=== PATIENT | male | born 1975 | race Caucasian/White ===

== ENCOUNTER 2018-03-05 10:46 | Emergency (ER) | payer MEDICARE, MEDICAID, SELFPAY | END 2018-03-05 17:59 | disposition home or self-care (01) | PROVIDERS: Emergency Provider Internal Medicine; Visit Provider Internal Medicine | DX: J18.9 Pneumonia, unspecified organism (principal); I50.9 Heart failure, unspecified | CPT/HCPCS: 36415; 71020; 71046; 71260; 71275; 81003; 83605; 83735; 83880; 84484; 85025; 85610; 93005; 93010; 94640; 96361; 96374; 96376; 99058; 99285; J1940; J7613 ==

== ENCOUNTER 2018-04-09 14:07 | Emergency (ER) | payer MEDICARE, MEDICAID, SELFPAY ==
[2018-04-09 14:11] VITALS: BP 127/83; PULSE 87; RESP 20; TEMP 36.1; O2SAT 97; BMI 48.8
--- NOTE | 2018-04-09 14:20 | ED.ABDPAIN ---
HPI - Abdominal Pain General Chief Complaint: Abdominal Pain Stated Complaint: CHRONS FLAIR UP,DEHYDRATION Time Seen by Provider: 04/09/18 14:20 History of Present Illness HPI narrative: 42M extensive pmhx. IBD Crohn's; NSTEMI x2, CHF, hypertrophic cardiomyopathy; here for evaluation of possible IBD flare because for last five days patient has been unable to tolerate PO intake. Was placed on liquid only diet by Dr. Camargo. Patient admits to having tried to eat a burrito and some eggs today, and now has significant abdominal pain and vomiting. Also reports 2 episodes of diarrheal incontinence. No fever, chills, SOB, or chest pain. No dysuria. Takes 40mg prednisone and usually takes sulfasalazine, but stopped 3 days prior, citing that he is under the impression that his GI doctor was going to change his medication at the appointment 3 days ago he missed. 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 Also history of appendectomy. PCP Dr. Wiggins in [place] [facility]: GI Dr. Camargo Related Data Home Medications Medication Instructions Recorded Confirmed aripiprazole [Abilify] 10 mg PO QDAY #0 03/05/18 04/09/18 promethazine 25 mg PO Q6HP PRN #0 03/05/18 04/09/18 alprazolam 1 mg PO BID 03/23/18 04/09/18 alprazolam 2 tab PO QHS 03/23/18 04/09/18 budesonide-formoterol [Symbicort] 2 puff INHALATION BID 03/23/18 04/09/18 divalproex 500 mg PO BID 03/23/18 04/09/18 duloxetine 60 mg PO BID 03/23/18 04/09/18 ferrous gluconate 1 tab PO QDAY 03/23/18 04/09/18 fluticasone 1 spray INTRANASAL QDAY 03/23/18 04/09/18 krill oil 1 cap PO QDAY 03/23/18 04/09/18 metoprolol succinate [Toprol XL] 100 mg PO BID 03/23/18 04/09/18 milnacipran [Savella] 50 mg PO QDAY 03/23/18 04/09/18 milnacipran [Savella] 100 mg PO QPM 03/23/18 04/09/18 omeprazole 40 mg PO BID 03/23/18 04/09/18 oxycodone-acetaminophen 1 tab PO PRN PRN 03/23/18 04/09/18 prazosin 2 mg PO QDAY 03/23/18 04/09/18 prazosin 4 mg PO QHS 03/23/18 04/09/18 pregabalin [Lyrica] 300 mg PO BID 03/23/18 04/09/18 ranitidine HCl 150 mg PO BID 03/23/18 04/09/18 sulfasalazine 1,000 mg PO TID 03/23/18 04/09/18 tizanidine 8 mg PO TID PRN 03/23/18 04/09/18 vit C-vit [id number]-3 1 tab PO QDAY 03/23/18 04/09/18 [Ocuvite] zolpidem 5 mg PO QHS 03/23/18 04/09/18 doxepin 25 mg PO QHS 04/09/18 04/09/18 verapamil 60 mg PO DAILY 04/09/18 04/09/18 Previous Rx's Medication Instructions Recorded dicyclomine 20 mg PO Q6H #20 tab 04/09/18 Allergies Allergy/AdvReac Type Severity Reaction Status Date / Time codeine [CODEINE] Allergy Severe ANAPHYLAXIS Verified 03/23/18 11:11 trazodone Allergy Mild DISURIA Verified 04/09/18 14:15 amitriptyline [AMITRIPTYLINE] Allergy Unknown DIZZINESS Verified 03/23/18 11:11 AND UNSTEADYINESS tramadol [From ULTRAM] Allergy Unknown Verified 03/23/18 11:11 bee venom protein (honey bee) Allergy Verified 04/09/18 14:16 squash Allergy Verified 04/09/18 14:16 lisinopril [LISINOPRIL] AdvReac Unknown Verified 03/23/18 11:11 NSAIDS (Non-Steroidal AdvReac Unknown Verified 03/23/18 11:11 Anti-Inflamma [NSAIDS (NON-STEROIDAL ANTI-INFLAMMA] telmisartan [From MICARDIS] AdvReac Unknown Verified 03/23/18 11:11 Review of Systems Constitutional Denies chills, Denies fever(s), Denies lethargy and Denies weakness ENT Ears, Nose, Mouth, and Throat: Denies change in voice, Denies neck pain and Denies sore throat Cardiovascular Denies dyspnea and Denies dyspnea on exertion Respiratory Denies cough, Denies dyspnea, Denies dyspnea on exertion and Denies wheezing Gastrointestinal Gastrointestinal: Reports abdominal pain, Reports diarrhea, Reports nausea and Reports vomiting Genitourinary Denies hematuria, Denies dysuria and Denies flank pain Musculoskeletal Denies neck pain Neurologic Denies weakness Hematologic/Lymphatic Denies easy bruising Allergic/Immunologic Denies wheezing PFSH Medical History Acute Crohn's disease (Acute) Bulging disc (Acute) HTN (hypertension) (Acute) Non-STEMI (non-ST elevated myocardial infarction) (Acute) Osteoarthritis (Acute) Social History Smoking Status: Current every day smoker Exam Initial Vital Signs Initial Vital Signs: Vital Signs Temperature 97 F L 04/09/18 14:11 Pulse Rate 87 04/09/18 14:11 Respiratory Rate 20 04/09/18 14:11 Blood Pressure 127/83 H 04/09/18 14:11 Pulse Oximetry 97 04/09/18 14:11 Const General: cooperative and well developed Nutritional Appearance: well nourished Orientation: alert, awake, oriented x3 and not confused HENHI Head: normocephalic and atraumatic Ears: external ears normal and TM's normal bilaterally Nose: external nose normal and No nasal discharge Face and sinus: sinuses nontender, face symmetric, no sinus tenderness and No dry mucous membranes Mouth: oral mucosae normal and moist mucous membranes Teeth and gingiva: dentition normal Throat: tonsils normal and uvula midline Chest Chest: normal inspection of the chest Cardio Rate: regular rate Rhythm: regular rhythm Heart Sounds: no click, no gallops, no murmurs and no rubs Pulses: normal peripheral pulses GI Inspection: distended, large pannus and obesity (Morbid) Palpation: soft, No guarding, No pulsatile mass and tender (Generalized) Back/Spine/Pelvis Back: normal to inspection and No CVA tenderness Skin General: no rashes or lesions noted, No jaundice and No petechiae Course Orders Ordered: ED Orders 04/09/18 14:07 Comprehensive Metabolic Panel Stat 04/09/18 14:42 CT abdomen pelvis w con Stat 04/09/18 14:55 C-Reactive Protein Quant Stat Complete Blood Count AUTO DIFF Stat Erythrocyte Sedimentation Rate Stat Lactate (Lactic Acid) Stat Lipase Stat Magnesium Stat Troponin with CK Cardiac Panel Stat Discontinued Medications Hyoscyamine (Levbid) 0.375 mg PO BID ONE Stop: 04/09/18 14:38 Last Admin: 04/09/18 15:25 Dose: 0.375 mg Sodium Chloride (Normal Saline 0.9%) 1,000 mls @ 1,000 mls/hr IV BOLUS ONE Stop: 04/09/18 15:34 Last Infusion: 04/09/18 16:30 Dose: 0 mls/hr Admin: 04/09/18 15:25 Dose: 1,000 mls/hr Sodium Chloride (Normal Saline 0.9%) 1,000 mls @ 1,000 mls/hr IV BOLUS ONE Stop: 04/09/18 16:59 Last Admin: 04/09/18 16:30 Dose: 1,000 mls/hr Methylprednisolone (Solu-Medrol 125 Mg Vial) 125 mg IV NOW ONE Stop: 04/09/18 14:43 Last Admin: 04/09/18 15:25 Dose: 125 mg Morphine Sulfate (Morphine) 10 mg IV NOW ONE Stop: 04/09/18 14:36 Last Admin: 04/09/18 15:33 Dose: Morphine Sulfate (Morphine Sulfate) 10 mg IV NOW ONE Stop: 04/09/18 15:31 Last Admin: 04/09/18 15:33 Dose: 10 mg Morphine Sulfate (Morphine) 8 mg IV NOW ONE Stop: 04/09/18 16:41 Last Admin: 04/09/18 16:46 Dose: Not Given Morphine Sulfate (Morphine) 8 mg IV NOW ONE Stop: 04/09/18 16:46 Last Admin: 04/09/18 16:51 Dose: 8 mg Ondansetron HCl (Zofran) 4 mg IV NOW ONE Stop: 04/09/18 14:36 Last Admin: 04/09/18 15:25 Dose: 4 mg Vital Signs - 8 hr 04/09/18 14:11 Temperature 97 F L Pulse Rate 87 Respiratory Rate 20 Blood Pressure 127/83 H Pulse Oximetry 97 MDM - Abdominal Pain Differential Diagnosis Differential diagnosis: Likely abdominal pain (Crohn's flare; colitis), gastroenteritis and small bowel obstruction Lab Data Result diagrams: 04/09/18 14:55 04/09/18 14:07 Lab Results 04/09/18 04/09/18 04/09/18 Range/Units 14:07 14:55 14:55 WBC 5.4 (4.5-11.0) X10^3/uL RBC 4.36 L (4.5-5.9) X10^6/uL Hgb 13.6 (13.5-17.5) g/dL Hct 40.3 L (41-53) % MCV 92.4 (80-100) fL MCH 31.1 (26-34) PG MCHC 33.7 (30-36) % RDW 15.8 H (11.6-14.8) % Plt Count 213 (150-400) X10^3/uL Neut % (Auto) 65.6 (50-75) % Lymph % (Auto) 26.3 (25-40) % [place] % (Auto) 7.1 (3-14) % Eos % (Auto) 0.3 L (2-4) % Baso % (Auto) 0.7 (0-2) % Neut # (Auto) 3600 (7185-0744) /uL ESR 6 (0-15) MM/HR Sodium 146 H (137-145) mmol/L Potassium 3.5 (3.4-5.1) mmol/L Chloride 106.0 (98-107) mmol/L Carbon Dioxide 26.0 (22-32) mmol/L BUN 12.0 (9-20) mg/dL Creatinine 0.80 (0.66-1.25) mg/dL Estimated GFR > 60.0 (>60) mL/min BUN/Creatinine Ratio 15.0 (6-22) Glucose 117 H (70-100) mg/dL Lactate (0.7-2.1) mmol/L Calcium 9.1 (8.4-10.2) mg/dL Magnesium 2.0 (1.6-2.3) mg/dL Total Bilirubin 0.5 (0.2-1.3) mg/dL AST 17 (17-59) IU/L ALT 31 (21-72) IU/L Alkaline Phosphatase 44 (38-126) U/L Total Creatine Kinase 43 L (55-170) U/L Troponin I < 0.012 (0.01-0.034) ng/mL C-Reactive Protein 0.7 (<1.0) mg/dL Total Protein 6.6 (6.3-8.2) g/dL Albumin 4.0 (3.5-5.0) g/dL Globulin 2.6 (1.7-4.1) g/dL Albumin/Globulin Ratio 1.5 (1.0-2.8) Lipase 63 (23-300) U/L Urine Color Urine Appearance Urine pH (4.5-8.0) Ur Specific [place] (1.000-1.035) Urine Protein (Negative) Urine Glucose (UA) (Negative) g/dL Urine Ketones (NEGATIVE) Urine Occult Blood (Negative) Urine Nitrate (Negative) Urine Bilirubin (NEGATIVE) Urine Urobilinogen (0.2) E.U./dL Ur Leukocyte Esterase (NEGATIVE) Urine RBC (0-5/HPF) Urine WBC (0-5/HPF) Urine Bacteria (None) Ur Culture Indicated? Micro UA Comment 04/09/18 04/09/18 Range/Units 14:55 Unknown WBC (4.5-11.0) X10^3/uL RBC (4.5-5.9) X10^6/uL Hgb (13.5-17.5) g/dL Hct (41-53) % MCV (80-100) fL MCH (26-34) PG MCHC (30-36) % RDW (11.6-14.8) % Plt Count (150-400) X10^3/uL Neut % (Auto) (50-75) % Lymph % (Auto) (25-40) % [place] % (Auto) (3-14) % Eos % (Auto) (2-4) % Baso % (Auto) (0-2) % Neut # (Auto) (1121-3246) /uL ESR (0-15) MM/HR Sodium (137-145) mmol/L Potassium (3.4-5.1) mmol/L Chloride (98-107) mmol/L Carbon Dioxide (22-32) mmol/L BUN (9-20) mg/dL Creatinine (0.66-1.25) mg/dL Estimated GFR (>60) mL/min BUN/Creatinine Ratio (6-22) Glucose (70-100) mg/dL Lactate 1.5 (0.7-2.1) mmol/L Calcium (8.4-10.2) mg/dL Magnesium (1.6-2.3) mg/dL Total Bilirubin (0.2-1.3) mg/dL AST (17-59) IU/L ALT (21-72) IU/L Alkaline Phosphatase (38-126) U/L Total Creatine Kinase (55-170) U/L Troponin I (0.01-0.034) ng/mL C-Reactive Protein (<1.0) mg/dL Total Protein (6.3-8.2) g/dL Albumin (3.5-5.0) g/dL Globulin (1.7-4.1) g/dL Albumin/Globulin Ratio (1.0-2.8) Lipase (23-300) U/L Urine Color Yellow Urine Appearance Clear Urine pH 6.5 (4.5-8.0) Ur Specific [place] 1.010 (1.000-1.035) Urine Protein Negative (Negative) Urine Glucose (UA) Negative (Negative) g/dL Urine Ketones Trace H (NEGATIVE) Urine Occult Blood Negative (Negative) Urine Nitrate Negative (Negative) Urine Bilirubin Negative (NEGATIVE) Urine Urobilinogen 0.2 (0.2) E.U./dL Ur Leukocyte Esterase Negative (NEGATIVE) Urine RBC None seen (0-5/HPF) Urine WBC None seen (0-5/HPF) Urine Bacteria None seen (None) Ur Culture Indicated? Cult not indicated Micro UA Comment Microscopic normal Imaging Data CT scan - abdomen: Radiologist's impression: Patient: Edgar Leon [facility]#: [id number] : 1975Acct:[id number] Age/Sex: 42 / MDate of Service: 04/09/18 Loc: ED Accession Number: [id number] Procedure: CT abdomen pelvis w con Ordering Provider: Juanita Pendleton M.D. PROCEDURE: CT ABDOMEN PELVIS W CON INDICATIONS: Generalized abd pain, hx Crohn's TECHNIQUE: After the administration of intravenous contrast, 5 mm thick sections acquired from the diaphragm to the symphysis. 5 mm coronal and sagittal reformats were acquired. For radiation dose reduction, the following was used: automated exposure control, adjustment of mA and/or kV according to patient size. COMPARISON: None. FINDINGS: Image quality: Excellent. ABDOMEN: Lung bases: Lung bases are clear. Heart size is normal. Solid organs: Liver is normal in size and enhancement. Gallbladder demonstrates layering increased density most consistent with gallbladder sludge or tiny cholelithiasis. No CT evidence of acute cholecystitis. Biliary system is non dilated. Pancreas enhances normally. Spleen is normal in size and enhancement. No adrenal nodules. Kidneys demonstrate normal size and enhancement, without hydronephrosis. There is 16mm intermediate density mid right renal nodule (se 2 im 49). Peritoneum and bowel: Mild wall thickening the terminal ileum area no bowel obstruction or perforation. Remaining small bowel is normal. Appendectomy.: And stomach are radiographically normal. Nodes and vessels: No retroperitoneal or mesenteric adenopathy by size criteria. Aorta and inferior vena cava are normal in size. Miscellaneous: No ventral hernias. PELVIS: Genitourinary: Bladder wall thickness is normal. Miscellaneous: No inguinal hernias or adenopathy. Bones: No suspicious bony lesions. No vertebral body compression fractures. IMPRESSION: 1. Mild wall thickening in the terminal ileum. No obstruction or perforation. 2. Gallbladder sludge or cholelithiasis. No CT evidence of acute cholecystitis. 3. Indeterminate right renal nodule. Recommend ultrasound to exclude a solid mass. Dictated by: Gianluca Garrett M.D. on 04/09/2018 at 15:16 Approved by: Gianluca Garrett M.D. on 04/09/2018 at 15:27 MDM Narrative Medical decision making narrative: Patient with possible Crohn's concerned for flare with abdominal pain and diarrhea. Has normal lactate, no acute electrolyte abnormalities, WBC 5.4. Patient condition can still be managed as outpatient with liquid diet. CT abd pelvis negative for acute pathology requiring admission or urgent intervention. Case discussed with Dr. Moreno, regional director of finance for GI Dr. Camargo. States patient does not have definitive diagnosis of Crohn's yet. Has appointment April 19 for follow up. Agrees with plan for discharge with liquid/bland diet. Patient to follow up with GI specialist and PCP Discharge Plan Departure Patient Disposition: Home, Self-Care Clinical Impression: Abdominal pain Instructions: DI for Abdominal Pain-Adult Activity Restrictions/Additional Instructions: Liquid and soft diet until cleared by GI. Follow up on the 19 of April as appointed. Maintain adequate hydration. Prescriptions: New dicyclomine 20 mg tablet 20 mg PO Q6H Qty: 20 RF: 0 No Action promethazine 25 MG tablet 25 mg PO Q6HP PRN (Reason: Nausea) Qty: 0 RF: 0 aripiprazole [Abilify] 10 MG tablet 10 mg PO QDAY Qty: 0 RF: 0 verapamil 120 mg tablet extended release 60 mg PO DAILY RF: 0 doxepin 25 mg capsule 25 mg PO QHS RF: 0 alprazolam 1 mg tablet 1 mg PO BID RF: 0 alprazolam 1 mg Tablet 2 tab PO QHS RF: 0 metoprolol succinate [Toprol XL] 100 mg tablet extended release 24 hr 100 mg PO BID RF: 0 oxycodone-acetaminophen 10-325 mg tablet 1 tab PO PRN PRN (Reason: Pain, Severe) RF: 0 tizanidine 4 mg tablet 8 mg PO TID PRN (Reason: Muscle Spasm) RF: 0 omeprazole 40 mg capsule,delayed release(DR/EC) 40 mg PO BID RF: 0 zolpidem 5 mg tablet 5 mg PO QHS RF: 0 prazosin 2 mg capsule 2 mg PO QDAY RF: 0 prazosin 2 mg Capsule 4 mg PO QHS RF: 0 milnacipran [Savella] 50 mg Tablet 100 mg PO QPM RF: 0 milnacipran [Savella] 50 mg tablet 50 mg PO QDAY RF: 0 sulfasalazine 500 mg tablet 1,000 mg PO TID RF: 0 divalproex 500 mg tablet,delayed release (DR/EC) 500 mg PO BID RF: 0 ranitidine HCl 150 mg tablet 150 mg PO BID RF: 0 fluticasone 50 mcg/actuation spray,suspension 1 spray Intranasal QDAY RF: 0 duloxetine 60 mg capsule,delayed release(DR/EC) 60 mg PO BID RF: 0 pregabalin [Lyrica] 300 mg capsule 300 mg PO BID RF: 0 ferrous gluconate 324 mg (38 mg iron) tablet 1 tab PO QDAY RF: 0 budesonide-formoterol [Symbicort] 160-4.5 mcg/actuation HFA aerosol inhaler 2 puff Inhalation BID RF: 0 vit C-vit [id number]-3 [Ocuvite] 149-70-8-150 bb-[id number]-[id number]-mg Capsule 1 tab PO QDAY RF: 0 krill oil capsule 1 cap PO QDAY RF: 0 Referrals: Kieran Gordillo MD [Non-Staff] -
--- NOTE | 2018-04-09 14:42 | DI.CT.S_ITS ---
PROCEDURE: CT ABDOMEN PELVIS W CON INDICATIONS: Generalized abd pain, hx Crohn's TECHNIQUE: After the administration of intravenous contrast, 5 mm thick sections acquired from the diaphragm to the symphysis. 5 mm coronal and sagittal reformats were acquired. For radiation dose reduction, the following was used: automated exposure control, adjustment of mA and/or kV according to patient size. COMPARISON: None. FINDINGS: Image quality: Excellent. ABDOMEN: Lung bases: Lung bases are clear. Heart size is normal. Solid organs: Liver is normal in size and enhancement. Gallbladder demonstrates layering increased density most consistent with gallbladder sludge or tiny cholelithiasis. No CT evidence of acute cholecystitis. Biliary system is non dilated. Pancreas enhances normally. Spleen is normal in size and enhancement. No adrenal nodules. Kidneys demonstrate normal size and enhancement, without hydronephrosis. There is 16mm intermediate density mid right renal nodule (se 2 im 49). Peritoneum and bowel: Mild wall thickening the terminal ileum area no bowel obstruction or perforation. Remaining small bowel is normal. Appendectomy.: And stomach are radiographically normal. Nodes and vessels: No retroperitoneal or mesenteric adenopathy by size criteria. Aorta and inferior vena cava are normal in size. Miscellaneous: No ventral hernias. PELVIS: Genitourinary: Bladder wall thickness is normal. Miscellaneous: No inguinal hernias or adenopathy. Bones: No suspicious bony lesions. No vertebral body compression fractures. IMPRESSION: 1. Mild wall thickening in the terminal ileum. No obstruction or perforation. 2. Gallbladder sludge or cholelithiasis. No CT evidence of acute cholecystitis. 3. Indeterminate right renal nodule. Recommend ultrasound to exclude a solid mass. Dictated by: Gianluca Garrett M.D. on 04/09/2018 at 15:16 Approved by: Gianluca Garrett M.D. on 04/09/2018 at 15:27
[2018-04-09 15:20] LABS: Add Manual Diff / Slide Review NO; Basophils Percent Auto 0.7 % (0-2); Eosinophils Percent Auto 0.3 % (2-4); Hematocrit 40.3 % (41-53); Hemoglobin 13.6 g/dL (13.5-17.5); Lymphocytes Percent Auto 26.3 % (25-40); Mean Corpuscular HGB Conc 33.7 % (30-36); Mean Corpuscular Hemoglobin 31.1 PG (26-34); Mean Corpuscular Volume 92.4 fL (80-100); Monocytes Percent Auto 7.1 % (3-14); Neutrophils Absolute Auto 3600 /uL (3000-5900); Neutrophils Percent Auto 65.6 % (50-75); Platelet Count 213 X10^3/uL (150-400); Red Blood Cell Count 4.36 X10^6/uL (4.5-5.9); Red Cell Distribution Width 15.8 % (11.6-14.8); White Blood Cell Count 5.4 X10^3/uL (4.5-11.0)
[2018-04-09] MEDS: ONDANSETRON 4 MG/2 ML INJ IV (15:25)
[2018-04-09] MEDS: methylPREDNISolone 125 MG/2 ML VIAL IV (15:25)
[2018-04-09] MEDS: HYOSCYAMINE 0.375 MG PO (15:25)
[2018-04-09] MEDS: SODIUM CHLORIDE 0.9% 1,000 ML 1000 ML IV ×2 (15:25→16:30)
[2018-04-09 15:27] LABS: Lactate (Lactic Acid) 1.5 mmol/L (0.7-2.1)
[2018-04-09 15:30] LABS: C-Reactive Protein Quant 0.7 mg/dL (<1.0); Creatine Kinase 43 U/L (55-170); Lipase 63 U/L (23-300)
[2018-04-09] MEDS: MORPHINE 5 MG/ML INJ 10 MG IV (15:33)
[2018-04-09 15:40] LABS: Troponin I < 0.012 ng/mL (0.01-0.034)
[2018-04-09 15:48] LABS: Alanine Aminotransferase 31 IU/L (21-72); Albumin Globulin Ratio 1.5 (1.0-2.8); Alkaline Phosphatase 44 U/L (38-126); Aspartate Aminotransferase 17 IU/L (17-59); Bilirubin Total 0.5 mg/dL (0.2-1.3); Calcium 9.1 mg/dL (8.4-10.2); Estimated Glomerular Filt Rate > 60.0 mL/min (>60); Globulin 2.6 g/dL (1.7-4.1); Glucose 117 mg/dL (70-100); HEMOLYSIS 22 (0-50); Potassium 3.5 mmol/L (3.4-5.1); Sodium 146 mmol/L (137-145); Total Protein 6.6 g/dL (6.3-8.2)
[2018-04-09 16:42] LABS: Bacteria Urine None Seen; RBC Urine None Seen (0-5/HPF); WBC Urine None Seen (0-5/HPF)
[2018-04-09 16:44] LABS: Appearance Urine UA CLEAR; Bilirubin Urine UA NEGATIVE (NEGATIVE); Color Urine UA YELLOW; Glucose Urine UA NEGATIVE (Negative); Ketones Urine UA TRACE (NEGATIVE); Leukocyte Esterase Urine UA NEGATIVE (NEGATIVE); Nitrite Urine UA Negative (Negative); Occult Blood Urine UA NEGATIVE (Negative); Protein Urine UA NEGATIVE (Negative); Urobilinogen Urine UA 0.2 E.U./dL (0.2); pH Urine UA 6.5 (4.5-8.0)
[2018-04-09] MEDS: MORPHINE 4 MG/ML INJ 8 MG IV (16:51)
[2018-04-09 16:54] LABS: Culture Indicated Urine Cult Not Indicated; Urine Comments Microscopic Normal
[2018-04-09 16:59] LABS: Erythrocyte Sedimentation Rate 6 MM/HR (0-15)
[2018-04-09 18:04] VITALS: BP 141/85; PULSE 67; RESP 15; O2SAT 93
== END 2018-04-09 18:06 | disposition home or self-care (01) ==
PROVIDERS: Emergency Provider Student in an Organized Health Care Education/Training Program
DX: R10.9 Unspecified abdominal pain (principal)
CPT/HCPCS: 36591; 74177; 80053; 81001; 82550; 82553; 83605; 83690; 83735; 84484; 85025; 85651; 86140; 96361; 96374; 96375; 96376; 99283; 99284; J2270; J2405; J2930; Q9967

== ENCOUNTER 2018-04-29 06:46 | Emergency (ER) | payer MEDICARE, MEDICAID, SELFPAY ==
[2018-04-29] VITALS (8 sets, daily range): BP systolic 121–166; BP diastolic 63–98; PULSE 71–96; RESP 10–20; O2SAT 85–100; BMI 48.3
[2018-04-29] MEDS: NITROGLYCERIN 0.4 MG SL TAB SL ×3 (07:00→07:09)
--- NOTE | 2018-04-29 07:02 | DI.RAD.S_ITS ---
PROCEDURE: XR CHEST 1V INDICATIONS: chest pain TECHNIQUE: One view of the chest was acquired. COMPARISON: None. FINDINGS: Surgical changes and devices: Wireless pacer. Lungs and pleura: No pleural effusions or pneumothorax. Lungs are clear. Mediastinum: Mediastinal contours appear normal. Heart size is normal. Bones and chest wall: No suspicious bony lesions. Overlying soft tissues appear unremarkable. IMPRESSION: No radiographic evidence of acute cardiopulmonary pathology. Dictated by: Gianluca Garrett M.D. on 04/29/2018 at 8:16 Approved by: Gianluca Garrett M.D. on 04/29/2018 at 8:16
[2018-04-29] MEDS: ASPIRIN 81 MG TAB 324 MG PO (07:05)
[2018-04-29] MEDS: SODIUM CHLORIDE 0.9% 1,000 ML 150 ML IV (07:11)
[2018-04-29] MEDS: MORPHINE 5 MG/ML INJ 4 MG IV (07:11)
[2018-04-29 07:13] LABS: Add Manual Diff / Slide Review NO; Basophils Percent Auto 1.3 % (0-2); Eosinophils Percent Auto 0.1 % (2-4); Hematocrit 42.9 % (41-53); Hemoglobin 14.4 g/dL (13.5-17.5); Lymphocytes Percent Auto 25.1 % (25-40); Mean Corpuscular HGB Conc 33.5 % (30-36); Mean Corpuscular Hemoglobin 31.1 PG (26-34); Monocytes Percent Auto 6.2 % (3-14); Neutrophils Absolute Auto 6200 /uL (3000-5900); Neutrophils Percent Auto 67.3 % (50-75); Platelet Count 220 X10^3/uL (150-400); Red Blood Cell Count 4.61 X10^6/uL (4.5-5.9); Red Cell Distribution Width 14.9 % (11.6-14.8); White Blood Cell Count 9.2 X10^3/uL (4.5-11.0)
--- NOTE | 2018-04-29 07:19 | DI.RAD.S_ITS ---
PROCEDURE: XR HAND RT MIN 3V INDICATIONS: thumb pain after fall TECHNIQUE: 3 views of the hand(s) acquired. COMPARISON: None. FINDINGS: Bones: No fractures or dislocations. Carpal bones are normally aligned. No suspicious bony lesions. Soft tissues: No suspicious soft tissue calcifications. IMPRESSION: No acute fractures or dislocations. If symptoms persist consider followup radiograph series in 7-10 days. Dictated by: Gianluca Garrett M.D. on 04/29/2018 at 8:18 Approved by: Gianluca Garrett M.D. on 04/29/2018 at 8:19
--- NOTE | 2018-04-29 07:19 | DI.RAD.S_ITS ---
PROCEDURE: XR KNEE RT 3V INDICATIONS: fall down stairs TECHNIQUE: 3 views of the knee were acquired. COMPARISON: [facility], , KNEE 3V RIGHT, 08/29/2017, 22:48. FINDINGS: Bones: No fractures or dislocations. Irregularity and heterotopic bone formation at the medial right femoral condyle. Tricompartmental degenerative change greatest in the lateral and patellofemoral joints. Soft tissues: No joint effusion. No suspicious soft tissue calcifications. IMPRESSION: No acute fractures or dislocations. Degenerative change greatest in the lateral and patellofemoral joints stable since the previous study. Heterotopic ossification arising from the medial epicondyle may be related to previous trauma. An osteochondroma is unlikely. Dictated by: Gianluca Garrett M.D. on 04/29/2018 at 8:16 Approved by: Gianluca Garrett M.D. on 04/29/2018 at 8:18
[2018-04-29] MEDS: PANTOPRAZOLE 40 MG VIAL IV (07:22)
[2018-04-29 07:23] LABS: Alanine Aminotransferase 34 IU/L (21-72); Albumin 4.1 g/dL (3.5-5.0); Albumin Globulin Ratio 1.5 (1.0-2.8); Alkaline Phosphatase 56 U/L (38-126); Aspartate Aminotransferase 17 IU/L (17-59); BUN Creatinine Ratio 25.7 (6-22); Bilirubin Total 0.3 mg/dL (0.2-1.3); Blood Urea Nitrogen 18 mg/dL (9-20); Calcium 9.2 mg/dL (8.4-10.2); Carbon Dioxide 28 mmol/L (22-32); Chloride 104 mmol/L (98-107); Creatine Kinase 58 U/L (55-170); Estimated Glomerular Filt Rate > 60.0 mL/min (>60); Globulin 2.8 g/dL (1.7-4.1); Glucose 87 mg/dL (70-100); HEMOLYSIS 23 (0-50); Lipase 155 U/L (23-300); Sodium 143 mmol/L (137-145); Total Protein 6.9 g/dL (6.3-8.2)
[2018-04-29 07:34] LABS: Troponin I 0.023 ng/mL (0.01-0.034)
--- NOTE | 2018-04-29 07:46 | ED_ITS ---
HPI - Chest Pain General Chief Complaint: Chest Pain Stated Complaint: FELL DOWN STAIRS Time Seen by Provider: 04/29/18 07:11 Source: patient Mode of arrival: ambulatory Limitations: no limitations History of Present Illness HPI narrative: Patient is a 42-year-old male with known coronary artery disease and hypertrophic cardiomyopathy. He initially fell down about 5 or 6 stairs. He landed on his left knee but he says his right knee is hurting the most. He also injured his right thumb. He was driving himself here to the emergency department for evaluation when he has had sudden of epigastric pain which felt similar to his previous heart attacks. He was slightly short of breath but not diaphoretic. He has now had nitroglycerin and is feeling better. He was able to ambulate to the car. MD complaint: chest pain Related Data Home Medications Medication Instructions Recorded Confirmed aripiprazole [Abilify] 10 mg PO QDAY #0 03/05/18 04/29/18 promethazine 25 mg PO Q6HP PRN #0 03/05/18 04/29/18 alprazolam 1 mg PO BID 03/23/18 04/29/18 alprazolam 2 tab PO QHS 03/23/18 04/29/18 budesonide-formoterol [Symbicort] 2 puff INHALATION BID 03/23/18 04/29/18 divalproex 500 mg PO BID 03/23/18 04/29/18 duloxetine 60 mg PO BID 03/23/18 04/29/18 ferrous gluconate 1 tab PO QDAY 03/23/18 04/29/18 fluticasone 1 spray INTRANASAL QDAY 03/23/18 04/29/18 krill oil 1 cap PO QDAY 03/23/18 04/29/18 metoprolol succinate [Toprol XL] 100 mg PO BID 03/23/18 04/29/18 milnacipran [Savella] 50 mg PO QDAY 03/23/18 04/29/18 milnacipran [Savella] 100 mg PO QPM 03/23/18 04/29/18 omeprazole 40 mg PO BID 03/23/18 04/29/18 oxycodone-acetaminophen 1 tab PO PRN PRN 03/23/18 04/29/18 prazosin 2 mg PO QDAY 03/23/18 04/29/18 prazosin 4 mg PO QHS 03/23/18 04/29/18 pregabalin [Lyrica] 300 mg PO BID 03/23/18 04/29/18 ranitidine HCl 150 mg PO BID 03/23/18 04/29/18 sulfasalazine 1,000 mg PO TID 03/23/18 04/29/18 tizanidine 8 mg PO TID PRN 03/23/18 04/29/18 vit C-vit [id number] 1 tab PO QDAY 03/23/18 04/29/18 [Ocuvite] zolpidem 5 mg PO QHS 03/23/18 04/29/18 doxepin 25 mg PO QHS 04/09/18 04/29/18 verapamil 60 mg PO DAILY 04/09/18 04/29/18 dicyclomine 20 mg PO BID 04/29/18 04/29/18 Allergies Allergy/AdvReac Type Severity Reaction Status Date / Time codeine [CODEINE] Allergy Severe ANAPHYLAXIS Verified 03/23/18 11:11 trazodone Allergy Mild DISURIA Verified 04/09/18 14:15 amitriptyline [AMITRIPTYLINE] Allergy Unknown DIZZINESS Verified 03/23/18 11:11 AND UNSTEADYINESS tramadol [From ULTRAM] Allergy Unknown Verified 03/23/18 11:11 bee venom protein (honey bee) Allergy Verified 04/09/18 14:16 squash Allergy Verified 04/09/18 14:16 lisinopril [LISINOPRIL] AdvReac Unknown Verified 03/23/18 11:11 NSAIDS (Non-Steroidal AdvReac Unknown Verified 03/23/18 11:11 Anti-Inflamma [NSAIDS (NON-STEROIDAL ANTI-INFLAMMA] telmisartan [From MICARDIS] AdvReac Unknown Verified 03/23/18 11:11 Review of Systems Review of Systems All systems reviewed & are unremarkable except as noted in HPI and below Constitutional Denies chills, Denies fever(s), Denies lethargy and Denies weakness Cardiovascular Reports as per HPI, Reports system reviewed and no additional complaints, except as docu, Reports chest pain, Denies dyspnea and Denies dyspnea on exertion Respiratory Denies cough, Denies dyspnea, Denies dyspnea on exertion and Denies wheezing Gastrointestinal Gastrointestinal: Denies diarrhea and Denies nausea Comments: Epigastric pain Musculoskeletal Reports system reviewed and no additional complaints, except as docu, Reports as per HPI, Denies abnormal gait, Denies back pain, Denies muscle weakness, Denies numbness and Denies tingling Comments: Right knee pain, right thumb pain Integumentary/Breasts Denies pruritus, Denies erythema, Denies rash and Denies wounds Neurologic Denies abnormal gait, Denies numbness, Denies tingling and Denies weakness Allergic/Immunologic Denies wheezing [facility] Medical History Acute Crohn's disease (Acute) Bulging disc (Acute) HTN (hypertension) (Acute) Non-STEMI (non-ST elevated myocardial infarction) (Acute) Osteoarthritis (Acute) Social History Smoking Status: Current every day smoker Exam Initial Vital Signs Initial Vital Signs: Vital Signs Pulse Rate 85 04/29/18 06:54 Respiratory Rate 20 04/29/18 06:54 Blood Pressure 149/89 H 04/29/18 06:54 Pulse Oximetry 93 04/29/18 06:54 Const General: cooperative and well developed Nutritional Appearance: obese Orientation: alert, awake, oriented x3 and not confused Chest Chest: normal inspection of the chest Resp Effort & Inspection: normal respiratory effort, able to speak in complete sentences, no respiratory distress and no use of accessory muscles Auscultation: clear to auscultation bilaterally, no rales, no rhonchi and no wheezes Cardio Rate: regular rate Rhythm: regular rhythm Heart Sounds: no click, no gallops, no murmurs and no rubs Pulses: normal peripheral pulses GI Palpation: soft, No guarding and tender Skin General: no rashes or lesions noted, No jaundice and No petechiae Neuro General: alert, oriented x3, gait normal and no focal motor deficits Speech: speech normal Extrem Right lower extremity: hip/thigh (Nontender full range of motion) and knee ( Knee is stable negative anterior and negative posterior drawer) Left lower extremity: hip/thigh (Nontender full range of motion) and knee ( Minor abrasion full range of motion stable) Course Orders Ordered: ED Orders 04/29/18 10:05 Troponin I Stat 04/29/18 10:43 EKG-12 Lead Stat Discontinued Medications Aspirin (Aspirin Chew) 324 mg PO NOW ONE Stop: 04/29/18 07:03 Last Admin: 04/29/18 07:05 Dose: 324 mg Sodium Chloride (Normal Saline 0.9%) 1,000 mls @ 150 mls/hr IV CONT ALEX Last Infusion: 04/29/18 11:28 Dose: 150 mls/hr Admin: 04/29/18 07:11 Dose: 150 mls/hr Morphine Sulfate (Morphine Sulfate) 4 mg IV NOW ONE Stop: 04/29/18 07:11 Last Admin: 04/29/18 07:11 Dose: 4 mg Nitroglycerin (Nitrostat) 0.4 mg SL [id number] PRN PRN Reason: Chest Pain Last Admin: 04/29/18 07:09 Dose: 0.4 mg Admin: 04/29/18 07:05 Dose: 0.4 mg Admin: 04/29/18 07:00 Dose: 0.4 mg Pantoprazole Sodium (Protonix) 40 mg IV NOW ONE Stop: 04/29/18 07:21 Last Admin: 04/29/18 07:22 Dose: 40 mg Reevaluation(s) Reevaluation #1: Sleeping, resting comfortably, chest pain-free Time: 08:52 Vital Signs - 8 hr 04/29/18 10:36 04/29/18 11:00 Pulse Rate 82 85 Respiratory Rate 15 15 Blood Pressure [Right Arm] 154/93 H 166/87 H Pulse Oximetry 100 99 MDM - Chest Pain Lab Data Attestation: I reviewed the patient's lab results. Result diagrams: 04/29/18 06:57 04/29/18 06:57 Lab Results 04/29/18 04/29/18 04/29/18 Range/Units 06:57 06:57 06:57 WBC 9.2 (4.5-11.0) X10^3/uL RBC 4.61 (4.5-5.9) X10^6/uL Hgb 14.4 (13.5-17.5) g/dL Hct 42.9 (41-53) % MCV 93.0 (80-100) fL MCH 31.1 (26-34) PG MCHC 33.5 (30-36) % RDW 14.9 H (11.6-14.8) % Plt Count 220 (150-400) X10^3/uL Neut % (Auto) 67.3 (50-75) % Lymph % (Auto) 25.1 (25-40) % Pleasants % (Auto) 6.2 (3-14) % Eos % (Auto) 0.1 L (2-4) % Baso % (Auto) 1.3 (0-2) % Neut # (Auto) 6200 H (3417-1006) /uL D-Dimer 224 (<230) ng/mL Sodium 143 (137-145) mmol/L Potassium 4.0 (3.4-5.1) mmol/L Chloride 104 (98-107) mmol/L Carbon Dioxide 28 (22-32) mmol/L BUN 18 (9-20) mg/dL Creatinine 0.70 (0.66-1.25) mg/dL Estimated GFR > 60.0 (>60) mL/min BUN/Creatinine Ratio 25.7 H (6-22) Glucose 87 (70-100) mg/dL Calcium 9.2 (8.4-10.2) mg/dL Total Bilirubin 0.3 (0.2-1.3) mg/dL AST 17 (17-59) IU/L ALT 34 (21-72) IU/L Alkaline Phosphatase 56 (38-126) U/L Total Creatine Kinase 58 (55-170) U/L Troponin I 0.023 (0.01-0.034) ng/mL Total Protein 6.9 (6.3-8.2) g/dL Albumin 4.1 (3.5-5.0) g/dL Globulin 2.8 (1.7-4.1) g/dL Albumin/Globulin Ratio 1.5 (1.0-2.8) Lipase 155 (23-300) U/L 04/29/18 04/29/18 Range/Units 06:57 10:05 WBC (4.5-11.0) X10^3/uL RBC (4.5-5.9) X10^6/uL Hgb (13.5-17.5) g/dL Hct (41-53) % MCV (80-100) fL MCH (26-34) PG MCHC (30-36) % RDW (11.6-14.8) % Plt Count (150-400) X10^3/uL Neut % (Auto) (50-75) % Lymph % (Auto) (25-40) % Pleas[place] % (Auto) (3-14) % Eos % (Auto) (2-4) % Baso % (Auto) (0-2) % Neut # (Auto) (6383-0707) /uL D-Dimer (<230) ng/mL Sodium (137-145) mmol/L Potassium (3.4-5.1) mmol/L Chloride (98-107) mmol/L Carbon Dioxide (22-32) mmol/L BUN (9-20) mg/dL Creatinine (0.66-1.25) mg/dL Estimated GFR (>60) mL/min BUN/Creatinine Ratio (6-22) Glucose (70-100) mg/dL Calcium (8.4-10.2) mg/dL Total Bilirubin (0.2-1.3) mg/dL AST (17-59) IU/L ALT (21-72) IU/L Alkaline Phosphatase (38-126) U/L Total Creatine Kinase (55-170) U/L Troponin I Cancelled 0.023 (0.01-0.034) ng/mL Total Protein (6.3-8.2) g/dL Albumin (3.5-5.0) g/dL Globulin (1.7-4.1) g/dL Albumin/Globulin Ratio (1.0-2.8) Lipase (23-300) U/L Imaging Data Chest x-ray: Radiologist's impression: PROCEDURE: XR CHEST 1V INDICATIONS: chest pain TECHNIQUE: One view of the chest was acquired. COMPARISON: None. FINDINGS: Surgical changes and devices: Wireless pacer. Lungs and pleura: No pleural effusions or pneumothorax. Lungs are clear. Mediastinum: Mediastinal contours appear normal. Heart size is normal. Bones and chest wall: No suspicious bony lesions. Overlying soft tissues appear unremarkable. IMPRESSION: No radiographic evidence of acute cardiopulmonary pathology. Right knee x-ray: Radiologist's impression: PROCEDURE: XR KNEE RT 3V INDICATIONS: fall down stairs TECHNIQUE: 3 views of the knee were acquired. COMPARISON: [facility], , KNEE 3V RIGHT, 08/29/2017, 22:48. FINDINGS: Bones: No fractures or dislocations. Irregularity and heterotopic bone formation at the medial right femoral condyle. Tricompartmental degenerative change greatest in the lateral and patellofemoral joints. Soft tissues: No joint effusion. No suspicious soft tissue calcifications. IMPRESSION: No acute fractures or dislocations. Degenerative change greatest in the lateral and patellofemoral joints stable since the previous study. Heterotopic ossification arising from the medial epicondyle may be related to previous trauma. An osteochondroma is unlikely. Dictated by: Gianluca Garrett M.D. on 04/29/2018 at 8:16 Right hand x-ray: Radiologist's impression: PROCEDURE: XR HAND RT MIN 3V INDICATIONS: thumb pain after fall TECHNIQUE: 3 views of the hand(s) acquired. COMPARISON: None. FINDINGS: Bones: No fractures or dislocations. Carpal bones are normally aligned. No suspicious bony lesions. Soft tissues: No suspicious soft tissue calcifications. IMPRESSION: No acute fractures or dislocations. If symptoms persist consider followup radiograph series in 7-10 days. Dictated by: Gianluca Garrett M.D. on 04/29/2018 at 8:18 ECG Data Attestation: I personally reviewed and interpreted this ECG as follows: Prior ECG tracings: available for review Interpretation: Normal sinus rhythm rate 82 with deep T-wave inversions similar to previous no acute ST changes. EKG 2. Remains unchanged, sinus rhythm rate [address] segments or T- wave inversions MDM Narrative Medical decision making narrative: Patient has been sleeping off and has not had any recurrence of chest pain since he got morphine. He says the morphine took away pain completely. But initially came in with knee pain and wrist pain after a fall. He is now more interested in getting to [place] tomorrow for his chronic pain appointment. He has 2 sets of troponins which are negative and no EKG changes. Discharge Plan Departure Patient Disposition: Home, Self-Care Clinical Impression: Atypical chest pain, Knee sprain, Sprain of wrist Discharge Date/Time: 04/29/18 11:39 Interventions: ED Discharge Assessment Last Done: 04/29/18 11:29 Instructions: DI for Knee Sprain, DI for Atypical Chest Pain Activity Restrictions/Additional Instructions: *You have been diagnosed with atypical chest pain number right knee sprain and right wrist sprain *What to do: Wear immobilizer is as needed increase activity as tolerated, may still require further cardiac evaluation. 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, call today to schedule point *Return to ER if you should have increasing chest pain, numbness or tingling or any new, worsening or concerning symptoms Prescriptions: No Action promethazine 25 MG tablet 25 mg PO Q6HP PRN (Reason: Nausea) Qty: 0 RF: 0 aripiprazole [Abilify] 10 MG tablet 10 mg PO QDAY Qty: 0 RF: 0 verapamil 120 mg tablet extended release 60 mg PO DAILY RF: 0 doxepin 25 mg capsule 25 mg PO QHS RF: 0 alprazolam 1 mg tablet 1 mg PO BID RF: 0 alprazolam 1 mg Tablet 2 tab PO QHS RF: 0 metoprolol succinate [Toprol XL] 100 mg tablet extended release 24 hr 100 mg PO BID RF: 0 oxycodone-acetaminophen 10-325 mg tablet 1 tab PO PRN PRN (Reason: Pain, Severe) RF: 0 tizanidine 4 mg tablet 8 mg PO TID PRN (Reason: Muscle Spasm) RF: 0 omeprazole 40 mg capsule,delayed release(DR/EC) 40 mg PO BID RF: 0 zolpidem 5 mg tablet 5 mg PO QHS RF: 0 prazosin 2 mg capsule 2 mg PO QDAY RF: 0 prazosin 2 mg Capsule 4 mg PO QHS RF: 0 milnacipran [Savella] 50 mg Tablet 100 mg PO QPM RF: 0 milnacipran [Savella] 50 mg tablet 50 mg PO QDAY RF: 0 sulfasalazine 500 mg tablet 1,000 mg PO TID RF: 0 divalproex 500 mg tablet,delayed release (DR/EC) 500 mg PO BID RF: 0 ranitidine HCl 150 mg tablet 150 mg PO BID RF: 0 fluticasone 50 mcg/actuation spray,suspension 1 spray Intranasal QDAY RF: 0 duloxetine 60 mg capsule,delayed release(DR/EC) 60 mg PO BID RF: 0 pregabalin [Lyrica] 300 mg capsule 300 mg PO BID RF: 0 ferrous gluconate 324 mg (38 mg iron) tablet 1 tab PO QDAY RF: 0 budesonide-formoterol [Symbicort] 160-4.5 mcg/actuation HFA aerosol inhaler 2 puff Inhalation BID RF: 0 vit C-vit [id number] [Ocuvite] [id number] we-maoa-as-mg Capsule 1 tab PO QDAY RF: 0 krill oil capsule 1 cap PO QDAY RF: 0 dicyclomine 20 mg tablet 20 mg PO BID RF: 0
[2018-04-29 07:55] LABS: D Dimer 224 ng/mL (<230)
--- NOTE | 2018-04-29 08:13 | PC.NURSE ---
Nurse & Doctor said to put patient on nasal cannula @2L
[2018-04-29 10:39] LABS: Troponin I 0.023 ng/mL (0.01-0.034)
== END 2018-04-29 11:39 | disposition home or self-care (01) ==
PROVIDERS: Emergency Provider Emergency Medicine
DX: R07.89 Other chest pain (principal); S83.91XA Sprain of unspecified site of right knee, initial encounter; S63.501A Unspecified sprain of right wrist, initial encounter; W10.8XXA Fall (on) (from) other stairs and steps, initial encounter
CPT/HCPCS: 36415; 36591; 71045; 73130; 73562; 80053; 82550; 82553; 83690; 84484; 85025; 85379; 93005; 93041; 96361; 96374; 96375; 99285; C9113; J2270

== ENCOUNTER 2018-04-30 16:48 | Emergency (ER) | payer MEDICARE, MEDICAID, SELFPAY ==
--- NOTE | 2018-04-30 17:04 | ED.ABDPAIN ---
HPI - Abdominal Pain <Marie Amaral PA-C - Last Filed: 04/30/18 20:25> General Chief Complaint: GI Bleed Stated Complaint: BLOOD IN STOOL AND PRESSURE Time Seen by Provider: 04/30/18 16:59 Source: patient Mode of arrival: ambulatory Limitations: no limitations History of Present Illness HPI narrative: This 42-year-old male returns to the ED today due to rectal bleeding about 90 min prior to arriving. He states that he has a history of Crohn's disease and has had ongoing abdominal cramping and distention for several months. He was actually supposed to start Lialda a few days ago but did not start this yet. He has a colonoscopy scheduled next month. He states that he has been also having intermittent diarrhea, but for the last couple of days has been constipated. He had a bowel movement and noticed blood in the toilet and on the toilet paper. He states this was quite a bit of blood, not sure what color. He did not see this mixed in with the stool. He states he has a sensation of rectal pressure. He has been going about his usual activities today including driving to [place] to see his chronic pain specialist. He has been sitting all day. He states there is no change in his chronic abdominal pain at all. He denies any nausea or vomiting. He has not had any new fever. He denies new chest pain or dyspnea today and has been eating and drinking as he usually does. Related Data Home Medications Medication Instructions Recorded Confirmed aripiprazole [Abilify] 10 mg PO QDAY #0 03/05/18 04/30/18 promethazine 25 mg PO Q6HP PRN #0 03/05/18 04/30/18 alprazolam 1 mg PO BID 03/23/18 04/30/18 alprazolam 2 tab PO QHS 03/23/18 04/30/18 budesonide-formoterol [Symbicort] 2 puff INHALATION BID 03/23/18 04/30/18 divalproex 500 mg PO BID 03/23/18 04/30/18 duloxetine 60 mg PO BID 03/23/18 04/30/18 ferrous gluconate 1 tab PO QDAY 03/23/18 04/30/18 fluticasone 1 spray INTRANASAL QDAY 03/23/18 04/30/18 krill oil 1 cap PO QDAY 03/23/18 04/30/18 metoprolol succinate [Toprol XL] 100 mg PO BID 03/23/18 04/30/18 milnacipran [Savella] 50 mg PO QDAY 03/23/18 04/30/18 milnacipran [Savella] 100 mg PO QPM 03/23/18 04/30/18 omeprazole 40 mg PO BID 03/23/18 04/30/18 oxycodone-acetaminophen 1 tab PO PRN PRN 03/23/18 04/30/18 prazosin 2 mg PO QDAY 03/23/18 04/30/18 prazosin 4 mg PO QHS 03/23/18 04/30/18 pregabalin [Lyrica] 300 mg PO BID 03/23/18 04/30/18 ranitidine HCl 150 mg PO BID 03/23/18 04/30/18 sulfasalazine 1,000 mg PO TID 03/23/18 04/30/18 tizanidine 8 mg PO TID PRN 03/23/18 04/30/18 vit C-vit O-xipxok-zdd-om-3 1 tab PO QDAY 03/23/18 04/30/18 [Ocuvite] zolpidem 5 mg PO QHS 03/23/18 04/30/18 doxepin 25 mg PO QHS 04/09/18 04/30/18 verapamil 60 mg PO DAILY 04/09/18 04/30/18 dicyclomine 20 mg PO BID PRN 04/29/18 04/30/18 eszopiclone 3 mg PO BEDTIME PRN 04/30/18 04/30/18 mesalamine 4 tab PO QAM 04/30/18 04/30/18 prednisone 1 dose PO TAPER 04/30/18 04/30/18 Previous Rx's Medication Instructions Recorded prednisone 40 mg PO DAILY #14 tab 04/30/18 Allergies Allergy/AdvReac Type Severity Reaction Status Date / Time codeine [CODEINE] Allergy Severe ANAPHYLAXIS Verified 04/30/18 17:18 trazodone Allergy Mild DISURIA Verified 04/30/18 17:18 amitriptyline [AMITRIPTYLINE] Allergy Unknown DIZZINESS Verified 04/30/18 17:18 AND UNSTEADYINESS tramadol [From ULTRAM] Allergy Unknown Verified 04/30/18 17:18 bee venom protein (honey bee) Allergy Verified 04/30/18 17:18 squash Allergy Verified 04/30/18 17:18 lisinopril [LISINOPRIL] AdvReac Unknown Verified 04/30/18 17:18 NSAIDS (Non-Steroidal AdvReac Unknown Verified 04/30/18 17:18 Anti-Inflamma [NSAIDS (NON-STEROIDAL ANTI-INFLAMMA] telmisartan [From MICARDIS] AdvReac Unknown Verified 04/30/18 17:18 Review of Systems <Marie Amaral PA-C - Last Filed: 04/30/18 20:25> Review of Systems All systems reviewed & are unremarkable except as noted in HPI and below Exam <Marie Amaral PA-C - Last Filed: 04/30/18 20:25> Narrative Exam Narrative: GENERAL APPEARANCE: Patient sitting comfortably, in no distress. HEENT: PERRL, EOMI, no scleral icterus NECK: Supple LUNGS: Clear to auscultation bilaterally. HEART: Rate and rhythm regular, normal S1 and S2, no S3 or S4. ABDOMEN: Soft, obese, nondistended, bowel sounds present x 4 quadrants, no masses palpable, no hepatosplenomegaly. Mild generalized tenderness to palpation without guarding or rebound EXTREMITIES: No edema, no cyanosis DERMATOLOGIC: No jaundice or exanthem NEUROLOGIC: Alert and oriented with normal speech and coordination RECTAL: There is a small tag at 12 o'clock, no other external lesions or hemorrhoids. No palpable internal lesions. Normal sphincter tone. Brown stool in vault guaiac-positive Initial Vital Signs Initial Vital Signs: Vital Signs Temperature 98.3 F 04/30/18 17:05 Pulse Rate 98 H 04/30/18 17:05 Respiratory Rate 16 04/30/18 17:05 Blood Pressure 161/91 H 04/30/18 17:05 Pulse Oximetry 98 04/30/18 17:05 <Gini Gaines DO - Last Filed: 05/01/18 08:54> Initial Vital Signs Initial Vital Signs: Vital Signs Temperature 98.3 F 04/30/18 17:05 Pulse Rate 98 H 04/30/18 17:05 Respiratory Rate 16 04/30/18 17:05 Blood Pressure 161/91 H 04/30/18 17:05 Pulse Oximetry 98 04/30/18 17:05 Course <Marie Amaral PA-C - Last Filed: 04/30/18 20:25> Hospital Course: I reviewed patient's findings with Dr. Gaines. Patient was supposed to start Lialda and stop Sulfasalazine a few days ago, but he has not started the Lialda yet. He has also been tapering prednisone, decreased to 20 mg 2 days ago. This correlates time kruse with his symptoms. She agrees reasonable to treat for Crohn's exacerbation. Advised to restart 40 mg of prednisone over the weekend and contact his GI tomorrow if open or otherwise on Thursday for further instructions, also start the Lialda as directed. He was agreeable and also with plan to return if acutely worse in the interim. Orders Ordered: Discontinued Medications Oxycodone/Acetaminophen (Percocet 5/325) 1 tab PO NOW ONE Stop: 04/30/18 17:23 Last Admin: 04/30/18 17:47 Dose: 1 tab Pantoprazole Sodium (Protonix) 40 mg IV NOW ONE Stop: 04/30/18 17:22 Last Admin: 04/30/18 17:47 Dose: 40 mg Vital Signs - 8 hr 04/30/18 17:05 Temperature 98.3 F Pulse Rate 98 H Respiratory Rate 16 Blood Pressure 161/91 H Pulse Oximetry 98 <Gini Gaines DO - Last Filed: 05/01/18 08:54> Orders Ordered: Discontinued Medications Oxycodone/Acetaminophen (Percocet 5/325) 1 tab PO NOW ONE Stop: 04/30/18 17:23 Last Admin: 04/30/18 17:47 Dose: 1 tab Pantoprazole Sodium (Protonix) 40 mg IV NOW ONE Stop: 04/30/18 17:22 Last Admin: 04/30/18 17:47 Dose: 40 mg Vital Signs - 8 hr 04/30/18 17:05 Temperature 98.3 F Pulse Rate 98 H Respiratory Rate 16 Blood Pressure 161/91 H Pulse Oximetry 98 MDM - Abdominal Pain <Marie Amaral PA-C - Last Filed: 04/30/18 20:25> Lab Data Attestation: I reviewed the patient's lab results. Result diagrams: 04/30/18 17:30 04/30/18 17:30 Lab Results 04/30/18 04/30/18 04/30/18 Range/Units 17:30 17:30 17:30 WBC 8.0 (4.5-11.0) X10^3/uL RBC 4.69 (4.5-5.9) X10^6/uL Hgb 14.7 (13.5-17.5) g/dL Hct 43.7 (41-53) % MCV 93.0 (80-100) fL MCH 31.3 (26-34) PG MCHC 33.7 (30-36) % RDW 14.7 (11.6-14.8) % Plt Count 221 (150-400) X10^3/uL Neut % (Auto) 68.3 (50-75) % Lymph % (Auto) 22.6 L (25-40) % [place] % (Auto) 7.8 (3-14) % Eos % (Auto) 0.3 L (2-4) % Baso % (Auto) 1.0 (0-2) % Neut # (Auto) 5400 (4467-1615) /uL Sodium 143 (137-145) mmol/L Potassium 4.0 (3.4-5.1) mmol/L Chloride 103 (98-107) mmol/L Carbon Dioxide 27 (22-32) mmol/L BUN 15 (9-20) mg/dL Creatinine 0.70 (0.66-1.25) mg/dL Estimated GFR > 60.0 (>60) mL/min BUN/Creatinine Ratio 21.4 (6-22) Glucose 124 H (70-100) mg/dL Calcium 9.3 (8.4-10.2) mg/dL Total Bilirubin 0.4 (0.2-1.3) mg/dL AST 19 (17-59) IU/L ALT 36 (21-72) IU/L Alkaline Phosphatase 60 (38-126) U/L Total Protein 7.1 (6.3-8.2) g/dL Albumin 4.2 (3.5-5.0) g/dL Globulin 2.9 (1.7-4.1) g/dL Albumin/Globulin Ratio 1.4 (1.0-2.8) Lipase 128 (23-300) U/L Blood Type O Positive Antibody Screen Negative <Gini Botnick, DO - Last Filed: 05/01/18 08:54> Lab Data Lab Results 04/30/18 04/30/18 04/30/18 Range/Units 17:30 17:30 17:30 WBC 8.0 (4.5-11.0) X10^3/uL RBC 4.69 (4.5-5.9) X10^6/uL Hgb 14.7 (13.5-17.5) g/dL Hct 43.7 (41-53) % MCV 93.0 (80-100) fL MCH 31.3 (26-34) PG MCHC 33.7 (30-36) % RDW 14.7 (11.6-14.8) % Plt Count 221 (150-400) X10^3/uL Neut % (Auto) 68.3 (50-75) % Lymph % (Auto) 22.6 L (25-40) % Stark % (Auto) 7.8 (3-14) % Eos % (Auto) 0.3 L (2-4) % Baso % (Auto) 1.0 (0-2) % Neut # (Auto) 5400 (0821-6349) /uL Sodium 143 (137-145) mmol/L Potassium 4.0 (3.4-5.1) mmol/L Chloride 103 (98-107) mmol/L Carbon Dioxide 27 (22-32) mmol/L BUN 15 (9-20) mg/dL Creatinine 0.70 (0.66-1.25) mg/dL Estimated GFR > 60.0 (>60) mL/min BUN/Creatinine Ratio 21.4 (6-22) Glucose 124 H (70-100) mg/dL Calcium 9.3 (8.4-10.2) mg/dL Total Bilirubin 0.4 (0.2-1.3) mg/dL AST 19 (17-59) IU/L ALT 36 (21-72) IU/L Alkaline Phosphatase 60 (38-126) U/L Total Protein 7.1 (6.3-8.2) g/dL Albumin 4.2 (3.5-5.0) g/dL Globulin 2.9 (1.7-4.1) g/dL Albumin/Globulin Ratio 1.4 (1.0-2.8) Lipase 128 (23-300) U/L Blood Type O Positive Antibody Screen Negative Discharge Plan Departure Patient Disposition: Home, Self-Care Clinical Impression: Exacerbation of Crohn's disease Discharge Date/Time: 04/30/18 19:35 Interventions: ED Discharge Assessment Last Done: 04/30/18 19:34 Instructions: DI for Crohn's Disease Flare Activity Restrictions/Additional Instructions: Please start your Lialda as you were advised by your dipping machine operator. It is more likely to give you a remission from Crohn's disease than your previous medication. For this weekend, increase your prednisone back to 40 mg daily, and contact your dipping machine operator tomorrow if open, otherwise Thursday for follow-up and further instructions. Return as we talked about if any acutely worsening symptoms Prescriptions: New prednisone 20 mg tablet 40 mg PO DAILY Qty: 14 RF: 0 No Action promethazine 25 MG tablet 25 mg PO Q6HP PRN (Reason: Nausea) Qty: 0 RF: 0 aripiprazole [Abilify] 10 MG tablet 10 mg PO QDAY Qty: 0 RF: 0 verapamil 120 mg tablet extended release 60 mg PO DAILY RF: 0 doxepin 25 mg capsule 25 mg PO QHS RF: 0 eszopiclone 3 mg tablet 3 mg PO BEDTIME PRN (Reason: Insomnia) RF: 0 mesalamine 1.2 gram tablet,delayed release (DR/EC) 4 tab PO QAM RF: 0 prednisone 10 mg tablet 1 dose PO TAPER RF: 0 alprazolam 1 mg tablet 1 mg PO BID RF: 0 alprazolam 1 mg Tablet 2 tab PO QHS RF: 0 metoprolol succinate [Toprol XL] 100 mg tablet extended release 24 hr 100 mg PO BID RF: 0 oxycodone-acetaminophen 10-325 mg tablet 1 tab PO PRN PRN (Reason: Pain, Severe) RF: 0 tizanidine 4 mg tablet 8 mg PO TID PRN (Reason: Muscle Spasm) RF: 0 omeprazole 40 mg capsule,delayed release(DR/EC) 40 mg PO BID RF: 0 zolpidem 5 mg tablet 5 mg PO QHS RF: 0 prazosin 2 mg capsule 2 mg PO QDAY RF: 0 prazosin 2 mg Capsule 4 mg PO QHS RF: 0 milnacipran [Savella] 50 mg Tablet 100 mg PO QPM RF: 0 milnacipran [Savella] 50 mg tablet 50 mg PO QDAY RF: 0 sulfasalazine 500 mg tablet 1,000 mg PO TID RF: 0 divalproex 500 mg tablet,delayed release (DR/EC) 500 mg PO BID RF: 0 ranitidine HCl 150 mg tablet 150 mg PO BID RF: 0 fluticasone 50 mcg/actuation spray,suspension 1 spray Intranasal QDAY RF: 0 duloxetine 60 mg capsule,delayed release(DR/EC) 60 mg PO BID RF: 0 pregabalin [Lyrica] 300 mg capsule 300 mg PO BID RF: 0 ferrous gluconate 324 mg (38 mg iron) tablet 1 tab PO QDAY RF: 0 budesonide-formoterol [Symbicort] 160-4.5 mcg/actuation HFA aerosol inhaler 2 puff Inhalation BID RF: 0 vit C-vit O-ugymhb-ytl-om-3 [Ocuvite] 755-16-4-150 zx-zspw-ua-mg Capsule 1 tab PO QDAY RF: 0 krill oil capsule 1 cap PO QDAY RF: 0 dicyclomine 20 mg tablet 20 mg PO BID PRN (Reason: Abdominal Pain) RF: 0 Referrals: Stacy Collier MD [Non-Staff] - Kieran Gordillo MD [Non-Staff] - <Gini Gaines DO - Last Filed: 05/01/18 08:54> Cosign ED Attending Coslexieature Attestation: I was immediately available in the department for consultation. Documentation has been reviewed. I agree with assessment and plan.
[2018-04-30 17:05] VITALS: BP 161/91; PULSE 98; RESP 16; TEMP 36.8; O2SAT 98
[2018-04-30 17:44] LABS: Add Manual Diff / Slide Review NO; Eosinophils Percent Auto 0.3 % (2-4); Hematocrit 43.7 % (41-53); Hemoglobin 14.7 g/dL (13.5-17.5); Lymphocytes Percent Auto 22.6 % (25-40); Mean Corpuscular HGB Conc 33.7 % (30-36); Mean Corpuscular Hemoglobin 31.3 PG (26-34); Monocytes Percent Auto 7.8 % (3-14); Neutrophils Absolute Auto 5400 /uL (3000-5900); Neutrophils Percent Auto 68.3 % (50-75); Platelet Count 221 X10^3/uL (150-400); Red Blood Cell Count 4.69 X10^6/uL (4.5-5.9); Red Cell Distribution Width 14.7 % (11.6-14.8)
[2018-04-30] MEDS: PANTOPRAZOLE 40 MG VIAL IV (17:47)
[2018-04-30] MEDS: OXYCODONE/ACETAMINOPHEN 5/325 TABLET 1 TAB PO (17:47)
[2018-04-30 18:00] LABS: Alanine Aminotransferase 36 IU/L (21-72); Albumin 4.2 g/dL (3.5-5.0); Albumin Globulin Ratio 1.4 (1.0-2.8); Alkaline Phosphatase 60 U/L (38-126); Aspartate Aminotransferase 19 IU/L (17-59); BUN Creatinine Ratio 21.4 (6-22); Bilirubin Total 0.4 mg/dL (0.2-1.3); Blood Urea Nitrogen 15 mg/dL (9-20); Calcium 9.3 mg/dL (8.4-10.2); Carbon Dioxide 27 mmol/L (22-32); Chloride 103 mmol/L (98-107); Estimated Glomerular Filt Rate > 60.0 mL/min (>60); Globulin 2.9 g/dL (1.7-4.1); Glucose 124 mg/dL (70-100); HEMOLYSIS 19 (0-50); Lipase 128 U/L (23-300); Sodium 143 mmol/L (137-145); Total Protein 7.1 g/dL (6.3-8.2)
== END 2018-04-30 19:35 | disposition home or self-care (01) ==
PROVIDERS: Emergency Provider Internal Medicine
DX: K50.90 Crohn's disease, unspecified, without complications (principal)
CPT/HCPCS: 36591; 80053; 83690; 85025; 86850; 86900; 86901; 96374; 99282; 99284; C9113

== ENCOUNTER 2018-05-04 07:50 | Emergency (ER) | payer MEDICARE, MEDICAID, SELFPAY ==
[2018-05-04 08:06] VITALS: BP 168/101; PULSE 88; RESP 16; TEMP 35.9; O2SAT 98; BMI 48.3
[2018-05-04] MEDS: PANTOPRAZOLE 40 MG VIAL IV (09:03)
[2018-05-04] MEDS: KETAMINE 500 MG/10 ML INJ 14.4242 MG IV (09:04)
[2018-05-04 09:13] LABS: Add Manual Diff / Slide Review NO; Basophils Percent Auto 0.8 % (0-2); Eosinophils Percent Auto 0.3 % (2-4); Hematocrit 42.5 % (41-53); Lymphocytes Percent Auto 10.1 % (25-40); Mean Corpuscular Hemoglobin 30.9 PG (26-34); Mean Corpuscular Volume 93.6 fL (80-100); Monocytes Percent Auto 6.7 % (3-14); Neutrophils Absolute Auto 10700 /uL (3000-5900); Neutrophils Percent Auto 82.1 % (50-75); Platelet Count 207 X10^3/uL (150-400); Red Blood Cell Count 4.54 X10^6/uL (4.5-5.9)
--- NOTE | 2018-05-04 09:16 | ED_ITS ---
HPI - GI Bleed General Chief complaint: GI Bleed Stated complaint: BLOOD IN MY STOOL Time Seen by Provider: 05/04/18 07:54 Source: patient Mode of arrival: ambulatory Limitations: no limitations History of Present Illness HPI Narrative: 42-year-old male returns to the emergency department for re- evaluation of blood in his stool. He denies any dizziness, weakness or lightheadedness. He denies pain. He was seen 2 days ago and had evaluation with normal labs. He contacted his family services specialist and has a colonoscopy scheduled for the end of May. He presents today because the color is slightly different. He states it is not bright red nor is it dark and tarry complaint: blood streaked stool Onset (ago): day(s) Context: history of GI bleed and other (Crohn's) Associated symptoms: denies other symptoms Treatments Prior to Arrival: none Related Data Home Medications Medication Instructions Recorded Confirmed aripiprazole [Abilify] 10 mg PO QDAY #0 03/05/18 05/04/18 promethazine 25 mg PO Q6HP PRN #0 03/05/18 05/04/18 alprazolam 1 mg PO BID 03/23/18 05/04/18 alprazolam 2 tab PO QHS 03/23/18 05/04/18 budesonide-formoterol [Symbicort] 2 puff INHALATION BID 03/23/18 05/04/18 divalproex 500 mg PO BID 03/23/18 05/04/18 duloxetine 60 mg PO BID 03/23/18 05/04/18 ferrous gluconate 1 tab PO QDAY 03/23/18 05/04/18 fluticasone 1 spray INTRANASAL QDAY 03/23/18 05/04/18 krill oil 1 cap PO QDAY 03/23/18 05/04/18 metoprolol succinate [Toprol XL] 100 mg PO BID 03/23/18 05/04/18 milnacipran [Savella] 50 mg PO QDAY 03/23/18 05/04/18 milnacipran [Savella] 100 mg PO QPM 03/23/18 05/04/18 omeprazole 40 mg PO BID 03/23/18 05/04/18 oxycodone-acetaminophen 1 tab PO PRN PRN 03/23/18 05/04/18 prazosin 2 mg PO QDAY 03/23/18 05/04/18 prazosin 4 mg PO QHS 03/23/18 05/04/18 pregabalin [Lyrica] 300 mg PO BID 03/23/18 05/04/18 sulfasalazine 1,000 mg PO TID 03/23/18 05/04/18 tizanidine 8 mg PO TID PRN 03/23/18 05/04/18 vit C-vit R-dzsebo-yxd-om-3 1 tab PO QDAY 03/23/18 05/04/18 [Ocuvite] zolpidem 5 mg PO QHS 03/23/18 05/04/18 doxepin 25 mg PO QHS 04/09/18 05/04/18 verapamil 60 mg PO DAILY 04/09/18 05/04/18 dicyclomine 20 mg PO BID PRN 04/29/18 05/04/18 eszopiclone 3 mg PO BEDTIME PRN 04/30/18 05/04/18 mesalamine 4 tab PO QAM 04/30/18 05/04/18 prednisone 1 dose PO TAPER 04/30/18 05/04/18 cetirizine 10 mg PO DAILY 05/04/18 05/04/18 Allergies Allergy/AdvReac Type Severity Reaction Status Date / Time codeine [CODEINE] Allergy Severe ANAPHYLAXIS Verified 04/30/18 17:18 trazodone Allergy Mild DISURIA Verified 04/30/18 17:18 amitriptyline [AMITRIPTYLINE] Allergy Unknown DIZZINESS Verified 04/30/18 17:18 AND UNSTEADYINESS tramadol [From ULTRAM] Allergy Unknown Verified 04/30/18 17:18 bee venom protein (honey bee) Allergy Verified 04/30/18 17:18 squash Allergy Verified 04/30/18 17:18 lisinopril [LISINOPRIL] AdvReac Unknown Verified 04/30/18 17:18 NSAIDS (Non-Steroidal AdvReac Unknown Verified 04/30/18 17:18 Anti-Inflamma [NSAIDS (NON-STEROIDAL ANTI-INFLAMMA] telmisartan [From MICARDIS] AdvReac Unknown Verified 04/30/18 17:18 Review of Systems Review of Systems All systems reviewed & are unremarkable except as noted in HPI and below Constitutional Denies chills, Denies fever(s), Denies lethargy and Denies weakness Eyes Denies change in vision, Denies eye discharge, Denies irritation and Denies loss of vision ENT Ears, Nose, Mouth, and Throat: Denies change in voice, Denies neck pain and Denies sore throat Cardiovascular Denies chest pain, Denies irregular heart rhythm, Denies lightheadedness, Denies palpitations, Denies dyspnea, Denies dyspnea on exertion and Denies orthopnea Respiratory Denies cough, Denies dyspnea, Denies dyspnea on exertion and Denies wheezing Gastrointestinal Gastrointestinal: Denies abdominal pain, Denies change in bowel habits, Denies diarrhea, Denies nausea and Denies vomiting Comments: Blood in stool Genitourinary Denies hematuria, Denies flank pain, Denies urinary incontinence and Denies urinary urgency Musculoskeletal Denies neck pain Integumentary/Breasts Denies pruritus, Denies erythema, Denies rash and Denies wounds Neurologic Denies confusion, Denies loss of vision and Denies weakness Psychiatric Denies anxiety, Denies confusion, Denies depression, Denies homicidal ideation and Denies suicidal ideation Endocrine Denies palpitations Hematologic/Lymphatic Denies easy bruising Allergic/Immunologic Denies wheezing PFSH Medical History Acute Crohn's disease (Chronic) Asthma (Chronic) Bulging disc (Chronic) CHF (congestive heart failure) (Chronic) Cataplexy (Chronic) Depression (Chronic) Diabetes (Chronic) Fibromyalgia (Chronic) GERD (gastroesophageal reflux disease) (Chronic) HTN (hypertension) (Chronic) Migraines (Chronic) Non-STEMI (non-ST elevated myocardial infarction) (Chronic) ROSLYN (obstructive sleep apnea) (Chronic) Osteoarthritis (Chronic) Social History Smoking Status: Current every day smoker Exam Narrative Exam Narrative: Pleasant 42-year-old male in no obvious distress Initial Vital Signs Initial Vital Signs: Vital Signs Temperature 96.7 F L 05/04/18 08:06 Pulse Rate 88 05/04/18 08:06 Respiratory Rate 16 05/04/18 08:06 Blood Pressure 168/101 H 05/04/18 08:06 Pulse Oximetry 98 05/04/18 08:06 Const General: cooperative and well developed Nutritional Appearance: well nourished Orientation: alert, awake, oriented x3 and not confused HENMT Head: normocephalic and atraumatic Ears: external ears normal and TM's normal bilaterally Nose: external nose normal and No nasal discharge Face and sinus: sinuses nontender, face symmetric, no sinus tenderness and No dry mucous membranes Mouth: oral mucosae normal and moist mucous membranes Teeth and gingiva: dentition normal Throat: tonsils normal and uvula midline Neck Neck: normal visual inspection, trachea midline, No lymphadenopathy, No midline deformity and No JVD Lymphatic: No lymphedema Resp Effort & Inspection: normal respiratory effort, able to speak in complete sentences, no respiratory distress and no use of accessory muscles Auscultation: clear to auscultation bilaterally, no rales, no rhonchi and no wheezes GI Inspection: non-distended Palpation: soft, no hepatosplenomegaly, No guarding, No pulsatile mass and No tender Auscultation: normal bowel sounds Other: Rectal deferred given recent exam Skin General: no rashes or lesions noted, No jaundice and No petechiae Psych Appearance: well kempt Mental Status: mental status grossly normal Attitude: cooperative Thought Content: normal and suicidality Judgment: judgment good Course Orders Ordered: Discontinued Medications Ketamine HCl (Ketalar) 14.4242 mg 0.1 mg/kg (14.4242 mg) IV NOW ONE Stop: 05/04/18 08:47 Last Admin: 05/04/18 09:04 Dose: 14.4242 mg Pantoprazole Sodium (Protonix) 40 mg IV NOW ONE Stop: 05/04/18 08:20 Last Admin: 05/04/18 09:03 Dose: 40 mg Vital Signs - 8 hr 05/04/18 08:06 Temperature 96.7 F L Pulse Rate 88 Respiratory Rate 16 Blood Pressure 168/101 H Pulse Oximetry 98 MDM - GI Bleed Lab Data Result diagrams: 05/04/18 09:00 05/04/18 09:00 Lab Results 05/04/18 05/04/18 05/04/18 Range/Units 09:00 09:00 09:00 WBC 13.0 H (4.5-11.0) X10^3/uL RBC 4.54 (4.5-5.9) X10^6/uL Hgb 14.0 (13.5-17.5) g/dL Hct 42.5 (41-53) % MCV 93.6 (80-100) fL MCH 30.9 (26-34) PG MCHC 33.0 (30-36) % RDW 15.0 H (11.6-14.8) % Plt Count 207 (150-400) X10^3/uL Neut % (Auto) 82.1 H (50-75) % Lymph % (Auto) 10.1 L (25-40) % [place] % (Auto) 6.7 (3-14) % Eos % (Auto) 0.3 L (2-4) % Baso % (Auto) 0.8 (0-2) % Neut # (Auto) 13151 H (4122-4591) /uL Sodium 146 H (137-145) mmol/L Potassium 4.0 (3.4-5.1) mmol/L Chloride 104 (98-107) mmol/L Carbon Dioxide 30 (22-32) mmol/L BUN 18 (9-20) mg/dL Creatinine 0.70 (0.66-1.25) mg/dL Estimated GFR > 60.0 (>60) mL/min BUN/Creatinine Ratio 25.7 H (6-22) Glucose 120 H (70-100) mg/dL Calcium 9.6 (8.4-10.2) mg/dL Total Bilirubin 0.3 (0.2-1.3) mg/dL AST 14 L (17-59) IU/L ALT 32 (21-72) IU/L Alkaline Phosphatase 58 (38-126) U/L Total Protein 7.0 (6.3-8.2) g/dL Albumin 4.1 (3.5-5.0) g/dL Globulin 2.9 (1.7-4.1) g/dL Albumin/Globulin Ratio 1.4 (1.0-2.8) Blood Type O Positive Antibody Screen Negative Discharge Plan Departure Patient Disposition: Home, Self-Care Clinical Impression: Acute lower gastrointestinal bleeding Discharge Date/Time: 05/04/18 10:38 Interventions: ED Discharge Assessment Last Done: 05/04/18 10:37 Instructions: Gastrointestinal Bleeding Activity Restrictions/Additional Instructions: *You have been diagnosed with [ lower gastrointestinal bleed ] *What to do: * continue to take medications as directed *Follow up with your primary care provider in 2-3 days and call your family services specialist to see if they wish to bump up your colonoscopy *Return to ER if you should haveany new, worsening or concerning symptoms Prescriptions: No Action promethazine 25 MG tablet 25 mg PO Q6HP PRN (Reason: Nausea) Qty: 0 RF: 0 aripiprazole [Abilify] 10 MG tablet 10 mg PO QDAY Qty: 0 RF: 0 verapamil 120 mg tablet extended release 60 mg PO DAILY RF: 0 doxepin 25 mg capsule 25 mg PO QHS RF: 0 eszopiclone 3 mg tablet 3 mg PO BEDTIME PRN (Reason: Insomnia) RF: 0 mesalamine 1.2 gram tablet,delayed release (DR/EC) 4 tab PO QAM RF: 0 prednisone 10 mg tablet 1 dose PO TAPER RF: 0 cetirizine 10 mg tablet 10 mg PO DAILY RF: 0 alprazolam 1 mg tablet 1 mg PO BID RF: 0 alprazolam 1 mg Tablet 2 tab PO QHS RF: 0 metoprolol succinate [Toprol XL] 100 mg tablet extended release 24 hr 100 mg PO BID RF: 0 oxycodone-acetaminophen 10-325 mg tablet 1 tab PO PRN PRN (Reason: Pain, Severe) RF: 0 tizanidine 4 mg tablet 8 mg PO TID PRN (Reason: Muscle Spasm) RF: 0 omeprazole 40 mg capsule,delayed release(DR/EC) 40 mg PO BID RF: 0 zolpidem 5 mg tablet 5 mg PO QHS RF: 0 prazosin 2 mg capsule 2 mg PO QDAY RF: 0 prazosin 2 mg Capsule 4 mg PO QHS RF: 0 milnacipran [Savella] 50 mg Tablet 100 mg PO QPM RF: 0 milnacipran [Savella] 50 mg tablet 50 mg PO QDAY RF: 0 sulfasalazine 500 mg tablet 1,000 mg PO TID RF: 0 divalproex 500 mg tablet,delayed release (DR/EC) 500 mg PO BID RF: 0 fluticasone 50 mcg/actuation spray,suspension 1 spray Intranasal QDAY RF: 0 duloxetine 60 mg capsule,delayed release(DR/EC) 60 mg PO BID RF: 0 pregabalin [Lyrica] 300 mg capsule 300 mg PO BID RF: 0 ferrous gluconate 324 mg (38 mg iron) tablet 1 tab PO QDAY RF: 0 budesonide-formoterol [Symbicort] 160-4.5 mcg/actuation HFA aerosol inhaler 2 puff Inhalation BID RF: 0 vit C-vit E-rqzyuf-eae-om-3 [Ocuvite] 105-48-8-150 bw-wgut-sw-mg Capsule 1 tab PO QDAY RF: 0 krill oil capsule 1 cap PO QDAY RF: 0 dicyclomine 20 mg tablet 20 mg PO BID PRN (Reason: Abdominal Pain) RF: 0
[2018-05-04 09:26] LABS: Alanine Aminotransferase 32 IU/L (21-72); Albumin 4.1 g/dL (3.5-5.0); Albumin Globulin Ratio 1.4 (1.0-2.8); Alkaline Phosphatase 58 U/L (38-126); Aspartate Aminotransferase 14 IU/L (17-59); BUN Creatinine Ratio 25.7 (6-22); Bilirubin Total 0.3 mg/dL (0.2-1.3); Blood Urea Nitrogen 18 mg/dL (9-20); Calcium 9.6 mg/dL (8.4-10.2); Carbon Dioxide 30 mmol/L (22-32); Chloride 104 mmol/L (98-107); Estimated Glomerular Filt Rate > 60.0 mL/min (>60); Globulin 2.9 g/dL (1.7-4.1); Glucose 120 mg/dL (70-100); HEMOLYSIS 16 (0-50); Sodium 146 mmol/L (137-145)
[2018-05-04 09:37] VITALS: BP 169/87; PULSE 76; RESP 18; O2SAT 95
== END 2018-05-04 10:38 | disposition home or self-care (01) ==
PROVIDERS: Emergency Provider Emergency Medicine
DX: K92.2 Gastrointestinal hemorrhage, unspecified (principal)
CPT/HCPCS: 36591; 80053; 85025; 86850; 86900; 86901; 96374; 96375; 99282; 99284; C9113

== ENCOUNTER 2018-05-07 16:35 | Emergency (ER) | payer MEDICARE, MEDICAID, SELFPAY ==
--- NOTE | 2018-05-07 16:36 | ED_ITS ---
HPI - Extremity Injury (Lower) <MALA Salinas - Last Filed: 05/07/18 22:14> General Chief Complaint: Extremity Injury, Lower Stated Complaint: FELL LEFT KNEE PAIN Time Seen by Provider: 05/07/18 16:36 History of Present Illness HPI Narrative: 42-year-old male here for complaint of pain to his left knee. He states that he stumbled over a bottle causing him to fall forward impacting his anterior left knee. Incident happened a couple hours prior to arrival. He denies any other injuries. He does report increased pain with ambulation. Patient was able to ambulate into the emergency room. Decreased pain with non movement of the left knee. No other injuries or concerns at this time. MD complaint: knee injury Onset (ago): hour(s) Related Data Home Medications Medication Instructions Recorded Confirmed aripiprazole [Abilify] 10 mg PO QDAY #0 03/05/18 05/07/18 promethazine 25 mg PO Q6HP PRN #0 03/05/18 05/07/18 alprazolam 1 mg PO BID 03/23/18 05/07/18 alprazolam 2 tab PO QHS 03/23/18 05/07/18 budesonide-formoterol [Symbicort] 2 puff INHALATION BID 03/23/18 05/07/18 divalproex 500 mg PO BID 03/23/18 05/07/18 duloxetine 60 mg PO BID 03/23/18 05/07/18 ferrous gluconate 1 tab PO QDAY 03/23/18 05/07/18 fluticasone 1 spray INTRANASAL QDAY 03/23/18 05/07/18 krill oil 1 cap PO QDAY 03/23/18 05/07/18 metoprolol succinate [Toprol XL] 100 mg PO BID 03/23/18 05/07/18 milnacipran [Savella] 50 mg PO QDAY 03/23/18 05/07/18 milnacipran [Savella] 100 mg PO QPM 03/23/18 05/07/18 omeprazole 40 mg PO BID 03/23/18 05/07/18 oxycodone-acetaminophen 1 tab PO PRN PRN 03/23/18 05/07/18 prazosin 2 mg PO QDAY 03/23/18 05/07/18 prazosin 4 mg PO QHS 03/23/18 05/07/18 pregabalin [Lyrica] 300 mg PO BID 03/23/18 05/07/18 sulfasalazine 1,000 mg PO TID 03/23/18 05/07/18 tizanidine 8 mg PO TID PRN 03/23/18 05/07/18 vit C-vit H-kcfydi-tcl-om-3 1 tab PO QDAY 03/23/18 05/07/18 [Ocuvite] zolpidem 5 mg PO QHS 03/23/18 05/07/18 doxepin 25 mg PO QHS 04/09/18 05/07/18 verapamil 60 mg PO DAILY 04/09/18 05/07/18 dicyclomine 20 mg PO BID PRN 04/29/18 05/07/18 eszopiclone 3 mg PO BEDTIME PRN 04/30/18 05/07/18 mesalamine 4 tab PO QAM 04/30/18 05/07/18 prednisone 1 dose PO TAPER 04/30/18 05/07/18 cetirizine 10 mg PO DAILY 05/04/18 05/07/18 Allergies Allergy/AdvReac Type Severity Reaction Status Date / Time codeine [CODEINE] Allergy Severe ANAPHYLAXIS Verified 05/07/18 16:44 trazodone Allergy Mild DISURIA Verified 05/07/18 16:44 amitriptyline [AMITRIPTYLINE] Allergy Unknown DIZZINESS Verified 05/07/18 16:44 AND UNSTEADYINESS tramadol [From ULTRAM] Allergy Unknown Verified 05/07/18 16:44 bee venom protein (honey bee) Allergy Verified 05/07/18 16:44 squash Allergy Verified 05/07/18 16:44 lisinopril [LISINOPRIL] AdvReac Unknown Verified 05/07/18 16:44 NSAIDS (Non-Steroidal AdvReac Unknown Verified 05/07/18 16:44 Anti-Inflamma [NSAIDS (NON-STEROIDAL ANTI-INFLAMMA] telmisartan [From MICARDIS] AdvReac Unknown Verified 05/07/18 16:44 Review of Systems <MALA Salinas - Last Filed: 05/07/18 22:14> Constitutional Denies chills, Denies fever(s), Denies lethargy and Denies weakness Eyes Denies change in vision, Denies eye discharge, Denies irritation and Denies loss of vision ENT Ears, Nose, Mouth, and Throat: Denies change in voice, Denies neck pain and Denies sore throat Cardiovascular Denies chest pain, Denies irregular heart rhythm, Denies lightheadedness, Denies palpitations, Denies dyspnea, Denies dyspnea on exertion and Denies orthopnea Respiratory Denies cough, Denies dyspnea, Denies dyspnea on exertion and Denies wheezing Gastrointestinal Gastrointestinal: Denies abdominal pain, Denies change in bowel habits, Denies diarrhea, Denies nausea and Denies vomiting Genitourinary Denies hematuria, Denies flank pain, Denies urinary incontinence and Denies urinary urgency Musculoskeletal Denies neck pain Comments: Left knee pain Integumentary/Breasts Denies pruritus, Denies erythema, Denies rash and Denies wounds Neurologic Denies confusion, Denies loss of vision and Denies weakness Psychiatric Denies anxiety, Denies confusion, Denies depression, Denies homicidal ideation and Denies suicidal ideation Endocrine Denies palpitations Hematologic/Lymphatic Denies easy bruising Allergic/Immunologic Denies wheezing Exam <MALA Salinas - Last Filed: 05/07/18 22:14> Initial Vital Signs Initial Vital Signs: Vital Signs Temperature 97.9 F 05/07/18 16:41 Pulse Rate 85 05/07/18 16:41 Respiratory Rate 16 05/07/18 16:41 Blood Pressure 175/112 H 05/07/18 16:41 Pulse Oximetry 97 05/07/18 16:41 Const General: cooperative and well developed Nutritional Appearance: well nourished Orientation: alert, awake, oriented x3 and not confused [facility] Mouth: oral mucosae normal and oropharynx normal Eyes Conjunctivae: conjunctivae normal Sclera: sclerae normal Pupils: PERRL EOM: EOM intact bilaterally Resp Effort & Inspection: normal respiratory effort, able to speak in complete sentences, no respiratory distress and no use of accessory muscles Auscultation: clear to auscultation bilaterally, no rales, no rhonchi and no wheezes Cardio Rate: regular rate Rhythm: regular rhythm Heart Sounds: no click, no gallops, no murmurs and no rubs Skin General: no rashes or lesions noted, No jaundice and No petechiae Extrem Other: Left knee with small abrasion to anterior portion of. No other signs of trauma. No ecchymosis no swelling. No deformities. Distal sensation is intact. Distal pulses intact. Distal range of motion is intact. <Dominick Navarrete DO - Last Filed: 05/08/18 08:07> Initial Vital Signs Initial Vital Signs: Vital Signs Temperature 97.9 F 05/07/18 16:41 Pulse Rate 85 05/07/18 16:41 Respiratory Rate 16 05/07/18 16:41 Blood Pressure 175/112 H 05/07/18 16:41 Pulse Oximetry 97 05/07/18 16:41 Course <MALA Salinas - Last Filed: 05/07/18 22:14> Orders Ordered: ED Orders 05/07/18 16:47 XR knee LT 3V Stat Vital Signs - 8 hr 05/07/18 16:41 05/07/18 18:00 Temperature 97.9 F Pulse Rate 85 74 Respiratory Rate 16 16 Blood Pressure 175/112 H 172/102 H Pulse Oximetry 97 98 <Dominick Navarrete DO - Last Filed: 05/08/18 08:07> Orders Ordered: ED Orders 05/07/18 16:47 XR knee LT 3V Stat Vital Signs - 8 hr 05/07/18 16:41 05/07/18 18:00 Temperature 97.9 F Pulse Rate 85 74 Respiratory Rate 16 16 Blood Pressure 175/112 H 172/102 H Pulse Oximetry 97 98 MDM - Extremity Injury (Lower) <MALA Salinas - Last Filed: 05/07/18 22:14> Imaging Data knee: Radiologist's impression: PROCEDURE: XR KNEE LT 3V INDICATIONS: fall TECHNIQUE: 3 views of the knee were acquired. COMPARISON: [facility], Left knee X-ray 3 views, . FINDINGS: Bones: No fractures or dislocations. There is a sclerotic intramedullary lesion in the distal femoral shaft with serpiginous calcification. This was vaguely visible on 07/11/2010 but more conspicuous on the current examination. Mild degenerative joint disease with joint space narrowing and osteophyte formation. Soft tissues: No joint effusion. No suspicious soft tissue calcifications. IMPRESSION: 1. No fractures or dislocation. 2. Mild degenerative joint disease. 3. Sclerotic lesion with serpiginous calcification within the intramedullary space of distal femur, which was present on 07/11/2010 and is more conspicuous on the current exam. 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 If there is personal history of cancer or clinical suspicion for metastatic disease, a whole-body bone scan is suggested for followup. Dictated by: Judi Segundo M.D. on 05/07/2018 at 17:05 Approved by: Judi Segundo M.D. on 05/07/2018 at 17:08 [facility] Narrative Medical decision making narrative: X-ray the left knee was obtained was negative for any acute fractures. X-ray does show some a x-ray calcifications to the distal femur area. Comparison x-ray to 2010 and shows that this area has grown in size. Radiologist recommends follow-up with complete bone scan. He is referred to Orthopedics next week for re-evaluation and discussion of ordering of the bone scan and re-evaluation of the knee. He is placed in a knee immobilizer for comfort and support. Obwj-nal-[id number] Tylenol or Motrin as needed for any discomfort. Follow up with primary care provider next week return emergency room for any worsening symptoms. Discharge Plan Departure Patient Disposition: Home, Self-Care Clinical Impression: Knee pain, left Discharge Date/Time: 05/07/18 18:00 Interventions: ED Discharge Assessment Last Done: 05/07/18 18:00 Instructions: DI for Knee Pain Activity Restrictions/Additional Instructions: X-ray of the left knee was negative for any acute fractures or findings. Signs and symptoms presents as a sprain/contusion to the left knee. You have been placed in a knee immobilizer for comfort and support. Use as directed. If continued symptoms follow up with primary care provider for further evaluation and possible MRI. X-ray the left knee does show some extra calcification to the distal femur. This was seen in an x-ray in 2009 however it looks like it has enlarged since then. It is recommended that you get a full body bone scan for further evaluation and treatment. Follow up with her primary care provider next week. Use [id number] Tylenol as needed for any discomfort. For any worsening symptoms return to the emergency room. Ice and elevation of the left knee to help with swelling. Prescriptions: No Action promethazine 25 MG tablet 25 mg PO Q6HP PRN (Reason: Nausea) Qty: 0 RF: 0 aripiprazole [Abilify] 10 MG tablet 10 mg PO QDAY Qty: 0 RF: 0 verapamil 120 mg tablet extended release 60 mg PO DAILY RF: 0 doxepin 25 mg capsule 25 mg PO QHS RF: 0 eszopiclone 3 mg tablet 3 mg PO BEDTIME PRN (Reason: Insomnia) RF: 0 mesalamine 1.2 gram tablet,delayed release (DR/EC) 4 tab PO QAM RF: 0 prednisone 10 mg tablet 1 dose PO TAPER RF: 0 cetirizine 10 mg tablet 10 mg PO DAILY RF: 0 alprazolam 1 mg tablet 1 mg PO BID RF: 0 alprazolam 1 mg Tablet 2 tab PO QHS RF: 0 metoprolol succinate [Toprol XL] 100 mg tablet extended release 24 hr 100 mg PO BID RF: 0 oxycodone-acetaminophen 10-325 mg tablet 1 tab PO PRN PRN (Reason: Pain, Severe) RF: 0 tizanidine 4 mg tablet 8 mg PO TID PRN (Reason: Muscle Spasm) RF: 0 omeprazole 40 mg capsule,delayed release(DR/EC) 40 mg PO BID RF: 0 zolpidem 5 mg tablet 5 mg PO QHS RF: 0 prazosin 2 mg capsule 2 mg PO QDAY RF: 0 prazosin 2 mg Capsule 4 mg PO QHS RF: 0 milnacipran [Savella] 50 mg Tablet 100 mg PO QPM RF: 0 milnacipran [Savella] 50 mg tablet 50 mg PO QDAY RF: 0 sulfasalazine 500 mg tablet 1,000 mg PO TID RF: 0 divalproex 500 mg tablet,delayed release (DR/EC) 500 mg PO BID RF: 0 fluticasone 50 mcg/actuation spray,suspension 1 spray Intranasal QDAY RF: 0 duloxetine 60 mg capsule,delayed release(DR/EC) 60 mg PO BID RF: 0 pregabalin [Lyrica] 300 mg capsule 300 mg PO BID RF: 0 ferrous gluconate 324 mg (38 mg iron) tablet 1 tab PO QDAY RF: 0 budesonide-formoterol [Symbicort] 160-4.5 mcg/actuation HFA aerosol inhaler 2 puff Inhalation BID RF: 0 vit C-vit L-tamobp-uki-om-3 [Ocuvite] 050-66-2-150 vt-ywzf-hj-mg Capsule 1 tab PO QDAY RF: 0 krill oil capsule 1 cap PO QDAY RF: 0 dicyclomine 20 mg tablet 20 mg PO BID PRN (Reason: Abdominal Pain) RF: 0 Referrals: [facility] [Provider Group] <Dominick Navarrete DO - Last Filed: 05/08/18 08:07> Coslexie ED Attending Julee Attestation: I was available for consultation during this patient's emergency department encounter
[2018-05-07 16:41] VITALS: BP 175/112; PULSE 85; RESP 16; TEMP 36.6; O2SAT 97
--- NOTE | 2018-05-07 16:47 | DI.RAD.S_ITS ---
PROCEDURE: XR KNEE LT 3V INDICATIONS: fall TECHNIQUE: 3 views of the knee were acquired. COMPARISON: [facility], Left knee X-ray 3 views, . FINDINGS: Bones: No fractures or dislocations. There is a sclerotic intramedullary lesion in the distal femoral shaft with serpiginous calcification. This was vaguely visible on 07/11/2010 but more conspicuous on the current examination. Mild degenerative joint disease with joint space narrowing and osteophyte formation. Soft tissues: No joint effusion. No suspicious soft tissue calcifications. IMPRESSION: 1. No fractures or dislocation. 2. Mild degenerative joint disease. 3. Sclerotic lesion with serpiginous calcification within the intramedullary space of distal femur, which was present on 07/11/2010 and is more conspicuous on the current exam. 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 If there is personal history of cancer or clinical suspicion for metastatic disease, a whole-body bone scan is suggested for followup. Dictated by: Judi Segundo M.D. on 05/07/2018 at 17:05 Approved by: Judi Segundo M.D. on 05/07/2018 at 17:08
[2018-05-07 18:00] VITALS: BP 172/102; PULSE 74; RESP 16; O2SAT 98
== END 2018-05-07 18:00 | disposition home or self-care (01) ==
PROVIDERS: Emergency Provider Nurse Practitioner Family
DX: M25.562 Pain in left knee (principal); W01.0XXA Fall on same level from slipping, tripping and stumbling without subsequent striking against object, initial encounter
CPT/HCPCS: 73562; 99283

== ENCOUNTER 2018-05-08 14:43 | Emergency (ER) | payer MEDICARE, MEDICAID, SELFPAY ==
[2018-05-08 15:06] VITALS: BP 157/77; PULSE 74; RESP 16; TEMP 36.6; O2SAT 97; BMI 56.3
--- NOTE | 2018-05-08 15:50 | ED.LOWEXIN ---
HPI - Extremity Injury (Lower) <Marie Amaral PA-C - Last Filed: 05/08/18 20:36> General Chief Complaint: Extremity Injury, Lower Stated Complaint: FALL, LEFT KNEE PAIN Time Seen by Provider: 05/08/18 15:22 Source: patient Mode of arrival: ambulatory Limitations: no limitations History of Present Illness HPI Narrative: This 42-year-old male returns to the ED today after he tripped over a bottle and landed on his left knee on a fire prove safe yesterday. He denies any other trauma. He states that he has significant pain, not acutely worse and is able to walk with the knee immobilizer, but feels like it is quite uncomfortable. He states that he called his pain specialist and PCP and neither would provide pain medication for him. He is taking his usual medications. He is hoping that we can provide an injection or some other mechanism to help with his pain. He denies any other concerns. He states he had a recent tetanus vaccine here Related Data Home Medications Medication Instructions Recorded Confirmed aripiprazole [Abilify] 10 mg PO QDAY #0 03/05/18 05/07/18 promethazine 25 mg PO Q6HP PRN #0 03/05/18 05/07/18 alprazolam 1 mg PO BID 03/23/18 05/07/18 alprazolam 2 tab PO QHS 03/23/18 05/07/18 budesonide-formoterol [Symbicort] 2 puff INHALATION BID 03/23/18 05/07/18 divalproex 500 mg PO BID 03/23/18 05/07/18 duloxetine 60 mg PO BID 03/23/18 05/07/18 ferrous gluconate 1 tab PO QDAY 03/23/18 05/07/18 fluticasone 1 spray INTRANASAL QDAY 03/23/18 05/07/18 krill oil 1 cap PO QDAY 03/23/18 05/07/18 metoprolol succinate [Toprol XL] 100 mg PO BID 03/23/18 05/07/18 milnacipran [Savella] 50 mg PO QDAY 03/23/18 05/07/18 milnacipran [Savella] 100 mg PO QPM 03/23/18 05/07/18 omeprazole 40 mg PO BID 03/23/18 05/07/18 oxycodone-acetaminophen 1 tab PO PRN PRN 03/23/18 05/07/18 prazosin 2 mg PO QDAY 03/23/18 05/07/18 prazosin 4 mg PO QHS 03/23/18 05/07/18 pregabalin [Lyrica] 300 mg PO BID 03/23/18 05/07/18 sulfasalazine 1,000 mg PO TID 03/23/18 05/07/18 tizanidine 8 mg PO TID PRN 03/23/18 05/07/18 vit C-vit Z-okyimx-fnm-om-3 1 tab PO QDAY 03/23/18 05/07/18 [Ocuvite] zolpidem 5 mg PO QHS 03/23/18 05/07/18 doxepin 25 mg PO QHS 04/09/18 05/07/18 verapamil 60 mg PO DAILY 04/09/18 05/07/18 dicyclomine 20 mg PO BID PRN 04/29/18 05/07/18 eszopiclone 3 mg PO BEDTIME PRN 04/30/18 05/07/18 mesalamine 4 tab PO QAM 04/30/18 05/07/18 prednisone 1 dose PO TAPER 04/30/18 05/07/18 cetirizine 10 mg PO DAILY 05/04/18 05/07/18 Allergies Allergy/AdvReac Type Severity Reaction Status Date / Time codeine [CODEINE] Allergy Severe ANAPHYLAXIS Verified 05/07/18 16:44 trazodone Allergy Mild DISURIA Verified 05/07/18 16:44 amitriptyline [AMITRIPTYLINE] Allergy Unknown DIZZINESS Verified 05/07/18 16:44 AND UNSTEADYINESS tramadol [From ULTRAM] Allergy Unknown Verified 05/07/18 16:44 bee venom protein (honey bee) Allergy Verified 05/07/18 16:44 squash Allergy Verified 05/07/18 16:44 lisinopril [LISINOPRIL] AdvReac Unknown Verified 05/07/18 16:44 NSAIDS (Non-Steroidal AdvReac Unknown Verified 05/07/18 16:44 Anti-Inflamma [NSAIDS (NON-STEROIDAL ANTI-INFLAMMA] telmisartan [From MICARDIS] AdvReac Unknown Verified 05/07/18 16:44 Review of Systems <Marie Amaral PA-C - Last Filed: 05/08/18 20:36> Review of Systems All systems reviewed & are unremarkable except as noted in HPI and below Exam <Marie Amaral PA-C - Last Filed: 05/08/18 20:36> Initial Vital Signs Initial Vital Signs: Vital Signs Temperature 97.9 F 05/08/18 15:06 Pulse Rate 74 05/08/18 15:06 Respiratory Rate 16 05/08/18 15:06 Blood Pressure 157/77 H 05/08/18 15:06 Pulse Oximetry 97 05/08/18 15:06 GENERAL APPEARANCE: Patient sitting comfortably, in no distress. LUNGS: Clear to auscultation bilaterally. HEART: Rate and rhythm regular without murmur, normal S1 and S2, no S3 or S4. MS: Left knee no effusion. Tender over the joint line and throughout the patella. Limited flexion to about 45? secondary to tenderness. He is able to fully extend. No tenderness over the foot, ankle, or left lower leg. DERM: There are small abrasions on both anterior lower extremities, no open wounds or drainage <Dominick Navarrete DO - Last Filed: 05/09/18 07:26> Initial Vital Signs Initial Vital Signs: Vital Signs Temperature 97.9 F 05/08/18 15:06 Pulse Rate 74 05/08/18 15:06 Respiratory Rate 16 05/08/18 15:06 Blood Pressure 157/77 H 05/08/18 15:06 Pulse Oximetry 97 05/08/18 15:06 Course <Marie Amaral PA-C - Last Filed: 05/08/18 20:36> Hospital Course: Patient reported improvement in his pain with Toradol and Lidoderm patches. He was able to ambulate independently to the restroom. Orders Ordered: Discontinued Medications Ketorolac Tromethamine (Toradol) 60 mg IM NOW ONE Stop: 05/08/18 16:04 Last Admin: 05/08/18 16:38 Dose: 60 mg Lidocaine (Lidoderm) 2 each TOP NOW ONE Stop: 05/08/18 16:04 Last Admin: 05/08/18 16:38 Dose: 2 each Vital Signs - 8 hr 05/08/18 15:06 05/08/18 16:22 05/08/18 17:14 Temperature 97.9 F Pulse Rate 74 72 74 Respiratory Rate 16 22 18 Blood Pressure 157/77 H Blood Pressure [Left Arm] 140/64 H 158/92 H Pulse Oximetry 97 95 99 <Dominick Navarrete, - Last Filed: 05/09/18 07:26> Orders Ordered: Discontinued Medications Ketorolac Tromethamine (Toradol) 60 mg IM NOW ONE Stop: 05/08/18 16:04 Last Admin: 05/08/18 16:38 Dose: 60 mg Lidocaine (Lidoderm) 2 each TOP NOW ONE Stop: 05/08/18 16:04 Last Admin: 05/08/18 16:38 Dose: 2 each Vital Signs - 8 hr 05/08/18 15:06 05/08/18 16:22 05/08/18 17:14 Temperature 97.9 F Pulse Rate 74 72 74 Respiratory Rate 16 22 18 Blood Pressure 157/77 H Blood Pressure [Left Arm] 140/64 H 158/92 H Pulse Oximetry 97 95 99 Discharge Plan Departure Patient Disposition: Home, Self-Care Clinical Impression: Acute pain of left knee Discharge Date/Time: 05/08/18 17:24 Interventions: ED Discharge Assessment Last Done: 05/08/18 17:23 Instructions: DI for Knee Pain Activity Restrictions/Additional Instructions: Elevate your knee and rest it. Wear the brace as needed for walking. Continue your usual medicines for pain, but add 4% lidocaine patches (up to 3 at a time) on the knee to help with the pain. Follow up with your PCP on the chronic xray abnormalities that were discussed with you yesterday Prescriptions: No Action promethazine 25 MG tablet 25 mg PO Q6HP PRN (Reason: Nausea) Qty: 0 RF: 0 aripiprazole [Abilify] 10 MG tablet 10 mg PO QDAY Qty: 0 RF: 0 verapamil 120 mg tablet extended release 60 mg PO DAILY RF: 0 doxepin 25 mg capsule 25 mg PO QHS RF: 0 eszopiclone 3 mg tablet 3 mg PO BEDTIME PRN (Reason: Insomnia) RF: 0 mesalamine 1.2 gram tablet,delayed release (DR/EC) 4 tab PO QAM RF: 0 prednisone 10 mg tablet 1 dose PO TAPER RF: 0 cetirizine 10 mg tablet 10 mg PO DAILY RF: 0 alprazolam 1 mg tablet 1 mg PO BID RF: 0 alprazolam 1 mg Tablet 2 tab PO QHS RF: 0 metoprolol succinate [Toprol XL] 100 mg tablet extended release 24 hr 100 mg PO BID RF: 0 oxycodone-acetaminophen 10-325 mg tablet 1 tab PO PRN PRN (Reason: Pain, Severe) RF: 0 tizanidine 4 mg tablet 8 mg PO TID PRN (Reason: Muscle Spasm) RF: 0 omeprazole 40 mg capsule,delayed release(DR/EC) 40 mg PO BID RF: 0 zolpidem 5 mg tablet 5 mg PO QHS RF: 0 prazosin 2 mg capsule 2 mg PO QDAY RF: 0 prazosin 2 mg Capsule 4 mg PO QHS RF: 0 milnacipran [Savella] 50 mg Tablet 100 mg PO QPM RF: 0 milnacipran [Savella] 50 mg tablet 50 mg PO QDAY RF: 0 sulfasalazine 500 mg tablet 1,000 mg PO TID RF: 0 divalproex 500 mg tablet,delayed release (DR/EC) 500 mg PO BID RF: 0 fluticasone 50 mcg/actuation spray,suspension 1 spray Intranasal QDAY RF: 0 duloxetine 60 mg capsule,delayed release(DR/EC) 60 mg PO BID RF: 0 pregabalin [Lyrica] 300 mg capsule 300 mg PO BID RF: 0 ferrous gluconate 324 mg (38 mg iron) tablet 1 tab PO QDAY RF: 0 budesonide-formoterol [Symbicort] 160-4.5 mcg/actuation HFA aerosol inhaler 2 puff Inhalation BID RF: 0 vit C-vit D-wbuvui-rnz-om-3 [Ocuvite] 472-54-2-150 uu-lees-uy-mg Capsule 1 tab PO QDAY RF: 0 krill oil capsule 1 cap PO QDAY RF: 0 dicyclomine 20 mg tablet 20 mg PO BID PRN (Reason: Abdominal Pain) RF: 0 <Dominick Navarrete DO - Last Filed: 05/09/18 07:26> Cosign ED Attending Angusature Attestation: I was available for consultation during this patient's emergency department encounter
[2018-05-08 16:22] VITALS: BP 140/64; PULSE 72; RESP 22; O2SAT 95
[2018-05-08] MEDS: LIDOCAINE PATCH 1 EACH ADH..PATCH 2 EACH TOP (16:38)
[2018-05-08] MEDS: KETOROLAC 60 MG/2 ML VIAL IM (16:38)
[2018-05-08 17:14] VITALS: BP 158/92; PULSE 74; RESP 18; O2SAT 99
== END 2018-05-08 17:24 | disposition home or self-care (01) ==
PROVIDERS: Emergency Provider Internal Medicine
DX: M25.562 Pain in left knee (principal)
CPT/HCPCS: 96372; 99282; 99283; J1885

== ENCOUNTER 2018-05-19 12:52 | Emergency (ER) | payer OTHER, MEDICAID, SELFPAY ==
[2018-05-19] VITALS (14 sets, daily range): BP systolic 146–191; BP diastolic 84–122; PULSE 65–90; RESP 15–97; TEMP 37.1; O2SAT 94–97; BMI 48.6
--- NOTE | 2018-05-19 14:02 | ED_ITS ---
HPI - Headache General Chief Complaint: Headache Stated Complaint: MIGRAINE Time Seen by Provider: 05/19/18 14:01 Source: patient Mode of arrival: ambulatory Limitations: no limitations History of Present Illness HPI Narrative: The patient developed a global headache with photophobia and nausea starting about 11:00 a.m. He has not vomited. He has no visual field deficits. He has no peripheral weakness or numbness. He has a history of migraines. His blood pressure is quite elevated. He has no chest pain or dyspnea. He reports been compliant with medications. He has not been ill recently. He has no fever, chills, URI symptoms, sore throat or cough. Related Data Home Medications Medication Instructions Recorded Confirmed aripiprazole [Abilify] 10 mg PO QDAY #0 03/05/18 05/07/18 promethazine 25 mg PO Q6HP PRN #0 03/05/18 05/07/18 alprazolam 1 mg PO BID 03/23/18 05/07/18 alprazolam 2 tab PO QHS 03/23/18 05/07/18 budesonide-formoterol [Symbicort] 2 puff INHALATION BID 03/23/18 05/07/18 divalproex 500 mg PO BID 03/23/18 05/07/18 duloxetine 60 mg PO BID 03/23/18 05/07/18 ferrous gluconate 1 tab PO QDAY 03/23/18 05/07/18 fluticasone 1 spray INTRANASAL QDAY 03/23/18 05/07/18 krill oil 1 cap PO QDAY 03/23/18 05/07/18 metoprolol succinate [Toprol XL] 100 mg PO BID 03/23/18 05/07/18 milnacipran [Savella] 50 mg PO QDAY 03/23/18 05/07/18 milnacipran [Savella] 100 mg PO QPM 03/23/18 05/07/18 omeprazole 40 mg PO BID 03/23/18 05/07/18 oxycodone-acetaminophen 1 tab PO PRN PRN 03/23/18 05/07/18 prazosin 2 mg PO QDAY 03/23/18 05/07/18 prazosin 4 mg PO QHS 03/23/18 05/07/18 pregabalin [Lyrica] 300 mg PO BID 03/23/18 05/07/18 sulfasalazine 1,000 mg PO TID 03/23/18 05/07/18 tizanidine 8 mg PO TID PRN 03/23/18 05/07/18 vit C-vit I-gkostx-pep-om-3 1 tab PO QDAY 03/23/18 05/07/18 [Ocuvite] zolpidem 5 mg PO QHS 03/23/18 05/07/18 doxepin 25 mg PO QHS 04/09/18 05/07/18 verapamil 60 mg PO DAILY 04/09/18 05/07/18 dicyclomine 20 mg PO BID PRN 04/29/18 05/07/18 eszopiclone 3 mg PO BEDTIME PRN 04/30/18 05/07/18 mesalamine 4 tab PO QAM 04/30/18 05/07/18 prednisone 1 dose PO TAPER 04/30/18 05/07/18 cetirizine 10 mg PO DAILY 05/04/18 05/07/18 Allergies Allergy/AdvReac Type Severity Reaction Status Date / Time codeine [CODEINE] Allergy Severe ANAPHYLAXIS Verified 05/19/18 13:10 trazodone Allergy Mild DISURIA Verified 05/19/18 13:10 amitriptyline [AMITRIPTYLINE] Allergy Unknown DIZZINESS Verified 05/19/18 13:10 AND UNSTEADYINESS tramadol [From ULTRAM] Allergy Unknown Verified 05/19/18 13:10 bee venom protein (honey bee) Allergy Verified 05/19/18 13:10 squash Allergy Verified 05/19/18 13:10 lisinopril [LISINOPRIL] AdvReac Unknown Verified 05/19/18 13:10 NSAIDS (Non-Steroidal AdvReac Unknown Verified 05/19/18 13:10 Anti-Inflamma [NSAIDS (NON-STEROIDAL ANTI-INFLAMMA] telmisartan [From MICARDIS] AdvReac Unknown Verified 05/19/18 13:10 Review of Systems Review of Systems All systems reviewed & are unremarkable except as noted in HPI and below Constitutional Reports as per HPI, Denies chills, Denies fever(s), Denies lethargy and Denies weakness Eyes Denies change in vision, Denies eye discharge, Denies irritation, Denies loss of vision and Reports photophobia ENT Ears, Nose, Mouth, and Throat: Denies change in voice, Denies neck pain and Denies sore throat Cardiovascular Denies chest pain, Denies irregular heart rhythm, Denies lightheadedness, Denies palpitations, Denies dyspnea, Denies dyspnea on exertion and Denies orthopnea Respiratory Denies cough, Denies dyspnea, Denies dyspnea on exertion and Denies wheezing Gastrointestinal Gastrointestinal: Denies abdominal pain, Denies change in bowel habits, Denies diarrhea, Denies nausea and Denies vomiting Musculoskeletal Denies myalgias, Denies atrophy and Denies neck pain Integumentary/Breasts Denies rash and Denies wounds Neurologic Reports as per HPI, Denies loss of vision and Denies weakness Endocrine Denies palpitations Allergic/Immunologic Denies wheezing [facility] Medical History Acute Crohn's disease (Chronic) Asthma (Chronic) Bulging disc (Chronic) CHF (congestive heart failure) (Chronic) Cataplexy (Chronic) Depression (Chronic) Diabetes (Chronic) Fibromyalgia (Chronic) GERD (gastroesophageal reflux disease) (Chronic) HTN (hypertension) (Chronic) Migraines (Chronic) Non-STEMI (non-ST elevated myocardial infarction) (Chronic) ROSLYN (obstructive sleep apnea) (Chronic) Osteoarthritis (Chronic) Social History Smoking Status: Current every day smoker Exam Initial Vital Signs Initial Vital Signs: Vital Signs Temperature 98.7 F 05/19/18 13:07 Pulse Rate 85 05/19/18 13:07 Respiratory Rate 18 05/19/18 13:07 Blood Pressure 158/111 H 05/19/18 13:07 Pulse Oximetry 96 05/19/18 13:07 Const General: cooperative, well developed and in distress Nutritional Appearance: well nourished Orientation: alert, awake, oriented x3 and not confused [facility] Head: normocephalic and atraumatic Ears: external ears normal and TM's normal bilaterally Nose: external nose normal and No nasal discharge Face and sinus: sinuses nontender, face symmetric, no sinus tenderness and No dry mucous membranes Mouth: oral mucosae normal and moist mucous membranes Teeth and gingiva: dentition normal Throat: tonsils normal and uvula midline Eyes General: appearance normal, both eyes and all related structures Conjunctivae: conjunctivae normal Sclera: sclerae normal Pupils: PERRL EOM: EOM intact bilaterally Neck Neck: full ROM and no meningeal signs Resp Effort & Inspection: normal respiratory effort, able to speak in complete sentences, no respiratory distress and no use of accessory muscles Auscultation: clear to auscultation bilaterally, no rales, no rhonchi and no wheezes Cardio Rate: regular rate Rhythm: regular rhythm Heart Sounds: no click, no gallops, no murmurs and no rubs Pulses: normal peripheral pulses GI Inspection: non-distended Palpation: soft, no hepatosplenomegaly, No guarding, No pulsatile mass and No tender Auscultation: normal bowel sounds Back/Spine/Pelvis Back: No CVA tenderness Cervical Spine: cervical ROM normal and No pain with cervical ROM Thoracic/Lumbar Spine: thoracic and lumbar spine normal to inspection Skin General: no rashes or lesions noted, No jaundice and No petechiae Neuro General: alert, oriented x3, gait normal and no focal motor deficits Speech: speech normal Extrem General: full ROM, no clubbing, cyanosis or edema, no pedal edema and no calf tenderness Course Hospital Course: the patient arrived with a severe migraine headache, as well as elevated blood pressure. I aggressively manage his hypertension in conjunction with headache management. His initial blood pressure was greater than 180, his blood pressure was 155 systolic at the time of discharge. His headache has resolved. He has no chest pain or dyspnea. Orders Ordered: ED Orders 05/19/18 14:16 CT head/brain wo con Stat Discontinued Medications Clonidine HCl (Catapres) 0.2 mg PO NOW ONE Stop: 05/19/18 15:34 Last Admin: 05/19/18 15:52 Dose: 0.2 mg Diphenhydramine HCl (Benadryl) 50 mg IV NOW ONE Stop: 05/19/18 14:25 Last Admin: 05/19/18 15:00 Dose: 50 mg Hydromorphone HCl (Dilaudid) 1 mg IV NOW ONE Stop: 05/19/18 14:17 Last Admin: 05/19/18 15:03 Dose: 1 mg Sodium Chloride (Normal Saline 0.9%) 1,000 mls @ 1,000 mls/hr IV BOLUS ONE Stop: 05/19/18 15:23 Last Infusion: 05/19/18 16:32 Dose: 0 mls/hr Admin: 05/19/18 15:00 Dose: 1,000 mls/hr Ketorolac Tromethamine (Toradol) 30 mg IV NOW ONE Stop: 05/19/18 14:25 Last Admin: 05/19/18 15:01 Dose: 30 mg Labetalol HCl (Trandate) 20 mg IV NOW ONE Stop: 05/19/18 14:25 Last Admin: 05/19/18 15:04 Dose: 20 mg Metoclopramide HCl (Reglan) 10 mg IV NOW ONE Stop: 05/19/18 14:25 Last Admin: 05/19/18 15:05 Dose: 10 mg Ondansetron HCl (Zofran) 4 mg IV NOW ONE Stop: 05/19/18 14:17 Last Admin: 05/19/18 15:00 Dose: 4 mg Vital Signs - 8 hr 05/19/18 13:07 05/19/18 14:07 05/19/18 15:02 Temperature 98.7 F Pulse Rate 85 72 75 Respiratory Rate 18 15 18 Blood Pressure 158/111 H Blood Pressure [Left Arm] 191/107 H 191/107 H Pulse Oximetry 96 94 96 05/19/18 15:04 05/19/18 15:45 05/19/18 15:46 Temperature Pulse Rate 90 65 65 Respiratory Rate 16 Blood Pressure 191/107 H 169/112 H Blood Pressure [Left Arm] 169/112 H Pulse Oximetry 95 05/19/18 15:52 05/19/18 16:05 05/19/18 16:31 Temperature Pulse Rate 69 66 Respiratory Rate 97 H Blood Pressure 175/108 H Blood Pressure [Left Arm] 170/104 H 150/105 H Pulse Oximetry 05/19/18 16:35 05/19/18 17:00 05/19/18 17:37 Temperature Pulse Rate 66 71 77 Respiratory Rate 16 18 15 Blood Pressure Blood Pressure [Left Arm] 176/111 H 162/115 H 182/122 H Pulse Oximetry 95 96 97 Discharge Plan Departure Patient Disposition: Home, Self-Care Clinical Impression: Headache, migraine, Hypertension Instructions: High Blood Pressure, DI for Migraine Activity Restrictions/Additional Instructions: Continue with her current medications. Your blood pressure was significantly elevated and required multiple treatments. Follow up with her doctor for further evaluation. Return here as needed. Prescriptions: No Action promethazine 25 MG tablet 25 mg PO Q6HP PRN (Reason: Nausea) Qty: 0 RF: 0 aripiprazole [Abilify] 10 MG tablet 10 mg PO QDAY Qty: 0 RF: 0 verapamil 120 mg tablet extended release 60 mg PO DAILY RF: 0 doxepin 25 mg capsule 25 mg PO QHS RF: 0 eszopiclone 3 mg tablet 3 mg PO BEDTIME PRN (Reason: Insomnia) RF: 0 mesalamine 1.2 gram tablet,delayed release (DR/EC) 4 tab PO QAM RF: 0 prednisone 10 mg tablet 1 dose PO TAPER RF: 0 cetirizine 10 mg tablet 10 mg PO DAILY RF: 0 alprazolam 1 mg tablet 1 mg PO BID RF: 0 alprazolam 1 mg Tablet 2 tab PO QHS RF: 0 metoprolol succinate [Toprol XL] 100 mg tablet extended release 24 hr 100 mg PO BID RF: 0 oxycodone-acetaminophen 10-325 mg tablet 1 tab PO PRN PRN (Reason: Pain, Severe) RF: 0 tizanidine 4 mg tablet 8 mg PO TID PRN (Reason: Muscle Spasm) RF: 0 omeprazole 40 mg capsule,delayed release(DR/EC) 40 mg PO BID RF: 0 zolpidem 5 mg tablet 5 mg PO QHS RF: 0 prazosin 2 mg capsule 2 mg PO QDAY RF: 0 prazosin 2 mg Capsule 4 mg PO QHS RF: 0 milnacipran [Savella] 50 mg Tablet 100 mg PO QPM RF: 0 milnacipran [Savella] 50 mg tablet 50 mg PO QDAY RF: 0 sulfasalazine 500 mg tablet 1,000 mg PO TID RF: 0 divalproex 500 mg tablet,delayed release (DR/EC) 500 mg PO BID RF: 0 fluticasone 50 mcg/actuation spray,suspension 1 spray Intranasal QDAY RF: 0 duloxetine 60 mg capsule,delayed release(DR/EC) 60 mg PO BID RF: 0 pregabalin [Lyrica] 300 mg capsule 300 mg PO BID RF: 0 ferrous gluconate 324 mg (38 mg iron) tablet 1 tab PO QDAY RF: 0 budesonide-formoterol [Symbicort] 160-4.5 mcg/actuation HFA aerosol inhaler 2 puff Inhalation BID RF: 0 vit C-vit W-eboaqy-etx-om-3 [Ocuvite] 697-75-3-150 sp-eznh-xh-mg Capsule 1 tab PO QDAY RF: 0 krill oil capsule 1 cap PO QDAY RF: 0 dicyclomine 20 mg tablet 20 mg PO BID PRN (Reason: Abdominal Pain) RF: 0
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
[2018-05-19] MEDS: diphenhydrAMINE 50 MG/ML VIAL IV (15:00)
[2018-05-19] MEDS: SODIUM CHLORIDE 0.9% 1,000 ML 1000 ML IV (15:00)
[2018-05-19] MEDS: ONDANSETRON 4 MG/2 ML INJ IV (15:00)
[2018-05-19] MEDS: KETOROLAC 60 MG/2 ML VIAL 30 MG IV (15:01)
[2018-05-19] MEDS: HYDROMORPHONE 0.5 MG INJ 1 MG IV (15:03)
[2018-05-19] MEDS: LABETALOL 20 MG/4 ML SYRINGE IV (15:04)
[2018-05-19] MEDS: METOCLOPRAMIDE 10 MG/2 ML INJ IV (15:05)
[2018-05-19] MEDS: cloNIDine 0.1 MG TABLET 0.2 MG PO (15:52)
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
--- NOTE | 2018-05-19 19:28 | PC.NURSE ---
sherry arnold placed iv.
== END 2018-05-19 19:26 | disposition home or self-care (01) ==
PROVIDERS: Emergency Provider Emergency Medicine; PCP Family Medicine
DX: G43.909 Migraine, unspecified, not intractable, without status migrainosus (principal); I10 Essential (primary) hypertension
CPT/HCPCS: 36591; 70450; 96361; 96374; 96375; 99284; J1170; J1200; J1885; J2405; J2765

== ENCOUNTER 2018-05-21 07:11 | Emergency (ER) | payer OTHER, MEDICAID, SELFPAY ==
[2018-05-21 07:19] VITALS: BP 165/103; PULSE 84; RESP 16; TEMP 37.2; O2SAT 97; BMI 48.0
--- NOTE | 2018-05-21 08:18 | ED_ITS ---
HPI - Eye Problem General Chief complaint: Eye Problems Stated complaint: SCRATCHED EYE Time Seen by Provider: 05/21/18 08:02 Source: patient Mode of arrival: ambulatory Limitations: no limitations History of Present Illness HPI Narrative: Patient is a 42-year-old male who presents with left eye pain. He is says he woke up this morning and feels like something is in it that he scratched his eye. No discharge from a he is slightly sensitive to light. It is just irritating no blurry vision or double vision. Right eye looks erythematous as well but he says that when his nonpainful and he does not notice it. chief complaint: eye pain and eye redness Eye Symptoms: redness, pain and foreign body sensation Place: home Related Data Home Medications Medication Instructions Recorded Confirmed aripiprazole [Abilify] 10 mg PO QDAY #0 03/05/18 05/07/18 promethazine 25 mg PO Q6HP PRN #0 03/05/18 05/07/18 alprazolam 1 mg PO BID 03/23/18 05/07/18 alprazolam 2 tab PO QHS 03/23/18 05/07/18 budesonide-formoterol [Symbicort] 2 puff INHALATION BID 03/23/18 05/07/18 divalproex 500 mg PO BID 03/23/18 05/07/18 duloxetine 60 mg PO BID 03/23/18 05/07/18 ferrous gluconate 1 tab PO QDAY 03/23/18 05/07/18 fluticasone 1 spray INTRANASAL QDAY 03/23/18 05/07/18 krill oil 1 cap PO QDAY 03/23/18 05/07/18 metoprolol succinate [Toprol XL] 100 mg PO BID 03/23/18 05/07/18 milnacipran [Savella] 50 mg PO QDAY 03/23/18 05/07/18 milnacipran [Savella] 100 mg PO QPM 03/23/18 05/07/18 omeprazole 40 mg PO BID 03/23/18 05/07/18 oxycodone-acetaminophen 1 tab PO PRN PRN 03/23/18 05/07/18 prazosin 2 mg PO QDAY 03/23/18 05/07/18 prazosin 4 mg PO QHS 03/23/18 05/07/18 pregabalin [Lyrica] 300 mg PO BID 03/23/18 05/07/18 sulfasalazine 1,000 mg PO TID 03/23/18 05/07/18 tizanidine 8 mg PO TID PRN 03/23/18 05/07/18 vit C-vit B-pobwae-fql-om-3 1 tab PO QDAY 03/23/18 05/07/18 [Ocuvite] zolpidem 5 mg PO QHS 03/23/18 05/07/18 doxepin 25 mg PO QHS 04/09/18 05/07/18 verapamil 60 mg PO DAILY 04/09/18 05/07/18 dicyclomine 20 mg PO BID PRN 04/29/18 05/07/18 eszopiclone 3 mg PO BEDTIME PRN 04/30/18 05/07/18 mesalamine 4 tab PO QAM 04/30/18 05/07/18 prednisone 1 dose PO TAPER 04/30/18 05/07/18 cetirizine 10 mg PO DAILY 05/04/18 05/07/18 Previous Rx's Medication Instructions Recorded gentamicin 2 drop EYE-LEFT Q4HRWA #5 ml 05/21/18 Allergies Allergy/AdvReac Type Severity Reaction Status Date / Time codeine [CODEINE] Allergy Severe ANAPHYLAXIS Verified 05/21/18 07:19 trazodone Allergy Mild DISURIA Verified 05/21/18 07:19 amitriptyline [AMITRIPTYLINE] Allergy Unknown DIZZINESS Verified 05/21/18 07:19 AND UNSTEADYINESS tramadol [From ULTRAM] Allergy Unknown Verified 05/21/18 07:19 bee venom protein (honey bee) Allergy Verified 05/21/18 07:19 squash Allergy Verified 05/21/18 07:19 lisinopril [LISINOPRIL] AdvReac Unknown Verified 05/21/18 07:19 NSAIDS (Non-Steroidal AdvReac Unknown Verified 05/21/18 07:19 Anti-Inflamma [NSAIDS (NON-STEROIDAL ANTI-INFLAMMA] telmisartan [From MICARDIS] AdvReac Unknown Verified 05/21/18 07:19 Review of Systems Review of Systems GENERAL: Denies chills,fever HEENT: See HPI RESPIRATORY: Denies dyspnea, cough, wheezing CARDIOVASCULAR: Denies chest pain, palpitations GASTROINTESTINAL: Denies nausea, vomiting MUSCULOSKELETAL: Denies extremity pain, injury SKIN: No rash, no laceration, no pruritus NEUROLOGIC: Denies weakness, dizziness, headache, numbness 8 point review of systems is negative except for those stated above and HPI [facility] Social History Smoking Status: Current every day smoker Exam Initial Vital Signs Initial Vital Signs: Vital Signs Temperature 99.0 F 05/21/18 07:19 Pulse Rate 84 05/21/18 07:19 Respiratory Rate 16 05/21/18 07:19 Blood Pressure 165/103 H 05/21/18 07:19 Pulse Oximetry 97 05/21/18 07:19 GENERAL: Well-appearing, well-nourished and in no acute distress. CARDIOVASCULAR: peripheral pulses in tact, cap refill <2 sec RESPIRATORY: No respiratory distress, speaks in full sentences without difficulty EXTREMITIES: Normal range of motion, no clubbing or edema. Neurovascularly intact NEUROLOGICAL: Cranial nerves II through XII grossly intact. Normal gait and speech. SKIN: Warm, dry, no petechiae, no rashes or lesions. Eyes Periorbital: periorbital findings normal Eyelids: eyelids normal Conjunctivae: conjunctival abnormality bilaterally conjunctival injection diffuse; without discharge and without subconjunctival hemorrhages Pupils: PERRL EOM: EOM intact bilaterally Other: Left eye was treated with proparacaine, stained with fluorescein. A small amount of dye uptake over the cornea no laceration no foreign body Right eye was treated with proparacaine, stained with fluorescein. No dye uptake. No foreign body. Course Vital Signs - 8 hr 05/21/18 07:19 Temperature 99.0 F Pulse Rate 84 Respiratory Rate 16 Blood Pressure 165/103 H Pulse Oximetry 97 Discharge Plan Departure Patient Disposition: Home, Self-Care Clinical Impression: Abrasion of cornea, left Discharge Date/Time: 05/21/18 08:43 Interventions: ED Discharge Assessment Last Done: 05/21/18 08:42 Instructions: Corneal Abrasion Activity Restrictions/Additional Instructions: *You have been diagnosed with left corneal abrasion *What to do: Will be sensitive to light, were sunglasses as needed, this should start to feel better in the next 1-2 days *Continue to take medications as directed -Gentamicin 2 drops every 4 hours while awake--faxed to [facility] in [place] *Follow up with your primary care provider in 2-3 days *Return to ER if you should have any new, worsening or concerning symptoms Prescriptions: New gentamicin 0.3 % drops 2 drop EYE-LEFT Q4HRWA Qty: 5 RF: 0 No Action promethazine 25 MG tablet 25 mg PO Q6HP PRN (Reason: Nausea) Qty: 0 RF: 0 aripiprazole [Abilify] 10 MG tablet 10 mg PO QDAY Qty: 0 RF: 0 verapamil 120 mg tablet extended release 60 mg PO DAILY RF: 0 doxepin 25 mg capsule 25 mg PO QHS RF: 0 eszopiclone 3 mg tablet 3 mg PO BEDTIME PRN (Reason: Insomnia) RF: 0 mesalamine 1.2 gram tablet,delayed release (DR/EC) 4 tab PO QAM RF: 0 prednisone 10 mg tablet 1 dose PO TAPER RF: 0 cetirizine 10 mg tablet 10 mg PO DAILY RF: 0 alprazolam 1 mg tablet 1 mg PO BID RF: 0 alprazolam 1 mg Tablet 2 tab PO QHS RF: 0 metoprolol succinate [Toprol XL] 100 mg tablet extended release 24 hr 100 mg PO BID RF: 0 oxycodone-acetaminophen 10-325 mg tablet 1 tab PO PRN PRN (Reason: Pain, Severe) RF: 0 tizanidine 4 mg tablet 8 mg PO TID PRN (Reason: Muscle Spasm) RF: 0 omeprazole 40 mg capsule,delayed release(DR/EC) 40 mg PO BID RF: 0 zolpidem 5 mg tablet 5 mg PO QHS RF: 0 prazosin 2 mg capsule 2 mg PO QDAY RF: 0 prazosin 2 mg Capsule 4 mg PO QHS RF: 0 milnacipran [Savella] 50 mg Tablet 100 mg PO QPM RF: 0 milnacipran [Savella] 50 mg tablet 50 mg PO QDAY RF: 0 sulfasalazine 500 mg tablet 1,000 mg PO TID RF: 0 divalproex 500 mg tablet,delayed release (DR/EC) 500 mg PO BID RF: 0 fluticasone 50 mcg/actuation spray,suspension 1 spray Intranasal QDAY RF: 0 duloxetine 60 mg capsule,delayed release(DR/EC) 60 mg PO BID RF: 0 pregabalin [Lyrica] 300 mg capsule 300 mg PO BID RF: 0 ferrous gluconate 324 mg (38 mg iron) tablet 1 tab PO QDAY RF: 0 budesonide-formoterol [Symbicort] 160-4.5 mcg/actuation HFA aerosol inhaler 2 puff Inhalation BID RF: 0 vit C-vit C-lotjfk-qya-om-3 [Ocuvite] 646-14-0-150 qm-fzir-qr-mg Capsule 1 tab PO QDAY RF: 0 krill oil capsule 1 cap PO QDAY RF: 0 dicyclomine 20 mg tablet 20 mg PO BID PRN (Reason: Abdominal Pain) RF: 0
== END 2018-05-21 08:43 | disposition home or self-care (01) ==
PROVIDERS: Emergency Provider Emergency Medicine; PCP Family Medicine
DX: S05.02XA Injury of conjunctiva and corneal abrasion without foreign body, left eye, initial encounter (principal)
CPT/HCPCS: 99282

== ENCOUNTER 2018-05-31 13:43 | Emergency (ER) | payer OTHER, MEDICAID, SELFPAY ==
[2018-05-31 13:49] VITALS: BP 137/78; PULSE 74; RESP 22; TEMP 36.1; O2SAT 97; BMI 48.0
--- NOTE | 2018-05-31 13:50 | ED_ITS ---
HPI - Eye Problem General Chief complaint: Eye Problems Stated complaint: scratched cornea, not getting better with meds Time Seen by Provider: 05/31/18 13:50 Source: patient Mode of arrival: ambulatory Limitations: no limitations History of Present Illness HPI Narrative: patient is here for continued irritation of his left eye. Patient states that he was diagnosed with a corneal abrasion it would be General on the 6th of this month. Was placed on gentamicin drops he states that he does not know how he got the corneal abrasion. He does wear glasses but no contacts. He states that since then he has had burning when he places the drops any states that his roommate thought that his left eye was red and swollen. He denies any changes in his vision. No foreign body sensation. No other upper respiratory symptoms. Related Data Home Medications Medication Instructions Recorded Confirmed aripiprazole [Abilify] 10 mg PO QDAY #0 03/05/18 05/07/18 promethazine 25 mg PO Q6HP PRN #0 03/05/18 05/07/18 alprazolam 1 mg PO BID 03/23/18 05/07/18 alprazolam 2 tab PO QHS 03/23/18 05/07/18 budesonide-formoterol [Symbicort] 2 puff INHALATION BID 03/23/18 05/07/18 divalproex 500 mg PO BID 03/23/18 05/07/18 duloxetine 60 mg PO BID 03/23/18 05/07/18 ferrous gluconate 1 tab PO QDAY 03/23/18 05/07/18 fluticasone 1 spray INTRANASAL QDAY 03/23/18 05/07/18 krill oil 1 cap PO QDAY 03/23/18 05/07/18 metoprolol succinate [Toprol XL] 100 mg PO BID 03/23/18 05/07/18 milnacipran [Savella] 50 mg PO QDAY 03/23/18 05/07/18 milnacipran [Savella] 100 mg PO QPM 03/23/18 05/07/18 omeprazole 40 mg PO BID 03/23/18 05/07/18 oxycodone-acetaminophen 1 tab PO PRN PRN 03/23/18 05/07/18 prazosin 2 mg PO QDAY 03/23/18 05/07/18 prazosin 4 mg PO QHS 03/23/18 05/07/18 pregabalin [Lyrica] 300 mg PO BID 03/23/18 05/07/18 sulfasalazine 1,000 mg PO TID 03/23/18 05/07/18 tizanidine 8 mg PO TID PRN 03/23/18 05/07/18 vit C-vit K-[id number]-[id number]-om-3 1 tab PO QDAY 03/23/18 05/07/18 [Ocuvite] zolpidem 5 mg PO QHS 03/23/18 05/07/18 doxepin 25 mg PO QHS 04/09/18 05/07/18 verapamil 60 mg PO DAILY 04/09/18 05/07/18 dicyclomine 20 mg PO BID PRN 04/29/18 05/07/18 eszopiclone 3 mg PO BEDTIME PRN 04/30/18 05/07/18 mesalamine 4 tab PO QAM 04/30/18 05/07/18 prednisone 1 dose PO TAPER 04/30/18 05/07/18 cetirizine 10 mg PO DAILY 05/04/18 05/07/18 Previous Rx's Medication Instructions Recorded gentamicin 2 drop EYE-LEFT Q4HRWA #5 ml 05/21/18 Allergies Allergy/AdvReac Type Severity Reaction Status Date / Time codeine [CODEINE] Allergy Severe ANAPHYLAXIS Verified 05/31/18 14:06 trazodone Allergy Mild DISURIA Verified 05/31/18 14:06 amitriptyline [AMITRIPTYLINE] Allergy Unknown DIZZINESS Verified 05/31/18 14:06 AND UNSTEADYINESS tramadol [From ULTRAM] Allergy Unknown Verified 05/31/18 14:06 bee venom protein (honey bee) Allergy Verified 05/31/18 14:06 squash Allergy Verified 05/31/18 14:06 lisinopril [LISINOPRIL] AdvReac Unknown Verified 05/31/18 14:06 NSAIDS (Non-Steroidal AdvReac Unknown Verified 05/31/18 14:06 Anti-Inflamma [NSAIDS (NON-STEROIDAL ANTI-INFLAMMA] telmisartan [From MICARDIS] AdvReac Unknown Verified 05/31/18 14:06 Review of Systems Constitutional Denies fever(s) Eyes Comments: Redness, swelling left eye, burning sensation when he put eyedrops in his left eye, no changes in vision ENT Ears, Nose, Mouth, and Throat: Denies vertigo, Denies dizziness, Denies neck pain, Denies sinus pressure and Denies sore throat Cardiovascular Denies dyspnea Respiratory Denies dyspnea Musculoskeletal Denies neck pain Integumentary/Breasts Comments: redness around his left eye Neurologic Denies vertigo and Denies dizziness Hematologic/Lymphatic Denies easy bleeding and Denies easy bruising [facility] Medical History Acute Crohn's disease (Chronic) Asthma (Chronic) Bulging disc (Chronic) CHF (congestive heart failure) (Chronic) Cataplexy (Chronic) Depression (Chronic) Diabetes (Chronic) Fibromyalgia (Chronic) GERD (gastroesophageal reflux disease) (Chronic) HTN (hypertension) (Chronic) Migraines (Chronic) Non-STEMI (non-ST elevated myocardial infarction) (Chronic) ROSLYN (obstructive sleep apnea) (Chronic) Osteoarthritis (Chronic) Social History Smoking Status: Current every day smoker Exam Initial Vital Signs Initial Vital Signs: Vital Signs Temperature 97.0 F L 05/31/18 13:49 Pulse Rate 74 05/31/18 13:49 Respiratory Rate 22 05/31/18 13:49 Blood Pressure 137/78 H 05/31/18 13:49 Pulse Oximetry 97 05/31/18 13:49 Const General: cooperative, healthy appearing, comfortable, well developed and No acute distress Orientation: alert, awake and oriented x3 [facility] Head: normal to inspection, normocephalic and atraumatic Nose: external nose normal Face and sinus: normal facial exam Mouth: oral mucosae normal Eyes Pupils: PERRL EOM: EOM intact bilaterally Direct ophthalmoscopy: normal light reflex Other: patient with very minor redness of the left upper eyelid and very minor swelling to the left upper eyelid no uptake of the left eye with floor seen staining no foreign body seen a with eversion of the upper lid Skin Lesions: no lesions Neuro General: alert, awake and oriented x3 Extrem General: normal to inspection Course Orders Ordered: Discontinued Medications Ketorolac Tromethamine (Toradol) 60 mg IM NOW ONE Stop: 05/31/18 14:20 Last Admin: 05/31/18 14:26 Dose: 60 mg Proparacaine HCl (Parcaine 0.5% Ophth Pauline) 1 drops EYE-LEFT NOW ONE Stop: 05/31/18 14:30 Last Admin: 05/31/18 14:35 Dose: 1 drop Tetracaine HCl (Pontocaine 0.5% Ophth) 1 drops EYE-LEFT Q5MIN PRN PRN Reason: Pain, Mild (1-3) Vital Signs - 8 hr 05/31/18 13:49 05/31/18 14:51 Temperature 97.0 F L Pulse Rate 74 83 Respiratory Rate 22 18 Blood Pressure 137/78 H 156/102 H Pulse Oximetry 97 96 MDM - Eye Problem MDM Narrative Medical decision making narrative: Patient without signs of foreign body or corneal abrasion with examination today. His physical exam is not consistent with septal cellulitis or preseptal cellulitis. I suspect that his symptoms are the result of his continued use of the antibiotic drops. Will have him stop the antibiotic drops to see if this does not improve his symptoms. He was given Toradol here in the emergency department for his chronic low back pain. Patient was given return precautions. He expressed understanding and agreement with plan Discharge Plan Departure Patient Disposition: Home, Self-Care Clinical Impression: Irritation of left eye, Chronic lower back pain Discharge Date/Time: 05/31/18 14:52 Interventions: ED Discharge Assessment Last Done: 05/31/18 14:51 Instructions: Activity May Be Better then Rest for Low Back Pain Recovery Activity Restrictions/Additional Instructions: recommend that you stop the antibiotics that you are using in Your left eye. Keep your follow-up appointment that you have scheduled with your primary care doctor. take all of her other medications as directed. Return to the emergency department for any new or worsening symptoms Prescriptions: No Action promethazine 25 MG tablet 25 mg PO Q6HP PRN (Reason: Nausea) Qty: 0 RF: 0 aripiprazole [Abilify] 10 MG tablet 10 mg PO QDAY Qty: 0 RF: 0 verapamil 120 mg tablet extended release 60 mg PO DAILY RF: 0 doxepin 25 mg capsule 25 mg PO QHS RF: 0 eszopiclone 3 mg tablet 3 mg PO BEDTIME PRN (Reason: Insomnia) RF: 0 mesalamine 1.2 gram tablet,delayed release (DR/EC) 4 tab PO QAM RF: 0 prednisone 10 mg tablet 1 dose PO TAPER RF: 0 cetirizine 10 mg tablet 10 mg PO DAILY RF: 0 alprazolam 1 mg tablet 1 mg PO BID RF: 0 alprazolam 1 mg Tablet 2 tab PO QHS RF: 0 metoprolol succinate [Toprol XL] 100 mg tablet extended release 24 hr 100 mg PO BID RF: 0 oxycodone-acetaminophen 10-325 mg tablet 1 tab PO PRN PRN (Reason: Pain, Severe) RF: 0 tizanidine 4 mg tablet 8 mg PO TID PRN (Reason: Muscle Spasm) RF: 0 omeprazole 40 mg capsule,delayed release(DR/EC) 40 mg PO BID RF: 0 zolpidem 5 mg tablet 5 mg PO QHS RF: 0 prazosin 2 mg capsule 2 mg PO QDAY RF: 0 prazosin 2 mg Capsule 4 mg PO QHS RF: 0 milnacipran [Savella] 50 mg Tablet 100 mg PO QPM RF: 0 milnacipran [Savella] 50 mg tablet 50 mg PO QDAY RF: 0 sulfasalazine 500 mg tablet 1,000 mg PO TID RF: 0 divalproex 500 mg tablet,delayed release (DR/EC) 500 mg PO BID RF: 0 fluticasone 50 mcg/actuation spray,suspension 1 spray Intranasal QDAY RF: 0 duloxetine 60 mg capsule,delayed release(DR/EC) 60 mg PO BID RF: 0 pregabalin [Lyrica] 300 mg capsule 300 mg PO BID RF: 0 ferrous gluconate 324 mg (38 mg iron) tablet 1 tab PO QDAY RF: 0 budesonide-formoterol [Symbicort] 160-4.5 mcg/actuation HFA aerosol inhaler 2 puff Inhalation BID RF: 0 vit C-vit Z-cynpaw-vvy-om-3 [Ocuvite] [id number] cl-adpz-te-mg Capsule 1 tab PO QDAY RF: 0 krill oil capsule 1 cap PO QDAY RF: 0 dicyclomine 20 mg tablet 20 mg PO BID PRN (Reason: Abdominal Pain) RF: 0 gentamicin 0.3 % drops 2 drop EYE-LEFT Q4HRWA Qty: 5 RF: 0
[2018-05-31] MEDS: KETOROLAC 60 MG/2 ML VIAL IM (14:26)
[2018-05-31] MEDS: PROPARACAINE 0.5% OPHTH SOL 1 DROPS EYE-LEFT (14:35)
[2018-05-31 14:51] VITALS: BP 156/102; PULSE 83; RESP 18; O2SAT 96
== END 2018-05-31 14:52 | disposition home or self-care (01) ==
PROVIDERS: Emergency Provider Emergency Medicine; Family Provider Family Medicine; PCP Family Medicine
DX: H57.8 Other specified disorders of eye and adnexa (principal)
CPT/HCPCS: 99282; 99283; J1885

== ENCOUNTER 2018-06-04 16:06 | Emergency (ER) | payer OTHER, MEDICAID, SELFPAY ==
[2018-06-04 16:27] VITALS: BP 174/100; PULSE 102; RESP 18; TEMP 37.1; O2SAT 98; BMI 50.4
--- NOTE | 2018-06-04 19:36 | PC.NURSE ---
PT reports Migraine onset 06/01/18 pain 05/25 with nausea & photophobia. Takes Depakote BID and a percocet today with no relief. See neurologist in [place].
--- NOTE | 2018-06-04 19:50 | ED.HA ---
HPI - Headache General Chief Complaint: Headache Stated Complaint: migraine for 3 days Time Seen by Provider: 06/04/18 19:40 Source: patient and family Mode of arrival: ambulatory Limitations: no limitations History of Present Illness HPI Narrative: 42-year-old male with history of migraines presents to the emergency department after his Depakote did not help. He states for the past 3 days he has had a gradually worsening frontal headache that is worse with bright lights and loud noise. He has had nausea but no vomiting. He states this is the a rather typical presentation of his migraines. He denies fever, chills or any new neck pain (he has chronic neck pain) at the Related Data Home Medications Medication Instructions Recorded Confirmed aripiprazole [Abilify] 10 mg PO QDAY #0 03/05/18 05/07/18 promethazine 25 mg PO Q6HP PRN #0 03/05/18 05/07/18 alprazolam 1 mg PO BID 03/23/18 05/07/18 alprazolam 2 tab PO QHS 03/23/18 05/07/18 budesonide-formoterol [Symbicort] 2 puff INHALATION BID 03/23/18 05/07/18 divalproex 500 mg PO BID 03/23/18 05/07/18 duloxetine 60 mg PO BID 03/23/18 05/07/18 ferrous gluconate 1 tab PO QDAY 03/23/18 05/07/18 fluticasone 1 spray INTRANASAL QDAY 03/23/18 05/07/18 krill oil 1 cap PO QDAY 03/23/18 05/07/18 metoprolol succinate [Toprol XL] 100 mg PO BID 03/23/18 05/07/18 milnacipran [Savella] 50 mg PO QDAY 03/23/18 05/07/18 milnacipran [Savella] 100 mg PO QPM 03/23/18 05/07/18 omeprazole 40 mg PO BID 03/23/18 05/07/18 oxycodone-acetaminophen 1 tab PO PRN PRN 03/23/18 05/07/18 prazosin 2 mg PO QDAY 03/23/18 05/07/18 prazosin 4 mg PO QHS 03/23/18 05/07/18 pregabalin [Lyrica] 300 mg PO BID 03/23/18 05/07/18 sulfasalazine 1,000 mg PO TID 03/23/18 05/07/18 tizanidine 8 mg PO TID PRN 03/23/18 05/07/18 vit C-vit Y-mukjtq-fol-om-3 1 tab PO QDAY 03/23/18 05/07/18 [Ocuvite] zolpidem 5 mg PO QHS 03/23/18 05/07/18 doxepin 25 mg PO QHS 04/09/18 05/07/18 verapamil 60 mg PO DAILY 04/09/18 05/07/18 dicyclomine 20 mg PO BID PRN 04/29/18 05/07/18 eszopiclone 3 mg PO BEDTIME PRN 04/30/18 05/07/18 mesalamine 4 tab PO QAM 04/30/18 05/07/18 prednisone 1 dose PO TAPER 04/30/18 05/07/18 cetirizine 10 mg PO DAILY 05/04/18 05/07/18 Previous Rx's Medication Instructions Recorded gentamicin 2 drop EYE-LEFT Q4HRWA #5 ml 05/21/18 metoprolol succinate 100 mg PO BID 14 Days #28 tab 06/04/18 Allergies Allergy/AdvReac Type Severity Reaction Status Date / Time codeine [CODEINE] Allergy Severe ANAPHYLAXIS Verified 06/04/18 16:17 trazodone Allergy Mild DISURIA Verified 06/04/18 16:17 amitriptyline [AMITRIPTYLINE] Allergy Unknown DIZZINESS Verified 06/04/18 16:17 AND UNSTEADYINESS tramadol [From ULTRAM] Allergy Unknown Verified 06/04/18 16:17 bee venom protein (honey bee) Allergy Verified 06/04/18 16:17 squash Allergy Verified 06/04/18 16:17 lisinopril [LISINOPRIL] AdvReac Unknown Verified 06/04/18 16:17 NSAIDS (Non-Steroidal AdvReac Unknown Verified 06/04/18 16:17 Anti-Inflamma [NSAIDS (NON-STEROIDAL ANTI-INFLAMMA] telmisartan [From MICARDIS] AdvReac Unknown Verified 06/04/18 16:17 Review of Systems Review of Systems All systems reviewed & are unremarkable except as noted in HPI and below Constitutional Denies chills, Denies fever(s), Reports headache(s), Denies lethargy and Denies weakness Eyes Denies change in vision, Denies eye discharge, Denies irritation and Denies loss of vision ENT Ears, Nose, Mouth, and Throat: Denies change in voice, Reports headache(s), Denies neck pain and Denies sore throat Cardiovascular Denies chest pain, Denies irregular heart rhythm, Denies lightheadedness, Denies palpitations, Denies dyspnea, Denies dyspnea on exertion and Denies orthopnea Respiratory Denies cough, Denies dyspnea, Denies dyspnea on exertion and Denies wheezing Gastrointestinal Gastrointestinal: Denies abdominal pain, Denies change in bowel habits, Denies diarrhea, Denies nausea and Denies vomiting Genitourinary Denies hematuria, Denies flank pain, Denies urinary incontinence and Denies urinary urgency Musculoskeletal Denies neck pain Integumentary/Breasts Denies pruritus, Denies erythema, Denies rash and Denies wounds Neurologic Denies confusion, Reports headache(s), Denies loss of vision and Denies weakness Psychiatric Denies anxiety, Denies confusion, Denies depression, Denies homicidal ideation and Denies suicidal ideation Endocrine Denies palpitations Hematologic/Lymphatic Denies easy bruising Allergic/Immunologic Denies wheezing [facility] Medical History Acute Crohn's disease (Chronic) Asthma (Chronic) Bulging disc (Chronic) CHF (congestive heart failure) (Chronic) Cataplexy (Chronic) Depression (Chronic) Diabetes (Chronic) Fibromyalgia (Chronic) GERD (gastroesophageal reflux disease) (Chronic) HTN (hypertension) (Chronic) Migraines (Chronic) Non-STEMI (non-ST elevated myocardial infarction) (Chronic) ROSLYN (obstructive sleep apnea) (Chronic) Osteoarthritis (Chronic) Social History Smoking Status: Current every day smoker Exam Narrative Exam Narrative: 42-year-old male obviously uncomfortable, sitting in a dark room with sunglasses on Initial Vital Signs Initial Vital Signs: Vital Signs Temperature 98.8 F 06/04/18 16:27 Pulse Rate 102 H 06/04/18 16:27 Respiratory Rate 18 06/04/18 16:27 Blood Pressure 174/100 H 06/04/18 16:27 Pulse Oximetry 98 06/04/18 16:27 Const General: cooperative and well developed Nutritional Appearance: well nourished Orientation: alert, awake, oriented x3 and not confused [facility] Head: normocephalic and atraumatic Ears: external ears normal and TM's normal bilaterally Nose: external nose normal and No nasal discharge Face and sinus: sinuses nontender, face symmetric, no sinus tenderness and No dry mucous membranes Mouth: oral mucosae normal and moist mucous membranes Teeth and gingiva: dentition normal Throat: tonsils normal and uvula midline Eyes General: appearance normal, both eyes and all related structures Eyelids: eyelids normal Conjunctivae: conjunctivae normal Sclera: sclerae normal Pupils: PERRL EOM: EOM intact bilaterally Neck Neck: normal visual inspection, trachea midline, No lymphadenopathy, No midline deformity and No JVD Lymphatic: No lymphedema Chest Chest: normal inspection of the chest Resp Effort & Inspection: normal respiratory effort, able to speak in complete sentences, no respiratory distress and no use of accessory muscles Auscultation: clear to auscultation bilaterally, no rales, no rhonchi and no wheezes Cardio Rate: regular rate Rhythm: regular rhythm Heart Sounds: no click, no gallops, no murmurs and no rubs Pulses: normal peripheral pulses GI Inspection: non-distended Palpation: soft, no hepatosplenomegaly, No guarding, No pulsatile mass and No tender Auscultation: normal bowel sounds Back/Spine/Pelvis Back: No CVA tenderness Cervical Spine: cervical ROM normal and No pain with cervical ROM Thoracic/Lumbar Spine: thoracic and lumbar spine normal to inspection Skin General: no rashes or lesions noted, No jaundice and No petechiae Neuro General: alert, oriented x3, gait normal and no focal motor deficits Speech: speech normal Extrem General: full ROM, no clubbing, cyanosis or edema, no pedal edema and no calf tenderness Psych Appearance: well kempt Mental Status: mental status grossly normal Attitude: cooperative Thought Content: normal and suicidality Judgment: judgment good Course Orders Ordered: Discontinued Medications Dexamethasone (Decadron) 10 mg IV NOW ONE Stop: 06/04/18 20:07 Last Admin: 06/04/18 20:23 Dose: 10 mg Sodium Chloride (Normal Saline 0.9%) 1,000 mls @ 1,000 mls/hr IV BOLUS ONE Stop: 06/04/18 21:05 Last Infusion: 06/04/18 22:45 Dose: 1,000 mls/hr Admin: 06/04/18 20:22 Dose: 1,000 mls/hr Ketorolac Tromethamine (Toradol) 15 mg IV NOW ONE Stop: 06/04/18 20:08 Last Admin: 06/04/18 20:23 Dose: 15 mg Metoprolol Succinate (Toprol Xl) 100 mg PO NOW ONE Stop: 06/04/18 21:35 Last Admin: 06/04/18 21:55 Dose: 100 mg Prochlorperazine (Compazine) 10 mg IV NOW ONE Stop: 06/04/18 20:08 Last Admin: 06/04/18 20:23 Dose: 10 mg Vital Signs - 8 hr 06/04/18 21:28 06/04/18 21:55 06/04/18 23:00 Pulse Rate 94 H 94 H 90 Respiratory Rate 20 Blood Pressure 180/99 H 180/90 H Blood Pressure [Left Arm] 180/99 H Pulse Oximetry 96 Discharge Plan Departure Patient Disposition: Home, Self-Care Clinical Impression: Migraine, Hypertension Discharge Date/Time: 06/04/18 22:01 Interventions: ED Discharge Assessment Last Done: 06/04/18 22:01 Instructions: DI for Migraine Activity Restrictions/Additional Instructions: *You have been diagnosed with [ acute migraine headache ] *What to do: *Take medications as directed by your primary care providers and neurologist *Follow up with your primary care provider in 2-3 days, call for an appointment. Let them know you were seen in the Emergency Department and that we ask that you be seen in follow up *Return to ER if you should have any new, worsening or concerning symptoms, such as [increase in headache, confusion, blurred vision, other neurologic symptoms ] Prescriptions: New metoprolol succinate 100 mg tablet extended release 24 hr 100 mg PO BID 14 Days Qty: 28 RF: 0 No Action promethazine 25 MG tablet 25 mg PO Q6HP PRN (Reason: Nausea) Qty: 0 RF: 0 aripiprazole [Abilify] 10 MG tablet 10 mg PO QDAY Qty: 0 RF: 0 verapamil 120 mg tablet extended release 60 mg PO DAILY RF: 0 doxepin 25 mg capsule 25 mg PO QHS RF: 0 eszopiclone 3 mg tablet 3 mg PO BEDTIME PRN (Reason: Insomnia) RF: 0 mesalamine 1.2 gram tablet,delayed release (DR/EC) 4 tab PO QAM RF: 0 prednisone 10 mg tablet 1 dose PO TAPER RF: 0 cetirizine 10 mg tablet 10 mg PO DAILY RF: 0 alprazolam 1 mg tablet 1 mg PO BID RF: 0 alprazolam 1 mg Tablet 2 tab PO QHS RF: 0 metoprolol succinate [Toprol XL] 100 mg tablet extended release 24 hr 100 mg PO BID RF: 0 oxycodone-acetaminophen 10-325 mg tablet 1 tab PO PRN PRN (Reason: Pain, Severe) RF: 0 tizanidine 4 mg tablet 8 mg PO TID PRN (Reason: Muscle Spasm) RF: 0 omeprazole 40 mg capsule,delayed release(DR/EC) 40 mg PO BID RF: 0 zolpidem 5 mg tablet 5 mg PO QHS RF: 0 prazosin 2 mg capsule 2 mg PO QDAY RF: 0 prazosin 2 mg Capsule 4 mg PO QHS RF: 0 milnacipran [Savella] 50 mg Tablet 100 mg PO QPM RF: 0 milnacipran [Savella] 50 mg tablet 50 mg PO QDAY RF: 0 sulfasalazine 500 mg tablet 1,000 mg PO TID RF: 0 divalproex 500 mg tablet,delayed release (DR/EC) 500 mg PO BID RF: 0 fluticasone 50 mcg/actuation spray,suspension 1 spray Intranasal QDAY RF: 0 duloxetine 60 mg capsule,delayed release(DR/EC) 60 mg PO BID RF: 0 pregabalin [Lyrica] 300 mg capsule 300 mg PO BID RF: 0 ferrous gluconate 324 mg (38 mg iron) tablet 1 tab PO QDAY RF: 0 budesonide-formoterol [Symbicort] 160-4.5 mcg/actuation HFA aerosol inhaler 2 puff Inhalation BID RF: 0 vit C-vit A-ivpxgj-uff-om-3 [Ocuvite] [id number] vm-rfvy-zz-mg Capsule 1 tab PO QDAY RF: 0 krill oil capsule 1 cap PO QDAY RF: 0 dicyclomine 20 mg tablet 20 mg PO BID PRN (Reason: Abdominal Pain) RF: 0 gentamicin 0.3 % drops 2 drop EYE-LEFT Q4HRWA Qty: 5 RF: 0
[2018-06-04] MEDS: SODIUM CHLORIDE 0.9% 1,000 ML 1000 ML IV (20:22)
[2018-06-04] MEDS: KETOROLAC 60 MG/2 ML VIAL 15 MG IV (20:23)
[2018-06-04] MEDS: DEXAMETHASONE 10 MG/ML VIAL IV (20:23)
[2018-06-04] MEDS: PROCHLORPERAZINE 10 MG/2 ML VIAL IV (20:23)
[2018-06-04 21:28] VITALS: BP 180/99; PULSE 94; RESP 20; O2SAT 96
[2018-06-04 21:55] VITALS: BP 180/99; PULSE 94
[2018-06-04] MEDS: METOPROLOL ER 50 MG TABLET 100 MG PO (21:55)
[2018-06-04 23:00] VITALS: BP 180/90; PULSE 90
== END 2018-06-04 22:01 | disposition home or self-care (01) ==
PROVIDERS: Emergency Provider Emergency Medicine; Family Provider Family Medicine; PCP Family Medicine
DX: G43.909 Migraine, unspecified, not intractable, without status migrainosus (principal); I10 Essential (primary) hypertension
CPT/HCPCS: 82962; 96361; 96374; 96375; 99283; 99284; J0780; J1100; J1885

== ENCOUNTER 2018-07-01 09:42 | Emergency (ER) | payer OTHER, MEDICAID, SELFPAY ==
[2018-07-01 09:55] VITALS: BP 145/110; PULSE 76; RESP 16; TEMP 36.6; O2SAT 97; BMI 48.9
--- NOTE | 2018-07-01 11:03 | ED.HA ---
HPI - Headache General Chief Complaint: Headache Stated Complaint: SINUS/HEADACHES FOR 1 DAY Time Seen by Provider: 07/01/18 09:45 Source: patient and family Mode of arrival: ambulatory Limitations: no limitations History of Present Illness HPI Narrative: Patient presents to the emergency department today with a chief complaint of frontal headache which is different than his typical migraines. He states his sinuses feel full he had some drainage that is not off colored any denies any fever. He wonders if he is being affected by all of the poor air quality currently MD Complaint: headache Onset (ago): hour(s) Onset description: gradual Location: frontal Severity: mild Quality: aching and throbbing Relieving factors: nothing Exacerbating factors: none Context: occurred at rest Associated symptoms: none Related Data Home Medications Medication Instructions Recorded Confirmed promethazine 25 mg PO Q6HP PRN #0 03/05/18 05/07/18 alprazolam 1 mg PO BID 03/23/18 07/01/18 alprazolam 2 tab PO QHS 03/23/18 07/01/18 budesonide-formoterol [Symbicort] 2 puff INHALATION BID 03/23/18 05/07/18 divalproex 500 mg PO BID 03/23/18 05/07/18 duloxetine 60 mg PO BID 03/23/18 05/07/18 ferrous gluconate 1 tab PO QDAY 03/23/18 05/07/18 fluticasone 1 spray INTRANASAL QDAY 03/23/18 05/07/18 krill oil 1 cap PO QDAY 03/23/18 05/07/18 metoprolol succinate [Toprol XL] 100 mg PO BID 03/23/18 05/07/18 milnacipran [Savella] 50 mg PO QDAY 03/23/18 05/07/18 milnacipran [Savella] 100 mg PO QPM 03/23/18 05/07/18 omeprazole 40 mg PO BID 03/23/18 05/07/18 oxycodone-acetaminophen 1 tab PO PRN PRN 03/23/18 05/07/18 prazosin 2 mg PO QDAY 03/23/18 07/01/18 prazosin 4 mg PO QHS 03/23/18 07/01/18 pregabalin [Lyrica] 300 mg PO BID 03/23/18 05/07/18 sulfasalazine 1,000 mg PO TID 03/23/18 05/07/18 tizanidine 8 mg PO TID PRN 03/23/18 05/07/18 vit C-vit H-dokkwe-yqz-om-3 1 tab PO QDAY 03/23/18 05/07/18 [Ocuvite] zolpidem 5 mg PO QHS 03/23/18 05/07/18 doxepin 25 mg PO QHS 04/09/18 05/07/18 verapamil 60 mg PO DAILY 04/09/18 05/07/18 dicyclomine 20 mg PO BID PRN 04/29/18 07/01/18 eszopiclone 3 mg PO BEDTIME PRN 04/30/18 05/07/18 mesalamine 4 tab PO QAM 04/30/18 07/01/18 prednisone 1 dose PO TAPER 04/30/18 05/07/18 cetirizine 10 mg PO DAILY 05/04/18 05/07/18 aripiprazole 1 tab PO DAILY 07/01/18 07/01/18 cephalexin 1 cap PO BIDX7 07/01/18 07/01/18 duloxetine 30 mg PO TID 07/01/18 07/01/18 Previous Rx's Medication Instructions Recorded gentamicin 2 drop EYE-LEFT Q4HRWA #5 ml 05/21/18 Allergies Allergy/AdvReac Type Severity Reaction Status Date / Time codeine [CODEINE] Allergy Severe ANAPHYLAXIS Verified 07/01/18 10:00 trazodone Allergy Mild DISURIA Verified 07/01/18 10:00 amitriptyline [AMITRIPTYLINE] Allergy Unknown DIZZINESS Verified 07/01/18 10:00 AND UNSTEADYINESS tramadol [From ULTRAM] Allergy Unknown Verified 07/01/18 10:00 bee venom protein (honey bee) Allergy Verified 07/01/18 10:00 squash Allergy Verified 07/01/18 10:00 lisinopril [LISINOPRIL] AdvReac Unknown Verified 07/01/18 10:00 NSAIDS (Non-Steroidal AdvReac Unknown Verified 07/01/18 10:00 Anti-Inflamma [NSAIDS (NON-STEROIDAL ANTI-INFLAMMA] telmisartan [From MICARDIS] AdvReac Unknown Verified 07/01/18 10:00 Review of Systems Review of Systems All systems reviewed & are unremarkable except as noted in HPI and below Constitutional Denies chills, Denies fever(s), Denies lethargy and Denies weakness Eyes Denies change in vision, Denies eye discharge, Denies irritation and Denies loss of vision ENT Ears, Nose, Mouth, and Throat: Denies change in voice, Denies neck pain and Denies sore throat Cardiovascular Denies chest pain, Denies irregular heart rhythm, Denies lightheadedness, Denies palpitations, Denies dyspnea, Denies dyspnea on exertion and Denies orthopnea Respiratory Denies cough, Denies dyspnea, Denies dyspnea on exertion and Denies wheezing Gastrointestinal Gastrointestinal: Denies abdominal pain, Denies change in bowel habits, Denies diarrhea, Denies nausea and Denies vomiting Genitourinary Denies hematuria, Denies flank pain, Denies urinary incontinence and Denies urinary urgency Musculoskeletal Denies neck pain Integumentary/Breasts Denies pruritus, Denies erythema, Denies rash and Denies wounds Neurologic Denies confusion, Denies loss of vision and Denies weakness Psychiatric Denies anxiety, Denies confusion, Denies depression, Denies homicidal ideation and Denies suicidal ideation Endocrine Denies palpitations Hematologic/Lymphatic Denies easy bruising Allergic/Immunologic Denies wheezing [facility] Social History Smoking Status: Current every day smoker Exam Initial Vital Signs Initial Vital Signs: Vital Signs Temperature 97.9 F 07/01/18 09:55 Pulse Rate 76 07/01/18 09:55 Respiratory Rate 16 07/01/18 09:55 Blood Pressure 145/110 H 07/01/18 09:55 Pulse Oximetry 97 07/01/18 09:55 Const General: cooperative and well developed Nutritional Appearance: well nourished Orientation: alert, awake, oriented x3 and not confused HENOR Head: normocephalic and atraumatic Ears: external ears normal and TM's normal bilaterally Nose: external nose normal and No nasal discharge Face and sinus: sinuses nontender, face symmetric, no sinus tenderness and No dry mucous membranes Mouth: oral mucosae normal and moist mucous membranes Teeth and gingiva: dentition normal Throat: tonsils normal and uvula midline Eyes General: appearance normal, both eyes and all related structures Eyelids: eyelids normal Conjunctivae: conjunctivae normal Sclera: sclerae normal Pupils: PERRL EOM: EOM intact bilaterally Neck Neck: normal visual inspection, trachea midline, No lymphadenopathy, No midline deformity and No JVD Lymphatic: No lymphedema Chest Chest: normal inspection of the chest Resp Effort & Inspection: normal respiratory effort, able to speak in complete sentences, no respiratory distress and no use of accessory muscles Auscultation: clear to auscultation bilaterally, no rales, no rhonchi and no wheezes Cardio Rate: regular rate Rhythm: regular rhythm Heart Sounds: no click, no gallops, no murmurs and no rubs Pulses: normal peripheral pulses GI Inspection: non-distended Palpation: soft, no hepatosplenomegaly, No guarding, No pulsatile mass and No tender Auscultation: normal bowel sounds Back/Spine/Pelvis Back: No CVA tenderness Cervical Spine: cervical ROM normal and No pain with cervical ROM Thoracic/Lumbar Spine: thoracic and lumbar spine normal to inspection Skin General: no rashes or lesions noted, No jaundice and No petechiae Neuro General: alert, oriented x3, gait normal and no focal motor deficits Speech: speech normal Extrem General: full ROM, no clubbing, cyanosis or edema, no pedal edema and no calf tenderness Psych Appearance: well kempt Mental Status: mental status grossly normal Attitude: cooperative Thought Content: normal and suicidality Judgment: judgment good Course Orders Ordered: Discontinued Medications Ketorolac Tromethamine (Toradol) 60 mg IM NOW ONE Stop: 07/01/18 11:56 Last Admin: 07/01/18 12:12 Dose: 60 mg Reevaluation(s) Reevaluation #1: Marked improvement after the above therapies Vital Signs - 8 hr 07/01/18 11:48 07/01/18 12:50 07/01/18 12:55 Pulse Rate 71 71 68 Respiratory Rate 18 17 16 Blood Pressure 124/66 H Blood Pressure [Right Arm] 104/61 124/66 H Pulse Oximetry 98 100 100 07/01/18 13:09 Pulse Rate Respiratory Rate Blood Pressure 124/64 H Blood Pressure [Right Arm] Pulse Oximetry MDM - Headache Differential Diagnosis Differential diagnosis: Likely migraine, tension headache, subarachnoid hemorrhage, headache and meningitis Medical Records Attestation: I reviewed the patient's medical records. Lab Data Attestation: I reviewed the patient's lab results. Discharge Plan Departure Patient Disposition: Home Clinical Impression: Headache Discharge Date/Time: 07/01/18 12:55 Interventions: ED Discharge Assessment Last Done: 07/01/18 13:09 Instructions: DI for Headache Activity Restrictions/Additional Instructions: *You have been diagnosed with [ acute sinus headache ] *What to do: *Take medications as directed: Bnum-elh-knuxsyp antihistamine and Sudafed *Follow up with your primary care provider in 2-3 days, call for an appointment. Let them know you were seen in the Emergency Department and that we ask that you be seen in follow up *Return to ER if you should have any new, worsening or concerning symptoms Prescriptions: No Action promethazine 25 MG tablet 25 mg PO Q6HP PRN (Reason: Nausea) Qty: 0 RF: 0 verapamil 120 mg tablet extended release 60 mg PO DAILY RF: 0 doxepin 25 mg capsule 25 mg PO QHS RF: 0 eszopiclone 3 mg tablet 3 mg PO BEDTIME PRN (Reason: Insomnia) RF: 0 mesalamine 1.2 gram tablet,delayed release (DR/EC) 4 tab PO QAM RF: 0 prednisone 10 mg tablet 1 dose PO TAPER RF: 0 cetirizine 10 mg tablet 10 mg PO DAILY RF: 0 cephalexin 500 mg capsule 1 cap PO BIDX7 RF: 0 aripiprazole 15 mg tablet 1 tab PO DAILY RF: 0 duloxetine 30 mg capsule,delayed release(DR/EC) 30 mg PO TID RF: 0 alprazolam 1 mg tablet 1 mg PO BID RF: 0 alprazolam 1 mg Tablet 2 tab PO QHS RF: 0 metoprolol succinate [Toprol XL] 100 mg tablet extended release 24 hr 100 mg PO BID RF: 0 oxycodone-acetaminophen 10-325 mg tablet 1 tab PO PRN PRN (Reason: Pain, Severe) RF: 0 tizanidine 4 mg tablet 8 mg PO TID PRN (Reason: Muscle Spasm) RF: 0 omeprazole 40 mg capsule,delayed release(DR/EC) 40 mg PO BID RF: 0 zolpidem 5 mg tablet 5 mg PO QHS RF: 0 prazosin 2 mg capsule 2 mg PO QDAY RF: 0 prazosin 2 mg Capsule 4 mg PO QHS RF: 0 milnacipran [Savella] 50 mg Tablet 100 mg PO QPM RF: 0 milnacipran [Savella] 50 mg tablet 50 mg PO QDAY RF: 0 sulfasalazine 500 mg tablet 1,000 mg PO TID RF: 0 divalproex 500 mg tablet,delayed release (DR/EC) 500 mg PO BID RF: 0 fluticasone 50 mcg/actuation spray,suspension 1 spray Intranasal QDAY RF: 0 duloxetine 60 mg capsule,delayed release(DR/EC) 60 mg PO BID RF: 0 pregabalin [Lyrica] 300 mg capsule 300 mg PO BID RF: 0 ferrous gluconate 324 mg (38 mg iron) tablet 1 tab PO QDAY RF: 0 budesonide-formoterol [Symbicort] 160-4.5 mcg/actuation HFA aerosol inhaler 2 puff Inhalation BID RF: 0 vit C-vit F-gqxojx-hav-om-3 [Ocuvite] 407-32-0-150 nq-bzlf-xk-mg Capsule 1 tab PO QDAY RF: 0 krill oil capsule 1 cap PO QDAY RF: 0 dicyclomine 20 mg tablet 20 mg PO BID PRN (Reason: Abdominal Pain) RF: 0 gentamicin 0.3 % drops 2 drop EYE-LEFT Q4HRWA Qty: 5 RF: 0
[2018-07-01 11:48] VITALS: BP 104/61; PULSE 71; RESP 18; O2SAT 98
[2018-07-01] MEDS: KETOROLAC 60 MG/2 ML VIAL IM (12:12)
[2018-07-01 12:50] VITALS: BP 124/66; PULSE 71; RESP 17; O2SAT 100
[2018-07-01 12:55] VITALS: BP 124/66; PULSE 68; RESP 16; O2SAT 100
[2018-07-01 13:09] VITALS: BP 124/64
== END 2018-07-01 12:55 | disposition home or self-care (01) ==
PROVIDERS: Emergency Provider Emergency Medicine; Family Provider Family Medicine; PCP Family Medicine
DX: R51 Headache (principal)
CPT/HCPCS: 96372; 99283; J1885

== ENCOUNTER 2018-07-14 19:14 | Emergency (ER) | payer OTHER, MEDICAID, SELFPAY ==
[2018-07-14 19:25] VITALS: BP 111/76; PULSE 84; RESP 20; TEMP 36.2; O2SAT 98; BMI 51.7
--- NOTE | 2018-07-14 20:51 | ED.EAR ---
HPI - Ear Problem <Marie Amaral PA-C - Last Filed: 07/14/18 22:21> General Chief complaint: Ear Stated complaint: PAIN RIGHT EAR, AN RING FINGER L HAND INFECTED Time Seen by Provider: 07/14/18 19:38 Source: patient Mode of arrival: ambulatory Limitations: no limitations History of Present Illness HPI Narrative: This 42-year-old male comes in due to concern for ruptured ear drum. He states he blew his nose hard couple of hours ago and felt intense pain running from his right ear into the maxillary area. He states that it is so painful now unless he swallows hard. He states that his hearing is okay. He has not been sick with any fever, cough, or upper respiratory symptoms. Denies chest pain or dyspnea. He states that his throat is a little scratchy but he thinks this is an ongoing issue due to his teeth. He also notes that he has had problems with an ongoing infection in his left ring finger for which he took Keflex previously. Wonders if it is getting worse again. It is tender and somewhat red. States that he tends to bump it on his steering wheel Related Data Home Medications Medication Instructions Recorded Confirmed promethazine 25 mg PO Q6HP PRN #0 03/05/18 05/07/18 alprazolam 1 mg PO BID 03/23/18 07/01/18 alprazolam 2 tab PO QHS 03/23/18 07/01/18 budesonide-formoterol [Symbicort] 2 puff INHALATION BID 03/23/18 05/07/18 divalproex 500 mg PO BID 03/23/18 05/07/18 duloxetine 60 mg PO BID 03/23/18 05/07/18 ferrous gluconate 1 tab PO QDAY 03/23/18 05/07/18 fluticasone 1 spray INTRANASAL QDAY 03/23/18 05/07/18 krill oil 1 cap PO QDAY 03/23/18 05/07/18 metoprolol succinate [Toprol XL] 100 mg PO BID 03/23/18 05/07/18 milnacipran [Savella] 50 mg PO QDAY 03/23/18 05/07/18 milnacipran [Savella] 100 mg PO QPM 03/23/18 05/07/18 omeprazole 40 mg PO BID 03/23/18 05/07/18 oxycodone-acetaminophen 1 tab PO PRN PRN 03/23/18 05/07/18 prazosin 2 mg PO QDAY 03/23/18 07/01/18 prazosin 4 mg PO QHS 03/23/18 07/01/18 pregabalin [Lyrica] 300 mg PO BID 03/23/18 05/07/18 sulfasalazine 1,000 mg PO TID 03/23/18 05/07/18 tizanidine 8 mg PO TID PRN 03/23/18 05/07/18 vit C-vit I-lpvsel-xjx-om-3 1 tab PO QDAY 03/23/18 05/07/18 [Ocuvite] zolpidem 5 mg PO QHS 03/23/18 05/07/18 doxepin 25 mg PO QHS 04/09/18 05/07/18 verapamil 60 mg PO DAILY 04/09/18 05/07/18 dicyclomine 20 mg PO BID PRN 04/29/18 07/01/18 eszopiclone 3 mg PO BEDTIME PRN 04/30/18 05/07/18 mesalamine 4 tab PO QAM 04/30/18 07/01/18 prednisone 1 dose PO TAPER 04/30/18 05/07/18 cetirizine 10 mg PO DAILY 05/04/18 05/07/18 aripiprazole 1 tab PO DAILY 07/01/18 07/01/18 cephalexin 1 cap PO BIDX7 07/01/18 07/01/18 duloxetine 30 mg PO TID 07/01/18 07/01/18 Previous Rx's Medication Instructions Recorded gentamicin 2 drop EYE-LEFT Q4HRWA #5 ml 05/21/18 Allergies Allergy/AdvReac Type Severity Reaction Status Date / Time codeine [CODEINE] Allergy Severe ANAPHYLAXIS Verified 07/01/18 10:00 amitriptyline [AMITRIPTYLINE] Allergy Unknown DIZZINESS Verified 07/01/18 10:00 AND UNSTEADYINESS tramadol [From ULTRAM] Allergy Unknown Verified 07/01/18 10:00 bee venom protein (honey bee) Allergy Verified 07/01/18 10:00 squash Allergy Verified 07/01/18 10:00 lisinopril [LISINOPRIL] AdvReac Unknown Verified 07/01/18 10:00 NSAIDS (Non-Steroidal AdvReac Unknown Verified 07/01/18 10:00 Anti-Inflamma [NSAIDS (NON-STEROIDAL ANTI-INFLAMMA] telmisartan [From MICARDIS] AdvReac Unknown Verified 07/01/18 10:00 Review of Systems <KIERAN Eckert Last Filed: 07/14/18 22:21> Review of Systems All systems reviewed & are unremarkable except as noted in HPI and below Exam <Marie Amaral PA-C - Last Filed: 07/14/18 22:21> Narrative Exam Narrative: GENERAL APPEARANCE: Patient sitting comfortably, in no distress. EYES: PERRL, EOMI. EARS: Normal auditory canals, TMs are intact, left with normal light reflex, right is slightly retracted and there is some flaky wax inferiorly, hearing is grossly intact ORAL CAVITY: Normal oropharynx. THROAT: Clear. NECK/THYROID: Neck supple, full range of motion, no cervical lymphadenopathy. LUNGS: Clear to auscultation bilaterally, clear to percussion, no cough on exam. HEART: RRR without murmur, nl S1, S2, no S3 or S4. DERMATOLOGIC: Left pointer finger there is mild erythema at the medial border of the nail tip where there is a tiny break. No erythema or drainage. Mildly tender to touch Initial Vital Signs Initial Vital Signs: Vital Signs Temperature 97.1 F L 07/14/18 19:25 Pulse Rate 84 07/14/18 19:25 Respiratory Rate 20 07/14/18 19:25 Blood Pressure 111/76 07/14/18 19:25 Pulse Oximetry 98 07/14/18 19:25 <Aguilar Muñoz DO - Last Filed: 07/15/18 03:29> Initial Vital Signs Initial Vital Signs: Vital Signs Temperature 97.1 F L 07/14/18 19:25 Pulse Rate 84 07/14/18 19:25 Respiratory Rate 20 07/14/18 19:25 Blood Pressure 111/76 07/14/18 19:25 Pulse Oximetry 98 07/14/18 19:25 Course <KIERAN Eckert Last Filed: 07/14/18 22:21> Vital Signs - 8 hr 07/14/18 21:28 Pulse Rate 84 Respiratory Rate 14 Blood Pressure 125/81 H Pulse Oximetry 97 <Aguilar Muñoz - Last Filed: 07/15/18 03:29> Vital Signs - 8 hr 07/14/18 21:28 Pulse Rate 84 Respiratory Rate 14 Blood Pressure 125/81 H Pulse Oximetry 97 Discharge Plan Departure Patient Disposition: Home Clinical Impression: Eustachian tube dysfunction, Chronic paronychia of finger Discharge Date/Time: 07/14/18 21:29 Interventions: ED Discharge Assessment Last Done: 07/14/18 21:28 Instructions: DI for Eustachian Tube Dysfunction-Adult Activity Restrictions/Additional Instructions: Please be gentle about blowing your nose or popping your ears until your pain is better. Start using your Flonase again this evening and use regularly. I think your ear pain is due to congestion in the tube between your nose and ear. For your nail/finger inflammation, please start hot soaks as many times daily as you can for 5-10 minutes, then apply a little antibiotic ointment. Cover the nail will you are driving or when it may be irritated. You can start your Keflex again if it starts to worsen. You should follow up with your PCP if your ear is not feeling better over the next few days as you may need a referral to ENT Prescriptions: No Action promethazine 25 MG tablet 25 mg PO Q6HP PRN (Reason: Nausea) Qty: 0 RF: 0 verapamil 120 mg tablet extended release 60 mg PO DAILY RF: 0 doxepin 25 mg capsule 25 mg PO QHS RF: 0 eszopiclone 3 mg tablet 3 mg PO BEDTIME PRN (Reason: Insomnia) RF: 0 mesalamine 1.2 gram tablet,delayed release (DR/EC) 4 tab PO QAM RF: 0 prednisone 10 mg tablet 1 dose PO TAPER RF: 0 cetirizine 10 mg tablet 10 mg PO DAILY RF: 0 cephalexin 500 mg capsule 1 cap PO BIDX7 RF: 0 aripiprazole 15 mg tablet 1 tab PO DAILY RF: 0 duloxetine 30 mg capsule,delayed release(DR/EC) 30 mg PO TID RF: 0 alprazolam 1 mg tablet 1 mg PO BID RF: 0 alprazolam 1 mg Tablet 2 tab PO QHS RF: 0 metoprolol succinate [Toprol XL] 100 mg tablet extended release 24 hr 100 mg PO BID RF: 0 oxycodone-acetaminophen 10-325 mg tablet 1 tab PO PRN PRN (Reason: Pain, Severe) RF: 0 tizanidine 4 mg tablet 8 mg PO TID PRN (Reason: Muscle Spasm) RF: 0 omeprazole 40 mg capsule,delayed release(DR/EC) 40 mg PO BID RF: 0 zolpidem 5 mg tablet 5 mg PO QHS RF: 0 prazosin 2 mg capsule 2 mg PO QDAY RF: 0 prazosin 2 mg Capsule 4 mg PO QHS RF: 0 milnacipran [Savella] 50 mg Tablet 100 mg PO QPM RF: 0 milnacipran [Savella] 50 mg tablet 50 mg PO QDAY RF: 0 sulfasalazine 500 mg tablet 1,000 mg PO TID RF: 0 divalproex 500 mg tablet,delayed release (DR/EC) 500 mg PO BID RF: 0 fluticasone 50 mcg/actuation spray,suspension 1 spray Intranasal QDAY RF: 0 duloxetine 60 mg capsule,delayed release(DR/EC) 60 mg PO BID RF: 0 pregabalin [Lyrica] 300 mg capsule 300 mg PO BID RF: 0 ferrous gluconate 324 mg (38 mg iron) tablet 1 tab PO QDAY RF: 0 budesonide-formoterol [Symbicort] 160-4.5 mcg/actuation HFA aerosol inhaler 2 puff Inhalation BID RF: 0 vit C-vit Y-hvnodh-ozr-om-3 [Ocuvite] 670-80-9-150 uq-qhlu-eb-mg Capsule 1 tab PO QDAY RF: 0 krill oil capsule 1 cap PO QDAY RF: 0 dicyclomine 20 mg tablet 20 mg PO BID PRN (Reason: Abdominal Pain) RF: 0 gentamicin 0.3 % drops 2 drop EYE-LEFT Q4HRWA Qty: 5 RF: 0 Referrals: Stacy Collier MD [Primary Care Provider] - <Aguilar Muñoz DO - Last Filed: 07/15/18 03:29> Cosign ED Attending Julee Attestation: I was immediately available in the department for consultation. Documentation has been reviewed. I agree with assessment and plan.
[2018-07-14 21:28] VITALS: BP 125/81; PULSE 84; RESP 14; O2SAT 97
== END 2018-07-14 21:29 | disposition home or self-care (01) ==
PROVIDERS: Emergency Provider Internal Medicine; Family Provider Family Medicine; PCP Family Medicine
DX: H69.80 Other specified disorders of Eustachian tube, unspecified ear (principal); L03.019 Cellulitis of unspecified finger
CPT/HCPCS: 99282

== ENCOUNTER 2018-07-15 10:59 | Emergency (ER) | payer OTHER, MEDICAID, SELFPAY ==
[2018-07-15 11:15] VITALS: BP 120/99; PULSE 83; RESP 18; TEMP 37.1; O2SAT 99; BMI 51.7
--- NOTE | 2018-07-15 11:47 | DI.RAD.S_ITS ---
PROCEDURE: XR SHOULDER RT MIN 2V INDICATIONS: right shoulder pain , no injury TECHNIQUE: 3 views of the shoulder were acquired. COMPARISON: None. FINDINGS: Bones: No fractures or dislocations. No suspicious bony lesions. Visualized ribs appear intact. Soft tissues: No suspicious soft tissue calcifications. IMPRESSION: No acute fractures or dislocations. Dictated by: Gianluca Garrett M.D. on 07/15/2018 at 12:10 Approved by: Gianluca Garrett M.D. on 07/15/2018 at 12:11
--- NOTE | 2018-07-15 12:27 | ED.EXTPRO ---
HPI - Extremity Problem <Emmanuelle Perkins, IT DESKTOP SUPPORT TECHNICIAN-BC - Last Filed: 07/15/18 16:11> General Chief complaint: Extremity Problem,Nontraumatic Stated complaint: right shoulder pain Time Seen by Provider: 07/15/18 12:05 Source: patient Mode of arrival: ambulatory Limitations: no limitations History of Present Illness HPI Narrative: Patient presents with chief complaint of right shoulder pain for 3 weeks. He states there is no noted injury, no known fall. He denies any weakness, decreased range of motion. He has not taken anything for pain. He has not rested his arm and he has not applied ice. He states he does not have any ice at home. He denies any numbness or tingling. He denies any rashes bruising or signs of trauma. He was here yesterday for another complaint, but states he did not bring it up yesterday as he ?did not want to have too many complaints at once. He states that the pain is back and scapula on the side of his arm. He denies radiation and states it stays in his right shoulder. He states that he wanted to follow up with his primary care provider, but the wait was too long and he did not want to have to wait for ?Medicare to approve the x-ray? and then ?go get the x-ray and he ?might as well just go to the ER. He denies any fever, nausea, vomiting, diarrhea, shortness of breath, cough, congestion, chest pain or any other problems at this point time. Related Data Home Medications Medication Instructions Recorded Confirmed promethazine 25 mg PO Q6HP PRN #0 03/05/18 05/07/18 alprazolam 1 mg PO BID 03/23/18 07/01/18 alprazolam 2 tab PO QHS 03/23/18 07/01/18 budesonide-formoterol [Symbicort] 2 puff INHALATION BID 03/23/18 05/07/18 divalproex 500 mg PO BID 03/23/18 05/07/18 duloxetine 60 mg PO BID 03/23/18 05/07/18 ferrous gluconate 1 tab PO QDAY 03/23/18 05/07/18 fluticasone 1 spray INTRANASAL QDAY 03/23/18 05/07/18 krill oil 1 cap PO QDAY 03/23/18 05/07/18 metoprolol succinate [Toprol XL] 100 mg PO BID 03/23/18 05/07/18 milnacipran [Savella] 50 mg PO QDAY 03/23/18 05/07/18 milnacipran [Savella] 100 mg PO QPM 03/23/18 05/07/18 omeprazole 40 mg PO BID 03/23/18 05/07/18 oxycodone-acetaminophen 1 tab PO PRN PRN 03/23/18 05/07/18 prazosin 2 mg PO QDAY 03/23/18 07/01/18 prazosin 4 mg PO QHS 03/23/18 07/01/18 pregabalin [Lyrica] 300 mg PO BID 03/23/18 05/07/18 sulfasalazine 1,000 mg PO TID 03/23/18 05/07/18 tizanidine 8 mg PO TID PRN 03/23/18 05/07/18 vit C-vit F-swsdtz-vva-om-3 1 tab PO QDAY 03/23/18 05/07/18 [Ocuvite] zolpidem 5 mg PO QHS 03/23/18 05/07/18 doxepin 25 mg PO QHS 04/09/18 05/07/18 verapamil 60 mg PO DAILY 04/09/18 05/07/18 dicyclomine 20 mg PO BID PRN 04/29/18 07/01/18 eszopiclone 3 mg PO BEDTIME PRN 04/30/18 05/07/18 mesalamine 4 tab PO QAM 04/30/18 07/01/18 prednisone 1 dose PO TAPER 04/30/18 05/07/18 cetirizine 10 mg PO DAILY 05/04/18 05/07/18 aripiprazole 1 tab PO DAILY 07/01/18 07/01/18 cephalexin 1 cap PO BIDX7 07/01/18 07/01/18 duloxetine 30 mg PO TID 07/01/18 07/01/18 Previous Rx's Medication Instructions Recorded gentamicin 2 drop EYE-LEFT Q4HRWA #5 ml 05/21/18 Allergies Allergy/AdvReac Type Severity Reaction Status Date / Time codeine [CODEINE] Allergy Severe ANAPHYLAXIS Verified 08/30/18 11:19 amitriptyline [AMITRIPTYLINE] Allergy Unknown DIZZINESS Verified 07/15/18 11:19 AND UNSTEADYINESS tramadol [From ULTRAM] Allergy Unknown Verified 07/15/18 11:19 bee venom protein (honey bee) Allergy Verified 07/15/18 11:19 squash Allergy Verified 07/15/18 11:19 lisinopril [LISINOPRIL] AdvReac Unknown Verified 07/15/18 11:19 NSAIDS (Non-Steroidal AdvReac Unknown Verified 07/15/18 11:19 Anti-Inflamma [NSAIDS (NON-STEROIDAL ANTI-INFLAMMA] telmisartan [From MICARDIS] AdvReac Unknown Verified 07/15/18 11:19 Review of Systems <LINDSAY Sargent - Last Filed: 07/15/18 16:11> Review of Systems GENERAL: Denies chills, fatigue, malaise, fever, sweats. HEENT: Denies sinus pain, ear pain, sore throat, difficulty swallowing, dizziness. RESPIRATORY: Denies dyspnea, cough, wheezing, hemoptysis, sputum. CARDIOVASCULAR: Denies chest pain, palpitations, orthopnea, edema, GASTROINTESTINAL: Denies nausea, vomiting, abdominal pain, diarrhea, constipation, melena. : Denies dysuria, frequency, incontinence, hematuria, urinary retention. MUSCULOSKELETAL: See HPI SKIN: Denies rash, skin lesions, or other NEUROLOGIC: Denies weakness, headache, numbness, change in speech, confusion, seizures, incoordination. PSYCHIATRIC: No concerning psychosocial issues. 12 point review of systems is negative except for those stated above Exam <LATA Sargent- - Last Filed: 07/15/18 16:11> Narrative Exam Narrative: GENERAL: Morbidly obese patient sitting on his bed playing on a cell phone. HEAD: Atraumatic. Normocephalic. No temporal or scalp tenderness. ENT: Nose without bleeding, purulent drainage or septal hematoma. Throat without erythema, tonsillar hypertrophy or exudate. Uvula midline. Airway patent. NECK: Trachea midline. No JVD or lymphadenopathy. Supple, nontender, no meningeal signs. CARDIOVASCULAR: Regular rate and rhythm without murmurs, gallops, or rubs. RESPIRATORY: Clear to auscultation. Breath sounds equal bilaterally. No wheezes, rales, or rhonchi. GASTROINTESTINAL: Abdomen soft, non-tender, nondistended. No hepato-splenomegaly, or palpable masses. No guarding. EXTREMITIES: Generalized pain to palpation of right shoulder. Patient has full range of motion of the right shoulder including abduction adduction and is able to pronate and supinate. Negative empty can test. Good strength bilateral lead upper extremities. Positive 2 pulses right hand. Capillary refill less than 2 sec right hand. Pain to palpation of right scapula and upper humerus. BACK: Nontender without deformity or crepitance. No flank tenderness. NEURO: AOx3. SKIN: No rash wound ecchymosis or erythema right shoulder. Initial Vital Signs Initial Vital Signs: Vital Signs Temperature 98.8 F 07/15/18 11:15 Pulse Rate 83 07/15/18 11:15 Respiratory Rate 18 07/15/18 11:15 Blood Pressure 120/99 H 07/15/18 11:15 Pulse Oximetry 99 07/15/18 11:15 <Gini Gaines DO - Last Filed: 07/16/18 10:35> Initial Vital Signs Initial Vital Signs: Vital Signs Temperature 98.8 F 07/15/18 11:15 Pulse Rate 83 07/15/18 11:15 Respiratory Rate 18 07/15/18 11:15 Blood Pressure 120/99 H 07/15/18 11:15 Pulse Oximetry 99 07/15/18 11:15 Course <VINOD Sargent - Last Filed: 07/15/18 16:11> Orders Ordered: Discontinued Medications Ketorolac Tromethamine (Toradol) 60 mg IM NOW ONE Stop: 07/15/18 12:40 Last Admin: 07/15/18 13:02 Dose: 60 mg Vital Signs - 8 hr 07/15/18 11:15 07/15/18 13:24 Temperature 98.8 F Pulse Rate 83 85 Respiratory Rate 18 20 Blood Pressure 120/99 H 134/69 Pulse Oximetry 99 98 <DO Zoë Retana Last Filed: 07/16/18 10:35> Orders Ordered: Discontinued Medications Ketorolac Tromethamine (Toradol) 60 mg IM NOW ONE Stop: 07/15/18 12:40 Last Admin: 07/15/18 13:02 Dose: 60 mg Vital Signs - 8 hr 07/15/18 11:15 07/15/18 13:24 Temperature 98.8 F Pulse Rate 83 85 Respiratory Rate 18 20 Blood Pressure 120/99 H 134/69 Pulse Oximetry 99 98 MDM - Extremity (Nontraumatic) <VINOD Sargent - Last Filed: 07/15/18 16:11> Imaging Data right shoulder xray: Radiologist's impression: View Report History [address] [address] XRay Report Signed Patient: Edgar Leon MR#: [id number] : 1975 Acct:[id number] Age/Sex: 42 / M Date of Service: 07/15/18 Loc: ED Accession Number: [id number] Procedure: XR shoulder RT min 2V Ordering Provider: Emmanuelle Perkins PROCEDURE: XR SHOULDER RT MIN 2V INDICATIONS: right shoulder pain , no injury TECHNIQUE: 3 views of the shoulder were acquired. COMPARISON: None. FINDINGS: Bones: No fractures or dislocations. No suspicious bony lesions. Visualized ribs appear intact. Soft tissues: No suspicious soft tissue calcifications. IMPRESSION: No acute fractures or dislocations. Dictated by: Gianluca Garrett M.D. on 07/15/2018 at 12:10 Approved by: Gianluca Garrett M.D. on 07/15/2018 at 12:11 [facility] Narrative Medical decision making narrative: Patient presented with chief complaint of right shoulder pain. X-rays were taken to evaluate for fracture, he was medicated with Toradol as he states he is able to take that well and has not taken anything for pain yet. He was given an ice pack for comfort and a sling for rest. I discussed follow-up with his primary care provider for new or worsening symptoms. I encouraged him to go to physical therapy as scheduled tomorrow as he is being evaluated for ?deconditioning. He had no questions or concerns upon discharge. Discharge Plan Departure Patient Disposition: Home Clinical Impression: Acute pain of right shoulder Discharge Date/Time: 07/15/18 13:24 Interventions: ED Discharge Assessment Last Done: 07/15/18 13:24 Instructions: How to Use a Sling, How To Perform RICE (Rest, Ice, Compress, Elevate), DI for Shoulder Pain Activity Restrictions/Additional Instructions: Your x-ray report today showed no fracture in your shoulder. You have good range of motion and good strength. I would like you to rest your shoulder and arm, use ice and take [id number] pain medication as needed and able. Please follow-up with your primary care provider for worsening or no improvement. I have given you a copy of your x-ray report. Come back to the emergency department for any acute emergencies including heart attack, passing out or stroke symptoms. Please continue to go to physical therapy as we discussed. Prescriptions: No Action promethazine 25 MG tablet 25 mg PO Q6HP PRN (Reason: Nausea) Qty: 0 RF: 0 verapamil 120 mg tablet extended release 60 mg PO DAILY RF: 0 doxepin 25 mg capsule 25 mg PO QHS RF: 0 eszopiclone 3 mg tablet 3 mg PO BEDTIME PRN (Reason: Insomnia) RF: 0 mesalamine 1.2 gram tablet,delayed release (DR/EC) 4 tab PO QAM RF: 0 prednisone 10 mg tablet 1 dose PO TAPER RF: 0 cetirizine 10 mg tablet 10 mg PO DAILY RF: 0 cephalexin 500 mg capsule 1 cap PO BIDX7 RF: 0 aripiprazole 15 mg tablet 1 tab PO DAILY RF: 0 duloxetine 30 mg capsule,delayed release(DR/EC) 30 mg PO TID RF: 0 alprazolam 1 mg tablet 1 mg PO BID RF: 0 alprazolam 1 mg Tablet 2 tab PO QHS RF: 0 metoprolol succinate [Toprol XL] 100 mg tablet extended release 24 hr 100 mg PO BID RF: 0 oxycodone-acetaminophen 10-325 mg tablet 1 tab PO PRN PRN (Reason: Pain, Severe) RF: 0 tizanidine 4 mg tablet 8 mg PO TID PRN (Reason: Muscle Spasm) RF: 0 omeprazole 40 mg capsule,delayed release(DR/EC) 40 mg PO BID RF: 0 zolpidem 5 mg tablet 5 mg PO QHS RF: 0 prazosin 2 mg capsule 2 mg PO QDAY RF: 0 prazosin 2 mg Capsule 4 mg PO QHS RF: 0 milnacipran [Savella] 50 mg Tablet 100 mg PO QPM RF: 0 milnacipran [Savella] 50 mg tablet 50 mg PO QDAY RF: 0 sulfasalazine 500 mg tablet 1,000 mg PO TID RF: 0 divalproex 500 mg tablet,delayed release (DR/EC) 500 mg PO BID RF: 0 fluticasone 50 mcg/actuation spray,suspension 1 spray Intranasal QDAY RF: 0 duloxetine 60 mg capsule,delayed release(DR/EC) 60 mg PO BID RF: 0 pregabalin [Lyrica] 300 mg capsule 300 mg PO BID RF: 0 ferrous gluconate 324 mg (38 mg iron) tablet 1 tab PO QDAY RF: 0 budesonide-formoterol [Symbicort] 160-4.5 mcg/actuation HFA aerosol inhaler 2 puff Inhalation BID RF: 0 vit C-vit I-jiqerz-pcl-om-3 [Ocuvite] [id number] ay-zmoh-sh-mg Capsule 1 tab PO QDAY RF: 0 krill oil capsule 1 cap PO QDAY RF: 0 dicyclomine 20 mg tablet 20 mg PO BID PRN (Reason: Abdominal Pain) RF: 0 gentamicin 0.3 % drops 2 drop EYE-LEFT Q4HRWA Qty: 5 RF: 0 Referrals: Stacy Collier MD [Primary Care Provider] - <Gini Gaines DO - Last Filed: 07/16/18 10:35> Cosign ED Attending Cosignature Attestation: I was immediately available in the department for consultation. Documentation has been reviewed. I agree with assessment and plan.
[2018-07-15] MEDS: KETOROLAC 60 MG/2 ML VIAL IM (13:02)
[2018-07-15 13:24] VITALS: BP 134/69; PULSE 85; RESP 20; O2SAT 98
== END 2018-07-15 13:24 | disposition home or self-care (01) ==
PROVIDERS: Emergency Provider Nurse Practitioner Family; Family Provider Family Medicine; PCP Family Medicine
DX: M25.511 Pain in right shoulder (principal)
CPT/HCPCS: 73030; 96372; 99282; 99283; J1885

== ENCOUNTER 2018-07-19 09:51 | Emergency (ER) | payer MEDICARE, MEDICAID, SELFPAY ==
[2018-07-19] VITALS (8 sets, daily range): BP systolic 62–130; BP diastolic 28–108; PULSE 71–77; RESP 16–22; TEMP 36.6; O2SAT 97–100; BMI 51.7
--- NOTE | 2018-07-19 10:10 | DI.RAD.S_ITS ---
PROCEDURE: XR CHEST 1V INDICATIONS: chest pain TECHNIQUE: One view of the chest was acquired. COMPARISON: [facility], CR, XR CHEST 1V, 04/29/2018, 7:08. FINDINGS: Surgical changes and devices: Wireless pacer is again seen and unchanged. Lungs and pleura: No pleural effusions or pneumothorax. Lungs are clear. Mediastinum: Mediastinal contours appear normal. Heart size is enlarged. Bones and chest wall: No suspicious bony lesions. Overlying soft tissues appear unremarkable. IMPRESSION: No acute cardiopulmonary pathology. Dictated by: Reece Luis M.D. on 07/19/2018 at 10:30 Approved by: Reece Luis M.D. on 07/19/2018 at 10:31
[2018-07-19 10:22] LABS: Add Manual Diff / Slide Review NO; Basophils Percent Auto 0.9 % (0-2); Eosinophils Percent Auto 0.2 % (2-4); Hemoglobin 13.9 g/dL (13.5-17.5); Lymphocytes Percent Auto 26.8 % (25-40); Mean Corpuscular HGB Conc 33.2 % (30-36); Mean Corpuscular Hemoglobin 30.1 PG (26-34); Mean Corpuscular Volume 90.6 fL (80-100); Monocytes Percent Auto 4.6 % (3-14); Neutrophils Absolute Auto 4700 /uL (3000-5900); Neutrophils Percent Auto 67.5 % (50-75); Platelet Count 186 X10^3/uL (150-400); Prothrombin Time 10.5 SECONDS (10.1-12.7); Red Blood Cell Count 4.63 X10^6/uL (4.5-5.9); Red Cell Distribution Width 14.3 % (11.6-14.8)
[2018-07-19 10:24] LABS: PTT Partial Thromboplastin Tim 33 SECONDS (26.4-36.2)
[2018-07-19 10:26] LABS: Alanine Aminotransferase 29 IU/L (21-72); Albumin 3.8 g/dL (3.5-5.0); Albumin Globulin Ratio 1.5 (1.0-2.8); Alkaline Phosphatase 55 U/L (38-126); Aspartate Aminotransferase 20 IU/L (17-59); Bilirubin Total 0.4 mg/dL (0.2-1.3); Blood Urea Nitrogen 12 mg/dL (9-20); Calcium 8.8 mg/dL (8.4-10.2); Carbon Dioxide 28 mmol/L (22-32); Chloride 108 mmol/L (98-107); Creatine Kinase 57 U/L (55-170); Estimated Glomerular Filt Rate > 60.0 mL/min (>60); Globulin 2.5 g/dL (1.7-4.1); Glucose 155 mg/dL (70-100); HEMOLYSIS 18 (0-50); Lipase 274 U/L (23-300); Potassium 4.4 mmol/L (3.4-5.1); Sodium 146 mmol/L (137-145); Total Protein 6.3 g/dL (6.3-8.2)
[2018-07-19] MEDS: KETOROLAC 60 MG/2 ML VIAL 30 MG IV (10:47)
[2018-07-19] MEDS: SODIUM CHLORIDE 0.9% 1,000 ML 500 ML IV (10:47)
[2018-07-19] MEDS: ASPIRIN 81 MG TAB 243 MG PO (10:48)
--- NOTE | 2018-07-19 10:49 | ED_ITS ---
HPI - Chest Pain General Chief Complaint: Chest Pain Stated Complaint: migraine,left side chest pain Time Seen by Provider: 07/19/18 10:05 Source: patient and old records reviewed Mode of arrival: ambulatory Limitations: no limitations History of Present Illness HPI narrative: This is a 42-year-old gentleman who comes to the emergency department with complaint of migraine that started about 5 hr prior to arrival as well as some chest pain that is about 5 min prior to arrival. Patient states he did have a little bit discomfort in his chest as well some shortness of breath. He has been having some nausea that started with his migraine. He felt a little bit dizzy with the chest pain. No vomiting, no issues with bowel movements. No swelling in his lower extremities. No fevers recently. He does have chest pain intermittently and has a history of hypertrophic cardiomyopathy. He has had 2 angiograms but no stents placed. Um he is on several medications for his heart and was recently started on Lasix 40 mg and potassium in the last week he took 1 of his baby aspirin prior to arrival. His migraine is similar to his typical symptoms. He was told he can no longer take it time a urinary medication at home as this could interact with his cardiac issues. He typically receives all her meds regular and/or Compazine and sometimes Dilaudid along with fluids for his migraines. MD complaint: chest pain and other ( Migraine) Onset (ago): hour(s) Duration: constant Related Data Home Medications Medication Instructions Recorded Confirmed promethazine 25 mg PO Q6HP PRN #0 03/05/18 07/19/18 budesonide-formoterol [Symbicort] 2 puff INHALATION BID 03/23/18 07/19/18 divalproex 500 mg PO BID 03/23/18 07/19/18 duloxetine 60 mg PO DAILY 03/23/18 07/19/18 fluticasone 1 spray INTRANASAL QDAY 03/23/18 07/19/18 metoprolol succinate [Toprol XL] 100 mg PO BID 03/23/18 07/19/18 milnacipran [Savella] 50 mg PO QDAY 03/23/18 07/19/18 milnacipran [Savella] 100 mg PO QPM 03/23/18 07/19/18 omeprazole 40 mg PO BID 03/23/18 07/19/18 oxycodone-acetaminophen 1 tab PO PRN PRN 03/23/18 07/19/18 prazosin 2 mg PO QDAY 03/23/18 07/19/18 prazosin 4 mg PO QHS 03/23/18 07/19/18 pregabalin [Lyrica] 300 mg PO BID 03/23/18 07/19/18 tizanidine 8 mg PO TID PRN 03/23/18 07/19/18 vit C-vit [id number]-[id number]-om-3 1 tab PO QDAY 03/23/18 07/19/18 [Ocuvite] verapamil 60 mg PO DAILY 04/09/18 07/19/18 dicyclomine 20 mg PO BID PRN 04/29/18 07/19/18 mesalamine 4 tab PO QAM 04/30/18 07/19/18 aripiprazole 1 tab PO DAILY 07/01/18 07/19/18 furosemide 40 mg PO DAILY 07/19/18 07/19/18 [id number]-[id number]-[id number]-[id number] 1 cap PO DAILY 07/19/18 07/19/18 [Krill Oil ([place] 3 and 6)] potassium chloride 20 meq PO DAILY 07/19/18 07/19/18 Allergies Allergy/AdvReac Type Severity Reaction Status Date / Time codeine [CODEINE] Allergy Severe ANAPHYLAXIS Verified 07/19/18 09:56 amitriptyline [AMITRIPTYLINE] Allergy Unknown DIZZINESS Verified 07/19/18 09:56 AND UNSTEADYINESS tramadol [From ULTRAM] Allergy Unknown Verified 07/19/18 09:56 bee venom protein (honey bee) Allergy Verified 07/19/18 09:56 squash Allergy Verified 07/19/18 09:56 lisinopril [LISINOPRIL] AdvReac Unknown Verified 07/19/18 09:56 NSAIDS (Non-Steroidal AdvReac Unknown Verified 07/19/18 09:56 Anti-Inflamma [NSAIDS (NON-STEROIDAL ANTI-INFLAMMA] telmisartan [From MICARDIS] AdvReac Unknown Verified 07/19/18 09:56 Review of Systems Review of Systems All systems reviewed & are unremarkable except as noted in HPI and below Constitutional Denies chills, Denies fever(s), Reports headache(s) (Migraine), Denies lethargy and Denies weakness ENT Ears, Nose, Mouth, and Throat: Reports dizziness and Reports headache(s) ( Migraine) Cardiovascular Denies diaphoresis, Denies syncope, Denies rapid heart rate, Denies pedal edema , Denies irregular heart rhythm, Denies lightheadedness, Denies palpitations, Reports dyspnea and Denies orthopnea Respiratory Denies chest congestion, Denies cough and Reports dyspnea Gastrointestinal Gastrointestinal: Denies abdominal pain, Denies constipation, Denies diarrhea, Reports nausea and Denies vomiting Genitourinary Reports system reviewed and no additional complaints, except as docu Musculoskeletal Denies numbness Neurologic Denies abnormal speech, Reports dizziness, Denies syncope, Reports headache(s) ( Migraine), Denies focal weakness, Denies numbness and Denies weakness Endocrine Denies palpitations [facility] Medical History Acute Crohn's disease (Chronic) Asthma (Chronic) Bulging disc (Chronic) CHF (congestive heart failure) (Chronic) Cataplexy (Chronic) Depression (Chronic) Diabetes (Chronic) Fibromyalgia (Chronic) GERD (gastroesophageal reflux disease) (Chronic) HTN (hypertension) (Chronic) Migraines (Chronic) Non-STEMI (non-ST elevated myocardial infarction) (Chronic) ROSLYN (obstructive sleep apnea) (Chronic) Osteoarthritis (Chronic) Surgical History Status post cardiac catheterization (Acute) Social History Smoking Status: Current every day smoker Exam Initial Vital Signs Initial Vital Signs: Vital Signs Temperature 97.8 F 07/19/18 09:53 Pulse Rate 77 07/19/18 09:53 Respiratory Rate 18 07/19/18 09:53 Blood Pressure 92/62 07/19/18 09:53 Pulse Oximetry 100 07/19/18 09:53 Const General: cooperative, comfortable, well developed, No diaphoretic and No ill appearing Nutritional Appearance: obese Orientation: alert, awake, oriented x3 and not confused [place] Head: normal to inspection, normocephalic and atraumatic Ears: hearing grossly normal bilaterally Nose: external nose normal Mouth: moist mucous membranes Eyes General: appearance normal, both eyes and all related structures Neck Neck: normal visual inspection, trachea midline, No lymphadenopathy, No midline deformity and No JVD Lymphatic: No lymphedema Chest Chest: normal inspection of the chest Resp Effort & Inspection: normal respiratory effort, able to speak in complete sentences, no respiratory distress and no use of accessory muscles Auscultation: clear to auscultation bilaterally, no rales, no rhonchi and no wheezes Cardio Rate: regular rate Rhythm: regular rhythm Heart Sounds: no click, no gallops, no murmurs and no rubs Bruits: no abdominal aortic bruits Pulses: normal peripheral pulses GI Inspection: non-distended and obesity Palpation: soft, no hepatosplenomegaly, No guarding, No pulsatile mass and No tender Auscultation: normal bowel sounds Neuro General: alert, awake, oriented x3, no focal motor deficits and CN's II-XI intact bilaterally Cranial Nerves: CN's II-XI intact bilaterally and EOM intact bilaterally Cognition: normal cognition Speech: speech normal Motor: muscle tone normal throughout Course Orders Ordered: ED Orders 07/19/18 10:00 Complete Blood Count AUTO DIFF Stat Comprehensive Metabolic Panel Stat Lipase Stat Partial Thromboplastin Time Stat Prothrombin Time INR Stat Troponin & CK Cardiac Panel Stat 07/19/18 10:10 XR chest 1V Stat EKG-12 Lead Stat 07/19/18 12:36 Troponin I Stat Discontinued Medications Aspirin (Aspirin Chew) 243 mg PO NOW ONE Stop: 07/19/18 10:43 Last Admin: 07/19/18 10:48 Dose: 243 mg Sodium Chloride (Normal Saline 0.9%) 1,000 mls @ 250 mls/hr IV CONT ALEX Last Infusion: 07/19/18 13:34 Dose: 0 mls/hr Infusion: 07/19/18 11:25 Dose: 250 mls/hr Admin: 07/19/18 10:47 Dose: 500 mls/hr Ketorolac Tromethamine (Toradol) 30 mg IV NOW ONE Stop: 07/19/18 10:43 Last Admin: 07/19/18 10:47 Dose: 30 mg Promethazine HCl (Phenergan) 25 mg PO NOW ONE Stop: 07/19/18 10:43 Last Admin: 07/19/18 11:19 Dose: 25 mg Reevaluation(s) Reevaluation #1: Recheck, patient headache is improving. He feels comfortable returning home. Time: 13:42 Vital Signs - 8 hr 07/19/18 11:03 07/19/18 13:03 07/19/18 13:30 Pulse Rate 72 71 71 Respiratory Rate 22 16 19 Blood Pressure [Left Arm] 100/66 114/67 114/67 Pulse Oximetry 100 97 98 MDM - Chest Pain Lab Data Attestation: I reviewed the patient's lab results. Result diagrams: 07/19/18 10:00 07/19/18 10:00 Lab Results 07/19/18 07/19/18 07/19/18 Range/Units 10:00 10:00 10:00 WBC 7.0 (4.5-11.0) X10^3/uL RBC 4.63 (4.5-5.9) X10^6/uL Hgb 13.9 (13.5-17.5) g/dL Hct 42.0 (41-53) % MCV 90.6 (80-100) fL MCH 30.1 (26-34) PG MCHC 33.2 (30-36) % RDW 14.3 (11.6-14.8) % Plt Count 186 (150-400) X10^3/uL Neut % (Auto) 67.5 (50-75) % Lymph % (Auto) 26.8 (25-40) % [place] % (Auto) 4.6 (3-14) % Eos % (Auto) 0.2 L (2-4) % Baso % (Auto) 0.9 (0-2) % Neut # (Auto) 4700 (1782-1773) /uL PT 10.5 (10.1-12.7) SECONDS INR 1.0 (0.9-1.3) APTT 33 (26.4-36.2) SECONDS Sodium 146 H (137-145) mmol/L Potassium 4.4 (3.4-5.1) mmol/L Chloride 108 H (98-107) mmol/L Carbon Dioxide 28 (22-32) mmol/L BUN 12 (9-20) mg/dL Creatinine 0.80 (0.66-1.25) mg/dL Estimated GFR > 60.0 (>60) mL/min BUN/Creatinine Ratio 15.0 (6-22) Glucose 155 H (70-100) mg/dL Calcium 8.8 (8.4-10.2) mg/dL Total Bilirubin 0.4 (0.2-1.3) mg/dL AST 20 (17-59) IU/L ALT 29 (21-72) IU/L Alkaline Phosphatase 55 (38-126) U/L Total Creatine Kinase 57 (55-170) U/L Troponin I < 0.012 (0.01-0.034) ng/mL Total Protein 6.3 (6.3-8.2) g/dL Albumin 3.8 (3.5-5.0) g/dL Globulin 2.5 (1.7-4.1) g/dL Albumin/Globulin Ratio 1.5 (1.0-2.8) Lipase 274 (23-300) U/L 07/19/18 Range/Units 12:36 WBC (4.5-11.0) X10^3/uL RBC (4.5-5.9) X10^6/uL Hgb (13.5-17.5) g/dL Hct (41-53) % MCV (80-100) fL MCH (26-34) PG MCHC (30-36) % RDW (11.6-14.8) % Plt Count (150-400) X10^3/uL Neut % (Auto) (50-75) % Lymph % (Auto) (25-40) % [place] % (Auto) (3-14) % Eos % (Auto) (2-4) % Baso % (Auto) (0-2) % Neut # (Auto) (1167-4721) /uL PT (10.1-12.7) SECONDS INR (0.9-1.3) APTT (26.4-36.2) SECONDS Sodium (137-145) mmol/L Potassium (3.4-5.1) mmol/L Chloride (98-107) mmol/L Carbon Dioxide (22-32) mmol/L BUN (9-20) mg/dL Creatinine (0.66-1.25) mg/dL Estimated GFR (>60) mL/min BUN/Creatinine Ratio (6-22) Glucose (70-100) mg/dL Calcium (8.4-10.2) mg/dL Total Bilirubin (0.2-1.3) mg/dL AST (17-59) IU/L ALT (21-72) IU/L Alkaline Phosphatase (38-126) U/L Total Creatine Kinase (55-170) U/L Troponin I < 0.012 (0.01-0.034) ng/mL Total Protein (6.3-8.2) g/dL Albumin (3.5-5.0) g/dL Globulin (1.7-4.1) g/dL Albumin/Globulin Ratio (1.0-2.8) Lipase (23-300) U/L Imaging Data Chest x-ray: Attestation: I personally reviewed and interpreted this imaging study as follows: Radiologist's impression: Patient: Edgar Leon [facility]#: [id number] : 1975Acct:[id number] Age/Sex: 42 / MDate of Service: 07/19/18 Loc: ED Accession Number: [id number] Procedure: XR chest 1V Ordering Provider: Emmanuelle Mcmanus D.O. PROCEDURE: XR CHEST 1V INDICATIONS: chest pain TECHNIQUE: One view of the chest was acquired. COMPARISON: [facility], , XR CHEST 1V, 04/29/2018, 7:08. FINDINGS: Surgical changes and devices: Wireless pacer is again seen and unchanged. Lungs and pleura: No pleural effusions or pneumothorax. Lungs are clear. Mediastinum: Mediastinal contours appear normal. Heart size is enlarged. Bones and chest wall: No suspicious bony lesions. Overlying soft tissues appear unremarkable. IMPRESSION: No acute cardiopulmonary pathology. Dictated by: Reece Luis M.D. on 07/19/2018 at 10:30 Approved by: Reece Luis M.D. on 07/19/2018 at 10:31 ECG Data Attestation: I personally reviewed and interpreted this ECG as follows: Prior ECG tracings: available for review Interpretation: Sinus rhythm with ST elevation in 3 and AVF Um and depression in 1 aVL and the 3 through V6. Rate is 72, appears 135, QRS is 74 QTC is 441. Patient's EKG appears similar in ST segments from April of 2018. there do not appear to be any new EKG changes. MDM Narrative Medical decision making narrative: Patient comes in complaining initially of migraine which has improved somewhat but is still present. He deferred any Tylenol. He did drive himself and was unable to find a ride so he not receive any narcotic pain medication for his migraine. Um patient also was complaining of some chest pain which he states he gets occasionally, he has had cardiac catheterizations without any stents but does have a history of hypertrophic cardiomyopathy. Patient's EKG does not show any new changes. Troponin x2 is negative over 6 hr plus. Patient's chest x-ray does not show any acute changes or signs of fluid overload. Patient clinically does not appear to be in any distress and suspicion for acute TX is low patient is also of regular pain medications but has had taking his other medications regularly. He did have Lasix that was started fairly recently and has been taking this which may have contributed to somewhat low blood pressure here earlier today. He received fluids has improvement. Discharge Plan Departure Clinical Impression: Migraine, Chest pain Discharge Date/Time: 07/19/18 14:00 Interventions: ED Discharge Assessment Last Done: 07/19/18 14:00 Instructions: DI for Chest Pain Activity Restrictions/Additional Instructions: Follow up with your primary care physician in the next week for a follow up. Continue your home medications as prescribed. Prescriptions: No Action promethazine 25 MG tablet 25 mg PO Q6HP PRN (Reason: Nausea) Qty: 0 RF: 0 verapamil 120 mg tablet extended release 60 mg PO DAILY RF: 0 mesalamine 1.2 gram tablet,delayed release (DR/EC) 4 tab PO QAM RF: 0 aripiprazole 15 mg tablet 1 tab PO DAILY RF: 0 metoprolol succinate [Toprol XL] 100 mg tablet extended release 24 hr 100 mg PO BID RF: 0 oxycodone-acetaminophen 10-325 mg tablet 1 tab PO PRN PRN (Reason: Pain, Severe) RF: 0 tizanidine 4 mg tablet 8 mg PO TID PRN (Reason: Muscle Spasm) RF: 0 omeprazole 40 mg capsule,delayed release(DR/EC) 40 mg PO BID RF: 0 prazosin 2 mg capsule 2 mg PO QDAY RF: 0 prazosin 2 mg Capsule 4 mg PO QHS RF: 0 milnacipran [Savella] 50 mg Tablet 100 mg PO QPM RF: 0 milnacipran [Savella] 50 mg tablet 50 mg PO QDAY RF: 0 divalproex 500 mg tablet,delayed release (DR/EC) 500 mg PO BID RF: 0 fluticasone 50 mcg/actuation spray,suspension 1 spray Intranasal QDAY RF: 0 duloxetine 60 mg capsule,delayed release(DR/EC) 60 mg PO DAILY RF: 0 pregabalin [Lyrica] 300 mg capsule 300 mg PO BID RF: 0 budesonide-formoterol [Symbicort] 160-4.5 mcg/actuation HFA aerosol inhaler 2 puff Inhalation BID RF: 0 vit C-vit T-oxmfso-ldo-om-3 [Ocuvite] [id number] lw-phfg-[id number]-mg Capsule 1 tab PO QDAY RF: 0 dicyclomine 20 mg tablet 20 mg PO BID PRN (Reason: Abdominal Pain) RF: 0 iqziw-[id number]-ycp-juv-iv9-yrs-astx [Krill Oil ([place] 3 and 6)] 1,500-165-67.5 mg Capsule 1 cap PO DAILY RF: 0 potassium chloride 20 mEq tablet,ER particles/crystals 20 meq PO DAILY RF: 0 furosemide 20 mg tablet 40 mg PO DAILY RF: 0
[2018-07-19 10:50] LABS: Troponin I < 0.012 ng/mL (0.01-0.034)
--- NOTE | 2018-07-19 11:04 | PC.NURSE ---
of note: Lasix / Potassium is new medication to pt, < 1 week.
[2018-07-19] MEDS: PROMETHAZINE 25 MG TABLET PO (11:19)
[2018-07-19 13:13] LABS: Troponin I < 0.012 ng/mL (0.01-0.034)
== END 2018-07-19 14:00 ==
PROVIDERS: Emergency Provider Emergency Medicine; Family Provider Family Medicine; PCP Family Medicine
DX: G43.909 Migraine, unspecified, not intractable, without status migrainosus (principal); R07.89 Other chest pain
CPT/HCPCS: 36415; 36591; 71045; 80053; 82550; 82553; 83690; 84484; 85025; 85610; 85730; 93005; 93010; 96361; 96374; 99284; 99285; J1885

== ENCOUNTER 2018-07-22 11:58 | Emergency (ER) | payer MEDICARE, MEDICAID, SELFPAY ==
[2018-07-22 12:04] VITALS: BP 117/79; PULSE 72; RESP 16; TEMP 36.7; O2SAT 96; BMI 51.3
--- NOTE | 2018-07-22 12:16 | ED.HA ---
HPI - Headache <MALA Salinas - Last Filed: 07/22/18 20:45> General Chief Complaint: Headache Stated Complaint: MIGRAINE ABOVE LEFT EYE Time Seen by Provider: 07/22/18 12:15 Source: patient Mode of arrival: ambulatory Limitations: no limitations History of Present Illness HPI Narrative: 42-year-old male with history of migraines and everyday smoker here for complaint of having a migraine headache that started earlier today. He states that the headache is to the left frontal area and is typical for him. He also states he has photophobia and nausea. He denies any neurological deficits. He is ambulatory into the emergency room. No trauma. No fevers no chills. He reports that normally he takes Maxalt over states that he cannot take Maxalt any more due to having CHF. He is currently awaiting to see his neurologist for discussion of a new migraine medication regimen. No other concerns or complaints. Related Data Home Medications Medication Instructions Recorded Confirmed promethazine 25 mg PO Q6HP PRN #0 03/05/18 07/19/18 budesonide-formoterol [Symbicort] 2 puff INHALATION BID 03/23/18 07/19/18 divalproex 500 mg PO BID 03/23/18 07/19/18 duloxetine 60 mg PO DAILY 03/23/18 07/19/18 fluticasone 1 spray INTRANASAL QDAY 03/23/18 07/19/18 metoprolol succinate [Toprol XL] 100 mg PO BID 03/23/18 07/19/18 milnacipran [Savella] 50 mg PO QDAY 03/23/18 07/19/18 milnacipran [Savella] 100 mg PO QPM 03/23/18 07/19/18 omeprazole 40 mg PO BID 03/23/18 07/19/18 oxycodone-acetaminophen 1 tab PO PRN PRN 03/23/18 07/19/18 prazosin 2 mg PO QDAY 03/23/18 07/19/18 prazosin 4 mg PO QHS 03/23/18 07/19/18 pregabalin [Lyrica] 300 mg PO BID 03/23/18 07/19/18 tizanidine 8 mg PO TID PRN 03/23/18 07/19/18 vit C-vit [id number] 1 tab PO QDAY 03/23/18 07/19/18 [Ocuvite] verapamil 60 mg PO DAILY 04/09/18 07/19/18 dicyclomine 20 mg PO BID PRN 04/29/18 07/19/18 mesalamine 4 tab PO QAM 04/30/18 07/19/18 aripiprazole 1 tab PO DAILY 07/01/18 07/19/18 furosemide 40 mg PO DAILY 07/19/18 07/19/18 [id number]-[id number] 1 cap PO DAILY 07/19/18 07/19/18 [Krill Oil ([place] 3 and 6)] potassium chloride 20 meq PO DAILY 07/19/18 07/19/18 Allergies Allergy/AdvReac Type Severity Reaction Status Date / Time codeine [CODEINE] Allergy Severe ANAPHYLAXIS Verified 07/22/18 12:04 amitriptyline [AMITRIPTYLINE] Allergy Unknown DIZZINESS Verified 07/22/18 12:04 AND UNSTEADYINESS tramadol [From ULTRAM] Allergy Unknown Verified 07/22/18 12:04 bee venom protein (honey bee) Allergy Verified 07/22/18 12:04 squash Allergy Verified 07/22/18 12:04 lisinopril [LISINOPRIL] AdvReac Unknown Verified 07/22/18 12:04 NSAIDS (Non-Steroidal AdvReac Unknown Verified 07/22/18 12:04 Anti-Inflamma [NSAIDS (NON-STEROIDAL ANTI-INFLAMMA] telmisartan [From MICARDIS] AdvReac Unknown Verified 07/22/18 12:04 Review of Systems <MALA Salinas - Last Filed: 07/22/18 20:45> Constitutional Denies chills, Denies fever(s), Reports headache(s), Denies lethargy and Denies weakness Eyes Denies change in vision, Denies eye discharge, Denies irritation and Denies loss of vision ENT Ears, Nose, Mouth, and Throat: Denies change in voice, Reports headache(s), Denies neck pain and Denies sore throat Cardiovascular Denies chest pain, Denies irregular heart rhythm, Denies lightheadedness, Denies palpitations, Denies dyspnea, Denies dyspnea on exertion and Denies orthopnea Respiratory Denies cough, Denies dyspnea, Denies dyspnea on exertion and Denies wheezing Gastrointestinal Gastrointestinal: Reports nausea Genitourinary Denies hematuria, Denies flank pain, Denies urinary incontinence and Denies urinary urgency Musculoskeletal Denies neck pain Integumentary/Breasts Denies pruritus, Denies erythema, Denies rash and Denies wounds Neurologic Denies confusion, Reports headache(s), Denies loss of vision and Denies weakness Psychiatric Denies anxiety, Denies confusion, Denies depression, Denies homicidal ideation and Denies suicidal ideation Endocrine Denies palpitations Allergic/Immunologic Denies wheezing Exam <MALA Salinas - Last Filed: 07/22/18 20:45> Initial Vital Signs Initial Vital Signs: Vital Signs Temperature 98.1 F 07/22/18 12:04 Pulse Rate 72 07/22/18 12:04 Respiratory Rate 16 07/22/18 12:04 Blood Pressure 117/79 07/22/18 12:04 Pulse Oximetry 96 07/22/18 12:04 Const General: cooperative and well developed Nutritional Appearance: well nourished Orientation: alert, awake, oriented x3 and not confused [facility] Mouth: oral mucosae normal and moist mucous membranes Eyes Conjunctivae: conjunctivae normal Sclera: sclerae normal Pupils: PERRL EOM: EOM intact bilaterally Resp Effort & Inspection: normal respiratory effort, able to speak in complete sentences, no respiratory distress and no use of accessory muscles Auscultation: clear to auscultation bilaterally, no rales, no rhonchi and no wheezes Cardio Rate: regular rate Rhythm: regular rhythm Heart Sounds: no click, no gallops, no murmurs and no rubs Pulses: normal peripheral pulses Skin General: no rashes or lesions noted, No jaundice and No petechiae Neuro General: alert, oriented x3, gait normal and no focal motor deficits Speech: speech normal <Gini Gaines DO - Last Filed: 07/27/18 07:27> Initial Vital Signs Initial Vital Signs: Vital Signs Temperature 98.1 F 07/22/18 12:04 Pulse Rate 72 07/22/18 12:04 Respiratory Rate 16 07/22/18 12:04 Blood Pressure 117/79 07/22/18 12:04 Pulse Oximetry 96 07/22/18 12:04 Course <MALA Salians - Last Filed: 07/22/18 20:45> Orders Ordered: Discontinued Medications Diphenhydramine HCl (Benadryl) 25 mg IV NOW ONE Stop: 07/22/18 12:25 Last Admin: 07/22/18 14:02 Dose: 25 mg Hydromorphone HCl (Dilaudid) 1 mg IV NOW ONE Stop: 07/22/18 14:47 Last Admin: 07/22/18 15:12 Dose: 1 mg Sodium Chloride (Normal Saline 0.9%) 1,000 mls @ 500 mls/hr IV BOLUS ONE Stop: 07/22/18 14:23 Last Infusion: 07/22/18 15:47 Dose: 0 mls/hr Admin: 07/22/18 14:02 Dose: 500 mls/hr Ketorolac Tromethamine (Toradol) 30 mg IV NOW ONE Stop: 07/22/18 12:28 Last Admin: 07/22/18 14:04 Dose: 30 mg Prochlorperazine (Compazine) 10 mg IV NOW ONE Stop: 07/22/18 12:25 Last Admin: 07/22/18 14:09 Dose: 10 mg Vital Signs - 8 hr 07/22/18 14:09 07/22/18 15:32 Pulse Rate 69 71 Blood Pressure 144/83 H Blood Pressure [Right Arm] 155/91 H Pulse Oximetry 98 <Gini Gaines DO - Last Filed: 07/27/18 07:27> Orders Ordered: Discontinued Medications Diphenhydramine HCl (Benadryl) 25 mg IV NOW ONE Stop: 07/22/18 12:25 Last Admin: 07/22/18 14:02 Dose: 25 mg Hydromorphone HCl (Dilaudid) 1 mg IV NOW ONE Stop: 07/22/18 14:47 Last Admin: 07/22/18 15:12 Dose: 1 mg Sodium Chloride (Normal Saline 0.9%) 1,000 mls @ 500 mls/hr IV BOLUS ONE Stop: 07/22/18 14:23 Last Infusion: 07/22/18 15:47 Dose: 0 mls/hr Admin: 07/22/18 14:02 Dose: 500 mls/hr Ketorolac Tromethamine (Toradol) 30 mg IV NOW ONE Stop: 07/22/18 12:28 Last Admin: 07/22/18 14:04 Dose: 30 mg Prochlorperazine (Compazine) 10 mg IV NOW ONE Stop: 07/22/18 12:25 Last Admin: 07/22/18 14:09 Dose: 10 mg Vital Signs - 8 hr 07/22/18 14:09 07/22/18 15:32 Pulse Rate 69 71 Blood Pressure 144/83 H Blood Pressure [Right Arm] 155/91 H Pulse Oximetry 98 MDM - Headache <MALA Salinas - Last Filed: 07/22/18 20:45> Differential Diagnosis Differential diagnosis: Likely tension headache MDM Narrative Medical decision making narrative: Patient was given some fluids, Compazine Benadryl and Toradol which did not seem to help his headache much. Patient states that Dilaudid normally helps his headache. Do not normally like to give Dilaudid for migraine headaches due to rebound headache however patient states that he tolerates it well and does not get rebound headaches. He was given 1 mg of Dilaudid which seemed to help his headache. He is encouraged to follow up with Neurology for further evaluation and treatment of his chronic migraines. Follow up with primary care provider. Return emergency room for any worsening symptoms. Discharge Plan Departure Patient Disposition: Home Clinical Impression: Migraine Discharge Date/Time: 07/22/18 15:34 Interventions: ED Discharge Assessment Last Done: 07/22/18 15:47 Instructions: Migraine -- Adult Activity Restrictions/Additional Instructions: Signs and symptoms presents as a migraine headache. Follow up with Neurology for further care and discussion for migraine headache medication regimen. Follow up with her primary care provider. Return emergency room for any worsening symptoms. Prescriptions: No Action promethazine 25 MG tablet 25 mg PO Q6HP PRN (Reason: Nausea) Qty: 0 RF: 0 verapamil 120 mg tablet extended release 60 mg PO DAILY RF: 0 mesalamine 1.2 gram tablet,delayed release (DR/EC) 4 tab PO QAM RF: 0 aripiprazole 15 mg tablet 1 tab PO DAILY RF: 0 metoprolol succinate [Toprol XL] 100 mg tablet extended release 24 hr 100 mg PO BID RF: 0 oxycodone-acetaminophen 10-325 mg tablet 1 tab PO PRN PRN (Reason: Pain, Severe) RF: 0 tizanidine 4 mg tablet 8 mg PO TID PRN (Reason: Muscle Spasm) RF: 0 omeprazole 40 mg capsule,delayed release(DR/EC) 40 mg PO BID RF: 0 prazosin 2 mg capsule 2 mg PO QDAY RF: 0 prazosin 2 mg Capsule 4 mg PO QHS RF: 0 milnacipran [Savella] 50 mg Tablet 100 mg PO QPM RF: 0 milnacipran [Savella] 50 mg tablet 50 mg PO QDAY RF: 0 divalproex 500 mg tablet,delayed release (DR/EC) 500 mg PO BID RF: 0 fluticasone 50 mcg/actuation spray,suspension 1 spray Intranasal QDAY RF: 0 duloxetine 60 mg capsule,delayed release(DR/EC) 60 mg PO DAILY RF: 0 pregabalin [Lyrica] 300 mg capsule 300 mg PO BID RF: 0 budesonide-formoterol [Symbicort] 160-4.5 mcg/actuation HFA aerosol inhaler 2 puff Inhalation BID RF: 0 vit C-vit P-tpbhoi-lpe-om-3 [Ocuvite] 665-20-9-150 zm-hgaf-kg-mg Capsule 1 tab PO QDAY RF: 0 dicyclomine 20 mg tablet 20 mg PO BID PRN (Reason: Abdominal Pain) RF: 0 [id number]-hfv-astx [Krill Oil ([place] 3 and 6)] 1,500-165-67.5 mg Capsule 1 cap PO DAILY RF: 0 potassium chloride 20 mEq tablet,ER particles/crystals 20 meq PO DAILY RF: 0 furosemide 20 mg tablet 40 mg PO DAILY RF: 0 Referrals: Stacy Collier MD [Primary Care Provider] - <Gini Gaines DO - Last Filed: 07/27/18 07:27> Cosign ED Attending Coslexieature Attestation: I was immediately available in the department for consultation. Documentation has been reviewed. I agree with assessment and plan.
[2018-07-22] MEDS: SODIUM CHLORIDE 0.9% 1,000 ML 500 ML IV (14:02)
[2018-07-22] MEDS: diphenhydrAMINE 50 MG/ML VIAL 25 MG IV (14:02)
[2018-07-22] MEDS: KETOROLAC 60 MG/2 ML VIAL 30 MG IV (14:04)
[2018-07-22 14:09] VITALS: BP 144/83; PULSE 69
[2018-07-22] MEDS: PROCHLORPERAZINE 10 MG/2 ML VIAL IV (14:09)
[2018-07-22] MEDS: HYDROMORPHONE 1 MG INJ IV (15:12)
[2018-07-22 15:32] VITALS: BP 155/91; PULSE 71; O2SAT 98
== END 2018-07-22 15:34 | disposition home or self-care (01) ==
PROVIDERS: Emergency Provider Nurse Practitioner Family; Family Provider Family Medicine; PCP Family Medicine
DX: G43.909 Migraine, unspecified, not intractable, without status migrainosus (principal)
CPT/HCPCS: 36591; 96361; 96374; 96375; 99283; 99284; J0780; J1170; J1200; J1885

== ENCOUNTER 2018-07-24 17:17 | Emergency (ER) | payer MEDICARE, MEDICAID, SELFPAY ==
[2018-07-24] VITALS (7 sets, daily range): BP systolic 124–162; BP diastolic 76–92; PULSE 67–79; RESP 16–18; TEMP 36.6; O2SAT 96–98; BMI 50.9
--- NOTE | 2018-07-24 17:30 | DI.RAD.S_ITS ---
PROCEDURE: XR CHEST 1V INDICATIONS: Chest pain. TECHNIQUE: One view of the chest was acquired. COMPARISON: None. FINDINGS: Surgical changes and devices: Cardiac device is again seen and unchanged. Lungs and pleura: No pleural effusions or pneumothorax. Lungs are clear. Mediastinum: Mediastinal contours appear normal. Heart size is normal. Bones and chest wall: No suspicious bony lesions. Overlying soft tissues appear unremarkable. IMPRESSION: No acute cardiopulmonary pathology. Dictated by: Reece Luis M.D. on 07/24/2018 at 18:28 Approved by: Reece Luis M.D. on 07/24/2018 at 18:29
[2018-07-24 17:44] LABS: Add Manual Diff / Slide Review NO; Basophils Percent Auto 1.5 % (0-2); Eosinophils Percent Auto 0.3 % (2-4); Hematocrit 42.3 % (41-53); Hemoglobin 14.4 g/dL (13.5-17.5); Lymphocytes Percent Auto 29.6 % (25-40); Mean Corpuscular Hemoglobin 30.6 PG (26-34); Monocytes Percent Auto 7.4 % (3-14); Neutrophils Absolute Auto 3800 /uL (3000-5900); Neutrophils Percent Auto 61.2 % (50-75); Platelet Count 207 X10^3/uL (150-400); Red Cell Distribution Width 14.4 % (11.6-14.8); White Blood Cell Count 6.2 X10^3/uL (4.5-11.0)
[2018-07-24 17:56] LABS: Alanine Aminotransferase 33 IU/L (21-72); Albumin 4.3 g/dL (3.5-5.0); Albumin Globulin Ratio 1.8 (1.0-2.8); Alkaline Phosphatase 54 U/L (38-126); Aspartate Aminotransferase 18 IU/L (17-59); Bilirubin Total 0.4 mg/dL (0.2-1.3); Blood Urea Nitrogen 16 mg/dL (9-20); Calcium 9.4 mg/dL (8.4-10.2); Carbon Dioxide 30 mmol/L (22-32); Chloride 108 mmol/L (98-107); Creatine Kinase 71 U/L (55-170); Estimated Glomerular Filt Rate > 60.0 mL/min (>60); Globulin 2.4 g/dL (1.7-4.1); Glucose 96 mg/dL (70-100); HEMOLYSIS < 15 (0-50); Lipase 200 U/L (23-300); Potassium 4.3 mmol/L (3.4-5.1); Sodium 147 mmol/L (137-145); Total Protein 6.7 g/dL (6.3-8.2)
[2018-07-24 18:08] LABS: Troponin I < 0.012 ng/mL (0.01-0.034)
--- NOTE | 2018-07-24 18:12 | ED.CHESTPAIN ---
HPI - Chest Pain General Chief Complaint: Chest Pain Stated Complaint: CHEST PAIN/HEADACHE Time Seen by Provider: 07/24/18 18:12 Source: patient Mode of arrival: ambulatory Limitations: no limitations History of Present Illness HPI narrative: The patient developed central sternal chest pain while sitting at home prior to arrival. He describes 7/10 substernal chest discomfort radiating to the left scapular area, not the left arm. There is no associated dyspnea weakness. He has a combination of cardiomyopathy, valvular heart disease, CHF, and 2 MIs in the past. He is here now with a headache. He took a sublingual nitroglycerin which reduce the chest pain to 3/10. He has no dyspnea. Although he still has some discomfort he remarks he feels much better. He is under the care of cardiology, Dr. Harper. He denies recent illness. He denies fever, chills, cough or congestion. He is not currently experiencing orthopnea or peripheral edema. He is not experiencing palpitations. Related Data Home Medications Medication Instructions Recorded Confirmed promethazine 25 mg PO Q6HP PRN #0 03/05/18 07/19/18 budesonide-formoterol [Symbicort] 2 puff INHALATION BID 03/23/18 07/19/18 divalproex 500 mg PO BID 03/23/18 07/19/18 duloxetine 60 mg PO DAILY 03/23/18 07/19/18 fluticasone 1 spray INTRANASAL QDAY 03/23/18 07/19/18 metoprolol succinate [Toprol XL] 100 mg PO BID 03/23/18 07/19/18 milnacipran [Savella] 50 mg PO QDAY 03/23/18 07/19/18 milnacipran [Savella] 100 mg PO QPM 03/23/18 07/19/18 omeprazole 40 mg PO BID 03/23/18 07/19/18 oxycodone-acetaminophen 1 tab PO PRN PRN 03/23/18 07/19/18 prazosin 2 mg PO QDAY 03/23/18 07/19/18 prazosin 4 mg PO QHS 03/23/18 07/19/18 pregabalin [Lyrica] 300 mg PO BID 03/23/18 07/19/18 tizanidine 8 mg PO TID PRN 03/23/18 07/19/18 vit C-vit Z-dvsnni-bix-om-3 1 tab PO QDAY 03/23/18 07/19/18 [Ocuvite] verapamil 60 mg PO DAILY 04/09/18 07/19/18 dicyclomine 20 mg PO BID PRN 04/29/18 07/19/18 mesalamine 4 tab PO QAM 04/30/18 07/19/18 aripiprazole 1 tab PO DAILY 07/01/18 07/19/18 furosemide 40 mg PO DAILY 07/19/18 07/19/18 umpno-hu1-mpd-pep-wk0-ctm-astx 1 cap PO DAILY 07/19/18 07/19/18 [Krill Oil ([place] 3 and 6)] potassium chloride 20 meq PO DAILY 07/19/18 07/19/18 Allergies Allergy/AdvReac Type Severity Reaction Status Date / Time codeine [CODEINE] Allergy Severe ANAPHYLAXIS Verified 07/22/18 12:04 amitriptyline [AMITRIPTYLINE] Allergy Unknown DIZZINESS Verified 07/22/18 12:04 AND UNSTEADYINESS tramadol [From ULTRAM] Allergy Unknown Verified 07/22/18 12:04 bee venom protein (honey bee) Allergy Verified 07/22/18 12:04 squash Allergy Verified 07/22/18 12:04 lisinopril [LISINOPRIL] AdvReac Unknown Verified 07/22/18 12:04 NSAIDS (Non-Steroidal AdvReac Unknown Verified 07/22/18 12:04 Anti-Inflamma [NSAIDS (NON-STEROIDAL ANTI-INFLAMMA] telmisartan [From MICARDIS] AdvReac Unknown Verified 07/22/18 12:04 Review of Systems Review of Systems All systems reviewed & are unremarkable except as noted in HPI and below Constitutional Denies chills, Denies fever(s), Reports headache(s), Denies lethargy and Denies weakness Eyes Denies change in vision, Denies eye discharge, Denies irritation and Denies loss of vision ENT Ears, Nose, Mouth, and Throat: Denies change in voice, Denies vertigo, Denies dizziness, Reports headache(s), Denies neck pain and Denies sore throat Cardiovascular Reports chest pain, Denies irregular heart rhythm, Denies lightheadedness, Denies palpitations, Denies dyspnea, Denies dyspnea on exertion and Denies orthopnea Respiratory Denies cough, Denies dyspnea, Denies dyspnea on exertion, Denies wheezing and Reports other (No orthopnea) Gastrointestinal Gastrointestinal: Denies abdominal pain, Denies change in bowel habits, Denies diarrhea, Denies nausea and Denies vomiting Musculoskeletal Denies back pain, Denies neck pain and Reports other (No lower extremity edema.) Integumentary/Breasts Denies erythema, Denies rash and Denies wounds Neurologic Denies vertigo, Denies dizziness, Reports headache(s), Denies loss of vision and Denies weakness Psychiatric Reports system reviewed and no additional complaints, except as docu Endocrine Denies palpitations Allergic/Immunologic Denies wheezing [facility] Medical History Acute Crohn's disease (Chronic) Asthma (Chronic) Bulging disc (Chronic) CHF (congestive heart failure) (Chronic) Cataplexy (Chronic) Depression (Chronic) Diabetes (Chronic) Fibromyalgia (Chronic) GERD (gastroesophageal reflux disease) (Chronic) HTN (hypertension) (Chronic) Migraines (Chronic) Non-STEMI (non-ST elevated myocardial infarction) (Chronic) ROSLYN (obstructive sleep apnea) (Chronic) Osteoarthritis (Chronic) Surgical History Status post cardiac catheterization (Acute) Social History Smoking Status: Current every day smoker Exam Initial Vital Signs Initial Vital Signs: Vital Signs Temperature 97.9 F 07/24/18 17:20 Pulse Rate 72 07/24/18 17:20 Respiratory Rate 16 07/24/18 17:20 Blood Pressure 124/76 07/24/18 17:20 Pulse Oximetry 96 07/24/18 17:20 Const General: cooperative and other (Morbidly obese) Nutritional Appearance: well nourished Orientation: alert, awake, oriented x3 and not confused [facility] Head: normocephalic and atraumatic Throat: posterior oropharynx abnormal Eyes Conjunctivae: conjunctivae normal Sclera: sclerae normal Neck Neck: No JVD Chest Chest: normal inspection of the chest Resp Effort & Inspection: normal respiratory effort, able to speak in complete sentences, no respiratory distress and no use of accessory muscles Auscultation: clear to auscultation bilaterally, no rales, no rhonchi and no wheezes Cardio Rate: regular rate Rhythm: regular rhythm Heart Sounds: S1 normal, S2 normal, no click, no gallops, no murmurs and no rubs Pulses: normal peripheral pulses GI Inspection: distended, large pannus and obesity Palpation: soft, No guarding, No hepatomegaly and No mass Percussion: normal to percussion Auscultation: normal bowel sounds Back/Spine/Pelvis Back: No back tenderness Cervical Spine: cervical ROM normal Thoracic/Lumbar Spine: thoracic and lumbar spine normal to inspection Skin General: no rashes or lesions noted Neuro General: alert, oriented x3, gait normal and no focal motor deficits Speech: speech normal Extrem General: no pedal edema and no calf tenderness Psych Appearance: well kempt Mental Status: mental status grossly normal Attitude: cooperative Thought Content: normal and suicidality Judgment: judgment good Course Orders Ordered: ED Orders 07/24/18 17:30 XR chest 1V Stat EKG-12 Lead Stat 07/24/18 17:40 B Type Natriuretic Peptide Stat Basic Metabolic Panel Stat Complete Blood Count AUTO DIFF Stat Complete Blood Count AUTO DIFF Stat Comprehensive Metabolic Panel Stat Lipase Stat Partial Thromboplastin Time Stat Prothrombin Time INR Stat Troponin & CK Cardiac Panel Stat 07/24/18 19:25 EKG-12 Lead Stat 07/24/18 20:25 Troponin I Stat Discontinued Medications Acetaminophen (Tylenol) 975 mg PO NOW ONE Stop: 07/24/18 20:07 Last Admin: 07/24/18 20:36 Dose: 975 mg Aspirin (Aspirin Chew) 324 mg PO NOW ONE Stop: 07/24/18 17:31 Sodium Chloride (Normal Saline 0.9%) 1,000 mls @ 150 mls/hr IV CONT ALEX Ketorolac Tromethamine (Toradol) 30 mg IV NOW ONE Stop: 07/24/18 18:24 Last Admin: 07/24/18 18:54 Dose: 30 mg Nitroglycerin (Nitro-Bid) 1 inch TOP NOW ONE Stop: 07/24/18 19:26 Last Admin: 07/24/18 19:38 Dose: 1 inch Vital Signs - 8 hr 07/24/18 17:20 07/24/18 18:15 07/24/18 19:25 Temperature 97.9 F Pulse Rate 72 78 67 Respiratory Rate 16 18 18 Blood Pressure 124/76 Blood Pressure [Left Arm] 142/92 H 157/85 H Pulse Oximetry 96 98 98 07/24/18 19:38 07/24/18 20:04 07/24/18 20:30 Temperature Pulse Rate 69 79 68 Respiratory Rate 17 Blood Pressure 162/83 H 151/89 H Blood Pressure [Left Arm] 160/83 H Pulse Oximetry 97 07/24/18 21:20 Temperature Pulse Rate 70 Respiratory Rate 17 Blood Pressure 160/83 H Blood Pressure [Left Arm] Pulse Oximetry 97 MDM - Chest Pain Lab Data Result diagrams: 07/24/18 17:40 07/24/18 17:40 Lab Results 07/24/18 07/24/18 07/24/18 Range/Units 17:40 17:40 17:40 WBC 6.2 6.2 (4.5-11.0) X10^3/uL RBC 4.70 4.70 (4.5-5.9) X10^6/uL Hgb 14.4 14.4 (13.5-17.5) g/dL Hct 42.3 42.2 (41-53) % MCV 90.0 89.9 (80-100) fL MCH 30.6 30.7 (26-34) PG MCHC 34.0 34.2 (30-36) % RDW 14.4 14.5 (11.6-14.8) % Plt Count 207 215 (150-400) X10^3/uL Neut % (Auto) 61.2 61.1 (50-75) % Lymph % (Auto) 29.6 30.3 (25-40) % Hill % (Auto) 7.4 7.7 (3-14) % Eos % (Auto) 0.3 L 0.3 L (2-4) % Baso % (Auto) 1.5 0.6 (0-2) % Neut # (Auto) 3800 3800 (4867-5419) /uL PT (10.1-12.7) SECONDS INR (0.9-1.3) APTT (26.4-36.2) SECONDS Sodium 147 H (137-145) mmol/L Potassium 4.3 (3.4-5.1) mmol/L Chloride 108 H (98-107) mmol/L Carbon Dioxide 30 (22-32) mmol/L BUN 16 (9-20) mg/dL Creatinine 1.00 (0.66-1.25) mg/dL Estimated GFR > 60.0 (>60) mL/min BUN/Creatinine Ratio 16.0 (6-22) Glucose 96 (70-100) mg/dL Calcium 9.4 (8.4-10.2) mg/dL Total Bilirubin 0.4 (0.2-1.3) mg/dL AST 18 (17-59) IU/L ALT 33 (21-72) IU/L Alkaline Phosphatase 54 (38-126) U/L Total Creatine Kinase 71 (55-170) U/L Troponin I < 0.012 (0.01-0.034) ng/mL B-Natriuretic Peptide < 100.0 (<100) Total Protein 6.7 (6.3-8.2) g/dL Albumin 4.3 (3.5-5.0) g/dL Globulin 2.4 (1.7-4.1) g/dL Albumin/Globulin Ratio 1.8 (1.0-2.8) Lipase 200 (23-300) U/L 07/24/18 07/24/18 07/24/18 Range/Units 17:40 17:40 20:25 WBC (4.5-11.0) X10^3/uL RBC (4.5-5.9) X10^6/uL Hgb (13.5-17.5) g/dL Hct (41-53) % MCV (80-100) fL MCH (26-34) PG MCHC (30-36) % RDW (11.6-14.8) % Plt Count (150-400) X10^3/uL Neut % (Auto) (50-75) % Lymph % (Auto) (25-40) % Hill % (Auto) (3-14) % Eos % (Auto) (2-4) % Baso % (Auto) (0-2) % Neut # (Auto) (1127-7998) /uL PT 10.8 (10.1-12.7) SECONDS INR 1.0 (0.9-1.3) APTT 34 (26.4-36.2) SECONDS Sodium 146 H (137-145) mmol/L Potassium 4.3 (3.4-5.1) mmol/L Chloride 108 H (98-107) mmol/L Carbon Dioxide 28 (22-32) mmol/L BUN 16 (9-20) mg/dL Creatinine 1.00 (0.66-1.25) mg/dL Estimated GFR > 60.0 (>60) mL/min BUN/Creatinine Ratio 16.0 (6-22) Glucose 97 (70-100) mg/dL Calcium 9.5 (8.4-10.2) mg/dL Total Bilirubin (0.2-1.3) mg/dL AST (17-59) IU/L ALT (21-72) IU/L Alkaline Phosphatase (38-126) U/L Total Creatine Kinase (55-170) U/L Troponin I < 0.012 (0.01-0.034) ng/mL B-Natriuretic Peptide (<100) Total Protein (6.3-8.2) g/dL Albumin (3.5-5.0) g/dL Globulin (1.7-4.1) g/dL Albumin/Globulin Ratio (1.0-2.8) Lipase (23-300) U/L Urine Dip Bedside Urine Glucose Negative Bedside Urine Bilirubin - Negative Bedside Urine Ketone - Negative Urine Specific [place] 1.020 Bedside Urine Occult Blood - Negative Bedside Urine pH 6.0 Bedside Urine Protein - Negative Bedside Urine Urobilinogen - Negative Bedside Urine Nitrite - Negative Bedside Urine Leukocytes - Negative Esterase Imaging Data Chest x-ray: Radiologist's impression: No acute finding ECG Data Attestation: I personally reviewed and interpreted this ECG as follows: Prior ECG tracings: available for review (No change.) [facility] Narrative Medical decision making narrative: The patient complains of a headache likely due to the night wrist. The chest pain was alleviated 1st with the sublingual nitro at home, then with the medications here. EKGs have been unchanged x2. Troponin is negative x2. The patient desired to leave, he was patient enough to wait on the 2nd troponin. Discharge Plan Departure Patient Disposition: Home Clinical Impression: Chest pain Discharge Date/Time: 07/24/18 21:24 Interventions: ED Discharge Assessment Last Done: 07/24/18 21:20 Instructions: DI for Chest Pain Activity Restrictions/Additional Instructions: The etiology of your chest pain is unclear, there is no obvious evidence of a heart attack at this point. I understandard your desire to go home. You should take aspirin daily and continue your current medications. However, if symptoms significantly exacerbate, you should consider returning for additional evaluation and/or admission. Prescriptions: No Action promethazine 25 MG tablet 25 mg PO Q6HP PRN (Reason: Nausea) Qty: 0 RF: 0 verapamil 120 mg tablet extended release 60 mg PO DAILY RF: 0 mesalamine 1.2 gram tablet,delayed release (DR/EC) 4 tab PO QAM RF: 0 aripiprazole 15 mg tablet 1 tab PO DAILY RF: 0 metoprolol succinate [Toprol XL] 100 mg tablet extended release 24 hr 100 mg PO BID RF: 0 oxycodone-acetaminophen 10-325 mg tablet 1 tab PO PRN PRN (Reason: Pain, Severe) RF: 0 tizanidine 4 mg tablet 8 mg PO TID PRN (Reason: Muscle Spasm) RF: 0 omeprazole 40 mg capsule,delayed release(DR/EC) 40 mg PO BID RF: 0 prazosin 2 mg capsule 2 mg PO QDAY RF: 0 prazosin 2 mg Capsule 4 mg PO QHS RF: 0 milnacipran [Savella] 50 mg Tablet 100 mg PO QPM RF: 0 milnacipran [Savella] 50 mg tablet 50 mg PO QDAY RF: 0 divalproex 500 mg tablet,delayed release (DR/EC) 500 mg PO BID RF: 0 fluticasone 50 mcg/actuation spray,suspension 1 spray Intranasal QDAY RF: 0 duloxetine 60 mg capsule,delayed release(DR/EC) 60 mg PO DAILY RF: 0 pregabalin [Lyrica] 300 mg capsule 300 mg PO BID RF: 0 budesonide-formoterol [Symbicort] 160-4.5 mcg/actuation HFA aerosol inhaler 2 puff Inhalation BID RF: 0 vit C-vit R-gnmzak-gvv-om-3 [Ocuvite] 908-14-7-150 vb-sgmb-ul-mg Capsule 1 tab PO QDAY RF: 0 dicyclomine 20 mg tablet 20 mg PO BID PRN (Reason: Abdominal Pain) RF: 0 htdlt-ct8-ggq-ilm-nd9-ibz-astx [Krill Oil ([place]el 3 and 6)] 1,500-165-67.5 mg Capsule 1 cap PO DAILY RF: 0 potassium chloride 20 mEq tablet,ER particles/crystals 20 meq PO DAILY RF: 0 furosemide 20 mg tablet 40 mg PO DAILY RF: 0
[2018-07-24 18:31] LABS: Prothrombin Time 10.8 SECONDS (10.1-12.7)
[2018-07-24 18:34] LABS: PTT Partial Thromboplastin Tim 34 SECONDS (26.4-36.2)
[2018-07-24 18:35] LABS: Blood Urea Nitrogen 16 mg/dL (9-20); Calcium 9.5 mg/dL (8.4-10.2); Carbon Dioxide 28 mmol/L (22-32); Chloride 108 mmol/L (98-107); Estimated Glomerular Filt Rate > 60.0 mL/min (>60); Glucose 97 mg/dL (70-100); HEMOLYSIS < 15 (0-50); Potassium 4.3 mmol/L (3.4-5.1); Sodium 146 mmol/L (137-145)
[2018-07-24 18:50] LABS: B Type Natriuretic Peptide < 100.0 (<100)
[2018-07-24 18:52] LABS: Add Manual Diff / Slide Review NO; Basophils Percent Auto 0.6 % (0-2); Eosinophils Percent Auto 0.3 % (2-4); Hematocrit 42.2 % (41-53); Hemoglobin 14.4 g/dL (13.5-17.5); Lymphocytes Percent Auto 30.3 % (25-40); Mean Corpuscular HGB Conc 34.2 % (30-36); Mean Corpuscular Hemoglobin 30.7 PG (26-34); Mean Corpuscular Volume 89.9 fL (80-100); Monocytes Percent Auto 7.7 % (3-14); Neutrophils Absolute Auto 3800 /uL (3000-5900); Neutrophils Percent Auto 61.1 % (50-75); Platelet Count 215 X10^3/uL (150-400); Red Cell Distribution Width 14.5 % (11.6-14.8); White Blood Cell Count 6.2 X10^3/uL (4.5-11.0)
[2018-07-24] MEDS: KETOROLAC 60 MG/2 ML VIAL 30 MG IV (18:54)
[2018-07-24] MEDS: NITROGLYCERIN OINT 1 INCH/GM OINT...G. TOP (19:38)
[2018-07-24] MEDS: ACETAMINOPHEN 325 MG TABLET 975 MG PO (20:36)
[2018-07-24 20:56] LABS: Troponin I < 0.012 ng/mL (0.01-0.034)
== END 2018-07-24 21:24 | disposition home or self-care (01) ==
PROVIDERS: Emergency Provider Emergency Medicine; Family Provider Family Medicine; PCP Family Medicine
DX: R07.89 Other chest pain (principal)
CPT/HCPCS: 36415; 71045; 80048; 80053; 81003; 82550; 82553; 83690; 83880; 84484; 85025; 85610; 85730; 93005; 93010; 96374; 99283; 99285; J1885

== ENCOUNTER 2018-07-29 14:20 | Emergency (ER) | payer MEDICARE, MEDICAID, SELFPAY ==
[2018-07-29 14:29] VITALS: BP 104/66; PULSE 74; RESP 18; TEMP 36.1; O2SAT 97
--- NOTE | 2018-07-29 17:39 | CM.SWNOTE ---
ED ARTIFICIAL FLOWERS STARCHER NOTE MICHELLE PATIENT Data: PUBLIC ADDRESS ANNOUNCER met with pt as he is an MICHELLE patient and came to the emergency room. Introduced myself and explained that my role was to meet with him and together discuss whether there were ways to reduce the emergency department frequency. He stated that he is having back pain, and a headache and ran out of his Percocet. He reported that his PCP is Dr Stacy Collier and he has a pain contract with his provider. Pt stated that he comes to the ED because he cannot take NSAIDS and comes for a toradol shot. He stated that he often calls his PCP prior to coming to the emergency department, but cannot get an appointment. PUBLIC ADDRESS ANNOUNCER inquired about walk in clinics for urgent care, but pt reported that the one in [place] does not accept his insurance and there are not any in [place]. ASSESSMENT: Pt has several chronic medical concerns and comes to the emergency department for pain relief. Although he stated that he is in pain, there were no obvious behavioral signs noted such as grimacing, frowns, groans, or other identifying characteristics. Pt does have chronic pain, so may be able to manage it without obvious symptoms. When pain is under control, pt stated that he tries to keep busy and goes with his girlfriend to various nature focused events. PLAN: Pt was in agreement with speaking to his PCP about what to do when he runs out of pain medication and also what he can do to manage break through pain. [facility] gave pt information about [facility] is also an urgent care center in [place]. [phone]. Pt agreed to contact them to inquire about whether or not they accept his insurance. No further SW needs identified.
--- NOTE | 2018-07-29 18:15 | ED.HA ---
HPI - Headache <Marie Amaral PA-C - Last Filed: 07/29/18 22:29> General Chief Complaint: Headache Stated Complaint: back and head pain Time Seen by Provider: 07/29/18 18:14 Source: patient Mode of arrival: ambulatory Limitations: no limitations History of Present Illness HPI Narrative: This 42-year-old male who is well known to us returns due to an exacerbation of his low back pain. He has herniated discs at L4 and 5. He states that he is not supposed to be lifting, however yesterday was carrying some heavy items and after that, he developed more pain across his low back. He denies any new weakness or paresthesia and states he is seeing physical therapy for pre-existing pain and weakness. He denies any difficulty with urination or new bowel symptoms. He also states he is having an exacerbation of his Crohn's disease, waiting for colonoscopy in a couple of months due to blood in his stools. He states he would like a bowel anti spasmodic for this and typically takes Bentyl. He denies any new fever, other new injuries or complaints today. He states that he spoke to his PCP but has used all of his Percocet allotment (20) for the month due to more pain than usual. He was hoping to get a Toradol injection which is usually helpful for his back pain. Related Data Home Medications Medication Instructions Recorded Confirmed promethazine 25 mg PO Q6HP PRN #0 03/05/18 07/19/18 budesonide-formoterol [Symbicort] 2 puff INHALATION BID 03/23/18 07/19/18 divalproex 500 mg PO BID 03/23/18 07/19/18 duloxetine 60 mg PO DAILY 03/23/18 07/19/18 fluticasone 1 spray INTRANASAL QDAY 03/23/18 07/19/18 metoprolol succinate [Toprol XL] 100 mg PO BID 03/23/18 07/19/18 milnacipran [Savella] 50 mg PO QDAY 03/23/18 07/19/18 milnacipran [Savella] 100 mg PO QPM 03/23/18 07/19/18 omeprazole 40 mg PO BID 03/23/18 07/19/18 oxycodone-acetaminophen 1 tab PO PRN PRN 03/23/18 07/19/18 prazosin 2 mg PO QDAY 03/23/18 07/19/18 prazosin 4 mg PO QHS 03/23/18 07/19/18 pregabalin [Lyrica] 300 mg PO BID 03/23/18 07/19/18 tizanidine 8 mg PO TID PRN 03/23/18 07/19/18 vit C-vit T-pnlujg-cbe-om-3 1 tab PO QDAY 03/23/18 07/19/18 [Ocuvite] verapamil 60 mg PO DAILY 04/09/18 07/19/18 dicyclomine 20 mg PO BID PRN 04/29/18 07/19/18 mesalamine 4 tab PO QAM 04/30/18 07/19/18 aripiprazole 1 tab PO DAILY 07/01/18 07/19/18 furosemide 40 mg PO DAILY 07/19/18 07/19/18 hlsma-sv4-mqr-xxk-sq3-joi-astx 1 cap PO DAILY 07/19/18 07/19/18 [Krill Oil ([place] 3 and 6)] potassium chloride 20 meq PO DAILY 07/19/18 07/19/18 Allergies Allergy/AdvReac Type Severity Reaction Status Date / Time codeine [CODEINE] Allergy Severe ANAPHYLAXIS Verified 07/29/18 14:27 amitriptyline [AMITRIPTYLINE] Allergy Unknown DIZZINESS Verified 07/29/18 14:27 AND UNSTEADYINESS tramadol [From ULTRAM] Allergy Unknown Verified 07/29/18 14:27 bee venom protein (honey bee) Allergy Verified 07/29/18 14:27 squash Allergy Verified 07/29/18 14:27 lisinopril [LISINOPRIL] AdvReac Unknown Verified 07/29/18 14:27 NSAIDS (Non-Steroidal AdvReac Unknown Verified 07/29/18 14:27 Anti-Inflamma [NSAIDS (NON-STEROIDAL ANTI-INFLAMMA] telmisartan [From MICARDIS] AdvReac Unknown Verified 07/29/18 14:27 Review of Systems <Marie Amaral PA-C - Last Filed: 07/29/18 22:29> Review of Systems All systems reviewed & are unremarkable except as noted in HPI and below Exam <Marie Amaral PA-C - Last Filed: 07/29/18 22:29> Narrative Exam Narrative: GENERAL APPEARANCE: Patient resting comfortably, in no distress. PULMONARY: Lungs clear to auscultation bilaterally CV: Regular rhythm regular without murmur, normal S1 and S2, no S3 or S4 ABDOMEN: Obese, ND, NT, + BS x 4 quadrants MUSCULOSKELETAL: Generalized tenderness across the inferior lumbar spine and lumbar musculature. Reduced trunk range of motion secondary to tenderness. Lower extremity strength 4+/5 bilateral hip flexors, knee extensors, foot plantar flexion. Negative straight leg raise Initial Vital Signs Initial Vital Signs: Vital Signs Temperature 97.0 F L 07/29/18 14:29 Pulse Rate 74 07/29/18 14:29 Respiratory Rate 18 07/29/18 14:29 Blood Pressure 104/66 07/29/18 14:29 Pulse Oximetry 97 07/29/18 14:29 <Aguilar Muñoz DO - Last Filed: 07/30/18 05:43> Initial Vital Signs Initial Vital Signs: Vital Signs Temperature 97.0 F L 07/29/18 14:29 Pulse Rate 74 07/29/18 14:29 Respiratory Rate 18 07/29/18 14:29 Blood Pressure 104/66 07/29/18 14:29 Pulse Oximetry 97 07/29/18 14:29 Course <KIERAN Eckert Last Filed: 07/29/18 22:29> Additional Information: The patient reports feeling significantly improved after medications and would like to be discharged. ED Care Management has spoken with him re: MICHELLE report and ED usage. Advised to f/u with PCP to discuss alternative treatment plans as far as pain management Orders Ordered: Discontinued Medications Dicyclomine HCl (Bentyl) 20 mg PO NOW ONE Stop: 07/29/18 18:49 Last Admin: 07/29/18 19:22 Dose: 20 mg Ketorolac Tromethamine (Toradol) 60 mg IM NOW ONE Stop: 07/29/18 18:49 Last Admin: 07/29/18 19:22 Dose: 60 mg Vital Signs - 8 hr 07/29/18 14:29 Temperature 97.0 F L Pulse Rate 74 Respiratory Rate 18 Blood Pressure 104/66 Pulse Oximetry 97 <DO Zoë Chan Last Filed: 07/30/18 05:43> Orders Ordered: Discontinued Medications Dicyclomine HCl (Bentyl) 20 mg PO NOW ONE Stop: 07/29/18 18:49 Last Admin: 07/29/18 19:22 Dose: 20 mg Ketorolac Tromethamine (Toradol) 60 mg IM NOW ONE Stop: 07/29/18 18:49 Last Admin: 07/29/18 19:22 Dose: 60 mg Vital Signs - 8 hr 07/29/18 14:29 Temperature 97.0 F L Pulse Rate 74 Respiratory Rate 18 Blood Pressure 104/66 Pulse Oximetry 97 Discharge Plan Departure Patient Disposition: Home Clinical Impression: Acute exacerbation of chronic low back pain, Crohn's disease Discharge Date/Time: 07/29/18 19:52 Interventions: ED Discharge Assessment Last Done: 07/29/18 19:51 Instructions: DI for Low Back Pain Activity Restrictions/Additional Instructions: Please return if you have acutely worsening symptoms. Otherwise, continue your usual medications at home and follow up with your primary care provider. Please avoid heavy lifting and rest your low back for a few days. Prescriptions: No Action promethazine 25 MG tablet 25 mg PO Q6HP PRN (Reason: Nausea) Qty: 0 RF: 0 verapamil 120 mg tablet extended release 60 mg PO DAILY RF: 0 mesalamine 1.2 gram tablet,delayed release (DR/EC) 4 tab PO QAM RF: 0 aripiprazole 15 mg tablet 1 tab PO DAILY RF: 0 metoprolol succinate [Toprol XL] 100 mg tablet extended release 24 hr 100 mg PO BID RF: 0 oxycodone-acetaminophen 10-325 mg tablet 1 tab PO PRN PRN (Reason: Pain, Severe) RF: 0 tizanidine 4 mg tablet 8 mg PO TID PRN (Reason: Muscle Spasm) RF: 0 omeprazole 40 mg capsule,delayed release(DR/EC) 40 mg PO BID RF: 0 prazosin 2 mg capsule 2 mg PO QDAY RF: 0 prazosin 2 mg Capsule 4 mg PO QHS RF: 0 milnacipran [Savella] 50 mg Tablet 100 mg PO QPM RF: 0 milnacipran [Savella] 50 mg tablet 50 mg PO QDAY RF: 0 divalproex 500 mg tablet,delayed release (DR/EC) 500 mg PO BID RF: 0 fluticasone 50 mcg/actuation spray,suspension 1 spray Intranasal QDAY RF: 0 duloxetine 60 mg capsule,delayed release(DR/EC) 60 mg PO DAILY RF: 0 pregabalin [Lyrica] 300 mg capsule 300 mg PO BID RF: 0 budesonide-formoterol [Symbicort] 160-4.5 mcg/actuation HFA aerosol inhaler 2 puff Inhalation BID RF: 0 vit C-vit Y-hcqnsi-xna-om-3 [Ocuvite] 682-23-3-150 fw-lurs-eh-mg Capsule 1 tab PO QDAY RF: 0 dicyclomine 20 mg tablet 20 mg PO BID PRN (Reason: Abdominal Pain) RF: 0 vefre-io1-ony-vcu-io2-fiy-astx [Krill Oil ([place] 3 and 6)] 1,500-165-67.5 mg Capsule 1 cap PO DAILY RF: 0 potassium chloride 20 mEq tablet,ER particles/crystals 20 meq PO DAILY RF: 0 furosemide 20 mg tablet 40 mg PO DAILY RF: 0 Referrals: Stacy Collier MD [Primary Care Provider] - <Aguilar Muñoz DO - Last Filed: 07/30/18 05:43> Cosign ED Attending Coslexieature Attestation: I was immediately available in the department for consultation. Documentation has been reviewed. I agree with assessment and plan.
[2018-07-29] MEDS: DICYCLOMINE 10 MG CAPSULE 20 MG PO (19:22)
[2018-07-29] MEDS: KETOROLAC 60 MG/2 ML VIAL IM (19:22)
== END 2018-07-29 19:52 | disposition home or self-care (01) ==
PROVIDERS: Emergency Provider Internal Medicine; Family Provider Family Medicine; PCP Family Medicine
DX: M54.9 Dorsalgia, unspecified (principal); K50.90 Crohn's disease, unspecified, without complications
CPT/HCPCS: 96372; 99282; 99283; J1885

== ENCOUNTER 2018-08-12 05:56 | Emergency (ER) | payer MEDICARE, MEDICAID, SELFPAY ==
--- NOTE | 2018-08-12 06:04 | DI.RAD.S_ITS ---
PROCEDURE: XR CHEST 2V INDICATIONS: Shortness of breath, chest pain TECHNIQUE: 2 views of the chest were acquired. COMPARISON: [facility], CR, XR CHEST 1V, 07/24/2018, 17:55. [facility], CR, XR CHEST 1V, 07/19/2018, 10:13. FINDINGS: Surgical changes and devices: None. Lungs and pleura: No pleural effusions or pneumothorax. Lungs are clear. Mediastinum: Mediastinal contours are normal. Heart size is normal. Bones and chest wall: No suspicious bony abnormalities. Soft tissues appear unremarkable. IMPRESSION: No acute cardiopulmonary disease. Dictated by: Judi Segundo M.D. on 08/12/2018 at 8:36 Approved by: Judi Segundo M.D. on 08/12/2018 at 8:36
[2018-08-12 06:05] VITALS: BP 126/58; PULSE 78; RESP 20; TEMP 36.8; O2SAT 100; BMI 50.8
--- NOTE | 2018-08-12 06:27 | ED.CHESTPAIN ---
HPI - Chest Pain General Chief Complaint: Upper Respiratory Symptoms Stated Complaint: heavy chest/breathing and chest pain Time Seen by Provider: 08/12/18 06:00 Source: patient Mode of arrival: ambulatory Limitations: no limitations History of Present Illness HPI narrative: 42-year-old male, nonsmoker with extensive medical history including hypertrophic obstructive cardiomyopathy and CHF presents with a few days of shortness of breath and pleuritic-type chest pain. He has recently had some runny nose and sneezing as well as a bit of cough but denies any fever or chills. He states that he becomes more short of breath with exertion. He states his chest pain is in his right anterior chest and is sharp and stabbing in nature. His pain is made worse with a deep breath, motion of his right upper arm or with palpation. He is not dizzy nor weak or lightheaded. He denies excessive sweating, nausea or vomiting. He states he has been out of his metoprolol for the past few days MD complaint: chest pain Onset (ago): day(s) Duration: intermittent Onset: during exertion Pain location: right chest Severity: mild Quality: sharp Pain radiation: none Relieving factors: nothing Exacerbating factors: inspiration and movement Context: recent illness Associated symptoms: dyspnea Related Data Home Medications Medication Instructions Recorded Confirmed promethazine 25 mg PO Q6HP PRN #0 03/05/18 07/19/18 budesonide-formoterol [Symbicort] 2 puff INHALATION BID 03/23/18 07/19/18 divalproex 500 mg PO BID 03/23/18 07/19/18 duloxetine 60 mg PO DAILY 03/23/18 07/19/18 fluticasone 1 spray INTRANASAL QDAY 03/23/18 07/19/18 metoprolol succinate [Toprol XL] 100 mg PO BID 03/23/18 07/19/18 milnacipran [Savella] 50 mg PO QDAY 03/23/18 07/19/18 milnacipran [Savella] 100 mg PO QPM 03/23/18 07/19/18 omeprazole 40 mg PO BID 03/23/18 07/19/18 oxycodone-acetaminophen 1 tab PO PRN PRN 03/23/18 07/19/18 prazosin 2 mg PO QDAY 03/23/18 07/19/18 prazosin 4 mg PO QHS 03/23/18 07/19/18 pregabalin [Lyrica] 300 mg PO BID 03/23/18 07/19/18 tizanidine 8 mg PO TID PRN 03/23/18 07/19/18 vit C-vit Z-gatbgs-aey-om-3 1 tab PO QDAY 03/23/18 07/19/18 [Ocuvite] verapamil 60 mg PO DAILY 04/09/18 07/19/18 dicyclomine 20 mg PO BID PRN 04/29/18 07/19/18 mesalamine 4 tab PO QAM 04/30/18 07/19/18 aripiprazole 1 tab PO DAILY 07/01/18 07/19/18 furosemide 40 mg PO DAILY 07/19/18 07/19/18 bqpuj-[id number]-ght-ahf-tx6-bab-astx 1 cap PO DAILY 07/19/18 07/19/18 [Krill Oil ([place] 3 and 6)] potassium chloride 20 meq PO DAILY 07/19/18 07/19/18 Previous Rx's Medication Instructions Recorded amoxicillin-pot clavulanate 1 tab PO BID #20 tab 08/12/18 [Augmentin] Allergies Allergy/AdvReac Type Severity Reaction Status Date / Time codeine [CODEINE] Allergy Severe ANAPHYLAXIS Verified 08/12/18 06:19 amitriptyline [AMITRIPTYLINE] Allergy Unknown DIZZINESS Verified 08/12/18 06:19 AND UNSTEADYINESS tramadol [From ULTRAM] Allergy Unknown Verified 08/12/18 06:19 bee venom protein (honey bee) Allergy Verified 08/12/18 06:19 squash Allergy Verified 08/12/18 06:19 lisinopril [LISINOPRIL] AdvReac Unknown Verified 08/12/18 06:19 NSAIDS (Non-Steroidal AdvReac Unknown Verified 08/12/18 06:19 Anti-Inflamma [NSAIDS (NON-STEROIDAL ANTI-INFLAMMA] telmisartan [From MICARDIS] AdvReac Unknown Verified 08/12/18 06:19 Review of Systems Review of Systems All systems reviewed & are unremarkable except as noted in HPI and below Constitutional Denies chills, Denies fever(s), Denies lethargy and Denies weakness Eyes Denies change in vision, Denies eye discharge, Denies irritation and Denies loss of vision ENT Ears, Nose, Mouth, and Throat: Denies change in voice, Denies neck pain and Denies sore throat Cardiovascular Reports chest pain, Denies irregular heart rhythm, Denies lightheadedness, Denies palpitations, Reports dyspnea, Reports dyspnea on exertion and Denies orthopnea Respiratory Denies cough, Reports dyspnea, Reports dyspnea on exertion and Denies wheezing Gastrointestinal Gastrointestinal: Denies abdominal pain, Denies change in bowel habits, Denies diarrhea, Denies nausea and Denies vomiting Genitourinary Denies hematuria, Denies flank pain, Denies urinary incontinence and Denies urinary urgency Musculoskeletal Denies neck pain Integumentary/Breasts Denies pruritus, Denies erythema, Denies rash and Denies wounds Neurologic Denies confusion, Denies loss of vision and Denies weakness Psychiatric Denies anxiety, Denies confusion, Denies depression, Denies homicidal ideation and Denies suicidal ideation Endocrine Denies palpitations Hematologic/Lymphatic Denies easy bruising Allergic/Immunologic Denies wheezing [facility] Medical History Acute Crohn's disease (Chronic) Asthma (Chronic) Bulging disc (Chronic) CHF (congestive heart failure) (Chronic) Cataplexy (Chronic) Depression (Chronic) Diabetes (Chronic) Fibromyalgia (Chronic) GERD (gastroesophageal reflux disease) (Chronic) HTN (hypertension) (Chronic) Migraines (Chronic) Non-STEMI (non-ST elevated myocardial infarction) (Chronic) ROSLYN (obstructive sleep apnea) (Chronic) Osteoarthritis (Chronic) Surgical History Status post cardiac catheterization (Acute) Social History Smoking Status: Current every day smoker Exam Narrative Exam Narrative: 42-year-old male resting comfortably in no obvious distress Initial Vital Signs Initial Vital Signs: Vital Signs Temperature 98.3 F 08/12/18 06:05 Pulse Rate 78 08/12/18 06:05 Respiratory Rate 20 08/12/18 06:05 Blood Pressure 126/58 L 08/12/18 06:05 Pulse Oximetry 100 08/12/18 06:05 Const General: cooperative and well developed Nutritional Appearance: obese Orientation: alert, awake, oriented x3 and not confused [facility] Head: normocephalic and atraumatic Ears: external ears normal and TM's normal bilaterally Nose: external nose normal and No nasal discharge Face and sinus: sinuses nontender, face symmetric, no sinus tenderness and No dry mucous membranes Mouth: oral mucosae normal and moist mucous membranes Teeth and gingiva: dentition normal Throat: tonsils normal and uvula midline Chest Chest: normal inspection of the chest Other: Sharp stabbing pain with palpation of right anterior chest Resp Effort & Inspection: normal respiratory effort, able to speak in complete sentences, no respiratory distress and no use of accessory muscles Auscultation: clear to auscultation bilaterally, no rales, no rhonchi and no wheezes Cardio Rate: regular rate Rhythm: regular rhythm Heart Sounds: no click, no gallops, no murmurs and no rubs Pulses: normal peripheral pulses GI Inspection: non-distended Palpation: soft, no hepatosplenomegaly, No guarding, No pulsatile mass and No tender Auscultation: normal bowel sounds Back/Spine/Pelvis Back: No CVA tenderness Cervical Spine: cervical ROM normal and No pain with cervical ROM Thoracic/Lumbar Spine: thoracic and lumbar spine normal to inspection Skin General: no rashes or lesions noted, No jaundice and No petechiae Extrem General: full ROM, no clubbing, cyanosis or edema, no pedal edema and no calf tenderness Course Orders Ordered: Discontinued Medications Prochlorperazine (Compazine) 10 mg IV NOW ONE Stop: 08/12/18 06:40 Last Admin: 08/12/18 06:41 Dose: 10 mg Vital Signs - 8 hr 08/12/18 06:05 08/12/18 06:41 Temperature 98.3 F Pulse Rate 78 73 Respiratory Rate 20 Blood Pressure 126/58 L 143/73 H Pulse Oximetry 100 MDM - Chest Pain Differential Diagnosis Likely pneumothorax, stable angina, unstable angina pectoris, atypical chest pain, st elevation myocardial infarction, costochondritis and chest pain Medical Records Data Attestation: I reviewed the patient's medical records. Lab Data Attestation: I reviewed the patient's lab results. Result diagrams: 08/12/18 06:20 08/12/18 06:20 Lab Results 08/12/18 08/12/18 08/12/18 Range/Units 06:20 06:20 06:20 WBC 6.6 (4.5-11.0) X10^3/uL RBC 4.70 (4.5-5.9) X10^6/uL Hgb 14.4 (13.5-17.5) g/dL Hct 42.0 (41-53) % MCV 89.4 (80-100) fL MCH 30.6 (26-34) PG MCHC 34.2 (30-36) % RDW 14.6 (11.6-14.8) % Plt Count 178 (150-400) X10^3/uL Neut % (Auto) 68.4 (50-75) % Lymph % (Auto) 24.1 L (25-40) % [place] % (Auto) 6.1 (3-14) % Eos % (Auto) 0.2 L (2-4) % Baso % (Auto) 1.2 (0-2) % Neut # (Auto) 4500 (5450-5315) /uL Sodium 147 H (137-145) mmol/L Potassium 4.4 (3.4-5.1) mmol/L Chloride 107 (98-107) mmol/L Carbon Dioxide 30 (22-32) mmol/L BUN 11 (9-20) mg/dL Creatinine 0.70 (0.66-1.25) mg/dL Estimated GFR > 60.0 (>60) mL/min BUN/Creatinine Ratio 15.7 (6-22) Glucose 107 H (70-100) mg/dL Calcium 9.1 (8.4-10.2) mg/dL Magnesium 2.4 H (1.6-2.3) mg/dL Total Creatine Kinase 67 (55-170) U/L CK-MB (CK-2) TNP CK-MB (CK-2) Rel Index TNP Troponin I 0.024 (0.01-0.034) ng/mL B-Natriuretic Peptide 52.0 (<100) Procalcitonin < 0.05 (<0.5) ng/mL Imaging Data Chest x-ray: My impression: possible RML pneumonia ECG Data Attestation: I personally reviewed and interpreted this ECG as follows: Prior ECG tracings: available for review Interpretation: Sinus rhythm of 74 with T-wave inversions but no significant ST abnormalities. This EKG is very similar to multiple prior EKGs MDM Narrative Medical decision making narrative: 42M with dyspnea and pleuritic chest pain has subtle infiltrate on CXR, in region of pain. Normal EKG (for him), normal BNP, and troponin. Will treat for outpatient PNA and encourage close follow up. Discharge Plan Departure Patient Disposition: Home Clinical Impression: Chest pain, pleuritic, Pneumonia Discharge Date/Time: 08/12/18 07:44 Interventions: ED Discharge Assessment Last Done: 08/12/18 07:43 Instructions: DI for Pleurisy Activity Restrictions/Additional Instructions: *You have been diagnosed with [ pleuritic-type chest pain with likely early pneumonia ] *What to do: *Take medications as directed: Her prescription has been electronically transmitted to [facility] due to your preference *Follow up with your primary care provider in 2-3 days, call for an appointment. Let them know you were seen in the Emergency Department and that we ask that you be seen in follow up *Return to ER if you should have any new, worsening or concerning symptoms Prescriptions: New amoxicillin-pot clavulanate [Augmentin] 875-125 mg tablet 1 tab PO BID Qty: 20 RF: 0 No Action promethazine 25 MG tablet 25 mg PO Q6HP PRN (Reason: Nausea) Qty: 0 RF: 0 verapamil 120 mg tablet extended release 60 mg PO DAILY RF: 0 mesalamine 1.2 gram tablet,delayed release (DR/EC) 4 tab PO QAM RF: 0 aripiprazole 15 mg tablet 1 tab PO DAILY RF: 0 metoprolol succinate [Toprol XL] 100 mg tablet extended release 24 hr 100 mg PO BID RF: 0 oxycodone-acetaminophen 10-325 mg tablet 1 tab PO PRN PRN (Reason: Pain, Severe) RF: 0 tizanidine 4 mg tablet 8 mg PO TID PRN (Reason: Muscle Spasm) RF: 0 omeprazole 40 mg capsule,delayed release(DR/EC) 40 mg PO BID RF: 0 prazosin 2 mg capsule 2 mg PO QDAY RF: 0 prazosin 2 mg Capsule 4 mg PO QHS RF: 0 milnacipran [Savella] 50 mg Tablet 100 mg PO QPM RF: 0 milnacipran [Savella] 50 mg tablet 50 mg PO QDAY RF: 0 divalproex 500 mg tablet,delayed release (DR/EC) 500 mg PO BID RF: 0 fluticasone 50 mcg/actuation spray,suspension 1 spray Intranasal QDAY RF: 0 duloxetine 60 mg capsule,delayed release(DR/EC) 60 mg PO DAILY RF: 0 pregabalin [Lyrica] 300 mg capsule 300 mg PO BID RF: 0 budesonide-formoterol [Symbicort] 160-4.5 mcg/actuation HFA aerosol inhaler 2 puff Inhalation BID RF: 0 vit C-vit A-mtabtb-bsd-om-3 [Ocuvite] 372-72-6-150 zq-hrhd-nl-mg Capsule 1 tab PO QDAY RF: 0 dicyclomine 20 mg tablet 20 mg PO BID PRN (Reason: Abdominal Pain) RF: 0 mubaz-xu2-yzx-nnx-zi4-daj-astx [Krill Oil ([place] 3 and 6)] 1,500-165-67.5 mg Capsule 1 cap PO DAILY RF: 0 potassium chloride 20 mEq tablet,ER particles/crystals 20 meq PO DAILY RF: 0 furosemide 20 mg tablet 40 mg PO DAILY RF: 0
--- NOTE | 2018-08-12 06:30 | ED_ITS ---
HPI - Chest Pain General Chief Complaint: Upper Respiratory Symptoms Stated Complaint: heavy chest/breathing and chest pain Time Seen by Provider: 08/12/18 06:00 Source: patient Mode of arrival: ambulatory Limitations: no limitations History of Present Illness HPI narrative: 42-year-old male, nonsmoker with extensive medical history including hypertrophic obstructive cardiomyopathy and CHF presents with a few days of shortness of breath and pleuritic-type chest pain. He has recently had some runny nose and sneezing as well as a bit of cough but denies any fever or chills. He states that he becomes more short of breath with exertion. He states his chest pain is in his right anterior chest and is sharp and stabbing in nature. His pain is made worse with a deep breath, motion of his right upper arm or with palpation. He is not dizzy nor weak or lightheaded. He denies excessive sweating, nausea or vomiting. He states he has been out of his metoprolol for the past few days MD complaint: chest pain Onset (ago): day(s) Duration: intermittent Onset: during exertion Pain location: right chest Severity: mild Quality: sharp Pain radiation: none Relieving factors: nothing Exacerbating factors: inspiration and movement Context: recent illness Associated symptoms: dyspnea Related Data Home Medications Medication Instructions Recorded Confirmed promethazine 25 mg PO Q6HP PRN #0 03/05/18 07/19/18 budesonide-formoterol [Symbicort] 2 puff INHALATION BID 03/23/18 07/19/18 divalproex 500 mg PO BID 03/23/18 07/19/18 duloxetine 60 mg PO DAILY 03/23/18 07/19/18 fluticasone 1 spray INTRANASAL QDAY 03/23/18 07/19/18 metoprolol succinate [Toprol XL] 100 mg PO BID 03/23/18 07/19/18 milnacipran [Savella] 50 mg PO QDAY 03/23/18 07/19/18 milnacipran [Savella] 100 mg PO QPM 03/23/18 07/19/18 omeprazole 40 mg PO BID 03/23/18 07/19/18 oxycodone-acetaminophen 1 tab PO PRN PRN 03/23/18 07/19/18 prazosin 2 mg PO QDAY 03/23/18 07/19/18 prazosin 4 mg PO QHS 03/23/18 07/19/18 pregabalin [Lyrica] 300 mg PO BID 03/23/18 07/19/18 tizanidine 8 mg PO TID PRN 03/23/18 07/19/18 vit C-vit L-ajhlnv-vnh-om-3 1 tab PO QDAY 03/23/18 07/19/18 [Ocuvite] verapamil 60 mg PO DAILY 04/09/18 07/19/18 dicyclomine 20 mg PO BID PRN 04/29/18 07/19/18 mesalamine 4 tab PO QAM 04/30/18 07/19/18 aripiprazole 1 tab PO DAILY 07/01/18 07/19/18 furosemide 40 mg PO DAILY 07/19/18 07/19/18 qmczo-fm4-thv-nzn-mc2-ios-astx 1 cap PO DAILY 07/19/18 07/19/18 [Krill Oil ([place] 3 and 6)] potassium chloride 20 meq PO DAILY 07/19/18 07/19/18 Previous Rx's Medication Instructions Recorded amoxicillin-pot clavulanate 1 tab PO BID #20 tab 08/12/18 [Augmentin] Allergies Allergy/AdvReac Type Severity Reaction Status Date / Time codeine [CODEINE] Allergy Severe ANAPHYLAXIS Verified 08/12/18 06:19 amitriptyline [AMITRIPTYLINE] Allergy Unknown DIZZINESS Verified 08/12/18 06:19 AND UNSTEADYINESS tramadol [From ULTRAM] Allergy Unknown Verified 08/12/18 06:19 bee venom protein (honey bee) Allergy Verified 08/12/18 06:19 squash Allergy Verified 08/12/18 06:19 lisinopril [LISINOPRIL] AdvReac Unknown Verified 08/12/18 06:19 NSAIDS (Non-Steroidal AdvReac Unknown Verified 08/12/18 06:19 Anti-Inflamma [NSAIDS (NON-STEROIDAL ANTI-INFLAMMA] telmisartan [From MICARDIS] AdvReac Unknown Verified 08/12/18 06:19 Review of Systems Review of Systems All systems reviewed & are unremarkable except as noted in HPI and below Constitutional Denies chills, Denies fever(s), Denies lethargy and Denies weakness Eyes Denies change in vision, Denies eye discharge, Denies irritation and Denies loss of vision ENT Ears, Nose, Mouth, and Throat: Denies change in voice, Denies neck pain and Denies sore throat Cardiovascular Reports chest pain, Denies irregular heart rhythm, Denies lightheadedness, Denies palpitations, Reports dyspnea, Reports dyspnea on exertion and Denies orthopnea Respiratory Denies cough, Reports dyspnea, Reports dyspnea on exertion and Denies wheezing Gastrointestinal Gastrointestinal: Denies abdominal pain, Denies change in bowel habits, Denies diarrhea, Denies nausea and Denies vomiting Genitourinary Denies hematuria, Denies flank pain, Denies urinary incontinence and Denies urinary urgency Musculoskeletal Denies neck pain Integumentary/Breasts Denies pruritus, Denies erythema, Denies rash and Denies wounds Neurologic Denies confusion, Denies loss of vision and Denies weakness Psychiatric Denies anxiety, Denies confusion, Denies depression, Denies homicidal ideation and Denies suicidal ideation Endocrine Denies palpitations Hematologic/Lymphatic Denies easy bruising Allergic/Immunologic Denies wheezing [facility] Medical History Acute Crohn's disease (Chronic) Asthma (Chronic) Bulging disc (Chronic) CHF (congestive heart failure) (Chronic) Cataplexy (Chronic) Depression (Chronic) Diabetes (Chronic) Fibromyalgia (Chronic) GERD (gastroesophageal reflux disease) (Chronic) HTN (hypertension) (Chronic) Migraines (Chronic) Non-STEMI (non-ST elevated myocardial infarction) (Chronic) ROSLYN (obstructive sleep apnea) (Chronic) Osteoarthritis (Chronic) Surgical History Status post cardiac catheterization (Acute) Social History Smoking Status: Current every day smoker Exam Narrative Exam Narrative: 42-year-old male resting comfortably in no obvious distress Initial Vital Signs Initial Vital Signs: Vital Signs Temperature 98.3 F 08/12/18 06:05 Pulse Rate 78 08/12/18 06:05 Respiratory Rate 20 08/12/18 06:05 Blood Pressure 126/58 L 08/12/18 06:05 Pulse Oximetry 100 08/12/18 06:05 Const General: cooperative and well developed Nutritional Appearance: obese Orientation: alert, awake, oriented x3 and not confused [facility] Head: normocephalic and atraumatic Ears: external ears normal and TM's normal bilaterally Nose: external nose normal and No nasal discharge Face and sinus: sinuses nontender, face symmetric, no sinus tenderness and No dry mucous membranes Mouth: oral mucosae normal and moist mucous membranes Teeth and gingiva: dentition normal Throat: tonsils normal and uvula midline Chest Chest: normal inspection of the chest Other: Sharp stabbing pain with palpation of right anterior chest Resp Effort & Inspection: normal respiratory effort, able to speak in complete sentences, no respiratory distress and no use of accessory muscles Auscultation: clear to auscultation bilaterally, no rales, no rhonchi and no wheezes Cardio Rate: regular rate Rhythm: regular rhythm Heart Sounds: no click, no gallops, no murmurs and no rubs Pulses: normal peripheral pulses GI Inspection: non-distended Palpation: soft, no hepatosplenomegaly, No guarding, No pulsatile mass and No tender Auscultation: normal bowel sounds Back/Spine/Pelvis Back: No CVA tenderness Cervical Spine: cervical ROM normal and No pain with cervical ROM Thoracic/Lumbar Spine: thoracic and lumbar spine normal to inspection Skin General: no rashes or lesions noted, No jaundice and No petechiae Extrem General: full ROM, no clubbing, cyanosis or edema, no pedal edema and no calf tenderness Course Orders Ordered: Discontinued Medications Prochlorperazine (Compazine) 10 mg IV NOW ONE Stop: 08/12/18 06:40 Last Admin: 08/12/18 06:41 Dose: 10 mg Vital Signs - 8 hr 08/12/18 06:05 08/12/18 06:41 Temperature 98.3 F Pulse Rate 78 73 Respiratory Rate 20 Blood Pressure 126/58 L 143/73 H Pulse Oximetry 100 MDM - Chest Pain Differential Diagnosis Likely pneumothorax, stable angina, unstable angina pectoris, atypical chest pain, st elevation myocardial infarction, costochondritis and chest pain Medical Records Data Attestation: I reviewed the patient's medical records. Lab Data Attestation: I reviewed the patient's lab results. Result diagrams: 08/12/18 06:20 08/12/18 06:20 Lab Results 08/12/18 08/12/18 08/12/18 Range/Units 06:20 06:20 06:20 WBC 6.6 (4.5-11.0) X10^3/uL RBC 4.70 (4.5-5.9) X10^6/uL Hgb 14.4 (13.5-17.5) g/dL Hct 42.0 (41-53) % MCV 89.4 (80-100) fL MCH 30.6 (26-34) PG MCHC 34.2 (30-36) % RDW 14.6 (11.6-14.8) % Plt Count 178 (150-400) X10^3/uL Neut % (Auto) 68.4 (50-75) % Lymph % (Auto) 24.1 L (25-40) % [place] % (Auto) 6.1 (3-14) % Eos % (Auto) 0.2 L (2-4) % Baso % (Auto) 1.2 (0-2) % Neut # (Auto) 4500 (8580-2475) /uL Sodium 147 H (137-145) mmol/L Potassium 4.4 (3.4-5.1) mmol/L Chloride 107 (98-107) mmol/L Carbon Dioxide 30 (22-32) mmol/L BUN 11 (9-20) mg/dL Creatinine 0.70 (0.66-1.25) mg/dL Estimated GFR > 60.0 (>60) mL/min BUN/Creatinine Ratio 15.7 (6-22) Glucose 107 H (70-100) mg/dL Calcium 9.1 (8.4-10.2) mg/dL Magnesium 2.4 H (1.6-2.3) mg/dL Total Creatine Kinase 67 (55-170) U/L CK-MB (CK-2) TNP CK-MB (CK-2) Rel Index TNP Troponin I 0.024 (0.01-0.034) ng/mL B-Natriuretic Peptide 52.0 (<100) Procalcitonin < 0.05 (<0.5) ng/mL Imaging Data Chest x-ray: My impression: possible RML pneumonia ECG Data Attestation: I personally reviewed and interpreted this ECG as follows: Prior ECG tracings: available for review Interpretation: Sinus rhythm of 74 with T-wave inversions but no significant ST abnormalities. This EKG is very similar to multiple prior EKGs MDM Narrative Medical decision making narrative: 42M with dyspnea and pleuritic chest pain has subtle infiltrate on CXR, in region of pain. Normal EKG (for him), normal BNP, and troponin. Will treat for outpatient PNA and encourage close follow up. Discharge Plan Departure Patient Disposition: Home Clinical Impression: Chest pain, pleuritic, Pneumonia Discharge Date/Time: 08/12/18 07:44 Interventions: ED Discharge Assessment Last Done: 08/12/18 07:43 Instructions: DI for Pleurisy Activity Restrictions/Additional Instructions: *You have been diagnosed with [ pleuritic-type chest pain with likely early pneumonia ] *What to do: *Take medications as directed: Her prescription has been electronically transmitted to [facility] due to your preference *Follow up with your primary care provider in 2-3 days, call for an appointment. Let them know you were seen in the Emergency Department and that we ask that you be seen in follow up *Return to ER if you should have any new, worsening or concerning symptoms Prescriptions: New amoxicillin-pot clavulanate [Augmentin] 875-125 mg tablet 1 tab PO BID Qty: 20 RF: 0 No Action promethazine 25 MG tablet 25 mg PO Q6HP PRN (Reason: Nausea) Qty: 0 RF: 0 verapamil 120 mg tablet extended release 60 mg PO DAILY RF: 0 mesalamine 1.2 gram tablet,delayed release (DR/EC) 4 tab PO QAM RF: 0 aripiprazole 15 mg tablet 1 tab PO DAILY RF: 0 metoprolol succinate [Toprol XL] 100 mg tablet extended release 24 hr 100 mg PO BID RF: 0 oxycodone-acetaminophen 10-325 mg tablet 1 tab PO PRN PRN (Reason: Pain, Severe) RF: 0 tizanidine 4 mg tablet 8 mg PO TID PRN (Reason: Muscle Spasm) RF: 0 omeprazole 40 mg capsule,delayed release(DR/EC) 40 mg PO BID RF: 0 prazosin 2 mg capsule 2 mg PO QDAY RF: 0 prazosin 2 mg Capsule 4 mg PO QHS RF: 0 milnacipran [Savella] 50 mg Tablet 100 mg PO QPM RF: 0 milnacipran [Savella] 50 mg tablet 50 mg PO QDAY RF: 0 divalproex 500 mg tablet,delayed release (DR/EC) 500 mg PO BID RF: 0 fluticasone 50 mcg/actuation spray,suspension 1 spray Intranasal QDAY RF: 0 duloxetine 60 mg capsule,delayed release(DR/EC) 60 mg PO DAILY RF: 0 pregabalin [Lyrica] 300 mg capsule 300 mg PO BID RF: 0 budesonide-formoterol [Symbicort] 160-4.5 mcg/actuation HFA aerosol inhaler 2 puff Inhalation BID RF: 0 vit C-vit T-fljfss-flc-om-3 [Ocuvite] 825-66-7-150 tv-pdzt-lg-mg Capsule 1 tab PO QDAY RF: 0 dicyclomine 20 mg tablet 20 mg PO BID PRN (Reason: Abdominal Pain) RF: 0 cojjm-eg1-mfm-llf-fp4-vje-astx [Krill Oil ([place] 3 and 6)] 1,500-165-67.5 mg Capsule 1 cap PO DAILY RF: 0 potassium chloride 20 mEq tablet,ER particles/crystals 20 meq PO DAILY RF: 0 furosemide 20 mg tablet 40 mg PO DAILY RF: 0
[2018-08-12 06:33] LABS: Add Manual Diff / Slide Review NO; Basophils Percent Auto 1.2 % (0-2); Eosinophils Percent Auto 0.2 % (2-4); Hemoglobin 14.4 g/dL (13.5-17.5); Lymphocytes Percent Auto 24.1 % (25-40); Mean Corpuscular HGB Conc 34.2 % (30-36); Mean Corpuscular Hemoglobin 30.6 PG (26-34); Mean Corpuscular Volume 89.4 fL (80-100); Monocytes Percent Auto 6.1 % (3-14); Neutrophils Absolute Auto 4500 /uL (3000-5900); Neutrophils Percent Auto 68.4 % (50-75); Platelet Count 178 X10^3/uL (150-400); Red Cell Distribution Width 14.6 % (11.6-14.8); White Blood Cell Count 6.6 X10^3/uL (4.5-11.0)
[2018-08-12 06:41] VITALS: BP 143/73; PULSE 73
[2018-08-12] MEDS: PROCHLORPERAZINE 10 MG/2 ML VIAL IV (06:41)
[2018-08-12 06:46] LABS: BUN Creatinine Ratio 15.7 (6-22); Blood Urea Nitrogen 11 mg/dL (9-20); Calcium 9.1 mg/dL (8.4-10.2); Carbon Dioxide 30 mmol/L (22-32); Chloride 107 mmol/L (98-107); Creatine Kinase 67 U/L (55-170); Estimated Glomerular Filt Rate > 60.0 mL/min (>60); Glucose 107 mg/dL (70-100); HEMOLYSIS < 15 (0-50); Magnesium 2.4 mg/dL (1.6-2.3); Potassium 4.4 mmol/L (3.4-5.1); Sodium 147 mmol/L (137-145)
[2018-08-12 06:58] LABS: Troponin I 0.024 ng/mL (0.01-0.034)
[2018-08-12 07:00] LABS: Procalcitonin < 0.05 ng/mL (<0.5)
[2018-08-12 07:43] VITALS: BP 149/82; PULSE 75; RESP 20; O2SAT 99
== END 2018-08-12 07:44 | disposition home or self-care (01) ==
LOC: ED 07:20
PROVIDERS: Emergency Provider Emergency Medicine; Family Provider Family Medicine; PCP Family Medicine
DX: J18.9 Pneumonia, unspecified organism (principal); R07.81 Pleurodynia
CPT/HCPCS: 36591; 71046; 80048; 82550; 83735; 83880; 84145; 84484; 85025; 93005; 96374; 99282; 99285; J0780

== ENCOUNTER 2018-09-09 03:57 | Emergency (ER) | payer OTHER, SELFPAY ==
[2018-09-09 04:14] VITALS: BP 150/103; PULSE 73; RESP 18; TEMP 36.3; O2SAT 98
--- NOTE | 2018-09-09 04:19 | ED_ITS ---
HPI - Headache General Chief Complaint: Headache Stated Complaint: no sleep x 3 days, headache Time Seen by Provider: 09/09/18 04:07 Source: patient Mode of arrival: ambulatory Limitations: no limitations History of Present Illness HPI Narrative: 43-year-old patient with history of chronic headaches and cardiac disease presents with a chief complaint inability to sleep for the past 3 days despite use of his nightly trazodone. He denies any excessive alcohol, caffeine or nicotine intake. He states this happens on occasion. Over that time frame he has developed a gradually worsening generalized headache in the absence injury, fever or focal neurologic findings such as blurred vision or trouble with speech nor numbness, tingling weakness. Patient states this headache is very typical for him. MD Complaint: headache and migraine Onset (ago): hour(s) Onset description: gradual Location: frontal and occipital Severity: moderate Quality: aching, throbbing and similar to previous headaches Relieving factors: dark room Exacerbating factors: exertion, light and noise Context: occurred at rest Associated symptoms: none, photophobia and sensitivity to sound Treatments prior to arrival: none Related Data Home Medications Medication Instructions Recorded Confirmed promethazine 25 mg PO Q6HP PRN #0 03/05/18 07/19/18 budesonide-formoterol [Symbicort] 2 puff INHALATION BID 03/23/18 07/19/18 divalproex 500 mg PO BID 03/23/18 07/19/18 duloxetine 60 mg PO DAILY 03/23/18 07/19/18 fluticasone 1 spray INTRANASAL QDAY 03/23/18 07/19/18 metoprolol succinate [Toprol XL] 100 mg PO BID 03/23/18 07/19/18 milnacipran [Savella] 50 mg PO QDAY 03/23/18 07/19/18 milnacipran [Savella] 100 mg PO QPM 03/23/18 07/19/18 omeprazole 40 mg PO BID 03/23/18 07/19/18 oxycodone-acetaminophen 1 tab PO PRN PRN 03/23/18 07/19/18 prazosin 2 mg PO QDAY 03/23/18 07/19/18 prazosin 4 mg PO QHS 03/23/18 07/19/18 pregabalin [Lyrica] 300 mg PO BID 03/23/18 07/19/18 tizanidine 8 mg PO TID PRN 03/23/18 07/19/18 vit C-vit S-ogoewn-djm-om-3 1 tab PO QDAY 03/23/18 07/19/18 [Ocuvite] verapamil 60 mg PO DAILY 04/09/18 07/19/18 dicyclomine 20 mg PO BID PRN 04/29/18 07/19/18 mesalamine 4 tab PO QAM 04/30/18 07/19/18 aripiprazole 1 tab PO DAILY 07/01/18 07/19/18 furosemide 40 mg PO DAILY 07/19/18 07/19/18 ozojm-wm4-wwl-amg-ax8-neg-astx 1 cap PO DAILY 07/19/18 07/19/18 [Krill Oil ([place] 3 and 6)] potassium chloride 20 meq PO DAILY 07/19/18 07/19/18 Previous Rx's Medication Instructions Recorded amoxicillin-pot clavulanate 1 tab PO BID #20 tab 08/12/18 [Augmentin] Allergies Allergy/AdvReac Type Severity Reaction Status Date / Time codeine [CODEINE] Allergy Severe ANAPHYLAXIS Verified 08/12/18 06:19 amitriptyline [AMITRIPTYLINE] Allergy Unknown DIZZINESS Verified 08/12/18 06:19 AND UNSTEADYINESS tramadol [From ULTRAM] Allergy Unknown Verified 08/12/18 06:19 bee venom protein (honey bee) Allergy Verified 08/12/18 06:19 squash Allergy Verified 08/12/18 06:19 lisinopril [LISINOPRIL] AdvReac Unknown Verified 08/12/18 06:19 NSAIDS (Non-Steroidal AdvReac Unknown Verified 08/12/18 06:19 Anti-Inflamma [NSAIDS (NON-STEROIDAL ANTI-INFLAMMA] telmisartan [From MICARDIS] AdvReac Unknown Verified 08/12/18 06:19 Review of Systems Review of Systems All systems reviewed & are unremarkable except as noted in HPI and below Constitutional Denies chills, Denies fever(s), Reports headache(s), Denies lethargy and Denies weakness Eyes Denies change in vision, Denies eye discharge, Denies irritation and Denies loss of vision ENT Ears, Nose, Mouth, and Throat: Denies change in voice, Reports headache(s), Denies neck pain and Denies sore throat Cardiovascular Denies chest pain, Denies irregular heart rhythm, Denies lightheadedness, Denies palpitations, Denies dyspnea, Denies dyspnea on exertion and Denies orthopnea Respiratory Denies cough, Denies dyspnea, Denies dyspnea on exertion and Denies wheezing Gastrointestinal Gastrointestinal: Denies abdominal pain, Denies change in bowel habits, Denies diarrhea, Denies nausea and Denies vomiting Genitourinary Denies hematuria, Denies flank pain, Denies urinary incontinence and Denies urinary urgency Musculoskeletal Denies neck pain Integumentary/Breasts Denies pruritus, Denies erythema, Denies rash and Denies wounds Neurologic Denies confusion, Reports headache(s), Denies loss of vision and Denies weakness Psychiatric Denies anxiety, Denies confusion, Denies depression, Denies homicidal ideation and Denies suicidal ideation Endocrine Denies palpitations Hematologic/Lymphatic Denies easy bruising Allergic/Immunologic Denies wheezing [facility] Medical History Acute Crohn's disease (Chronic) Asthma (Chronic) Bulging disc (Chronic) CHF (congestive heart failure) (Chronic) Cataplexy (Chronic) Depression (Chronic) Diabetes (Chronic) Fibromyalgia (Chronic) GERD (gastroesophageal reflux disease) (Chronic) HTN (hypertension) (Chronic) Migraines (Chronic) Non-STEMI (non-ST elevated myocardial infarction) (Chronic) ROSLYN (obstructive sleep apnea) (Chronic) Osteoarthritis (Chronic) Surgical History Status post cardiac catheterization (Acute) Social History Smoking Status: Current every day smoker Exam Narrative Exam Narrative: GENERAL: This is a well-nourished, well-developed patient, in mild distress. HEAD: Atraumatic. Normocephalic. No temporal or scalp tenderness. EYES: Pupils equal round and reactive. Extraocular motions intact. No scleral icterus. No injection or drainage. ENT: Nose without bleeding, purulent drainage or septal hematoma. Throat without erythema, tonsillar hypertrophy or exudate. Uvula midline. Airway patent. NECK: Trachea midline. No JVD or lymphadenopathy. Supple, nontender, no meningeal signs. CARDIOVASCULAR: Regular rate and rhythm without murmurs, gallops, or rubs. RESPIRATORY: Clear to auscultation. Breath sounds equal bilaterally. No wheezes , rales, or rhonchi. GASTROINTESTINAL: Abdomen soft, non-tender, nondistended. No hepato-splenomegaly , or palpable masses. No guarding. EXTREMITIES: No clubbing, cyanosis, or edema. No joint tenderness, effusion, or edema noted. BACK: Nontender without deformity or crepitance. No flank tenderness. NEURO: AOx3. SKIN: No rash or erythema. NIH Stroke Scale 1a. LOC: Patient is alert and keenly responsive (0) 1b. LOC Questions: Patient answers both LOC questions accurately (0) 1c. LOC Commands: Patient performs both tasks correctly (0) 2. Best Gaze: Normal (0) 3. Visual: No visual loss (0) 4. Facial palsy: Normal symmetrical movements (0) 5. Motor arm: No drift (0) 6. Motor leg: No drift (0) 7. Limb ataxia: Absent (0) 8. Sensory: Normal (0) 9. Best language: No aphasia; normal (0) 10. Dysarthria: Normal (0) 11. Extinction and inattention: No abnormality (0) NIHSS: 0 Initial Vital Signs Initial Vital Signs: Vital Signs Temperature 97.3 F L 09/09/18 04:14 Pulse Rate 73 09/09/18 04:14 Respiratory Rate 18 09/09/18 04:14 Blood Pressure 150/103 H 09/09/18 04:14 Pulse Oximetry 98 09/09/18 04:14 Course Orders Ordered: Discontinued Medications Dexamethasone (Decadron) 10 mg IV NOW ONE Stop: 09/09/18 04:16 Last Admin: 09/09/18 04:23 Dose: 10 mg Ketorolac Tromethamine (Toradol) 15 mg IV NOW ONE Stop: 09/09/18 04:16 Last Admin: 09/09/18 04:37 Dose: 15 mg Oxycodone/Acetaminophen (Percocet 5/325) 1 tab PO NOW ONE Stop: 09/09/18 05:03 Last Admin: 09/09/18 05:04 Dose: 1 tab Prochlorperazine (Compazine) 10 mg IV NOW ONE Stop: 09/09/18 04:16 Last Admin: 09/09/18 04:30 Dose: 10 mg Reevaluation(s) Reevaluation #1: patient reports minimal change in headache, does not appear to be in any significant distress. Resting comfortably. He states that he would normally take a percocet but he ran out early because his shoulder has been bothering him. Time: 05:04 Vital Signs - 8 hr 09/09/18 04:14 09/09/18 05:20 Temperature 97.3 F L Pulse Rate 73 68 Respiratory Rate 18 16 Blood Pressure 150/103 H 124/70 Pulse Oximetry 98 99 Discharge Plan Departure Patient Disposition: Home Clinical Impression: Headache, Insomnia Discharge Date/Time: 09/09/18 05:20 Interventions: ED Discharge Assessment Last Done: 09/09/18 05:20 Instructions: DI for Headache Activity Restrictions/Additional Instructions: *You have been diagnosed with [ headache ] *What to do: *Take medications as directed *Follow up with your primary care provider in 2-3 days, call for an appointment. Let them know you were seen in the Emergency Department and that we ask that you be seen in follow up *Return to ER if you should have any new, worsening or concerning symptoms Prescriptions: No Action promethazine 25 MG tablet 25 mg PO Q6HP PRN (Reason: Nausea) Qty: 0 RF: 0 verapamil 120 mg tablet extended release 60 mg PO DAILY RF: 0 mesalamine 1.2 gram tablet,delayed release (DR/EC) 4 tab PO QAM RF: 0 aripiprazole 15 mg tablet 1 tab PO DAILY RF: 0 amoxicillin-pot clavulanate [Augmentin] 875-125 mg tablet 1 tab PO BID Qty: 20 RF: 0 metoprolol succinate [Toprol XL] 100 mg tablet extended release 24 hr 100 mg PO BID RF: 0 oxycodone-acetaminophen 10-325 mg tablet 1 tab PO PRN PRN (Reason: Pain, Severe) RF: 0 tizanidine 4 mg tablet 8 mg PO TID PRN (Reason: Muscle Spasm) RF: 0 omeprazole 40 mg capsule,delayed release(DR/EC) 40 mg PO BID RF: 0 prazosin 2 mg capsule 2 mg PO QDAY RF: 0 prazosin 2 mg Capsule 4 mg PO QHS RF: 0 milnacipran [Savella] 50 mg Tablet 100 mg PO QPM RF: 0 milnacipran [Savella] 50 mg tablet 50 mg PO QDAY RF: 0 divalproex 500 mg tablet,delayed release (DR/EC) 500 mg PO BID RF: 0 fluticasone 50 mcg/actuation spray,suspension 1 spray Intranasal QDAY RF: 0 duloxetine 60 mg capsule,delayed release(DR/EC) 60 mg PO DAILY RF: 0 pregabalin [Lyrica] 300 mg capsule 300 mg PO BID RF: 0 budesonide-formoterol [Symbicort] 160-4.5 mcg/actuation HFA aerosol inhaler 2 puff Inhalation BID RF: 0 vit C-vit D-waiavb-yml-om-3 [Ocuvite] 101-77-7-150 nf-wuwv-tg-mg Capsule 1 tab PO QDAY RF: 0 dicyclomine 20 mg tablet 20 mg PO BID PRN (Reason: Abdominal Pain) RF: 0 bneii-xo1-fhc-gyg-vp7-pze-astx [Krill Oil ([place] 3 and 6)] 1,500-165-67.5 mg Capsule 1 cap PO DAILY RF: 0 potassium chloride 20 mEq tablet,ER particles/crystals 20 meq PO DAILY RF: 0 furosemide 20 mg tablet 40 mg PO DAILY RF: 0 Referrals: Stacy Collier MD [Primary Care Provider] -
[2018-09-09] MEDS: DEXAMETHASONE 10 MG/ML VIAL IV (04:23)
[2018-09-09] MEDS: PROCHLORPERAZINE 10 MG/2 ML VIAL IV (04:30)
[2018-09-09] MEDS: KETOROLAC 60 MG/2 ML VIAL 15 MG IV (04:37)
[2018-09-09] MEDS: OXYCODONE/ACETAMINOPHEN 5/325 TABLET 1 TAB PO (05:04)
[2018-09-09 05:20] VITALS: BP 124/70; PULSE 68; RESP 16; O2SAT 99
== END 2018-09-09 05:20 | disposition home or self-care (01) ==
PROVIDERS: Emergency Provider Emergency Medicine; Family Provider Family Medicine; PCP Family Medicine
DX: G47.00 Insomnia, unspecified (principal); R51 Headache
CPT/HCPCS: 96374; 96375; 99282; 99284; J0780; J1100; J1885

== ENCOUNTER 2018-11-02 17:38 | Emergency (ER) | payer MEDICARE, SELFPAY ==
[2018-11-02 17:50] VITALS: BP 125/105; PULSE 83; RESP 15; TEMP 36.3; O2SAT 98
--- NOTE | 2018-11-02 17:52 | DI.RAD.S_ITS ---
PROCEDURE: XR CHEST 2V INDICATIONS: shortness of breath TECHNIQUE: 2 views of the chest were acquired. COMPARISON: [facility], CR, XR CHEST 2V, 08/12/2018, 5:44. FINDINGS: Surgical changes and devices: None. Lungs and pleura: No pleural effusions or pneumothorax. Lungs are clear. Mediastinum: Mediastinal contours are normal. Heart size is normal. Bones and chest wall: No suspicious bony abnormalities. Soft tissues appear unremarkable. IMPRESSION: No acute cardiopulmonary findings. Dictated by: Barbara Singh M.D. on 11/02/2018 at 18:09 Approved by: Barbara Singh M.D. on 11/02/2018 at 18:09
[2018-11-02 17:53] VITALS: BP 126/73; PULSE 79; RESP 23; O2SAT 98
--- NOTE | 2018-11-02 18:09 | ED_ITS ---
HPI - SOB/Dyspnea General Chief Complaint: Shortness of Breath/Dyspnea Stated Complaint: DIFFICULTY BREATHING Time Seen by Provider: 11/02/18 18:09 Source: patient Mode of arrival: ambulatory Limitations: no limitations History of Present Illness 43-year-old male with history of congestive heart failure. Was just recently admitted the hospital where he had a cardiac workup in a cardiac catheterization. He stated that the horses or mules teamster told him that his vessels did not have any blockages. No stents were placed. He states that he has a history of hypertrophic cardiomyopathy and congestive heart failure. He is on 40 mg of Lasix a day. And is also an indoor. He states that for the past week he has had increasing dyspnea on exertion in feel like that he can't lay flat. He states that when he is just sitting he is not having any chest pain or shortness of breath. He states that he has gained approximately 20 lb in the past month but does not know how much over the past couple days. Related Data Home Medications Medication Instructions Recorded Confirmed promethazine 25 mg PO Q6HP PRN #0 03/05/18 07/19/18 budesonide-formoterol [Symbicort] 2 puff INHALATION BID 03/23/18 07/19/18 divalproex 500 mg PO BID 03/23/18 07/19/18 fluticasone 1 spray INTRANASAL QDAY 03/23/18 07/19/18 metoprolol succinate [Toprol XL] 100 mg PO BID 03/23/18 07/19/18 milnacipran [Savella] 50 mg PO QDAY 03/23/18 07/19/18 milnacipran [Savella] 100 mg PO QPM 03/23/18 07/19/18 omeprazole 40 mg PO BID 03/23/18 07/19/18 oxycodone-acetaminophen 1 tab PO PRN PRN 03/23/18 07/19/18 prazosin 2 mg PO DAILY 03/23/18 11/02/18 prazosin 4 mg PO BEDTIME 03/23/18 11/02/18 pregabalin [Lyrica] 300 mg PO BID 03/23/18 07/19/18 tizanidine 8 mg PO TID PRN 03/23/18 11/02/18 vit C-vit J-jitoyg-akp-om-3 1 tab PO QDAY 03/23/18 07/19/18 [Ocuvite] dicyclomine 20 mg PO BID PRN 04/29/18 07/19/18 mesalamine 4 tab PO QAM 04/30/18 11/02/18 aripiprazole 1 tab PO DAILY 07/01/18 11/02/18 furosemide 40 mg PO DAILY 07/19/18 11/02/18 pgdec-nc9-inz-ywa-xn5-zcg-astx 1 cap PO DAILY 07/19/18 07/19/18 [Krill Oil ([place] 3 and 6)] potassium chloride 20 meq PO DAILY 07/19/18 11/02/18 alprazolam 11/02/18 duloxetine 11/02/18 isosorbide mononitrate 30 mg PO DAILY 11/02/18 11/02/18 trazodone 11/02/18 verapamil 180 mg PO DAILY 11/02/18 11/02/18 Allergies Allergy/AdvReac Type Severity Reaction Status Date / Time codeine [CODEINE] Allergy Severe ANAPHYLAXIS Verified 11/02/18 17:50 amitriptyline [AMITRIPTYLINE] Allergy Unknown DIZZINESS Verified 11/02/18 17:50 AND UNSTEADYINESS tramadol [From ULTRAM] Allergy Unknown Verified 11/02/18 17:50 bee venom protein (honey bee) Allergy Verified 11/02/18 17:50 squash Allergy Verified 11/02/18 17:50 lisinopril [LISINOPRIL] AdvReac Unknown Verified 11/02/18 17:50 NSAIDS (Non-Steroidal AdvReac Unknown Verified 11/02/18 17:50 Anti-Inflamma [NSAIDS (NON-STEROIDAL ANTI-INFLAMMA] telmisartan [From MICARDIS] AdvReac Unknown Verified 11/02/18 17:50 Review of Systems Constitutional Denies fever(s) ENT Ears, Nose, Mouth, and Throat: Denies vertigo and Denies dizziness Cardiovascular Denies chest pain, Denies syncope, Reports pedal edema, Reports edema, Denies palpitations, Reports dyspnea, Reports dyspnea on exertion and Reports orthopnea Respiratory Denies cough, Denies pain on inspiration, Reports dyspnea, Reports dyspnea on exertion and Denies wheezing Gastrointestinal Gastrointestinal: Denies abdominal pain, Denies nausea and Denies vomiting Musculoskeletal Denies myalgias and Denies arthralgias Integumentary/Breasts Denies rash Neurologic Denies vertigo, Denies dizziness and Denies syncope Endocrine Denies palpitations Hematologic/Lymphatic Comments: Not on anticoagulation Allergic/Immunologic Denies wheezing [facility] Social History Smoking Status: Current every day smoker Exam Initial Vital Signs Initial Vital Signs: Vital Signs Temperature 97.4 F L 11/02/18 17:50 Pulse Rate 83 11/02/18 17:50 Respiratory Rate 15 11/02/18 17:50 Blood Pressure 125/105 H 11/02/18 17:50 Pulse Oximetry 98 11/02/18 17:50 Const General: cooperative, healthy appearing, comfortable, well developed, well groomed and No acute distress Orientation: alert, awake and oriented x3 HENMT Head: normal to inspection and normocephalic Chest Chest: normal inspection of the chest Resp Effort & Inspection: normal respiratory effort, not labored and not tachypneic Auscultation: clear to auscultation bilaterally, no rales, no rhonchi and no wheezes Cardio Rate: regular rate Rhythm: regular rhythm Pulses: radial pulses present GI Inspection: non-distended Palpation: soft Skin Lesions: no lesions Rashes: no rashes Neuro General: alert, awake and oriented x3 Extrem General: edema (Bilateral lower extremity 2+ pitting edema to just above the ankles) Psych Appearance: grossly normal and well kempt Course Orders Ordered: ED Orders 11/02/18 17:52 Consult to Respiratory Therapy Evaluate & Treat XR chest 2V Stat EKG-12 Lead Stat 11/02/18 18:00 B Type Natriuretic Peptide Stat Complete Blood Count AUTO DIFF Stat Comprehensive Metabolic Panel Stat 11/02/18 18:10 Lactate (Lactic Acid) Stat Discontinued Medications Furosemide (Lasix) 60 mg IV NOW ONE Stop: 11/02/18 18:36 Last Admin: 11/02/18 18:49 Dose: 60 mg Vital Signs - 8 hr 11/02/18 17:50 11/02/18 17:53 Temperature 97.4 F L Pulse Rate 83 79 Respiratory Rate 15 23 Blood Pressure 125/105 H Blood Pressure [Right Arm] 126/73 Pulse Oximetry 98 98 MDM - SOB/Dyspnea Medical Records Attestation: I reviewed the patient's medical records. Lab Data Attestation: I reviewed the patient's lab results. Result diagrams: 11/02/18 18:00 11/02/18 18:00 Lab Results 11/02/18 11/02/18 11/02/18 Range/Units 18:00 18:00 18:10 WBC 6.0 (4.5-11.0) X10^3/uL RBC 4.45 L (4.5-5.9) X10^6/uL Hgb 13.3 L (13.5-17.5) g/dL Hct 39.6 L (41-53) % MCV 88.9 (80-100) fL MCH 29.9 (26-34) PG MCHC 33.6 (30-36) % RDW 14.8 (11.6-14.8) % Plt Count 194 (150-400) X10^3/uL Neut % (Auto) 57.1 (50-75) % Lymph % (Auto) 32.7 (25-40) % [place] % (Auto) 8.1 (3-14) % Eos % (Auto) 0.8 L (2-4) % Baso % (Auto) 1.3 (0-2) % Neut # (Auto) 3400 (0590-3083) /uL Sodium 141 (137-145) mmol/L Potassium 4.1 (3.4-5.1) mmol/L Chloride 103 (98-107) mmol/L Carbon Dioxide 28 (22-32) mmol/L BUN 6 L (9-20) mg/dL Creatinine 1.00 (0.66-1.25) mg/dL Estimated GFR > 60.0 (>60) mL/min BUN/Creatinine Ratio 6.0 (6-22) Glucose 129 H (70-100) mg/dL Lactate 1.5 (0.7-2.1) mmol/L Calcium 9.3 (8.4-10.2) mg/dL Total Bilirubin 0.2 (0.2-1.3) mg/dL AST 20 (17-59) IU/L ALT 38 (21-72) IU/L Alkaline Phosphatase 58 (38-126) U/L B-Natriuretic Peptide < 100.0 (<100) Total Protein 6.5 (6.3-8.2) g/dL Albumin 4.0 (3.5-5.0) g/dL Globulin 2.5 (1.7-4.1) g/dL Albumin/Globulin Ratio 1.6 (1.0-2.8) Imaging Data Chest x-ray: Radiologist's impression: PROCEDURE: XR CHEST 2V INDICATIONS: shortness of breath TECHNIQUE: 2 views of the chest were acquired. COMPARISON: [facility], CR, XR CHEST 2V, 08/12/2018, 5:44. FINDINGS: Surgical changes and devices: None. Lungs and pleura: No pleural effusions or pneumothorax. Lungs are clear. Mediastinum: Mediastinal contours are normal. Heart size is normal. Bones and chest wall: No suspicious bony abnormalities. Soft tissues appear unremarkable. IMPRESSION: No acute cardiopulmonary findings. Dictated by: Barbara Singh M.D. on 11/02/2018 at 18:09 Approved by: Barbaar Singh M.D. on 11/02/2018 at 18:09 ECG Data Attestation: I personally reviewed and interpreted this ECG as follows: Prior ECG tracings: available for review Interpretation: Sinus rhythm Ventricular rate is 67 Normal QRS Normal QTC ST elevations in lead 3 T-wave inversions in lead 1 2 aVL V2 V3 V4 V5 V6 EKG unchanged from prior EKG in July this year MDM Narrative Medical decision making narrative: Patient not in respiratory distress, not hypotensive, not hypoxic, not tachycardic, EKG is unchanged from prior EKG, chest x-ray shows no signs of fluid overload, physical exam is not consistent with fluid overload Does have lower extremity edema and hand edema. He was given Lasix IV here in the ER. I do not feel that he needs admitted to the hospital. Patient was concerned about being able to sleep this evening. I informed him that he potentially is going to have to sleep sitting up until the Lasix as a chance to kick in. Also told him that he needed to contact his primary doctor tomorrow and also his horses or mules teamster. He was given return precautions. He expressed understanding and agreement with plan. Discharge Plan Departure Patient Disposition: Home Clinical Impression: CHF (congestive heart failure), Edema extremities, Orthopnea Instructions: DI for Peripheral Edema -- Bilateral Activity Restrictions/Additional Instructions: Recommend you contact your primary care doctor and also your horses or mules teamster tomorrow. I also recommend that starting tomorrow you take 40 mg of Lasix 2 times a day. Return to the emergency department for any new or worsening symptoms Prescriptions: No Action promethazine 25 MG tablet 25 mg PO Q6HP PRN (Reason: Nausea) Qty: 0 RF: 0 mesalamine 1.2 gram tablet,delayed release (DR/EC) 4 tab PO QAM RF: 0 aripiprazole 15 mg tablet 1 tab PO DAILY RF: 0 alprazolam 1 mg tablet RF: 0 isosorbide mononitrate 30 mg tablet extended release 24 hr 30 mg PO DAILY RF: 0 duloxetine 30 mg capsule,delayed release(DR/EC) RF: 0 verapamil 180 mg tablet extended release 180 mg PO DAILY RF: 0 trazodone 150 mg tablet RF: 0 metoprolol succinate [Toprol XL] 100 mg tablet extended release 24 hr 100 mg PO BID RF: 0 oxycodone-acetaminophen 10-325 mg tablet 1 tab PO PRN PRN (Reason: Pain, Severe) RF: 0 tizanidine 4 mg tablet 8 mg PO TID PRN (Reason: Muscle Spasm) RF: 0 omeprazole 40 mg capsule,delayed release(DR/EC) 40 mg PO BID RF: 0 prazosin 2 mg capsule 2 mg PO DAILY RF: 0 prazosin 2 mg Capsule 4 mg PO BEDTIME RF: 0 milnacipran [Savella] 50 mg Tablet 100 mg PO QPM RF: 0 milnacipran [Savella] 50 mg tablet 50 mg PO QDAY RF: 0 divalproex 500 mg tablet,delayed release (DR/EC) 500 mg PO BID RF: 0 fluticasone 50 mcg/actuation spray,suspension 1 spray Intranasal QDAY RF: 0 pregabalin [Lyrica] 300 mg capsule 300 mg PO BID RF: 0 budesonide-formoterol [Symbicort] 160-4.5 mcg/actuation HFA aerosol inhaler 2 puff Inhalation BID RF: 0 vit C-vit Q-vmwmte-pmg-om-3 [Ocuvite] 781-59-1-150 hl-rjjj-zo-mg Capsule 1 tab PO QDAY RF: 0 dicyclomine 20 mg tablet 20 mg PO BID PRN (Reason: Abdominal Pain) RF: 0 gcurs-vk8-fmq-esk-hs2-bsi-astx [Krill Oil ([place] 3 and 6)] 1,500-165-67.5 mg Capsule 1 cap PO DAILY RF: 0 potassium chloride 20 mEq tablet,ER particles/crystals 20 meq PO DAILY RF: 0 furosemide 20 mg tablet 40 mg PO DAILY RF: 0
[2018-11-02 18:11] LABS: Add Manual Diff / Slide Review NO; Basophils Percent Auto 1.3 % (0-2); Eosinophils Percent Auto 0.8 % (2-4); Hematocrit 39.6 % (41-53); Hemoglobin 13.3 g/dL (13.5-17.5); Lymphocytes Percent Auto 32.7 % (25-40); Mean Corpuscular HGB Conc 33.6 % (30-36); Mean Corpuscular Hemoglobin 29.9 PG (26-34); Mean Corpuscular Volume 88.9 fL (80-100); Monocytes Percent Auto 8.1 % (3-14); Neutrophils Absolute Auto 3400 /uL (1500-7000); Neutrophils Percent Auto 57.1 % (50-75); Platelet Count 194 X10^3/uL (150-400); Red Blood Cell Count 4.45 X10^6/uL (4.5-5.9); Red Cell Distribution Width 14.8 % (11.6-14.8)
[2018-11-02 18:20] LABS: Alanine Aminotransferase 38 IU/L (21-72); Albumin Globulin Ratio 1.6 (1.0-2.8); Alkaline Phosphatase 58 U/L (38-126); Aspartate Aminotransferase 20 IU/L (17-59); Bilirubin Total 0.2 mg/dL (0.2-1.3); Blood Urea Nitrogen 6 mg/dL (9-20); Calcium 9.3 mg/dL (8.4-10.2); Carbon Dioxide 28 mmol/L (22-32); Chloride 103 mmol/L (98-107); Estimated Glomerular Filt Rate > 60.0 mL/min (>60); Globulin 2.5 g/dL (1.7-4.1); Glucose 129 mg/dL (70-100); HEMOLYSIS < 15 (0-50); Potassium 4.1 mmol/L (3.4-5.1); Sodium 141 mmol/L (137-145); Total Protein 6.5 g/dL (6.3-8.2)
[2018-11-02 18:29] LABS: Lactate (Lactic Acid) 1.5 mmol/L (0.7-2.1)
[2018-11-02 18:36] LABS: B Type Natriuretic Peptide < 100.0 (<100)
[2018-11-02] MEDS: FUROSEMIDE 100 MG/10 ML VIAL 60 MG IV (18:49)
[2018-11-02 19:45] VITALS: PULSE 72; RESP 19; O2SAT 96
[2018-11-02 19:53] VITALS: BP 136/75; PULSE 69; O2SAT 95
== END 2018-11-02 19:54 | disposition home or self-care (01) ==
PROVIDERS: Emergency Provider Emergency Medicine; Family Provider Family Medicine; PCP Family Medicine
DX: I50.9 Heart failure, unspecified (principal); R60.0 Localized edema; R06.01 Orthopnea
CPT/HCPCS: 36591; 71046; 80053; 83605; 83880; 85025; 93005; 96374; 99283; 99285; J1940

== ENCOUNTER 2018-11-03 10:48 | Emergency (ER) | payer MEDICARE, MEDICAID, SELFPAY ==
[2018-11-03 10:56] VITALS: BP 111/74; PULSE 65; RESP 20; TEMP 36.9; O2SAT 100; BMI 52.6
--- NOTE | 2018-11-03 11:14 | ED.SOB ---
HPI - SOB/Dyspnea General Chief Complaint: Shortness of Breath/Dyspnea Stated Complaint: difficulty breathing, congestive heart failure Time Seen by Provider: 11/03/18 11:13 Source: patient Mode of arrival: ambulatory Limitations: no limitations History of Present Illness Patient presents the emergency department complaining that he is ?still short of breath?. Patient has a history of congestive heart failure he, he states, and also has a history of obesity and obstructive sleep apnea. He states that he is having to sit up in order to breathe, because when he lays back, it is too difficult. Patient was seen yesterday and had a full workup done, including EKG, labs, and chest x-ray, all of which were unremarkable. He states he spoke with his padded products inspector trimmer today, and that the padded products inspector trimmer told him he should come back and have a CTA performed. The patient is not known to have any DVTs or hypercoagulable state, that he knows of. Patient states his breathing is not worse; it just is not better. He denies fevers, productive cough, or feeling of illness otherwise. Related Data Home Medications Medication Instructions Recorded Confirmed promethazine 25 mg PO Q6HP PRN #0 03/05/18 07/19/18 budesonide-formoterol [Symbicort] 2 puff INHALATION BID 03/23/18 07/19/18 divalproex 500 mg PO BID 03/23/18 07/19/18 fluticasone 1 spray INTRANASAL QDAY 03/23/18 07/19/18 metoprolol succinate [Toprol XL] 100 mg PO BID 03/23/18 07/19/18 milnacipran [Savella] 50 mg PO QDAY 03/23/18 07/19/18 milnacipran [Savella] 100 mg PO QPM 03/23/18 07/19/18 omeprazole 40 mg PO BID 03/23/18 07/19/18 oxycodone-acetaminophen 1 tab PO Q6H PRN 03/23/18 11/03/18 prazosin 2 mg PO DAILY 03/23/18 11/03/18 prazosin 4 mg PO BEDTIME 03/23/18 11/03/18 pregabalin [Lyrica] 300 mg PO BID 03/23/18 07/19/18 tizanidine 8 mg PO TID PRN 03/23/18 11/03/18 vit C-vit Q-szzurs-jdb-om-3 1 tab PO QDAY 03/23/18 07/19/18 [Ocuvite] dicyclomine 20 mg PO BID PRN 04/29/18 07/19/18 mesalamine 4 tab PO QAM 04/30/18 11/03/18 aripiprazole 1 tab PO DAILY 07/01/18 11/03/18 furosemide 40 mg PO DAILY 07/19/18 11/03/18 [id number]-epz-[id number]-jjf-[id number] 1 cap PO DAILY 07/19/18 07/19/18 [Krill Oil (Fieldon 3 and 6)] potassium chloride 20 meq PO DAILY 07/19/18 11/03/18 alprazolam 2 mg PO BEDTIME 11/02/18 11/03/18 duloxetine 11/02/18 isosorbide mononitrate 30 mg PO DAILY 11/02/18 11/03/18 trazodone 11/02/18 verapamil 180 mg PO DAILY 11/02/18 11/03/18 alprazolam 1 mg PO BID 11/03/18 11/03/18 Allergies Allergy/AdvReac Type Severity Reaction Status Date / Time codeine [CODEINE] Allergy Severe ANAPHYLAXIS Verified 11/03/18 10:56 amitriptyline [AMITRIPTYLINE] Allergy Unknown DIZZINESS Verified 11/03/18 10:56 AND UNSTEADYINESS tramadol [From ULTRAM] Allergy Unknown Verified 11/03/18 10:56 bee venom protein (honey bee) Allergy Verified 11/03/18 10:56 squash Allergy Verified 11/03/18 10:56 lisinopril [LISINOPRIL] AdvReac Unknown Verified 11/03/18 10:56 NSAIDS (Non-Steroidal AdvReac Unknown Verified 11/03/18 10:56 Anti-Inflamma [NSAIDS (NON-STEROIDAL ANTI-INFLAMMA] telmisartan [From MICARDIS] AdvReac Unknown Verified 11/03/18 10:56 Review of Systems Review of Systems All systems reviewed & are unremarkable except as noted in HPI and below Constitutional Denies chills, Denies fever(s), Denies lethargy and Denies weakness Eyes Denies change in vision, Denies eye discharge, Denies irritation and Denies loss of vision ENT Ears, Nose, Mouth, and Throat: Denies change in voice, Denies neck pain and Denies sore throat Cardiovascular Denies chest pain, Denies irregular heart rhythm, Denies lightheadedness, Denies palpitations, Reports dyspnea, Denies dyspnea on exertion and Denies orthopnea Respiratory Denies cough, Reports dyspnea, Denies dyspnea on exertion and Denies wheezing Gastrointestinal Gastrointestinal: Denies abdominal pain, Denies change in bowel habits, Denies diarrhea, Denies nausea and Denies vomiting Genitourinary Denies hematuria, Denies flank pain, Denies urinary incontinence and Denies urinary urgency Musculoskeletal Denies neck pain Integumentary/Breasts Denies pruritus, Denies erythema, Denies rash and Denies wounds Neurologic Denies confusion, Denies loss of vision and Denies weakness Psychiatric Denies anxiety, Denies confusion, Denies depression, Denies homicidal ideation and Denies suicidal ideation Endocrine Denies palpitations Hematologic/Lymphatic Denies easy bruising Allergic/Immunologic Denies wheezing [facility] Surgical History Status post cardiac catheterization (Acute) Social History Smoking Status: Current every day smoker Exam Initial Vital Signs Initial Vital Signs: Vital Signs Temperature 98.4 F 11/03/18 10:56 Pulse Rate 65 11/03/18 10:56 Respiratory Rate 20 11/03/18 10:56 Blood Pressure 111/74 11/03/18 10:56 Pulse Oximetry 100 11/03/18 10:56 Const General: cooperative and well developed Nutritional Appearance: well nourished Orientation: alert, awake, oriented x3 and not confused Other: Morbidly obese male, speaking full sentences, in no apparent distress. [facility] Head: normocephalic and atraumatic Ears: external ears normal and TM's normal bilaterally Nose: external nose normal and No nasal discharge Face and sinus: sinuses nontender, face symmetric, no sinus tenderness and No dry mucous membranes Mouth: oral mucosae normal and moist mucous membranes Teeth and gingiva: dentition normal Throat: tonsils normal and uvula midline Eyes General: appearance normal, both eyes and all related structures Eyelids: eyelids normal Conjunctivae: conjunctivae normal Sclera: sclerae normal Pupils: PERRL EOM: EOM intact bilaterally Neck Neck: normal visual inspection, trachea midline, No lymphadenopathy, No midline deformity and No JVD Lymphatic: No lymphedema Chest Chest: normal inspection of the chest Resp Effort & Inspection: normal respiratory effort, able to speak in complete sentences, no respiratory distress and no use of accessory muscles Auscultation: clear to auscultation bilaterally, no rales, no rhonchi and no wheezes Cardio Rate: regular rate Rhythm: regular rhythm Heart Sounds: no click, no gallops, no murmurs and no rubs Pulses: normal peripheral pulses GI Inspection: non-distended Palpation: soft, no hepatosplenomegaly, No guarding, No pulsatile mass and No tender Auscultation: normal bowel sounds Back/Spine/Pelvis Back: No CVA tenderness Cervical Spine: cervical ROM normal and No pain with cervical ROM Thoracic/Lumbar Spine: thoracic and lumbar spine normal to inspection Skin General: no rashes or lesions noted, No jaundice and No petechiae Neuro General: alert, oriented x3, gait normal and no focal motor deficits Speech: speech normal Extrem General: full ROM, no clubbing, cyanosis or edema, no pedal edema and no calf tenderness Psych Appearance: well kempt Mental Status: mental status grossly normal Attitude: cooperative Thought Content: normal and suicidality Judgment: judgment good Course Course Narrative: I reviewed the patient's workup from yesterday, which was unremarkable, including his chest x-ray and his BNP. The patient's lungs were clear and he was not actually in any distress, and I did not feel that the workup from yesterday needed to be repeated. I did have a CTA performed to evaluate for any PE or other potential cause of his dyspnea, and this was unremarkable. I did inform the patient that as he has been advised before, he needs to be following up as an outpatient for his chronic issues. It is imperative that he addresses his weight, as this is likely a significant contributor to his morbidity. Patient has expressed understanding. We have discussed the usual indications for return. Orders Ordered: ED Orders 11/03/18 11:09 EKG-12 Lead Stat Vital Signs - 8 hr 11/03/18 10:56 Temperature 98.4 F Pulse Rate 65 Respiratory Rate 20 Blood Pressure 111/74 Pulse Oximetry 100 MDM - SOB/Dyspnea Medical Records Attestation: I reviewed the patient's medical records. Imaging Data CT scan - chest: Radiologist's impression: PROCEDURE: CT ANGIO CHEST PE PROTOCOL INDICATIONS: dyspnea TECHNIQUE: After the administration of intravenous contrast, 2 mm thick sections acquired from the pulmonary apices to the posterior costophrenic angles. 3-dimensional maximum intensity projection (MIP) coronal and sagittal reformats were then acquired through the thorax. For radiation dose reduction, the following was used: automated exposure control, adjustment of mA and/or kV according to patient size. COMPARISON: None. FINDINGS: Image quality: Excellent. Pulmonary arteries: Pulmonary arteries are normal in size, and demonstrate no intraluminal filling defects to suggest central pulmonary embolism. There is reflux of IV contrast into the hepatic veins. Lungs and pleura: Lungs are clear. No pleural effusions or pneumothorax. Central and peripheral airways are patent. Mediastinum: Heart size is normal, without pericardial effusion. No mediastinal or hilar adenopathy. Thoracic aorta is normal in caliber and enhancement. Esophagus is normal in caliber, without hiatal hernia. Bones and chest wall: No suspicious bony lesions. Presumed vertebral body hemangioma image 52. Ribs and thoracic spine appear intact throughout. Thyroid gland negative. No axillary or supraclavicular adenopathy. Nodular appearance of the liver suggesting cirrhosis. IMPRESSION: No evidence of pulmonary embolism. No acute consolidation. Reflux of IV contrast into the hepatic veins in keeping with decreased cardiac output. Please correlate clinically. Dictated by: Jose Alvarado M.D. on 11/03/2018 at 11:58 Approved by: Jose Alvarado M.D. on 11/03/2018 at 12:04 Discharge Plan Departure Patient Disposition: Home Clinical Impression: Acute dyspnea Discharge Date/Time: 11/03/18 12:46 Interventions: ED Discharge Assessment Last Done: 11/03/18 12:46 Instructions: DI for Shortness of Breath Activity Restrictions/Additional Instructions: Your CT scan today looks good. There is no evidence of a blood clot in your lungs, or of any other abnormality. It is not clear why you are having the symptoms, though it may be related to some of the same issues that are causing your sleep apnea. Please follow up with your padded products inspector trimmer, as well as with your primary doctor. If your doctor is able to help you with a weight loss plan, this will most likely help with some of the symptoms you are having. Prescriptions: No Action promethazine 25 MG tablet 25 mg PO Q6HP PRN (Reason: Nausea) Qty: 0 RF: 0 mesalamine 1.2 gram tablet,delayed release (DR/EC) 4 tab PO QAM RF: 0 aripiprazole 15 mg tablet 1 tab PO DAILY RF: 0 alprazolam 1 mg tablet 2 mg PO BEDTIME RF: 0 isosorbide mononitrate 30 mg tablet extended release 24 hr 30 mg PO DAILY RF: 0 duloxetine 30 mg capsule,delayed release(DR/EC) RF: 0 verapamil 180 mg tablet extended release 180 mg PO DAILY RF: 0 trazodone 150 mg tablet RF: 0 alprazolam 1 mg tablet 1 mg PO BID RF: 0 metoprolol succinate [Toprol XL] 100 mg tablet extended release 24 hr 100 mg PO BID RF: 0 oxycodone-acetaminophen 10-325 mg tablet 1 tab PO Q6H PRN (Reason: Pain, Severe) RF: 0 tizanidine 4 mg tablet 8 mg PO TID PRN (Reason: Muscle Spasm) RF: 0 omeprazole 40 mg capsule,delayed release(DR/EC) 40 mg PO BID RF: 0 prazosin 2 mg capsule 2 mg PO DAILY RF: 0 prazosin 2 mg Capsule 4 mg PO BEDTIME RF: 0 milnacipran [Savella] 50 mg Tablet 100 mg PO QPM RF: 0 milnacipran [Savella] 50 mg tablet 50 mg PO QDAY RF: 0 divalproex 500 mg tablet,delayed release (DR/EC) 500 mg PO BID RF: 0 fluticasone 50 mcg/actuation spray,suspension 1 spray Intranasal QDAY RF: 0 pregabalin [Lyrica] 300 mg capsule 300 mg PO BID RF: 0 budesonide-formoterol [Symbicort] 160-4.5 mcg/actuation HFA aerosol inhaler 2 puff Inhalation BID RF: 0 vit C-vit M-[id number]-ukc-om-3 [Ocuvite] 420-08-7-150 mt-sjer-fk-mg Capsule 1 tab PO QDAY RF: 0 dicyclomine 20 mg tablet 20 mg PO BID PRN (Reason: Abdominal Pain) RF: 0 [id number]-[id number]-di2-ttm-astx [Krill Oil (Fieldon 3 and 6)] 1,500-165-67.5 mg Capsule 1 cap PO DAILY RF: 0 potassium chloride 20 mEq tablet,ER particles/crystals 20 meq PO DAILY RF: 0 furosemide 20 mg tablet 40 mg PO DAILY RF: 0 Referrals: Stacy Collier MD [Primary Care Provider] -
[2018-11-03 11:30] VITALS: BP 116/66; PULSE 63; RESP 19; O2SAT 95
--- NOTE | 2018-11-03 11:31 | DI.CT.S_ITS ---
PROCEDURE: CT ANGIO CHEST PE PROTOCOL INDICATIONS: dyspnea TECHNIQUE: After the administration of intravenous contrast, 2 mm thick sections acquired from the pulmonary apices to the posterior costophrenic angles. 3-dimensional maximum intensity projection (MIP) coronal and sagittal reformats were then acquired through the thorax. For radiation dose reduction, the following was used: automated exposure control, adjustment of mA and/or kV according to patient size. COMPARISON: None. FINDINGS: Image quality: Excellent. Pulmonary arteries: Pulmonary arteries are normal in size, and demonstrate no intraluminal filling defects to suggest central pulmonary embolism. There is reflux of IV contrast into the hepatic veins. Lungs and pleura: Lungs are clear. No pleural effusions or pneumothorax. Central and peripheral airways are patent. Mediastinum: Heart size is normal, without pericardial effusion. No mediastinal or hilar adenopathy. Thoracic aorta is normal in caliber and enhancement. Esophagus is normal in caliber, without hiatal hernia. Bones and chest wall: No suspicious bony lesions. Presumed vertebral body hemangioma image 52. Ribs and thoracic spine appear intact throughout. Thyroid gland negative. No axillary or supraclavicular adenopathy. Nodular appearance of the liver suggesting cirrhosis. IMPRESSION: No evidence of pulmonary embolism. No acute consolidation. Reflux of IV contrast into the hepatic veins in keeping with decreased cardiac output. Please correlate clinically. Dictated by: Jose Alvarado M.D. on 11/03/2018 at 11:58 Approved by: Jose Alvarado M.D. on 11/03/2018 at 12:04
[2018-11-03 12:00] VITALS: BP 106/63; PULSE 61; RESP 19; O2SAT 93
[2018-11-03 12:30] VITALS: BP 118/78; PULSE 62; RESP 17; O2SAT 94
--- NOTE | 2018-11-07 14:22 | ED_ITS ---
HPI - SOB/Dyspnea General Chief Complaint: Shortness of Breath/Dyspnea Stated Complaint: difficulty breathing, congestive heart failure Time Seen by Provider: 11/03/18 11:13 Source: patient Mode of arrival: ambulatory Limitations: no limitations History of Present Illness Patient presents the emergency department complaining that he is ?still short of breath?. Patient has a history of congestive heart failure he, he states, and also has a history of obesity and obstructive sleep apnea. He states that he is having to sit up in order to breathe, because when he lays back, it is too difficult. Patient was seen yesterday and had a full workup done, including EKG, labs, and chest x-ray, all of which were unremarkable. He states he spoke with his graphic designer today, and that the graphic designer told him he should come back and have a CTA performed. The patient is not known to have any DVTs or hypercoagulable state, that he knows of. Patient states his breathing is not worse; it just is not better. He denies fevers, productive cough, or feeling of illness otherwise. Related Data Home Medications Medication Instructions Recorded Confirmed promethazine 25 mg PO Q6HP PRN #0 03/05/18 07/19/18 budesonide-formoterol [Symbicort] 2 puff INHALATION BID 03/23/18 07/19/18 divalproex 500 mg PO BID 03/23/18 07/19/18 fluticasone 1 spray INTRANASAL QDAY 03/23/18 07/19/18 metoprolol succinate [Toprol XL] 100 mg PO BID 03/23/18 07/19/18 milnacipran [Savella] 50 mg PO QDAY 03/23/18 07/19/18 milnacipran [Savella] 100 mg PO QPM 03/23/18 07/19/18 omeprazole 40 mg PO BID 03/23/18 07/19/18 oxycodone-acetaminophen 1 tab PO Q6H PRN 03/23/18 11/03/18 prazosin 2 mg PO DAILY 03/23/18 11/03/18 prazosin 4 mg PO BEDTIME 03/23/18 11/03/18 pregabalin [Lyrica] 300 mg PO BID 03/23/18 07/19/18 tizanidine 8 mg PO TID PRN 03/23/18 11/03/18 vit C-vit [id number] 1 tab PO QDAY 03/23/18 07/19/18 [Ocuvite] dicyclomine 20 mg PO BID PRN 04/29/18 07/19/18 mesalamine 4 tab PO QAM 04/30/18 11/03/18 aripiprazole 1 tab PO DAILY 07/01/18 11/03/18 furosemide 40 mg PO DAILY 07/19/18 11/03/18 [id number] 1 cap PO DAILY 07/19/18 07/19/18 [Krill Oil ([place] 3 and 6)] potassium chloride 20 meq PO DAILY 07/19/18 11/03/18 alprazolam 2 mg PO BEDTIME 11/02/18 11/03/18 duloxetine 11/02/18 isosorbide mononitrate 30 mg PO DAILY 11/02/18 11/03/18 trazodone 11/02/18 verapamil 180 mg PO DAILY 11/02/18 11/03/18 alprazolam 1 mg PO BID 11/03/18 11/03/18 Allergies Allergy/AdvReac Type Severity Reaction Status Date / Time codeine [CODEINE] Allergy Severe ANAPHYLAXIS Verified 11/03/18 10:56 amitriptyline [AMITRIPTYLINE] Allergy Unknown DIZZINESS Verified 11/03/18 10:56 AND UNSTEADYINESS tramadol [From ULTRAM] Allergy Unknown Verified 11/03/18 10:56 bee venom protein (honey bee) Allergy Verified 11/03/18 10:56 squash Allergy Verified 11/03/18 10:56 lisinopril [LISINOPRIL] AdvReac Unknown Verified 11/03/18 10:56 NSAIDS (Non-Steroidal AdvReac Unknown Verified 11/03/18 10:56 Anti-Inflamma [NSAIDS (NON-STEROIDAL ANTI-INFLAMMA] telmisartan [From MICARDIS] AdvReac Unknown Verified 11/03/18 10:56 Review of Systems Review of Systems All systems reviewed & are unremarkable except as noted in HPI and below Constitutional Denies chills, Denies fever(s), Denies lethargy and Denies weakness Eyes Denies change in vision, Denies eye discharge, Denies irritation and Denies loss of vision ENT Ears, Nose, Mouth, and Throat: Denies change in voice, Denies neck pain and Denies sore throat Cardiovascular Denies chest pain, Denies irregular heart rhythm, Denies lightheadedness, Denies palpitations, Reports dyspnea, Denies dyspnea on exertion and Denies orthopnea Respiratory Denies cough, Reports dyspnea, Denies dyspnea on exertion and Denies wheezing Gastrointestinal Gastrointestinal: Denies abdominal pain, Denies change in bowel habits, Denies diarrhea, Denies nausea and Denies vomiting Genitourinary Denies hematuria, Denies flank pain, Denies urinary incontinence and Denies urinary urgency Musculoskeletal Denies neck pain Integumentary/Breasts Denies pruritus, Denies erythema, Denies rash and Denies wounds Neurologic Denies confusion, Denies loss of vision and Denies weakness Psychiatric Denies anxiety, Denies confusion, Denies depression, Denies homicidal ideation and Denies suicidal ideation Endocrine Denies palpitations Hematologic/Lymphatic Denies easy bruising Allergic/Immunologic Denies wheezing [facility] Surgical History Status post cardiac catheterization (Acute) Social History Smoking Status: Current every day smoker Exam Initial Vital Signs Initial Vital Signs: Vital Signs Temperature 98.4 F 11/03/18 10:56 Pulse Rate 65 11/03/18 10:56 Respiratory Rate 20 11/03/18 10:56 Blood Pressure 111/74 11/03/18 10:56 Pulse Oximetry 100 11/03/18 10:56 Const General: cooperative and well developed Nutritional Appearance: well nourished Orientation: alert, awake, oriented x3 and not confused Other: Morbidly obese male, speaking full sentences, in no apparent distress. [facility] Head: normocephalic and atraumatic Ears: external ears normal and TM's normal bilaterally Nose: external nose normal and No nasal discharge Face and sinus: sinuses nontender, face symmetric, no sinus tenderness and No dry mucous membranes Mouth: oral mucosae normal and moist mucous membranes Teeth and gingiva: dentition normal Throat: tonsils normal and uvula midline Eyes General: appearance normal, both eyes and all related structures Eyelids: eyelids normal Conjunctivae: conjunctivae normal Sclera: sclerae normal Pupils: PERRL EOM: EOM intact bilaterally Neck Neck: normal visual inspection, trachea midline, No lymphadenopathy, No midline deformity and No JVD Lymphatic: No lymphedema Chest Chest: normal inspection of the chest Resp Effort & Inspection: normal respiratory effort, able to speak in complete sentences, no respiratory distress and no use of accessory muscles Auscultation: clear to auscultation bilaterally, no rales, no rhonchi and no wheezes Cardio Rate: regular rate Rhythm: regular rhythm Heart Sounds: no click, no gallops, no murmurs and no rubs Pulses: normal peripheral pulses GI Inspection: non-distended Palpation: soft, no hepatosplenomegaly, No guarding, No pulsatile mass and No tender Auscultation: normal bowel sounds Back/Spine/Pelvis Back: No CVA tenderness Cervical Spine: cervical ROM normal and No pain with cervical ROM Thoracic/Lumbar Spine: thoracic and lumbar spine normal to inspection Skin General: no rashes or lesions noted, No jaundice and No petechiae Neuro General: alert, oriented x3, gait normal and no focal motor deficits Speech: speech normal Extrem General: full ROM, no clubbing, cyanosis or edema, no pedal edema and no calf tenderness Psych Appearance: well kempt Mental Status: mental status grossly normal Attitude: cooperative Thought Content: normal and suicidality Judgment: judgment good Course Course Narrative: I reviewed the patient's workup from yesterday, which was unremarkable, including his chest x-ray and his BNP. The patient's lungs were clear and he was not actually in any distress, and I did not feel that the workup from yesterday needed to be repeated. I did have a CTA performed to evaluate for any PE or other potential cause of his dyspnea, and this was unremarkable. I did inform the patient that as he has been advised before, he needs to be following up as an outpatient for his chronic issues. It is imperative that he addresses his weight, as this is likely a significant contributor to his morbidity. Patient has expressed understanding. We have discussed the usual indications for return. Orders Ordered: ED Orders 11/03/18 11:09 EKG-12 Lead Stat Vital Signs - 8 hr 11/03/18 10:56 Temperature 98.4 F Pulse Rate 65 Respiratory Rate 20 Blood Pressure 111/74 Pulse Oximetry 100 MDM - SOB/Dyspnea Medical Records Attestation: I reviewed the patient's medical records. Imaging Data CT scan - chest: Radiologist's impression: PROCEDURE: CT ANGIO CHEST PE PROTOCOL INDICATIONS: dyspnea TECHNIQUE: After the administration of intravenous contrast, 2 mm thick sections acquired from the pulmonary apices to the posterior costophrenic angles. 3-dimensional maximum intensity projection (MIP) coronal and sagittal reformats were then acquired through the thorax. For radiation dose reduction, the following was used: automated exposure control, adjustment of mA and/or kV according to patient size. COMPARISON: None. FINDINGS: Image quality: Excellent. Pulmonary arteries: Pulmonary arteries are normal in size, and demonstrate no intraluminal filling defects to suggest central pulmonary embolism. There is reflux of IV contrast into the hepatic veins. Lungs and pleura: Lungs are clear. No pleural effusions or pneumothorax. Central and peripheral airways are patent. Mediastinum: Heart size is normal, without pericardial effusion. No mediastinal or hilar adenopathy. Thoracic aorta is normal in caliber and enhancement. Esophagus is normal in caliber, without hiatal hernia. Bones and chest wall: No suspicious bony lesions. Presumed vertebral body hemangioma image 52. Ribs and thoracic spine appear intact throughout. Thyroid gland negative. No axillary or supraclavicular adenopathy. Nodular appearance of the liver suggesting cirrhosis. IMPRESSION: No evidence of pulmonary embolism. No acute consolidation. Reflux of IV contrast into the hepatic veins in keeping with decreased cardiac output. Please correlate clinically. Dictated by: Jose Alvarado M.D. on 11/03/2018 at 11:58 Approved by: Jose Alvarado M.D. on 11/03/2018 at 12:04 Discharge Plan Departure Patient Disposition: Home Clinical Impression: Acute dyspnea Discharge Date/Time: 11/03/18 12:46 Interventions: ED Discharge Assessment Last Done: 11/03/18 12:46 Instructions: DI for Shortness of Breath Activity Restrictions/Additional Instructions: Your CT scan today looks good. There is no evidence of a blood clot in your lungs, or of any other abnormality. It is not clear why you are having the symptoms, though it may be related to some of the same issues that are causing your sleep apnea. Please follow up with your graphic designer, as well as with your primary doctor. If your doctor is able to help you with a weight loss plan , this will most likely help with some of the symptoms you are having. Prescriptions: No Action promethazine 25 MG tablet 25 mg PO Q6HP PRN (Reason: Nausea) Qty: 0 RF: 0 mesalamine 1.2 gram tablet,delayed release (DR/EC) 4 tab PO QAM RF: 0 aripiprazole 15 mg tablet 1 tab PO DAILY RF: 0 alprazolam 1 mg tablet 2 mg PO BEDTIME RF: 0 isosorbide mononitrate 30 mg tablet extended release 24 hr 30 mg PO DAILY RF: 0 duloxetine 30 mg capsule,delayed release(DR/EC) RF: 0 verapamil 180 mg tablet extended release 180 mg PO DAILY RF: 0 trazodone 150 mg tablet RF: 0 alprazolam 1 mg tablet 1 mg PO BID RF: 0 metoprolol succinate [Toprol XL] 100 mg tablet extended release 24 hr 100 mg PO BID RF: 0 oxycodone-acetaminophen 10-325 mg tablet 1 tab PO Q6H PRN (Reason: Pain, Severe) RF: 0 tizanidine 4 mg tablet 8 mg PO TID PRN (Reason: Muscle Spasm) RF: 0 omeprazole 40 mg capsule,delayed release(DR/EC) 40 mg PO BID RF: 0 prazosin 2 mg capsule 2 mg PO DAILY RF: 0 prazosin 2 mg Capsule 4 mg PO BEDTIME RF: 0 milnacipran [Savella] 50 mg Tablet 100 mg PO QPM RF: 0 milnacipran [Savella] 50 mg tablet 50 mg PO QDAY RF: 0 divalproex 500 mg tablet,delayed release (DR/EC) 500 mg PO BID RF: 0 fluticasone 50 mcg/actuation spray,suspension 1 spray Intranasal QDAY RF: 0 pregabalin [Lyrica] 300 mg capsule 300 mg PO BID RF: 0 budesonide-formoterol [Symbicort] 160-4.5 mcg/actuation HFA aerosol inhaler 2 puff Inhalation BID RF: 0 vit C-vit [id number]-om-3 [Ocuvite] 498-50-7-150 ku-zakz-an-mg Capsule 1 tab PO QDAY RF: 0 dicyclomine 20 mg tablet 20 mg PO BID PRN (Reason: Abdominal Pain) RF: 0 [id number] [Krill Oil ([place] 3 and 6)] 1,500-165-67.5 mg Capsule 1 cap PO DAILY RF: 0 potassium chloride 20 mEq tablet,ER particles/crystals 20 meq PO DAILY RF: 0 furosemide 20 mg tablet 40 mg PO DAILY RF: 0 Referrals: Stacy Collier MD [Primary Care Provider] -
== END 2018-11-03 12:46 | disposition home or self-care (01) ==
PROVIDERS: Emergency Provider Emergency Medicine; PCP Family Medicine
DX: R06.00 Dyspnea, unspecified (principal)
CPT/HCPCS: 71275; 93005; 99283; 99284; Q9967

== ENCOUNTER 2018-11-15 10:11 | Emergency (ER) | payer MEDICARE, SELFPAY ==
[2018-11-15] VITALS (8 sets, daily range): BP systolic 135–175; BP diastolic 72–104; PULSE 80–90; RESP 12–20; TEMP 36.3; O2SAT 92–100
--- NOTE | 2018-11-15 10:17 | DI.RAD.S_ITS ---
PROCEDURE: XR CHEST 2V INDICATIONS: chest pain TECHNIQUE: 2 views of the chest were acquired. COMPARISON: [facility], CR, XR CHEST 2V, 11/02/2018, 17:57. FINDINGS: Surgical changes and devices: None. Lungs and pleura: No pleural effusions or pneumothorax. Lungs are clear. Mediastinum: Mediastinal contours are normal. Heart size is normal. Bones and chest wall: No suspicious bony abnormalities. Soft tissues appear unremarkable. IMPRESSION: No acute cardiopulmonary pathology. Dictated by: Reece Luis M.D. on 11/15/2018 at 11:15 Approved by: Reece Luis M.D. on 11/15/2018 at 11:18
[2018-11-15 10:39] LABS: Add Manual Diff / Slide Review NO; Basophils Percent Auto 0.9 % (0-2); Eosinophils Percent Auto 0.8 % (2-4); Hematocrit 45.6 % (41-53); Hemoglobin 15.3 g/dL (13.5-17.5); Lymphocytes Percent Auto 31.5 % (25-40); Mean Corpuscular HGB Conc 33.7 % (30-36); Mean Corpuscular Hemoglobin 29.6 PG (26-34); Mean Corpuscular Volume 87.9 fL (80-100); Monocytes Percent Auto 7.5 % (3-14); Neutrophils Absolute Auto 3600 /uL (1500-7000); Neutrophils Percent Auto 59.3 % (50-75); Platelet Count 226 X10^3/uL (150-400); Red Blood Cell Count 5.18 X10^6/uL (4.5-5.9); Red Cell Distribution Width 14.6 % (11.6-14.8)
[2018-11-15 10:44] LABS: INR 0.9 (0.9-1.3); Prothrombin Time 10.9 SECONDS (10.1-12.7)
[2018-11-15 10:47] LABS: PTT Partial Thromboplastin Tim 34 SECONDS (26.4-36.2)
[2018-11-15 10:51] LABS: Alanine Aminotransferase 47 IU/L (21-72); Albumin 4.8 g/dL (3.5-5.0); Albumin Globulin Ratio 1.5 (1.0-2.8); Alkaline Phosphatase 68 U/L (38-126); Aspartate Aminotransferase 33 IU/L (17-59); Bilirubin Total 0.4 mg/dL (0.2-1.3); Blood Urea Nitrogen 13 mg/dL (9-20); Calcium 9.5 mg/dL (8.4-10.2); Carbon Dioxide 29 mmol/L (22-32); Chloride 105 mmol/L (98-107); Creatine Kinase 88 U/L (55-170); Estimated Glomerular Filt Rate > 60.0 mL/min (>60); Globulin 3.2 g/dL (1.7-4.1); Glucose 121 mg/dL (70-100); Lipase 185 U/L (23-300); Potassium 4.1 mmol/L (3.4-5.1); Sodium 145 mmol/L (137-145)
[2018-11-15 11:04] LABS: HEMOLYSIS 15 (0-50)
[2018-11-15 11:05] LABS: Troponin I < 0.012 ng/mL (0.01-0.034)
--- NOTE | 2018-11-15 11:46 | ED.CHESTPAIN ---
HPI - Chest Pain General Chief Complaint: Chest Pain Stated Complaint: CHEST PAIN Time Seen by Provider: 11/15/18 11:35 Source: patient Mode of arrival: ambulatory Limitations: no limitations History of Present Illness HPI narrative: This is a 43 year male comes to the emergency department with complaint of chest pain. Patient states that he tried 3 doses of sublingual nitro at home without any help. It did give him a headache. States he felt clammy. Um it was sort of into his left shoulder and radiating into his right. He felt a little bit short of breath. He felt nauseated but denies any vomiting. He had no urinary or constipation issues recently. He has some chronic edema in his lower extremities that is in a little bit worse since he was off his Lasix. Patient states that he has restart his Lasix since. He was off of it because of insurance issues and could do for the medications. He has no cardiomyopathy he states he had a cardiac catheterization a month as well as an echo and was started on Imdur. He also takes an aspirin 81 mg daily. Patient sees Dr. Sargent and Kylah for Cardiology through telling him. Related Data Home Medications Medication Instructions Recorded Confirmed promethazine 25 mg PO Q6HP PRN #0 03/05/18 07/19/18 budesonide-formoterol [Symbicort] 2 puff INHALATION BID 03/23/18 07/19/18 divalproex 500 mg PO BID 03/23/18 07/19/18 fluticasone 1 spray INTRANASAL QDAY 03/23/18 07/19/18 metoprolol succinate [Toprol XL] 100 mg PO BID 03/23/18 07/19/18 milnacipran [Savella] 50 mg PO QDAY 03/23/18 07/19/18 milnacipran [Savella] 100 mg PO QPM 03/23/18 07/19/18 omeprazole 40 mg PO BID 03/23/18 07/19/18 oxycodone-acetaminophen 1 tab PO Q6H PRN 03/23/18 11/03/18 prazosin 2 mg PO DAILY 03/23/18 11/03/18 prazosin 4 mg PO BEDTIME 03/23/18 11/03/18 pregabalin [Lyrica] 300 mg PO BID 03/23/18 07/19/18 tizanidine 8 mg PO TID PRN 03/23/18 11/03/18 vit C-vit [id number]-[id number]-[id number]-3 1 tab PO QDAY 03/23/18 07/19/18 [Ocuvite] dicyclomine 20 mg PO BID PRN 04/29/18 07/19/18 mesalamine 4 tab PO QAM 04/30/18 11/03/18 aripiprazole 1 tab PO DAILY 07/01/18 11/03/18 furosemide 40 mg PO DAILY 07/19/18 11/03/18 [id number]-[id number]-[id number] 1 cap PO DAILY 07/19/18 07/19/18 [Krill Oil ([place] 3 and 6)] potassium chloride 20 meq PO DAILY 07/19/18 11/03/18 alprazolam 2 mg PO BEDTIME 11/02/18 11/03/18 duloxetine 11/02/18 isosorbide mononitrate 30 mg PO DAILY 11/02/18 11/03/18 trazodone 11/02/18 verapamil 180 mg PO DAILY 11/02/18 11/03/18 alprazolam 1 mg PO BID 11/03/18 11/03/18 Allergies Allergy/AdvReac Type Severity Reaction Status Date / Time codeine [CODEINE] Allergy Severe ANAPHYLAXIS Verified 11/03/18 10:56 amitriptyline [AMITRIPTYLINE] Allergy Unknown DIZZINESS Verified 11/03/18 10:56 AND UNSTEADYINESS tramadol [From ULTRAM] Allergy Unknown Verified 11/03/18 10:56 bee venom protein (honey bee) Allergy Verified 11/03/18 10:56 squash Allergy Verified 11/03/18 10:56 lisinopril [LISINOPRIL] AdvReac Unknown Verified 11/03/18 10:56 NSAIDS (Non-Steroidal AdvReac Unknown Verified 11/03/18 10:56 Anti-Inflamma [NSAIDS (NON-STEROIDAL ANTI-INFLAMMA] telmisartan [From MICARDIS] AdvReac Unknown Verified 11/03/18 10:56 Review of Systems Review of Systems All systems reviewed & are unremarkable except as noted in HPI and below Constitutional Denies chills, Denies fever(s), Denies lethargy and Denies weakness Cardiovascular Reports chest pain, Reports diaphoresis ([place] clammy), Denies syncope, Reports edema, Denies irregular heart rhythm, Denies lightheadedness, Reports radiating jaw, neck or arm pain, Denies palpitations, Reports dyspnea, Denies dyspnea on exertion and Denies orthopnea Respiratory Denies chest congestion, Denies cough, Denies excessive phlegm production, Reports dyspnea, Denies dyspnea on exertion and Denies wheezing Gastrointestinal Gastrointestinal: Denies abdominal pain, Denies change in bowel habits, Denies constipation, Denies diarrhea, Denies nausea and Denies vomiting Genitourinary Denies flank pain, Denies urinary incontinence and Denies urinary urgency Neurologic Denies syncope and Denies weakness Endocrine Denies palpitations Allergic/Immunologic Denies wheezing [facility] Medical History Acute Crohn's disease (Chronic) Asthma (Chronic) Bulging disc (Chronic) CHF (congestive heart failure) (Chronic) Cataplexy (Chronic) Depression (Chronic) Diabetes (Chronic) Fibromyalgia (Chronic) GERD (gastroesophageal reflux disease) (Chronic) HTN (hypertension) (Chronic) Migraines (Chronic) Non-STEMI (non-ST elevated myocardial infarction) (Chronic) ROSLYN (obstructive sleep apnea) (Chronic) Osteoarthritis (Chronic) Surgical History Status post cardiac catheterization (Acute) Social History Smoking Status: Current every day smoker Exam Narrative Exam Narrative: GENERAL: Alert and oriented x three, obese male in mild distress. HEENT: Head normocephalic, atraumatic, EOMI, pupils reactive, face symmetric, moist mucous membranes NECK: Supple, full range of motion CARDIOVASCULAR: Regular rate and rhythm without murmurs, rubs or gallops. RESPIRATORY: Breath sounds equal bilaterally, no wheezes rales or rhonchi. ABDOMEN: Soft, nontender. Normoactive bowel sounds all 4 quadrants. No guarding or rebound, rigidity, no mass : No CVA tenderness EXTREMITIES: Normal range of motion, no clubbing. Trace edema bilateral lower extremities. Neurovascularly intact NEUROLOGICAL: Cranial nerves II through XII grossly intact. Moving all extremities SKIN: Warm, dry, no petechiae, no rashes or lesions. Initial Vital Signs Initial Vital Signs: Vital Signs Pulse Rate 90 11/15/18 10:17 Respiratory Rate 20 11/15/18 10:17 Blood Pressure 173/100 H 11/15/18 10:17 Pulse Oximetry 99 11/15/18 10:17 Course Orders Ordered: Discontinued Medications Morphine Sulfate (Morphine) 4 mg IV NOW ONE Stop: 11/15/18 12:03 Last Admin: 11/15/18 12:54 Dose: 4 mg Morphine Sulfate (Morphine) 4 mg IV NOW ONE Stop: 11/15/18 13:56 Last Admin: 11/15/18 13:56 Dose: 4 mg Ondansetron HCl (Zofran) 4 mg IV NOW ONE Stop: 11/15/18 12:56 Last Admin: 11/15/18 12:56 Dose: 4 mg Vital Signs - 8 hr 11/15/18 10:17 11/15/18 11:30 11/15/18 12:00 Pulse Rate 90 90 86 Respiratory Rate 20 15 12 Blood Pressure 173/100 H Blood Pressure [Right Arm] 153/84 H 175/104 H Pulse Oximetry 99 95 98 11/15/18 13:04 11/15/18 13:30 11/15/18 14:07 Pulse Rate 85 84 80 Respiratory Rate 16 19 17 Blood Pressure Blood Pressure [Right Arm] 150/86 H 146/78 H 135/72 Pulse Oximetry 99 94 92 MDM - Chest Pain Lab Data Attestation: I reviewed the patient's lab results. Result diagrams: 11/15/18 10:25 11/15/18 10:25 Lab Results 11/15/18 11/15/18 11/15/18 Range/Units 10:25 10:25 10:25 WBC 6.0 (4.5-11.0) X10^3/uL RBC 5.18 (4.5-5.9) X10^6/uL Hgb 15.3 (13.5-17.5) g/dL Hct 45.6 (41-53) % MCV 87.9 (80-100) fL MCH 29.6 (26-34) PG MCHC 33.7 (30-36) % RDW 14.6 (11.6-14.8) % Plt Count 226 (150-400) X10^3/uL Neut % (Auto) 59.3 (50-75) % Lymph % (Auto) 31.5 (25-40) % [place] % (Auto) 7.5 (3-14) % Eos % (Auto) 0.8 L (2-4) % Baso % (Auto) 0.9 (0-2) % Neut # (Auto) 3600 (0282-7558) /uL PT 10.9 (10.1-12.7) SECONDS INR 0.9 (0.9-1.3) APTT 34 (26.4-36.2) SECONDS Sodium 145 (137-145) mmol/L Potassium 4.1 (3.4-5.1) mmol/L Chloride 105 (98-107) mmol/L Carbon Dioxide 29 (22-32) mmol/L BUN 13 (9-20) mg/dL Creatinine 1.00 (0.66-1.25) mg/dL Estimated GFR > 60.0 (>60) mL/min BUN/Creatinine Ratio 13.0 (6-22) Glucose 121 H (70-100) mg/dL Calcium 9.5 (8.4-10.2) mg/dL Total Bilirubin 0.4 (0.2-1.3) mg/dL AST 33 (17-59) IU/L ALT 47 (21-72) IU/L Alkaline Phosphatase 68 (38-126) U/L Total Creatine Kinase 88 (55-170) U/L CK-MB (CK-2) TNP CK-MB (CK-2) Rel Index TNP Troponin I < 0.012 (0.01-0.034) ng/mL Total Protein 8.0 (6.3-8.2) g/dL Albumin 4.8 (3.5-5.0) g/dL Globulin 3.2 (1.7-4.1) g/dL Albumin/Globulin Ratio 1.5 (1.0-2.8) Lipase 185 (23-300) U/L 11/15/18 Range/Units 13:57 WBC (4.5-11.0) X10^3/uL RBC (4.5-5.9) X10^6/uL Hgb (13.5-17.5) g/dL Hct (41-53) % MCV (80-100) fL MCH (26-34) PG MCHC (30-36) % RDW (11.6-14.8) % Plt Count (150-400) X10^3/uL Neut % (Auto) (50-75) % Lymph % (Auto) (25-40) % [place] % (Auto) (3-14) % Eos % (Auto) (2-4) % Baso % (Auto) (0-2) % Neut # (Auto) (9505-6968) /uL PT (10.1-12.7) SECONDS INR (0.9-1.3) APTT (26.4-36.2) SECONDS Sodium (137-145) mmol/L Potassium (3.4-5.1) mmol/L Chloride (98-107) mmol/L Carbon Dioxide (22-32) mmol/L BUN (9-20) mg/dL Creatinine (0.66-1.25) mg/dL Estimated GFR (>60) mL/min BUN/Creatinine Ratio (6-22) Glucose (70-100) mg/dL Calcium (8.4-10.2) mg/dL Total Bilirubin (0.2-1.3) mg/dL AST (17-59) IU/L ALT (21-72) IU/L Alkaline Phosphatase (38-126) U/L Total Creatine Kinase 89 (55-170) U/L CK-MB (CK-2) TNP CK-MB (CK-2) Rel Index TNP Troponin I 0.013 (0.01-0.034) ng/mL Total Protein (6.3-8.2) g/dL Albumin (3.5-5.0) g/dL Globulin (1.7-4.1) g/dL Albumin/Globulin Ratio (1.0-2.8) Lipase (23-300) U/L Imaging Data Chest x-ray: Radiologist's impression: [address] [address] XRay Report Signed Patient: Edgar Leon MR#: [id number] : 1975 Acct:[id number] Age/Sex: 43 / M Date of Service: 11/15/18 Loc: ED Accession Number: [id number] Procedure: XR chest 2V Ordering Provider: Emmanuelle Mcmanus D.O. PROCEDURE: XR CHEST 2V INDICATIONS: chest pain TECHNIQUE: 2 views of the chest were acquired. COMPARISON: [facility], CR, XR CHEST 2V, 11/02/2018, 17:57. FINDINGS: Surgical changes and devices: None. Lungs and pleura: No pleural effusions or pneumothorax. Lungs are clear. Mediastinum: Mediastinal contours are normal. Heart size is normal. Bones and chest wall: No suspicious bony abnormalities. Soft tissues appear unremarkable. IMPRESSION: No acute cardiopulmonary pathology. Dictated by: Reece Luis M.D. on 11/15/2018 at 11:15 Approved by: Reece Luis M.D. on 11/15/2018 at 11:18 ECG Data Attestation: I personally reviewed and interpreted this ECG as follows: Prior ECG tracings: available for review Interpretation: EKG shows a sinus rhythm with a ventricular rate of 92 with a P are interval of 135, QRS of 82 and QTC of [address] elevation in 1, aVL as well as V4 through V6 and T-wave inversion in V2 V3 with a little ST depression as well. No clear ST elevation appreciated. Patient has a prior EKG from November 02, 2018 and November 03, 2018 that appears similar. EKG 2. Shows a ventricular rate of 77 a P are interval of 142, QRS of 86 and QTC of 427. Patient's EKG appears similar with no new ST changes appreciated. MDM Narrative Medical decision making narrative: Patient arrived with complaint of chest pain which did not resolve with nitro, patient does have a history of cardiomegaly. His pressure was quite elevated initially. He received 4 of morphine which resolved his chest pain but did not resolve his headache. Which he states occurred after the nitro sublingual at home. Patient's blood pressure has improved. Initial troponin is negative. Patient has had 2 EKGs 3 hr apart which showed no new changes. Repeat troponin shows negative troponin. Spoke with patient's ep specialist Dr. Carrasco. He states that patient had clean coronaries all month ago on cardiac catheterization as well as an echo. He states that he does not believe it is coronary artery disease. Patient also wants to leave home at this time he is tired of being in the emergency department and was DC home. His chest pain and headache are both much better. Discharge Plan Departure Patient Disposition: Home Clinical Impression: Chest pain Discharge Date/Time: 11/15/18 15:21 Interventions: ED Discharge Assessment Last Done: 11/15/18 15:21 Instructions: DI for Chest Pain Activity Restrictions/Additional Instructions: Follow up with your ep specialist in the next 2-3 days. Call for an appointment. I did discuss with Dr. Carrasco, your last catherization was negative, there suspicion for cardiac cause is low. Continue your home medications as prescribed. Return to the emergency department for recurrent symptoms, shortness of breath, nausea, sweatiness or other new or concerning symptoms. Prescriptions: No Action promethazine 25 MG tablet 25 mg PO Q6HP PRN (Reason: Nausea) Qty: 0 RF: 0 mesalamine 1.2 gram tablet,delayed release (DR/EC) 4 tab PO QAM RF: 0 aripiprazole 15 mg tablet 1 tab PO DAILY RF: 0 alprazolam 1 mg tablet 2 mg PO BEDTIME RF: 0 isosorbide mononitrate 30 mg tablet extended release 24 hr 30 mg PO DAILY RF: 0 duloxetine 30 mg capsule,delayed release(DR/EC) RF: 0 verapamil 180 mg tablet extended release 180 mg PO DAILY RF: 0 trazodone 150 mg tablet RF: 0 alprazolam 1 mg tablet 1 mg PO BID RF: 0 metoprolol succinate [Toprol XL] 100 mg tablet extended release 24 hr 100 mg PO BID RF: 0 oxycodone-acetaminophen 10-325 mg tablet 1 tab PO Q6H PRN (Reason: Pain, Severe) RF: 0 tizanidine 4 mg tablet 8 mg PO TID PRN (Reason: Muscle Spasm) RF: 0 omeprazole 40 mg capsule,delayed release(DR/EC) 40 mg PO BID RF: 0 prazosin 2 mg capsule 2 mg PO DAILY RF: 0 prazosin 2 mg Capsule 4 mg PO BEDTIME RF: 0 milnacipran [Savella] 50 mg Tablet 100 mg PO QPM RF: 0 milnacipran [Savella] 50 mg tablet 50 mg PO QDAY RF: 0 divalproex 500 mg tablet,delayed release (DR/EC) 500 mg PO BID RF: 0 fluticasone 50 mcg/actuation spray,suspension 1 spray Intranasal QDAY RF: 0 pregabalin [Lyrica] 300 mg capsule 300 mg PO BID RF: 0 budesonide-formoterol [Symbicort] 160-4.5 mcg/actuation HFA aerosol inhaler 2 puff Inhalation BID RF: 0 vit C-vit T-trpnyh-hii-om-3 [Ocuvite] [id number] rg-tenx-qu-mg Capsule 1 tab PO QDAY RF: 0 dicyclomine 20 mg tablet 20 mg PO BID PRN (Reason: Abdominal Pain) RF: 0 ochom-gk0-zux-nho-yg1-qea-astx [Krill Oil ([place] 3 and 6)] 1,500-165-67.5 mg Capsule 1 cap PO DAILY RF: 0 potassium chloride 20 mEq tablet,ER particles/crystals 20 meq PO DAILY RF: 0 furosemide 20 mg tablet 40 mg PO DAILY RF: 0 Referrals: Stacy Collier MD [Primary Care Provider] - Heladio Carrasco MD [Non-Staff] -
--- NOTE | 2018-11-15 12:02 | ED_ITS ---
HPI - Chest Pain General Chief Complaint: Chest Pain Stated Complaint: CHEST PAIN Time Seen by Provider: 11/15/18 11:35 Source: patient Mode of arrival: ambulatory Limitations: no limitations History of Present Illness HPI narrative: This is a 43 year male comes to the emergency department with complaint of chest pain. Patient states that he tried 3 doses of sublingual nitro at home without any help. It did give him a headache. States he felt clammy. Um it was sort of into his left shoulder and radiating into his right. He felt a little bit short of breath. He felt nauseated but denies any vomiting. He had no urinary or constipation issues recently. He has some chronic edema in his lower extremities that is in a little bit worse since he was off his Lasix. Patient states that he has restart his Lasix since. He was off of it because of insurance issues and could do for the medications. He has no cardiomyopathy he states he had a cardiac catheterization a month as well as an echo and was started on Imdur. He also takes an aspirin 81 mg daily. Patient sees Dr. Sargent and Kylah for Cardiology through telling him. Related Data Home Medications Medication Instructions Recorded Confirmed promethazine 25 mg PO Q6HP PRN #0 03/05/18 07/19/18 budesonide-formoterol [Symbicort] 2 puff INHALATION BID 03/23/18 07/19/18 divalproex 500 mg PO BID 03/23/18 07/19/18 fluticasone 1 spray INTRANASAL QDAY 03/23/18 07/19/18 metoprolol succinate [Toprol XL] 100 mg PO BID 03/23/18 07/19/18 milnacipran [Savella] 50 mg PO QDAY 03/23/18 07/19/18 milnacipran [Savella] 100 mg PO QPM 03/23/18 07/19/18 omeprazole 40 mg PO BID 03/23/18 07/19/18 oxycodone-acetaminophen 1 tab PO Q6H PRN 03/23/18 11/03/18 prazosin 2 mg PO DAILY 03/23/18 11/03/18 prazosin 4 mg PO BEDTIME 03/23/18 11/03/18 pregabalin [Lyrica] 300 mg PO BID 03/23/18 07/19/18 tizanidine 8 mg PO TID PRN 03/23/18 11/03/18 vit C-vit D-kvcsxu-fwv-om-3 1 tab PO QDAY 03/23/18 07/19/18 [Ocuvite] dicyclomine 20 mg PO BID PRN 04/29/18 07/19/18 mesalamine 4 tab PO QAM 04/30/18 11/03/18 aripiprazole 1 tab PO DAILY 07/01/18 11/03/18 furosemide 40 mg PO DAILY 07/19/18 11/03/18 jabvx-pv9-gpl-aop-wm8-dcw-astx 1 cap PO DAILY 07/19/18 07/19/18 [Krill Oil (Gordon 3 and 6)] potassium chloride 20 meq PO DAILY 07/19/18 11/03/18 alprazolam 2 mg PO BEDTIME 11/02/18 11/03/18 duloxetine 11/02/18 isosorbide mononitrate 30 mg PO DAILY 11/02/18 11/03/18 trazodone 11/02/18 verapamil 180 mg PO DAILY 11/02/18 11/03/18 alprazolam 1 mg PO BID 11/03/18 11/03/18 Allergies Allergy/AdvReac Type Severity Reaction Status Date / Time codeine [CODEINE] Allergy Severe ANAPHYLAXIS Verified 11/03/18 10:56 amitriptyline [AMITRIPTYLINE] Allergy Unknown DIZZINESS Verified 11/03/18 10:56 AND UNSTEADYINESS tramadol [From ULTRAM] Allergy Unknown Verified 11/03/18 10:56 bee venom protein (honey bee) Allergy Verified 11/03/18 10:56 squash Allergy Verified 11/03/18 10:56 lisinopril [LISINOPRIL] AdvReac Unknown Verified 11/03/18 10:56 NSAIDS (Non-Steroidal AdvReac Unknown Verified 11/03/18 10:56 Anti-Inflamma [NSAIDS (NON-STEROIDAL ANTI-INFLAMMA] telmisartan [From MICARDIS] AdvReac Unknown Verified 11/03/18 10:56 Review of Systems Review of Systems All systems reviewed & are unremarkable except as noted in HPI and below Constitutional Denies chills, Denies fever(s), Denies lethargy and Denies weakness Cardiovascular Reports chest pain, Reports diaphoresis ([place] clammy), Denies syncope, Reports edema, Denies irregular heart rhythm, Denies lightheadedness, Reports radiating jaw, neck or arm pain, Denies palpitations, Reports dyspnea, Denies dyspnea on exertion and Denies orthopnea Respiratory Denies chest congestion, Denies cough, Denies excessive phlegm production, Reports dyspnea, Denies dyspnea on exertion and Denies wheezing Gastrointestinal Gastrointestinal: Denies abdominal pain, Denies change in bowel habits, Denies constipation, Denies diarrhea, Denies nausea and Denies vomiting Genitourinary Denies flank pain, Denies urinary incontinence and Denies urinary urgency Neurologic Denies syncope and Denies weakness Endocrine Denies palpitations Allergic/Immunologic Denies wheezing [facility] Medical History Acute Crohn's disease (Chronic) Asthma (Chronic) Bulging disc (Chronic) CHF (congestive heart failure) (Chronic) Cataplexy (Chronic) Depression (Chronic) Diabetes (Chronic) Fibromyalgia (Chronic) GERD (gastroesophageal reflux disease) (Chronic) HTN (hypertension) (Chronic) Migraines (Chronic) Non-STEMI (non-ST elevated myocardial infarction) (Chronic) ROSLYN (obstructive sleep apnea) (Chronic) Osteoarthritis (Chronic) Surgical History Status post cardiac catheterization (Acute) Social History Smoking Status: Current every day smoker Exam Narrative Exam Narrative: GENERAL: Alert and oriented x three, obese male in mild distress. HEENT: Head normocephalic, atraumatic, EOMI, pupils reactive, face symmetric, moist mucous membranes NECK: Supple, full range of motion CARDIOVASCULAR: Regular rate and rhythm without murmurs, rubs or gallops. RESPIRATORY: Breath sounds equal bilaterally, no wheezes rales or rhonchi. ABDOMEN: Soft, nontender. Normoactive bowel sounds all 4 quadrants. No guarding or rebound, rigidity, no mass : No CVA tenderness EXTREMITIES: Normal range of motion, no clubbing. Trace edema bilateral lower extremities. Neurovascularly intact NEUROLOGICAL: Cranial nerves II through XII grossly intact. Moving all extremities SKIN: Warm, dry, no petechiae, no rashes or lesions. Initial Vital Signs Initial Vital Signs: Vital Signs Pulse Rate 90 11/15/18 10:17 Respiratory Rate 20 11/15/18 10:17 Blood Pressure 173/100 H 11/15/18 10:17 Pulse Oximetry 99 11/15/18 10:17 Course Orders Ordered: Discontinued Medications Morphine Sulfate (Morphine) 4 mg IV NOW ONE Stop: 11/15/18 12:03 Last Admin: 11/15/18 12:54 Dose: 4 mg Morphine Sulfate (Morphine) 4 mg IV NOW ONE Stop: 11/15/18 13:56 Last Admin: 11/15/18 13:56 Dose: 4 mg Ondansetron HCl (Zofran) 4 mg IV NOW ONE Stop: 11/15/18 12:56 Last Admin: 11/15/18 12:56 Dose: 4 mg Vital Signs - 8 hr 11/15/18 10:17 11/15/18 11:30 11/15/18 12:00 Pulse Rate 90 90 86 Respiratory Rate 20 15 12 Blood Pressure 173/100 H Blood Pressure [Right Arm] 153/84 H 175/104 H Pulse Oximetry 99 95 98 11/15/18 13:04 11/15/18 13:30 11/15/18 14:07 Pulse Rate 85 84 80 Respiratory Rate 16 19 17 Blood Pressure Blood Pressure [Right Arm] 150/86 H 146/78 H 135/72 Pulse Oximetry 99 94 92 MDM - Chest Pain Lab Data Attestation: I reviewed the patient's lab results. Result diagrams: 11/15/18 10:25 11/15/18 10:25 Lab Results 11/15/18 11/15/18 11/15/18 Range/Units 10:25 10:25 10:25 WBC 6.0 (4.5-11.0) X10^3/uL RBC 5.18 (4.5-5.9) X10^6/uL Hgb 15.3 (13.5-17.5) g/dL Hct 45.6 (41-53) % MCV 87.9 (80-100) fL MCH 29.6 (26-34) PG MCHC 33.7 (30-36) % RDW 14.6 (11.6-14.8) % Plt Count 226 (150-400) X10^3/uL Neut % (Auto) 59.3 (50-75) % Lymph % (Auto) 31.5 (25-40) % [place] % (Auto) 7.5 (3-14) % Eos % (Auto) 0.8 L (2-4) % Baso % (Auto) 0.9 (0-2) % Neut # (Auto) 3600 (7306-0629) /uL PT 10.9 (10.1-12.7) SECONDS INR 0.9 (0.9-1.3) APTT 34 (26.4-36.2) SECONDS Sodium 145 (137-145) mmol/L Potassium 4.1 (3.4-5.1) mmol/L Chloride 105 (98-107) mmol/L Carbon Dioxide 29 (22-32) mmol/L BUN 13 (9-20) mg/dL Creatinine 1.00 (0.66-1.25) mg/dL Estimated GFR > 60.0 (>60) mL/min BUN/Creatinine Ratio 13.0 (6-22) Glucose 121 H (70-100) mg/dL Calcium 9.5 (8.4-10.2) mg/dL Total Bilirubin 0.4 (0.2-1.3) mg/dL AST 33 (17-59) IU/L ALT 47 (21-72) IU/L Alkaline Phosphatase 68 (38-126) U/L Total Creatine Kinase 88 (55-170) U/L CK-MB (CK-2) TNP CK-MB (CK-2) Rel Index TNP Troponin I < 0.012 (0.01-0.034) ng/mL Total Protein 8.0 (6.3-8.2) g/dL Albumin 4.8 (3.5-5.0) g/dL Globulin 3.2 (1.7-4.1) g/dL Albumin/Globulin Ratio 1.5 (1.0-2.8) Lipase 185 (23-300) U/L 11/15/18 Range/Units 13:57 WBC (4.5-11.0) X10^3/uL RBC (4.5-5.9) X10^6/uL Hgb (13.5-17.5) g/dL Hct (41-53) % MCV (80-100) fL MCH (26-34) PG MCHC (30-36) % RDW (11.6-14.8) % Plt Count (150-400) X10^3/uL Neut % (Auto) (50-75) % Lymph % (Auto) (25-40) % [place] % (Auto) (3-14) % Eos % (Auto) (2-4) % Baso % (Auto) (0-2) % Neut # (Auto) (1472-7266) /uL PT (10.1-12.7) SECONDS INR (0.9-1.3) APTT (26.4-36.2) SECONDS Sodium (137-145) mmol/L Potassium (3.4-5.1) mmol/L Chloride (98-107) mmol/L Carbon Dioxide (22-32) mmol/L BUN (9-20) mg/dL Creatinine (0.66-1.25) mg/dL Estimated GFR (>60) mL/min BUN/Creatinine Ratio (6-22) Glucose (70-100) mg/dL Calcium (8.4-10.2) mg/dL Total Bilirubin (0.2-1.3) mg/dL AST (17-59) IU/L ALT (21-72) IU/L Alkaline Phosphatase (38-126) U/L Total Creatine Kinase 89 (55-170) U/L CK-MB (CK-2) TNP CK-MB (CK-2) Rel Index TNP Troponin I 0.013 (0.01-0.034) ng/mL Total Protein (6.3-8.2) g/dL Albumin (3.5-5.0) g/dL Globulin (1.7-4.1) g/dL Albumin/Globulin Ratio (1.0-2.8) Lipase (23-300) U/L Imaging Data Chest x-ray: Radiologist's impression: [address] [address] XRay Report Signed Patient: Edgar Leon MR#: [id number] : 1975 Acct:[id number] Age/Sex: 43 / M Date of Service: 11/15/18 Loc: ED Accession Number: [id number] Procedure: XR chest 2V Ordering Provider: Emmanuelle Mcmanus D.O. PROCEDURE: XR CHEST 2V INDICATIONS: chest pain TECHNIQUE: 2 views of the chest were acquired. COMPARISON: [facility], CR, XR CHEST 2V, 11/02/2018, 17:57. FINDINGS: Surgical changes and devices: None. Lungs and pleura: No pleural effusions or pneumothorax. Lungs are clear. Mediastinum: Mediastinal contours are normal. Heart size is normal. Bones and chest wall: No suspicious bony abnormalities. Soft tissues appear unremarkable. IMPRESSION: No acute cardiopulmonary pathology. Dictated by: Reece Luis M.D. on 11/15/2018 at 11:15 Approved by: Reece Luis M.D. on 11/15/2018 at 11:18 ECG Data Attestation: I personally reviewed and interpreted this ECG as follows: Prior ECG tracings: available for review Interpretation: EKG shows a sinus rhythm with a ventricular rate of 92 with a P are interval of 135, QRS of 82 and QTC of [address] elevation in 1, aVL as well as V4 through V6 and T-wave inversion in V2 V3 with a little ST depression as well. No clear ST elevation appreciated. Patient has a prior EKG from November 02, 2018 and November 03, 2018 that appears similar. EKG 2. Shows a ventricular rate of 77 a P are interval of 142, QRS of 86 and QTC of 427. Patient's EKG appears similar with no new ST changes appreciated. MDM Narrative Medical decision making narrative: Patient arrived with complaint of chest pain which did not resolve with nitro, patient does have a history of cardiomegaly. His pressure was quite elevated initially. He received 4 of morphine which resolved his chest pain but did not resolve his headache. Which he states occurred after the nitro sublingual at home. Patient's blood pressure has improved. Initial troponin is negative. Patient has had 2 EKGs 3 hr apart which showed no new changes. Repeat troponin shows negative troponin. 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 Carrasco. He states that patient had clean coronaries all month ago on cardiac catheterization as well as an echo. He states that he does not believe it is coronary artery disease. Patient also wants to leave home at this time he is tired of being in the emergency department and was DC home. His chest pain and headache are both much better. Discharge Plan Departure Patient Disposition: Home Clinical Impression: Chest pain Discharge Date/Time: 11/15/18 15:21 Interventions: ED Discharge Assessment Last Done: 11/15/18 15:21 Instructions: DI for Chest Pain Activity Restrictions/Additional Instructions: Follow up with your miniature set constructor in the next 2-3 days. Call for an appointment. I did discuss with Dr. Carrasco, your last catherization was negative , there suspicion for cardiac cause is low. Continue your home medications as prescribed. Return to the emergency department for recurrent symptoms, shortness of breath, nausea, sweatiness or other new or concerning symptoms. Prescriptions: No Action promethazine 25 MG tablet 25 mg PO Q6HP PRN (Reason: Nausea) Qty: 0 RF: 0 mesalamine 1.2 gram tablet,delayed release (DR/EC) 4 tab PO QAM RF: 0 aripiprazole 15 mg tablet 1 tab PO DAILY RF: 0 alprazolam 1 mg tablet 2 mg PO BEDTIME RF: 0 isosorbide mononitrate 30 mg tablet extended release 24 hr 30 mg PO DAILY RF: 0 duloxetine 30 mg capsule,delayed release(DR/EC) RF: 0 verapamil 180 mg tablet extended release 180 mg PO DAILY RF: 0 trazodone 150 mg tablet RF: 0 alprazolam 1 mg tablet 1 mg PO BID RF: 0 metoprolol succinate [Toprol XL] 100 mg tablet extended release 24 hr 100 mg PO BID RF: 0 oxycodone-acetaminophen 10-325 mg tablet 1 tab PO Q6H PRN (Reason: Pain, Severe) RF: 0 tizanidine 4 mg tablet 8 mg PO TID PRN (Reason: Muscle Spasm) RF: 0 omeprazole 40 mg capsule,delayed release(DR/EC) 40 mg PO BID RF: 0 prazosin 2 mg capsule 2 mg PO DAILY RF: 0 prazosin 2 mg Capsule 4 mg PO BEDTIME RF: 0 milnacipran [Savella] 50 mg Tablet 100 mg PO QPM RF: 0 milnacipran [Savella] 50 mg tablet 50 mg PO QDAY RF: 0 divalproex 500 mg tablet,delayed release (DR/EC) 500 mg PO BID RF: 0 fluticasone 50 mcg/actuation spray,suspension 1 spray Intranasal QDAY RF: 0 pregabalin [Lyrica] 300 mg capsule 300 mg PO BID RF: 0 budesonide-formoterol [Symbicort] 160-4.5 mcg/actuation HFA aerosol inhaler 2 puff Inhalation BID RF: 0 vit C-vit L-knhofl-qnh-om-3 [Ocuvite] 567-26-3-150 rb-aeht-ub-mg Capsule 1 tab PO QDAY RF: 0 dicyclomine 20 mg tablet 20 mg PO BID PRN (Reason: Abdominal Pain) RF: 0 mgfwj-sb8-vkp-jaj-sb2-ayx-astx [Krill Oil (Gordon 3 and 6)] 1,500-165-67.5 mg Capsule 1 cap PO DAILY RF: 0 potassium chloride 20 mEq tablet,ER particles/crystals 20 meq PO DAILY RF: 0 furosemide 20 mg tablet 40 mg PO DAILY RF: 0 Referrals: Stacy Collier MD [Primary Care Provider] - Heladio Carrasco MD [Non-Staff] -
[2018-11-15] MEDS: MORPHINE 4 MG/ML INJ IV ×2 (12:54→13:56)
[2018-11-15] MEDS: ONDANSETRON 4 MG/2 ML INJ IV (12:56)
[2018-11-15 14:23] LABS: Creatine Kinase 89 U/L (55-170)
[2018-11-15 14:34] LABS: Troponin I 0.013 ng/mL (0.01-0.034)
== END 2018-11-15 15:21 | disposition home or self-care (01) ==
PROVIDERS: Emergency Provider Emergency Medicine; PCP Family Medicine
DX: R07.89 Other chest pain (principal)
CPT/HCPCS: 36415; 36591; 71046; 80053; 82550; 83690; 84484; 85025; 85610; 85730; 93005; 96374; 96375; 96376; 99283; 99285; J2270; J2405

== ENCOUNTER 2018-11-23 05:53 | Emergency (ER) | payer OTHER, SELFPAY ==
--- NOTE | 2018-11-23 06:01 | ED.HA ---
HPI - Headache General Chief Complaint: Headache Stated Complaint: has a bad migraine Time Seen by Provider: 11/23/18 05:58 Source: patient Mode of arrival: ambulatory Limitations: no limitations History of Present Illness HPI Narrative: 43-year-old male with a history of migraine states that he is here with 1 of his typical migraines. He states that last night at approximately midnight he woke up with ?night terrors ?states that since then he has had a frontal headache. He states that it is consistent with his prior migraine headache. Does have some photophobia. No other neurologic symptoms. Was not a sudden onset. No fevers. No neck pain. Has not tried anything for these symptoms prior to arrival. Related Data Home Medications Medication Instructions Recorded Confirmed promethazine 25 mg PO Q6HP PRN #0 03/05/18 07/19/18 budesonide-formoterol [Symbicort] 2 puff INHALATION BID 03/23/18 07/19/18 divalproex 500 mg PO BID 03/23/18 07/19/18 fluticasone 1 spray INTRANASAL QDAY 03/23/18 07/19/18 metoprolol succinate [Toprol XL] 100 mg PO BID 03/23/18 07/19/18 milnacipran [Savella] 50 mg PO QDAY 03/23/18 07/19/18 milnacipran [Savella] 100 mg PO QPM 03/23/18 07/19/18 omeprazole 40 mg PO BID 03/23/18 07/19/18 oxycodone-acetaminophen 1 tab PO Q6H PRN 03/23/18 11/03/18 prazosin 2 mg PO DAILY 03/23/18 11/03/18 prazosin 4 mg PO BEDTIME 03/23/18 11/03/18 pregabalin [Lyrica] 300 mg PO BID 03/23/18 07/19/18 tizanidine 8 mg PO TID PRN 03/23/18 11/03/18 vit C-vit U-jhwmos-wic-om-3 1 tab PO QDAY 03/23/18 07/19/18 [Ocuvite] dicyclomine 20 mg PO BID PRN 04/29/18 07/19/18 mesalamine 4 tab PO QAM 04/30/18 11/03/18 aripiprazole 1 tab PO DAILY 07/01/18 11/03/18 furosemide 40 mg PO DAILY 07/19/18 11/03/18 qbkga-uh4-vnh-dcc-jr9-rkk-astx 1 cap PO DAILY 07/19/18 07/19/18 [Krill Oil (Curtiss 3 and 6)] potassium chloride 20 meq PO DAILY 07/19/18 11/03/18 alprazolam 2 mg PO BEDTIME 11/02/18 11/03/18 duloxetine 11/02/18 isosorbide mononitrate 30 mg PO DAILY 11/02/18 11/03/18 trazodone 11/02/18 verapamil 180 mg PO DAILY 11/02/18 11/03/18 alprazolam 1 mg PO BID 11/03/18 11/03/18 Allergies Allergy/AdvReac Type Severity Reaction Status Date / Time codeine [CODEINE] Allergy Severe ANAPHYLAXIS Verified 11/03/18 10:56 amitriptyline [AMITRIPTYLINE] Allergy Unknown DIZZINESS Verified 11/03/18 10:56 AND UNSTEADYINESS tramadol [From ULTRAM] Allergy Unknown Verified 11/03/18 10:56 bee venom protein (honey bee) Allergy Verified 11/03/18 10:56 squash Allergy Verified 11/03/18 10:56 lisinopril [LISINOPRIL] AdvReac Unknown Verified 11/03/18 10:56 NSAIDS (Non-Steroidal AdvReac Unknown Verified 11/03/18 10:56 Anti-Inflamma [NSAIDS (NON-STEROIDAL ANTI-INFLAMMA] telmisartan [From MICARDIS] AdvReac Unknown Verified 11/03/18 10:56 Review of Systems Constitutional Denies fever(s) and Reports headache(s) Eyes Denies loss of vision and Reports photophobia ENT Ears, Nose, Mouth, and Throat: Denies vertigo, Denies dizziness, Reports headache(s) and Denies disequilibrium Cardiovascular Denies chest pain and Denies dyspnea Respiratory Denies dyspnea Gastrointestinal Gastrointestinal: Denies abdominal pain, Reports nausea and Denies vomiting Musculoskeletal Denies myalgias and Denies arthralgias Integumentary/Breasts Denies rash Neurologic Denies confusion, Denies vertigo, Denies dizziness, Reports headache(s), Denies loss of vision, Denies sensory deficit, Denies paresthesias and Denies disequilibrium Psychiatric Denies confusion Hematologic/Lymphatic Denies easy bleeding and Denies easy bruising PFSH Social History Smoking Status: Current every day smoker Exam Initial Vital Signs Initial Vital Signs: Vital Signs Temperature 98.4 F 11/23/18 06:06 Pulse Rate 87 11/23/18 06:06 Respiratory Rate 18 11/23/18 06:06 Blood Pressure 147/94 H 11/23/18 06:06 Pulse Oximetry 98 11/23/18 06:06 Const General: cooperative, healthy appearing, comfortable, well developed, well groomed and No acute distress Orientation: alert, awake and oriented x3 HENMT Head: normal to inspection and normocephalic Resp Effort & Inspection: normal respiratory effort Auscultation: clear to auscultation bilaterally Cardio Rate: regular rate Rhythm: regular rhythm Skin Lesions: no lesions Rashes: no rashes Neuro General: alert, awake and oriented x3 Cranial Nerves: CN's II-XI intact bilaterally Cognition: normal cognition Speech: speech normal Gait: normal gait Motor: muscle tone normal throughout Sensory Exam: no sensory deficits noted Extrem General: normal to inspection and capillary refill normal Psych Appearance: grossly normal and well kempt Course Orders Ordered: Discontinued Medications Ketorolac Tromethamine (Toradol) 60 mg IM NOW ONE Stop: 11/23/18 06:13 Ondansetron HCl (Zofran Odt) 4 mg PO NOW ONE Stop: 11/23/18 06:13 Vital Signs - 8 hr 11/23/18 06:06 Temperature 98.4 F Pulse Rate 87 Respiratory Rate 18 Blood Pressure 147/94 H Pulse Oximetry 98 MDM - Headache MDM Narrative Medical decision making narrative: Patient states that this headache feels like his prior headaches. Has not tried anything for this prior to arrival. Has a normal neurologic exam here in the emergency department. No fevers. No signs of meningitis. Patient stated that he had a doctor's appointment that he needed to get to in another town. He stated that he would only like a shot of Toradol. He states he cannot take oral nonsteroidal anti-inflammatories but has had intermuscular an IV versions of these medications in the past without any problems. He stated that in the past 60 mg of Toradol and Zofran has worked very well for him. I did offer him other treatments to include IV medications however he declined. Will hold on further workup for now. Patient is given return precautions. He expressed understanding and agreement with plan. Discharge Plan Departure Patient Disposition: Home Clinical Impression: Migraine Prescriptions: No Action promethazine 25 MG tablet 25 mg PO Q6HP PRN (Reason: Nausea) Qty: 0 RF: 0 mesalamine 1.2 gram tablet,delayed release (DR/EC) 4 tab PO QAM RF: 0 aripiprazole 15 mg tablet 1 tab PO DAILY RF: 0 alprazolam 1 mg tablet 2 mg PO BEDTIME RF: 0 isosorbide mononitrate 30 mg tablet extended release 24 hr 30 mg PO DAILY RF: 0 duloxetine 30 mg capsule,delayed release(DR/EC) RF: 0 verapamil 180 mg tablet extended release 180 mg PO DAILY RF: 0 trazodone 150 mg tablet RF: 0 alprazolam 1 mg tablet 1 mg PO BID RF: 0 metoprolol succinate [Toprol XL] 100 mg tablet extended release 24 hr 100 mg PO BID RF: 0 oxycodone-acetaminophen 10-325 mg tablet 1 tab PO Q6H PRN (Reason: Pain, Severe) RF: 0 tizanidine 4 mg tablet 8 mg PO TID PRN (Reason: Muscle Spasm) RF: 0 omeprazole 40 mg capsule,delayed release(DR/EC) 40 mg PO BID RF: 0 prazosin 2 mg capsule 2 mg PO DAILY RF: 0 prazosin 2 mg Capsule 4 mg PO BEDTIME RF: 0 milnacipran [Savella] 50 mg Tablet 100 mg PO QPM RF: 0 milnacipran [Savella] 50 mg tablet 50 mg PO QDAY RF: 0 divalproex 500 mg tablet,delayed release (DR/EC) 500 mg PO BID RF: 0 fluticasone 50 mcg/actuation spray,suspension 1 spray Intranasal QDAY RF: 0 pregabalin [Lyrica] 300 mg capsule 300 mg PO BID RF: 0 budesonide-formoterol [Symbicort] 160-4.5 mcg/actuation HFA aerosol inhaler 2 puff Inhalation BID RF: 0 vit C-vit F-fjcpdr-tmy-om-3 [Ocuvite] 526-63-2-150 fv-mgim-jl-mg Capsule 1 tab PO QDAY RF: 0 dicyclomine 20 mg tablet 20 mg PO BID PRN (Reason: Abdominal Pain) RF: 0 tcljt-kp7-tak-ppc-wd6-gko-astx [Krill Oil (Curtiss 3 and 6)] 1,500-165-67.5 mg Capsule 1 cap PO DAILY RF: 0 potassium chloride 20 mEq tablet,ER particles/crystals 20 meq PO DAILY RF: 0 furosemide 20 mg tablet 40 mg PO DAILY RF: 0
[2018-11-23 06:06] VITALS: BP 147/94; PULSE 87; RESP 18; TEMP 36.9; O2SAT 98; BMI 50.4
[2018-11-23] MEDS: KETOROLAC 60 MG/2 ML VIAL IM (06:18)
[2018-11-23] MEDS: ONDANSETRON 4 MG ODT PO (06:18)
== END 2018-11-23 06:26 | disposition home or self-care (01) ==
PROVIDERS: Emergency Provider Emergency Medicine; PCP Family Medicine
DX: G43.009 Migraine without aura, not intractable, without status migrainosus (principal)
CPT/HCPCS: 96372; 99282; 99283; J1885

== ENCOUNTER 2018-11-24 09:17 | Emergency (ER) | payer OTHER, MEDICAID, SELFPAY ==
[2018-11-24 09:20] VITALS: BP 148/103; PULSE 88; RESP 18; TEMP 36.6; O2SAT 98; BMI 50.4
--- NOTE | 2018-11-24 09:53 | PC.NURSE ---
Patient has had shoulder pain for approx 4 months with no known injury. Has difficulty raising arm to lift his coffee cup this morning. Was scheduled to see his doctor for the shoulder today at 1pm, but reports the pain is too great and they have already done ultrasound and xray, so he feels they can't do anything for him at this time. Has tried physical therapy with no relief. Requesting ketorolac and steroid.
--- NOTE | 2018-11-24 10:16 | ED.EXTPRO ---
HPI - Extremity Problem General Chief complaint: Extremity Problem,Nontraumatic Stated complaint: RIGHT SHOULDER PAIN Time Seen by Provider: 11/24/18 10:15 Source: patient Mode of arrival: ambulatory Limitations: no limitations History of Present Illness HPI Narrative: This is a 43-year-old male who comes to the emergency department with complaint of right shoulder pain. Patient states that he has had problems with tendonitis in that shoulder in the past. Patient states that he has seen his primary in the past and had steroids, x-ray, MRI as well as PT for his shoulder. Patient states it was doing better for quite a while but in the last week started to have recurrence. Today he woke up Um and tried to lift his coffee cup and dropped it because it was so painful. Patient states he is not having any weakness in his extremity, he has otherwise been able to use his hand without any other issues using his phone as well as drinking coffee when not lifting his shoulder high. Movement of the shoulder is what causes his discomfort. No numbness, no tingling. Patient has not had any recent trauma or injuries. He denies any other symptoms. He did take 10 agitated this morning at 6:00 a.m. which is his normal muscle relaxant. Related Data Home Medications Medication Instructions Recorded Confirmed promethazine 25 mg PO Q6HP PRN #0 03/05/18 11/24/18 budesonide-formoterol [Symbicort] 2 puff INHALATION BID 03/23/18 11/24/18 fluticasone 1 spray INTRANASAL QDAY 03/23/18 11/24/18 metoprolol succinate [Toprol XL] 100 mg PO BID 03/23/18 11/24/18 milnacipran [Savella] 50 mg PO DAILY 03/23/18 11/24/18 milnacipran [Savella] 100 mg PO QPM 03/23/18 11/24/18 prazosin 2 mg PO DAILY 03/23/18 11/24/18 prazosin 4 mg PO BEDTIME 03/23/18 11/24/18 pregabalin [Lyrica] 300 mg PO BID 03/23/18 11/24/18 tizanidine 8 mg PO TID PRN 03/23/18 11/24/18 vit C-vit F-vmqecb-bdj-om-3 1 tab PO QDAY 03/23/18 11/24/18 [Ocuvite] dicyclomine 20 mg PO BID PRN 04/29/18 11/24/18 mesalamine 4 tab PO QAM 04/30/18 11/24/18 aripiprazole 1 tab PO DAILY 07/01/18 11/24/18 furosemide 40 mg PO DAILY 07/19/18 11/24/18 hnobf-xf0-wrv-cxa-hk1-wuq-astx 1 cap PO DAILY 07/19/18 11/24/18 [Krill Oil ([place] 3 and 6)] potassium chloride 20 meq PO DAILY 07/19/18 11/24/18 alprazolam 2 mg PO BEDTIME 11/02/18 11/24/18 duloxetine 90 mg PO DAILY 11/02/18 11/24/18 isosorbide mononitrate 30 mg PO DAILY 11/02/18 11/24/18 trazodone 150 - 400 mg PO BEDTIME PRN 11/02/18 11/24/18 verapamil 180 mg PO BEDTIME 11/02/18 11/24/18 alprazolam 1 mg PO BID 11/03/18 11/24/18 aripiprazole [Abilify] 15 mg PO DAILY 11/24/18 11/24/18 divalproex 250 mg PO BID 11/24/18 11/24/18 nitroglycerin [Nitromist] 1 spray TRANSLINGUAL PRN PRN 11/24/18 11/24/18 oxycodone-acetaminophen 1 tab PO DAILY PRN 11/24/18 11/24/18 pantoprazole 40 mg PO DAILY 11/24/18 11/24/18 Allergies Allergy/AdvReac Type Severity Reaction Status Date / Time codeine [CODEINE] Allergy Severe ANAPHYLAXIS Verified 11/24/18 09:27 amitriptyline [AMITRIPTYLINE] Allergy Unknown DIZZINESS Verified 11/24/18 09:27 AND UNSTEADYINESS tramadol [From ULTRAM] Allergy Unknown Verified 11/24/18 09:27 bee venom protein (honey bee) Allergy Verified 11/24/18 09:27 squash Allergy Verified 11/24/18 09:27 lisinopril [LISINOPRIL] AdvReac Unknown Verified 11/24/18 09:27 NSAIDS (Non-Steroidal AdvReac Unknown Verified 11/24/18 09:27 Anti-Inflamma [NSAIDS (NON-STEROIDAL ANTI-INFLAMMA] telmisartan [From MICARDIS] AdvReac Unknown Verified 11/24/18 09:27 Review of Systems Review of Systems Limitations: All systems reviewed & are unremarkable except as noted in HPI and below Constitutional Denies weakness ENT Ears, Nose, Mouth, and Throat: Denies neck pain Musculoskeletal Reports arthralgias, Denies joint swelling, Reports limited range of motion (2nd to pain), Denies muscle weakness, Denies neck pain, Denies numbness, Reports radiating pain into limb (shoulder), Denies stiffness and Denies tingling Integumentary/Breasts Denies rash and Denies unusual bruising Neurologic Denies numbness, Denies tingling and Denies weakness [facility] Medical History Acute Crohn's disease (Chronic) Asthma (Chronic) Bulging disc (Chronic) CHF (congestive heart failure) (Chronic) Cataplexy (Chronic) Depression (Chronic) Diabetes (Chronic) Fibromyalgia (Chronic) GERD (gastroesophageal reflux disease) (Chronic) HTN (hypertension) (Chronic) Migraines (Chronic) Non-STEMI (non-ST elevated myocardial infarction) (Chronic) ROSLYN (obstructive sleep apnea) (Chronic) Osteoarthritis (Chronic) Social History Smoking Status: Current every day smoker Exam Narrative Exam Narrative: GENERAL: Alert and oriented x three, obese, well-appearing male in mild distress. HEENT: Head normocephalic, atraumatic, EOMI, pupils reactive, face symmetric, moist mucous membranes NECK: Supple, full range of motion CARDIOVASCULAR: Regular rate and rhythm without murmurs, rubs or gallops. RESPIRATORY: Breath sounds equal bilaterally, no wheezes rales or rhonchi. ABDOMEN: Soft, nontender. Normoactive bowel sounds all 4 quadrants. No guarding or rebound, rigidity, no mass EXTREMITIES: Normal range of motion of shoulder although patient was not taken to streams of motion, patient does not have any clear bony tenderness. He does have a little bit of some muscular tenderness in the left tedious dorsi and trapezius region. There is no point tenderness noted. Patient does not have any other bony tenderness of his right upper extremity. His welder oxyhydrogen are equal bilaterally, 5/5 muscle strength with 2+ radial pulse. Patient does not have any rashes, bruising. no clubbing or edema. Neurovascularly intact NEUROLOGICAL: Cranial nerves II through XII grossly intact. Moving all extremities SKIN: Warm, dry, no petechiae, no rashes or lesions. Initial Vital Signs Initial Vital Signs: Vital Signs Temperature 97.8 F 11/24/18 09:20 Pulse Rate 88 11/24/18 09:20 Respiratory Rate 18 11/24/18 09:20 Blood Pressure 148/103 H 11/24/18 09:20 Pulse Oximetry 98 11/24/18 09:20 Course Orders Ordered: ED Orders 11/24/18 10:25 XR shoulder RT min 2V Stat Discontinued Medications Ketorolac Tromethamine (Toradol) 60 mg IM NOW ONE Stop: 11/24/18 10:26 Last Admin: 11/24/18 10:40 Dose: 60 mg Ondansetron HCl (Zofran Odt) 4 mg SL NOW ONE Stop: 11/24/18 10:26 Last Admin: 11/24/18 10:41 Dose: 4 mg Oxycodone/Acetaminophen (Percocet 5/325) 2 tab PO NOW ONE Stop: 11/24/18 10:56 Last Admin: 11/24/18 11:05 Dose: 2 tab Vital Signs - 8 hr 11/24/18 09:20 Temperature 97.8 F Pulse Rate 88 Respiratory Rate 18 Blood Pressure 148/103 H Pulse Oximetry 98 MDM - Extremity (Nontraumatic) Imaging Data right shoulder xray: Attestation: I personally reviewed and interpreted this imaging study as follows: My impression: no fracture, normal aligment, no FB. appears similar to prior June 2018. Radiologist's impression: [address] [address] XRay Report Signed Patient: Edgar Leon MR#: [id number] : 1975 Acct:[id number] Age/Sex: 43 / M Date of Service: 11/24/18 Loc: ED Accession Number: [id number] Procedure: XR shoulder RT min 2V Ordering Provider: Emmanuelle Mcmanus D.O. PROCEDURE: XR SHOULDER RT MIN 2V INDICATIONS: right shoulder pain, hx of tendinitis TECHNIQUE: 3 views of the shoulder were acquired. COMPARISON: [facility], CR, XR SHOULDER RT MIN 2V, 07/15/2018, 11:27. FINDINGS: Bones: No fractures or dislocations. No suspicious bony lesions. Visualized ribs appear intact. Soft tissues: No suspicious soft tissue calcifications. IMPRESSION: No fracture or dislocation. Dictated by: Judi Segundo M.D. on 11/24/2018 at 10:54 Approved by: Judi Segundo M.D. on 11/24/2018 at 11:02 [facility] Narrative Medical decision making narrative: Patient had repeat imaging of his shoulder to evaluate for any new lesions or changes. He is taking 10 as needed for muscle relaxants so this was not added. He was given Toradol here in the department although prior to receiving stated he did not think it would be helpful. Was feeling somewhat nauseated from the pain is so he was given Zofran as well. Discussed with patient he has a follow-up appointment at 1:30 a.m. today, he can follow up with them for any chronic pain medications or muscle relaxants. Patient given dose of oral percocet in department. Told to follow up with his provider at his scheduled appointment today. He states he has already canceled it. Discussed that he is given scripts for corticosteroids. He will need to follow up with his physician for any other pain/controlled medication. After discharge patient left his steroid rx in the room. Took other discharge paperwork. Discharge Plan Departure Patient Disposition: Home Clinical Impression: Pain in right shoulder Instructions: DI for Shoulder Pain Activity Restrictions/Additional Instructions: Follow up with your primary care physician today at your appointment this afternoon. Continue your home medications as prescribed including muscle relaxant. Discuss with your physician about any further pain medications. Take steroids until gone. Return for loss of sensation, inability to lift or use your arm, new weakness, loss of bowel or bladder control, or other new or concerning symptoms. Prescriptions: No Action promethazine 25 MG tablet 25 mg PO Q6HP PRN (Reason: Nausea) Qty: 0 RF: 0 mesalamine 1.2 gram tablet,delayed release (DR/EC) 4 tab PO QAM RF: 0 aripiprazole 15 mg tablet 1 tab PO DAILY RF: 0 alprazolam 1 mg tablet 2 mg PO BEDTIME RF: 0 isosorbide mononitrate 30 mg tablet extended release 24 hr 30 mg PO DAILY RF: 0 duloxetine 30 mg capsule,delayed release(DR/EC) 90 mg PO DAILY RF: 0 verapamil 180 mg tablet extended release 180 mg PO BEDTIME RF: 0 trazodone 150 mg tablet 150 - 400 mg PO BEDTIME PRN (Reason: Sleep) RF: 0 alprazolam 1 mg tablet 1 mg PO BID RF: 0 oxycodone-acetaminophen 10-325 mg tablet 1 tab PO DAILY PRN (Reason: Pain, Severe) RF: 0 nitroglycerin [Nitromist] 400 mcg/spray Aerosol,[place] 1 spray Translingual PRN PRN (Reason: Chest Pain) RF: 0 aripiprazole [Abilify] 15 mg Tablet 15 mg PO DAILY RF: 0 pantoprazole 40 mg Tablet,Delayed Release (Dr/Ec) 40 mg PO DAILY RF: 0 divalproex 250 mg Tablet Extended Release 24 Hr 250 mg PO BID RF: 0 metoprolol succinate [Toprol XL] 100 mg tablet extended release 24 hr 100 mg PO BID RF: 0 tizanidine 4 mg tablet 8 mg PO TID PRN (Reason: Muscle Spasm) RF: 0 prazosin 2 mg capsule 2 mg PO DAILY RF: 0 prazosin 2 mg Capsule 4 mg PO BEDTIME RF: 0 milnacipran [Savella] 50 mg Tablet 100 mg PO QPM RF: 0 milnacipran [Savella] 50 mg tablet 50 mg PO DAILY RF: 0 fluticasone 50 mcg/actuation spray,suspension 1 spray Intranasal QDAY RF: 0 pregabalin [Lyrica] 300 mg capsule 300 mg PO BID RF: 0 budesonide-formoterol [Symbicort] 160-4.5 mcg/actuation HFA aerosol inhaler 2 puff Inhalation BID RF: 0 vit C-vit C-hvtoxi-sce-om-3 [Ocuvite] 442-31-9-150 ra-qlff-og-mg Capsule 1 tab PO QDAY RF: 0 dicyclomine 20 mg tablet 20 mg PO BID PRN (Reason: Abdominal Pain) RF: 0 koetz-ka1-kxf-fxv-pm7-cnf-astx [Krill Oil ([place] 3 and 6)] 1,500-165-67.5 mg Capsule 1 cap PO DAILY RF: 0 potassium chloride 20 mEq tablet,ER particles/crystals 20 meq PO DAILY RF: 0 furosemide 20 mg tablet 40 mg PO DAILY RF: 0
--- NOTE | 2018-11-24 10:25 | DI.RAD.S_ITS ---
PROCEDURE: XR SHOULDER RT MIN 2V INDICATIONS: right shoulder pain, hx of tendinitis TECHNIQUE: 3 views of the shoulder were acquired. COMPARISON: [facility], CR, XR SHOULDER RT MIN 2V, 07/15/2018, 11:27. FINDINGS: Bones: No fractures or dislocations. No suspicious bony lesions. Visualized ribs appear intact. Soft tissues: No suspicious soft tissue calcifications. IMPRESSION: No fracture or dislocation. Dictated by: Judi Segundo M.D. on 11/24/2018 at 10:54 Approved by: Judi Segundo M.D. on 11/24/2018 at 11:02
--- NOTE | 2018-11-24 10:29 | ED_ITS ---
HPI - Extremity Problem General Chief complaint: Extremity Problem,Nontraumatic Stated complaint: RIGHT SHOULDER PAIN Time Seen by Provider: 11/24/18 10:15 Source: patient and other (significant other) Mode of arrival: ambulatory Limitations: no limitations History of Present Illness HPI Narrative: This is a 43-year-old male comes to the emergency department with complaint of right shoulder pain. Patient states that he has a history of tendonitis. He has had steroids as well as shoulder x-rays, MRI and PT in the past. He states it had been doing better until recently. States in the last week he was having increasing pain in the shoulder and today when he tried to lift up his coffee cup that was very painful. Patient states in the shoulder, movement lifting his arm causes increased pain. He states he is able to use his right hand without issue is otherwise able to manipulate objects with his right hand without issue. No loss of sensation, numbness or tingling. No other weakness. He is denying any other symptoms currently. He took today as sitting at 6:00 a.m. which he normally takes 3 times daily. Related Data Home Medications Medication Instructions Recorded Confirmed promethazine 25 mg PO Q6HP PRN #0 03/05/18 07/19/18 budesonide-formoterol [Symbicort] 2 puff INHALATION BID 03/23/18 07/19/18 divalproex 500 mg PO BID 03/23/18 07/19/18 fluticasone 1 spray INTRANASAL QDAY 03/23/18 07/19/18 metoprolol succinate [Toprol XL] 100 mg PO BID 03/23/18 07/19/18 milnacipran [Savella] 50 mg PO QDAY 03/23/18 07/19/18 milnacipran [Savella] 100 mg PO QPM 03/23/18 07/19/18 omeprazole 40 mg PO BID 03/23/18 07/19/18 oxycodone-acetaminophen 1 tab PO Q6H PRN 03/23/18 11/03/18 prazosin 2 mg PO DAILY 03/23/18 11/03/18 prazosin 4 mg PO BEDTIME 03/23/18 11/03/18 pregabalin [Lyrica] 300 mg PO BID 03/23/18 07/19/18 tizanidine 8 mg PO TID PRN 03/23/18 11/03/18 vit C-vit R-wsbses-uug-om-3 1 tab PO QDAY 03/23/18 07/19/18 [Ocuvite] dicyclomine 20 mg PO BID PRN 04/29/18 07/19/18 mesalamine 4 tab PO QAM 04/30/18 11/03/18 aripiprazole 1 tab PO DAILY 07/01/18 11/03/18 furosemide 40 mg PO DAILY 07/19/18 11/03/18 uawoa-ug1-seq-nxi-eb7-xge-astx 1 cap PO DAILY 07/19/18 07/19/18 [Krill Oil ([place] 3 and 6)] potassium chloride 20 meq PO DAILY 07/19/18 11/03/18 alprazolam 2 mg PO BEDTIME 11/02/18 11/03/18 duloxetine 11/02/18 isosorbide mononitrate 30 mg PO DAILY 11/02/18 11/03/18 trazodone 11/02/18 verapamil 180 mg PO DAILY 11/02/18 11/03/18 alprazolam 1 mg PO BID 11/03/18 11/03/18 Allergies Allergy/AdvReac Type Severity Reaction Status Date / Time codeine [CODEINE] Allergy Severe ANAPHYLAXIS Verified 11/24/18 09:27 amitriptyline [AMITRIPTYLINE] Allergy Unknown DIZZINESS Verified 11/24/18 09:27 AND UNSTEADYINESS tramadol [From ULTRAM] Allergy Unknown Verified 11/24/18 09:27 bee venom protein (honey bee) Allergy Verified 11/24/18 09:27 squash Allergy Verified 11/24/18 09:27 lisinopril [LISINOPRIL] AdvReac Unknown Verified 11/24/18 09:27 NSAIDS (Non-Steroidal AdvReac Unknown Verified 11/24/18 09:27 Anti-Inflamma [NSAIDS (NON-STEROIDAL ANTI-INFLAMMA] telmisartan [From MICARDIS] AdvReac Unknown Verified 11/24/18 09:27 Review of Systems Review of Systems ROS Unobtainable: All systems reviewed & are unremarkable except as noted in HPI and below ENT Ears, Nose, Mouth, and Throat: Denies neck pain Musculoskeletal Reports as per HPI, Reports arthralgias, Denies joint swelling, Reports limited range of motion (2nd pain), Denies muscle weakness, Denies neck pain, Denies numbness, Reports radiating pain into limb (right upper arm) and Denies tingling Neurologic Denies numbness and Denies tingling PFSH Medical History Acute Crohn's disease (Chronic) Asthma (Chronic) Bulging disc (Chronic) CHF (congestive heart failure) (Chronic) Cataplexy (Chronic) Depression (Chronic) Diabetes (Chronic) Fibromyalgia (Chronic) GERD (gastroesophageal reflux disease) (Chronic) HTN (hypertension) (Chronic) Migraines (Chronic) Non-STEMI (non-ST elevated myocardial infarction) (Chronic) ROSLYN (obstructive sleep apnea) (Chronic) Osteoarthritis (Chronic) Social History Smoking Status: Current every day smoker Exam Initial Vital Signs Initial Vital Signs: Vital Signs Temperature 97.8 F 11/24/18 09:20 Pulse Rate 88 11/24/18 09:20 Respiratory Rate 18 11/24/18 09:20 Blood Pressure 148/103 H 11/24/18 09:20 Pulse Oximetry 98 11/24/18 09:20 Course Vital Signs - 8 hr 11/24/18 09:20 Temperature 97.8 F Pulse Rate 88 Respiratory Rate 18 Blood Pressure 148/103 H Pulse Oximetry 98 Discharge Plan Departure Prescriptions: No Action promethazine 25 MG tablet 25 mg PO Q6HP PRN (Reason: Nausea) Qty: 0 RF: 0 mesalamine 1.2 gram tablet,delayed release (DR/EC) 4 tab PO QAM RF: 0 aripiprazole 15 mg tablet 1 tab PO DAILY RF: 0 alprazolam 1 mg tablet 2 mg PO BEDTIME RF: 0 isosorbide mononitrate 30 mg tablet extended release 24 hr 30 mg PO DAILY RF: 0 duloxetine 30 mg capsule,delayed release(DR/EC) RF: 0 verapamil 180 mg tablet extended release 180 mg PO DAILY RF: 0 trazodone 150 mg tablet RF: 0 alprazolam 1 mg tablet 1 mg PO BID RF: 0 metoprolol succinate [Toprol XL] 100 mg tablet extended release 24 hr 100 mg PO BID RF: 0 oxycodone-acetaminophen 10-325 mg tablet 1 tab PO Q6H PRN (Reason: Pain, Severe) RF: 0 tizanidine 4 mg tablet 8 mg PO TID PRN (Reason: Muscle Spasm) RF: 0 omeprazole 40 mg capsule,delayed release(DR/EC) 40 mg PO BID RF: 0 prazosin 2 mg capsule 2 mg PO DAILY RF: 0 prazosin 2 mg Capsule 4 mg PO BEDTIME RF: 0 milnacipran [Savella] 50 mg Tablet 100 mg PO QPM RF: 0 milnacipran [[place]] 50 mg tablet 50 mg PO QDAY RF: 0 divalproex 500 mg tablet,delayed release (DR/EC) 500 mg PO BID RF: 0 fluticasone 50 mcg/actuation spray,suspension 1 spray Intranasal QDAY RF: 0 pregabalin [Lyrica] 300 mg capsule 300 mg PO BID RF: 0 budesonide-formoterol [Symbicort] 160-4.5 mcg/actuation HFA aerosol inhaler 2 puff Inhalation BID RF: 0 vit C-vit C-caacoj-fmv-om-3 [Ocuvite] 625-60-1-150 xq-avvn-az-mg Capsule 1 tab PO QDAY RF: 0 dicyclomine 20 mg tablet 20 mg PO BID PRN (Reason: Abdominal Pain) RF: 0 fcuqi-oz2-tyq-hqw-mz2-wri-astx [Krill Oil ([place] 3 and 6)] 1,500-165-67.5 mg Capsule 1 cap PO DAILY RF: 0 potassium chloride 20 mEq tablet,ER particles/crystals 20 meq PO DAILY RF: 0 furosemide 20 mg tablet 40 mg PO DAILY RF: 0
[2018-11-24] MEDS: KETOROLAC 60 MG/2 ML VIAL IM (10:40)
--- NOTE | 2018-11-24 10:40 | ED_ITS ---
HPI - Extremity Problem General Chief complaint: Extremity Problem,Nontraumatic Stated complaint: RIGHT SHOULDER PAIN Time Seen by Provider: 11/24/18 10:15 Source: patient Mode of arrival: ambulatory Limitations: no limitations History of Present Illness HPI Narrative: This is a 43-year-old male who comes to the emergency department with complaint of right shoulder pain. Patient states that he has had problems with tendonitis in that shoulder in the past. Patient states that he has seen his primary in the past and had steroids, x-ray, MRI as well as PT for his shoulder. Patient states it was doing better for quite a while but in the last week started to have recurrence. Today he woke up Um and tried to lift his coffee cup and dropped it because it was so painful. Patient states he is not having any weakness in his extremity, he has otherwise been able to use his hand without any other issues using his phone as well as drinking coffee when not lifting his shoulder high. Movement of the shoulder is what causes his discomfort. No numbness, no tingling. Patient has not had any recent trauma or injuries. He denies any other symptoms. He did take 10 agitated this morning at 6:00 a.m. which is his normal muscle relaxant. Related Data Home Medications Medication Instructions Recorded Confirmed promethazine 25 mg PO Q6HP PRN #0 03/05/18 11/24/18 budesonide-formoterol [Symbicort] 2 puff INHALATION BID 03/23/18 11/24/18 fluticasone 1 spray INTRANASAL QDAY 03/23/18 11/24/18 metoprolol succinate [Toprol XL] 100 mg PO BID 03/23/18 11/24/18 milnacipran [Savella] 50 mg PO DAILY 03/23/18 11/24/18 milnacipran [Savella] 100 mg PO QPM 03/23/18 11/24/18 prazosin 2 mg PO DAILY 03/23/18 11/24/18 prazosin 4 mg PO BEDTIME 03/23/18 11/24/18 pregabalin [Lyrica] 300 mg PO BID 03/23/18 11/24/18 tizanidine 8 mg PO TID PRN 03/23/18 11/24/18 vit C-vit [id number] 1 tab PO QDAY 03/23/18 11/24/18 [Ocuvite] dicyclomine 20 mg PO BID PRN 04/29/18 11/24/18 mesalamine 4 tab PO QAM 04/30/18 11/24/18 aripiprazole 1 tab PO DAILY 07/01/18 11/24/18 furosemide 40 mg PO DAILY 07/19/18 11/24/18 [id number]-[id number]-bed-[id number] 1 cap PO DAILY 07/19/18 11/24/18 [Krill Oil ([place] 3 and 6)] potassium chloride 20 meq PO DAILY 07/19/18 11/24/18 alprazolam 2 mg PO BEDTIME 11/02/18 11/24/18 duloxetine 90 mg PO DAILY 11/02/18 11/24/18 isosorbide mononitrate 30 mg PO DAILY 11/02/18 11/24/18 trazodone 150 - 400 mg PO BEDTIME PRN 11/02/18 11/24/18 verapamil 180 mg PO BEDTIME 11/02/18 11/24/18 alprazolam 1 mg PO BID 11/03/18 11/24/18 aripiprazole [Abilify] 15 mg PO DAILY 11/24/18 11/24/18 divalproex 250 mg PO BID 11/24/18 11/24/18 nitroglycerin [Nitromist] 1 spray TRANSLINGUAL PRN PRN 11/24/18 11/24/18 oxycodone-acetaminophen 1 tab PO DAILY PRN 11/24/18 11/24/18 pantoprazole 40 mg PO DAILY 11/24/18 11/24/18 Allergies Allergy/AdvReac Type Severity Reaction Status Date / Time codeine [CODEINE] Allergy Severe ANAPHYLAXIS Verified 11/24/18 09:27 amitriptyline [AMITRIPTYLINE] Allergy Unknown DIZZINESS Verified 11/24/18 09:27 AND UNSTEADYINESS tramadol [From ULTRAM] Allergy Unknown Verified 11/24/18 09:27 bee venom protein (honey bee) Allergy Verified 11/24/18 09:27 squash Allergy Verified 11/24/18 09:27 lisinopril [LISINOPRIL] AdvReac Unknown Verified 11/24/18 09:27 NSAIDS (Non-Steroidal AdvReac Unknown Verified 11/24/18 09:27 Anti-Inflamma [NSAIDS (NON-STEROIDAL ANTI-INFLAMMA] telmisartan [From MICARDIS] AdvReac Unknown Verified 11/24/18 09:27 Review of Systems Review of Systems Limitations: All systems reviewed & are unremarkable except as noted in HPI and below Constitutional Denies weakness ENT Ears, Nose, Mouth, and Throat: Denies neck pain Musculoskeletal Reports arthralgias, Denies joint swelling, Reports limited range of motion ( 2nd to pain), Denies muscle weakness, Denies neck pain, Denies numbness, Reports radiating pain into limb (shoulder), Denies stiffness and Denies tingling Integumentary/Breasts Denies rash and Denies unusual bruising Neurologic Denies numbness, Denies tingling and Denies weakness [facility] Medical History Acute Crohn's disease (Chronic) Asthma (Chronic) Bulging disc (Chronic) CHF (congestive heart failure) (Chronic) Cataplexy (Chronic) Depression (Chronic) Diabetes (Chronic) Fibromyalgia (Chronic) GERD (gastroesophageal reflux disease) (Chronic) HTN (hypertension) (Chronic) Migraines (Chronic) Non-STEMI (non-ST elevated myocardial infarction) (Chronic) ROSLYN (obstructive sleep apnea) (Chronic) Osteoarthritis (Chronic) Social History Smoking Status: Current every day smoker Exam Narrative Exam Narrative: GENERAL: Alert and oriented x three, obese, well-appearing male in mild distress. HEENT: Head normocephalic, atraumatic, EOMI, pupils reactive, face symmetric, moist mucous membranes NECK: Supple, full range of motion CARDIOVASCULAR: Regular rate and rhythm without murmurs, rubs or gallops. RESPIRATORY: Breath sounds equal bilaterally, no wheezes rales or rhonchi. ABDOMEN: Soft, nontender. Normoactive bowel sounds all 4 quadrants. No guarding or rebound, rigidity, no mass EXTREMITIES: Normal range of motion of shoulder although patient was not taken to streams of motion, patient does not have any clear bony tenderness. He does have a little bit of some muscular tenderness in the left tedious dorsi and trapezius region. There is no point tenderness noted. Patient does not have any other bony tenderness of his right upper extremity. 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 Patient does not have any rashes, bruising. no clubbing or edema. Neurovascularly intact NEUROLOGICAL: Cranial nerves II through XII grossly intact. Moving all extremities SKIN: Warm, dry, no petechiae, no rashes or lesions. Initial Vital Signs Initial Vital Signs: Vital Signs Temperature 97.8 F 11/24/18 09:20 Pulse Rate 88 11/24/18 09:20 Respiratory Rate 18 11/24/18 09:20 Blood Pressure 148/103 H 11/24/18 09:20 Pulse Oximetry 98 11/24/18 09:20 Course Orders Ordered: ED Orders 11/24/18 10:25 XR shoulder RT min 2V Stat Discontinued Medications Ketorolac Tromethamine (Toradol) 60 mg IM NOW ONE Stop: 11/24/18 10:26 Last Admin: 11/24/18 10:40 Dose: 60 mg Ondansetron HCl (Zofran Odt) 4 mg SL NOW ONE Stop: 11/24/18 10:26 Last Admin: 11/24/18 10:41 Dose: 4 mg Oxycodone/Acetaminophen (Percocet 5/325) 2 tab PO NOW ONE Stop: 11/24/18 10:56 Last Admin: 11/24/18 11:05 Dose: 2 tab Vital Signs - 8 hr 11/24/18 09:20 Temperature 97.8 F Pulse Rate 88 Respiratory Rate 18 Blood Pressure 148/103 H Pulse Oximetry 98 MDM - Extremity (Nontraumatic) Imaging Data right shoulder xray: Attestation: I personally reviewed and interpreted this imaging study as follows: My impression: no fracture, normal aligment, no FB. appears similar to prior June 2018. Radiologist's impression: [address] [address] XRay Report Signed Patient: Edgar Leon MR#: [id number] : 1975 Acct:[id number] Age/Sex: 43 / M Date of Service: 11/24/18 Loc: ED Accession Number: [id number] Procedure: XR shoulder RT min 2V Ordering Provider: Emmanuelle Mcmanus D.O. PROCEDURE: XR SHOULDER RT MIN 2V INDICATIONS: right shoulder pain, hx of tendinitis TECHNIQUE: 3 views of the shoulder were acquired. COMPARISON: [facility], CR, XR SHOULDER RT MIN 2V, 07/15/2018, 11:27. FINDINGS: Bones: No fractures or dislocations. No suspicious bony lesions. Visualized ribs appear intact. Soft tissues: No suspicious soft tissue calcifications. IMPRESSION: No fracture or dislocation. Dictated by: Judi Segundo M.D. on 11/24/2018 at 10:54 Approved by: Judi Segundo M.D. on 11/24/2018 at 11:[address] [facility] Narrative Medical decision making narrative: Patient had repeat imaging of his shoulder to evaluate for any new lesions or changes. He is taking 10 as needed for muscle relaxants so this was not added. He was given Toradol here in the department although prior to receiving stated he did not think it would be helpful. Was feeling somewhat nauseated from the pain is so he was given Zofran as well. Discussed with patient he has a follow-up appointment at 1:30 a.m. today, he can follow up with them for any chronic pain medications or muscle relaxants. Patient given dose of oral percocet in department. Told to follow up with his provider at his scheduled appointment today. He states he has already canceled it. Discussed that he is given scripts for corticosteroids. He will need to follow up with his physician for any other pain/controlled medication. After discharge patient left his steroid rx in the room. Took other discharge paperwork. Discharge Plan Departure Patient Disposition: Home Clinical Impression: Pain in right shoulder Instructions: DI for Shoulder Pain Activity Restrictions/Additional Instructions: Follow up with your primary care physician today at your appointment this afternoon. Continue your home medications as prescribed including muscle relaxant. Discuss with your physician about any further pain medications. Take steroids until gone. Return for loss of sensation, inability to lift or use your arm, new weakness, loss of bowel or bladder control, or other new or concerning symptoms. Prescriptions: No Action promethazine 25 MG tablet 25 mg PO Q6HP PRN (Reason: Nausea) Qty: 0 RF: 0 mesalamine 1.2 gram tablet,delayed release (DR/EC) 4 tab PO QAM RF: 0 aripiprazole 15 mg tablet 1 tab PO DAILY RF: 0 alprazolam 1 mg tablet 2 mg PO BEDTIME RF: 0 isosorbide mononitrate 30 mg tablet extended release 24 hr 30 mg PO DAILY RF: 0 duloxetine 30 mg capsule,delayed release(DR/EC) 90 mg PO DAILY RF: 0 verapamil 180 mg tablet extended release 180 mg PO BEDTIME RF: 0 trazodone 150 mg tablet 150 - 400 mg PO BEDTIME PRN (Reason: Sleep) RF: 0 alprazolam 1 mg tablet 1 mg PO BID RF: 0 oxycodone-acetaminophen 10-325 mg tablet 1 tab PO DAILY PRN (Reason: Pain, Severe) RF: 0 nitroglycerin [Nitromist] 400 mcg/spray Aerosol,[place] 1 spray Translingual PRN PRN (Reason: Chest Pain) RF: 0 aripiprazole [Abilify] 15 mg Tablet 15 mg PO DAILY RF: 0 pantoprazole 40 mg Tablet,Delayed Release (Dr/Ec) 40 mg PO DAILY RF: 0 divalproex 250 mg Tablet Extended Release 24 Hr 250 mg PO BID RF: 0 metoprolol succinate [Toprol XL] 100 mg tablet extended release 24 hr 100 mg PO BID RF: 0 tizanidine 4 mg tablet 8 mg PO TID PRN (Reason: Muscle Spasm) RF: 0 prazosin 2 mg capsule 2 mg PO DAILY RF: 0 prazosin 2 mg Capsule 4 mg PO BEDTIME RF: 0 milnacipran [Savella] 50 mg Tablet 100 mg PO QPM RF: 0 milnacipran [Savella] 50 mg tablet 50 mg PO DAILY RF: 0 fluticasone 50 mcg/actuation spray,suspension 1 spray Intranasal QDAY RF: 0 pregabalin [Lyrica] 300 mg capsule 300 mg PO BID RF: 0 budesonide-formoterol [Symbicort] 160-4.5 mcg/actuation HFA aerosol inhaler 2 puff Inhalation BID RF: 0 vit C-vit C-hvvcgg-hkk-om-3 [Ocuvite] 544-64-6-150 nx-lziv-ob-mg Capsule 1 tab PO QDAY RF: 0 dicyclomine 20 mg tablet 20 mg PO BID PRN (Reason: Abdominal Pain) RF: 0 [id number]-pec-ill-[id number]-[id number]-astx [Krill Oil ([place] 3 and 6)] 1,500-165-67.5 mg Capsule 1 cap PO DAILY RF: 0 potassium chloride 20 mEq tablet,ER particles/crystals 20 meq PO DAILY RF: 0 furosemide 20 mg tablet 40 mg PO DAILY RF: 0
[2018-11-24] MEDS: ONDANSETRON 4 MG ODT SL (10:41)
[2018-11-24] MEDS: OXYCODONE/ACETAMINOPHEN 5/325 TABLET 2 TAB PO (11:05)
[2018-11-24 11:54] VITALS: BP 104/60; PULSE 68; RESP 16; O2SAT 100
== END 2018-11-24 11:56 | disposition home or self-care (01) ==
PROVIDERS: Emergency Provider Emergency Medicine; PCP Family Medicine
DX: M25.511 Pain in right shoulder (principal)
CPT/HCPCS: 73030; 96372; 99282; 99283; J1885

== ENCOUNTER 2018-12-03 06:43 | Emergency (ER) | payer OTHER, MEDICAID, SELFPAY ==
[2018-12-03 07:24] VITALS: BP 148/65; PULSE 73; RESP 18; TEMP 36.9; O2SAT 97
--- NOTE | 2018-12-03 07:31 | PC.NURSE ---
uses CBD oil
[2018-12-03] MEDS: KETOROLAC 60 MG/2 ML VIAL IM (07:58)
--- NOTE | 2018-12-03 08:02 | ED.BACK ---
HPI - Back Pain/Injury General Chief Complaint: Recheck/Abnormal Lab/Rx Stated Complaint: bodily pain Time Seen by Provider: 12/03/18 07:23 Source: patient and family Mode of arrival: ambulatory Limitations: no limitations History of Present Illness HPI Narrative: 43-year-old male, smoker, with history of migraines, fibromyalgia and CHF presents with generalized body pain consistent with his fibromyalgia. He is very nonspecific complaints but hurts all over. He typically takes Lyrica for control of his pain but due to a problem when switching pharmacies he does not currently have his Lyrica, it is waiting at a pharmacy for him to pickle pumper later today though. He denies fever or chills. He denies any chest pain, shortness of breath or cough. He has had no nausea or vomiting. His pain is made worse by moving around and improves with rest MD Complaint: back pain and other Duration: constant Similar Symptoms Previously: Yes Severity: mild Quality: aching Radiation: none Relieving factors: immobilization Exacerbating factors: movement Related Data Home Medications Medication Instructions Recorded Confirmed promethazine 25 mg PO Q6HP PRN #0 03/05/18 12/03/18 budesonide-formoterol [Symbicort] 2 puff INHALATION BID 03/23/18 12/03/18 fluticasone 1 spray INTRANASAL QDAY 03/23/18 12/03/18 metoprolol succinate [Toprol XL] 100 mg PO BID 03/23/18 12/03/18 milnacipran [Savella] 100 mg PO QPM 03/23/18 12/03/18 prazosin 4 mg PO BEDTIME 03/23/18 12/03/18 pregabalin [Lyrica] 300 mg PO BID 03/23/18 12/03/18 tizanidine 8 mg PO TID PRN 03/23/18 12/03/18 vit C-vit K-ypaakg-jks-om-3 1 tab PO QDAY 03/23/18 12/03/18 [Ocuvite] dicyclomine 20 mg PO BID PRN 04/29/18 12/03/18 mesalamine 4 tab PO QAM 04/30/18 12/03/18 furosemide 40 mg PO DAILY 07/19/18 12/03/18 kstez-[id number]-xbw-uxs-xf7-nac-astx 1 cap PO DAILY 07/19/18 12/03/18 [Krill Oil ([place] 3 and 6)] potassium chloride 20 meq PO DAILY 07/19/18 12/03/18 alprazolam 2 mg PO BEDTIME 11/02/18 12/03/18 duloxetine 90 mg PO DAILY 11/02/18 12/03/18 isosorbide mononitrate 30 mg PO DAILY 11/02/18 12/03/18 trazodone 150 - 400 mg PO BEDTIME PRN 11/02/18 12/03/18 verapamil 180 mg PO BEDTIME 11/02/18 12/03/18 alprazolam 1 mg PO BID 11/03/18 12/03/18 aripiprazole [Abilify] 15 mg PO DAILY 11/24/18 12/03/18 divalproex 250 mg PO BID 11/24/18 12/03/18 nitroglycerin [Nitromist] 1 spray TRANSLINGUAL PRN PRN 11/24/18 12/03/18 oxycodone-acetaminophen 1 tab PO DAILY PRN 11/24/18 12/03/18 pantoprazole 40 mg PO DAILY 11/24/18 12/03/18 Allergies Allergy/AdvReac Type Severity Reaction Status Date / Time codeine [CODEINE] Allergy Severe ANAPHYLAXIS Verified 12/03/18 07:31 amitriptyline [AMITRIPTYLINE] Allergy Unknown DIZZINESS Verified 12/03/18 07:31 AND UNSTEADYINESS tramadol [From ULTRAM] Allergy Unknown Verified 12/03/18 07:31 bee venom protein (honey bee) Allergy Verified 12/03/18 07:31 squash Allergy Verified 12/03/18 07:31 lisinopril [LISINOPRIL] AdvReac Unknown Verified 12/03/18 07:31 NSAIDS (Non-Steroidal AdvReac Unknown Verified 12/03/18 07:31 Anti-Inflamma [NSAIDS (NON-STEROIDAL ANTI-INFLAMMA] telmisartan [From MICARDIS] AdvReac Unknown Verified 12/03/18 07:31 Review of Systems Constitutional Denies chills, Denies fever(s), Denies lethargy and Denies weakness Eyes Denies change in vision, Denies eye discharge, Denies irritation and Denies loss of vision ENT Ears, Nose, Mouth, and Throat: Denies change in voice, Denies neck pain and Denies sore throat Cardiovascular Denies chest pain, Denies irregular heart rhythm, Denies lightheadedness, Denies palpitations, Denies dyspnea, Denies dyspnea on exertion and Denies orthopnea Respiratory Denies cough, Denies dyspnea, Denies dyspnea on exertion and Denies wheezing Gastrointestinal Gastrointestinal: Denies abdominal pain, Denies change in bowel habits, Denies diarrhea, Denies nausea and Denies vomiting Genitourinary Denies hematuria, Denies flank pain, Denies urinary incontinence and Denies urinary urgency Musculoskeletal Reports back pain, Reports myalgias, Reports arthralgias and Denies neck pain Integumentary/Breasts Denies pruritus, Denies erythema, Denies rash and Denies wounds Neurologic Denies confusion, Denies loss of vision and Denies weakness Psychiatric Denies anxiety, Denies confusion, Denies depression, Denies homicidal ideation and Denies suicidal ideation Endocrine Denies palpitations Hematologic/Lymphatic Denies easy bruising Allergic/Immunologic Denies wheezing [facility] Medical History Acute Crohn's disease (Chronic) Asthma (Chronic) Bulging disc (Chronic) CHF (congestive heart failure) (Chronic) Cataplexy (Chronic) Depression (Chronic) Diabetes (Chronic) Fibromyalgia (Chronic) GERD (gastroesophageal reflux disease) (Chronic) HTN (hypertension) (Chronic) Migraines (Chronic) Non-STEMI (non-ST elevated myocardial infarction) (Chronic) ROSLYN (obstructive sleep apnea) (Chronic) Osteoarthritis (Chronic) Surgical History Status post cardiac catheterization (Acute) Social History Smoking Status: Current some day smoker Exam Narrative Exam Narrative: GEN: 43-year-old male, morbidly obese, resting comfortably, playing games on his phone EYES: Pupils are equal, round, and reactive to light and accommodation. Extraoccular muscles are intact bilaterally. There is no subconjunctival hemorrhage or exudate. CHEST: Lungs are clear to auscultation bilaterally and free of wheezes, rales, or rhonchi. Heart rate is regular rhythm, there are no murmurs, clicks, rubs, or gallops. There is no chest wall tenderness. ABD: Abdomen is soft and nontender. There is no guarding or rebound. Bowel sounds are normal in all 4 quadrants. There is no mass or organomegaly. EXT: Full painless ROM of all extremities with no loss of sensation or strength. SKIN: Warm, pink, and dry. No erythema or rash BACK: oven tender bagels but free of any obvious external abnormalities. Patient exam notes decreased range of motion and muscle spasm, but no CVA tenderness, or vertebral point tenderness. There are no symptoms of cauda equina such as saddle anesthesia, and decreased reflexes, decreased sensation or strength. Initial Vital Signs Initial Vital Signs: Vital Signs Temperature 98.5 F 12/03/18 07:24 Pulse Rate 73 12/03/18 07:24 Respiratory Rate 18 12/03/18 07:24 Blood Pressure 148/65 H 12/03/18 07:24 Pulse Oximetry 97 12/03/18 07:24 Course Orders Ordered: Discontinued Medications Ketorolac Tromethamine (Toradol) 60 mg IM NOW ONE Stop: 12/03/18 07:49 Last Admin: 12/03/18 07:58 Dose: 60 mg Pregabalin (Lyrica) 300 mg PO NOW ONE Stop: 12/03/18 07:52 Last Admin: 12/03/18 08:03 Dose: 300 mg Vital Signs - 8 hr 12/03/18 07:24 Temperature 98.5 F Pulse Rate 73 Respiratory Rate 18 Blood Pressure 148/65 H Pulse Oximetry 97 Discharge Plan Departure Patient Disposition: Home Clinical Impression: Fibromyalgia, Current non-adherence to medical treatment Instructions: Fibromyalgia (Alternative Therapy) Activity Restrictions/Additional Instructions: *You have been diagnosed with [ exacerbation of fibromyalgia ] *What to do: *Take medications as directed *Follow up with your primary care provider in 2-3 days, call for an appointment. Let them know you were seen in the Emergency Department and that we ask that you be seen in follow up *Return to ER if you should have any new, worsening or concerning symptoms Prescriptions: No Action promethazine 25 MG tablet 25 mg PO Q6HP PRN (Reason: Nausea) Qty: 0 RF: 0 mesalamine 1.2 gram tablet,delayed release (DR/EC) 4 tab PO QAM RF: 0 alprazolam 1 mg tablet 2 mg PO BEDTIME RF: 0 isosorbide mononitrate 30 mg tablet extended release 24 hr 30 mg PO DAILY RF: 0 duloxetine 30 mg capsule,delayed release(DR/EC) 90 mg PO DAILY RF: 0 verapamil 180 mg tablet extended release 180 mg PO BEDTIME RF: 0 trazodone 150 mg tablet 150 - 400 mg PO BEDTIME PRN (Reason: Sleep) RF: 0 alprazolam 1 mg tablet 1 mg PO BID RF: 0 oxycodone-acetaminophen 10-325 mg tablet 1 tab PO DAILY PRN (Reason: Pain, Severe) RF: 0 nitroglycerin [Nitromist] 400 mcg/spray Aerosol,[place] 1 spray Translingual PRN PRN (Reason: Chest Pain) RF: 0 aripiprazole [Abilify] 15 mg Tablet 15 mg PO DAILY RF: 0 pantoprazole 40 mg Tablet,Delayed Release (Dr/Ec) 40 mg PO DAILY RF: 0 divalproex 250 mg Tablet Extended Release 24 Hr 250 mg PO BID RF: 0 metoprolol succinate [Toprol XL] 100 mg tablet extended release 24 hr 100 mg PO BID RF: 0 tizanidine 4 mg tablet 8 mg PO TID PRN (Reason: Muscle Spasm) RF: 0 prazosin 2 mg Capsule 4 mg PO BEDTIME RF: 0 milnacipran [[place]] 50 mg Tablet 100 mg PO QPM RF: 0 fluticasone 50 mcg/actuation spray,suspension 1 spray Intranasal QDAY RF: 0 pregabalin [Lyrica] 300 mg capsule 300 mg PO BID RF: 0 budesonide-formoterol [Symbicort] 160-4.5 mcg/actuation HFA aerosol inhaler 2 puff Inhalation BID RF: 0 vit C-vit R-irtqyi-lie-om-3 [Ocuvite] 586-52-3-150 as-epix-en-mg Capsule 1 tab PO QDAY RF: 0 dicyclomine 20 mg tablet 20 mg PO BID PRN (Reason: Abdominal Pain) RF: 0 rfkvi-fn4-pbe-ckj-fy2-vfi-astx [Krill Oil ([place] 3 and 6)] 1,500-165-67.5 mg Capsule 1 cap PO DAILY RF: 0 potassium chloride 20 mEq tablet,ER particles/crystals 20 meq PO DAILY RF: 0 furosemide 20 mg tablet 40 mg PO DAILY RF: 0 Referrals: Stacy Collier MD [Primary Care Provider] -
[2018-12-03] MEDS: PREGABALIN 75 MG CAPSULE 300 MG PO (08:03)
--- NOTE | 2018-12-03 08:18 | ED_ITS ---
HPI - Back Pain/Injury General Chief Complaint: Recheck/Abnormal Lab/Rx Stated Complaint: bodily pain Time Seen by Provider: 12/03/18 07:23 Source: patient and family Mode of arrival: ambulatory Limitations: no limitations History of Present Illness HPI Narrative: 43-year-old male, smoker, with history of migraines, fibromyalgia and CHF presents with generalized body pain consistent with his fibromyalgia. He is very nonspecific complaints but hurts all over. 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 He denies fever or chills. He denies any chest pain, shortness of breath or cough. He has had no nausea or vomiting. His pain is made worse by moving around and improves with rest MD Complaint: back pain and other Duration: constant Similar Symptoms Previously: Yes Severity: mild Quality: aching Radiation: none Relieving factors: immobilization Exacerbating factors: movement Related Data Home Medications Medication Instructions Recorded Confirmed promethazine 25 mg PO Q6HP PRN #0 03/05/18 12/03/18 budesonide-formoterol [Symbicort] 2 puff INHALATION BID 03/23/18 12/03/18 fluticasone 1 spray INTRANASAL QDAY 03/23/18 12/03/18 metoprolol succinate [Toprol XL] 100 mg PO BID 03/23/18 12/03/18 milnacipran [Savella] 100 mg PO QPM 03/23/18 12/03/18 prazosin 4 mg PO BEDTIME 03/23/18 12/03/18 pregabalin [Lyrica] 300 mg PO BID 03/23/18 12/03/18 tizanidine 8 mg PO TID PRN 03/23/18 12/03/18 vit C-vit I-hiouwu-dbr-om-3 1 tab PO QDAY 03/23/18 12/03/18 [Ocuvite] dicyclomine 20 mg PO BID PRN 04/29/18 12/03/18 mesalamine 4 tab PO QAM 04/30/18 12/03/18 furosemide 40 mg PO DAILY 07/19/18 12/03/18 [id number]-[id number]-zlr-[id number]-wcz-astx 1 cap PO DAILY 07/19/18 12/03/18 [Krill Oil ([place] 3 and 6)] potassium chloride 20 meq PO DAILY 07/19/18 12/03/18 alprazolam 2 mg PO BEDTIME 11/02/18 12/03/18 duloxetine 90 mg PO DAILY 11/02/18 12/03/18 isosorbide mononitrate 30 mg PO DAILY 11/02/18 12/03/18 trazodone 150 - 400 mg PO BEDTIME PRN 11/02/18 12/03/18 verapamil 180 mg PO BEDTIME 11/02/18 12/03/18 alprazolam 1 mg PO BID 11/03/18 12/03/18 aripiprazole [Abilify] 15 mg PO DAILY 11/24/18 12/03/18 divalproex 250 mg PO BID 11/24/18 12/03/18 nitroglycerin [Nitromist] 1 spray TRANSLINGUAL PRN PRN 11/24/18 12/03/18 oxycodone-acetaminophen 1 tab PO DAILY PRN 11/24/18 12/03/18 pantoprazole 40 mg PO DAILY 11/24/18 12/03/18 Allergies Allergy/AdvReac Type Severity Reaction Status Date / Time codeine [CODEINE] Allergy Severe ANAPHYLAXIS Verified 12/03/18 07:31 amitriptyline [AMITRIPTYLINE] Allergy Unknown DIZZINESS Verified 12/03/18 07:31 AND UNSTEADYINESS tramadol [From ULTRAM] Allergy Unknown Verified 12/03/18 07:31 bee venom protein (honey bee) Allergy Verified 12/03/18 07:31 squash Allergy Verified 12/03/18 07:31 lisinopril [LISINOPRIL] AdvReac Unknown Verified 12/03/18 07:31 NSAIDS (Non-Steroidal AdvReac Unknown Verified 12/03/18 07:31 Anti-Inflamma [NSAIDS (NON-STEROIDAL ANTI-INFLAMMA] telmisartan [From MICARDIS] AdvReac Unknown Verified 12/03/18 07:31 Review of Systems Constitutional Denies chills, Denies fever(s), Denies lethargy and Denies weakness Eyes Denies change in vision, Denies eye discharge, Denies irritation and Denies loss of vision ENT Ears, Nose, Mouth, and Throat: Denies change in voice, Denies neck pain and Denies sore throat Cardiovascular Denies chest pain, Denies irregular heart rhythm, Denies lightheadedness, Denies palpitations, Denies dyspnea, Denies dyspnea on exertion and Denies orthopnea Respiratory Denies cough, Denies dyspnea, Denies dyspnea on exertion and Denies wheezing Gastrointestinal Gastrointestinal: Denies abdominal pain, Denies change in bowel habits, Denies diarrhea, Denies nausea and Denies vomiting Genitourinary Denies hematuria, Denies flank pain, Denies urinary incontinence and Denies urinary urgency Musculoskeletal Reports back pain, Reports myalgias, Reports arthralgias and Denies neck pain Integumentary/Breasts Denies pruritus, Denies erythema, Denies rash and Denies wounds Neurologic Denies confusion, Denies loss of vision and Denies weakness Psychiatric Denies anxiety, Denies confusion, Denies depression, Denies homicidal ideation and Denies suicidal ideation Endocrine Denies palpitations Hematologic/Lymphatic Denies easy bruising Allergic/Immunologic Denies wheezing [facility] Medical History Acute Crohn's disease (Chronic) Asthma (Chronic) Bulging disc (Chronic) CHF (congestive heart failure) (Chronic) Cataplexy (Chronic) Depression (Chronic) Diabetes (Chronic) Fibromyalgia (Chronic) GERD (gastroesophageal reflux disease) (Chronic) HTN (hypertension) (Chronic) Migraines (Chronic) Non-STEMI (non-ST elevated myocardial infarction) (Chronic) ROSLYN (obstructive sleep apnea) (Chronic) Osteoarthritis (Chronic) Surgical History Status post cardiac catheterization (Acute) Social History Smoking Status: Current some day smoker Exam Narrative Exam Narrative: GEN: 43-year-old male, morbidly obese, resting comfortably, playing games on his phone EYES: Pupils are equal, round, and reactive to light and accommodation. Extraoccular muscles are intact bilaterally. There is no subconjunctival hemorrhage or exudate. CHEST: Lungs are clear to auscultation bilaterally and free of wheezes, rales, or rhonchi. Heart rate is regular rhythm, there are no murmurs, clicks, rubs, or gallops. There is no chest wall tenderness. ABD: Abdomen is soft and nontender. There is no guarding or rebound. Bowel sounds are normal in all 4 quadrants. There is no mass or organomegaly. EXT: Full painless ROM of all extremities with no loss of sensation or strength. SKIN: Warm, pink, and dry. No erythema or rash BACK: abrading machine tender but free of any obvious external abnormalities. Patient exam notes decreased range of motion and muscle spasm, but no CVA tenderness, or vertebral point tenderness. There are no symptoms of cauda equina such as saddle anesthesia, and decreased reflexes, decreased sensation or strength. Initial Vital Signs Initial Vital Signs: Vital Signs Temperature 98.5 F 12/03/18 07:24 Pulse Rate 73 12/03/18 07:24 Respiratory Rate 18 12/03/18 07:24 Blood Pressure 148/65 H 12/03/18 07:24 Pulse Oximetry 97 12/03/18 07:24 Course Orders Ordered: Discontinued Medications Ketorolac Tromethamine (Toradol) 60 mg IM NOW ONE Stop: 12/03/18 07:49 Last Admin: 12/03/18 07:58 Dose: 60 mg Pregabalin (Lyrica) 300 mg PO NOW ONE Stop: 12/03/18 07:52 Last Admin: 12/03/18 08:03 Dose: 300 mg Vital Signs - 8 hr 12/03/18 07:24 Temperature 98.5 F Pulse Rate 73 Respiratory Rate 18 Blood Pressure 148/65 H Pulse Oximetry 97 Discharge Plan Departure Patient Disposition: Home Clinical Impression: Fibromyalgia, Current non-adherence to medical treatment Instructions: Fibromyalgia (Alternative Therapy) Activity Restrictions/Additional Instructions: *You have been diagnosed with [ exacerbation of fibromyalgia ] *What to do: *Take medications as directed *Follow up with your primary care provider in 2-3 days, call for an appointment. Let them know you were seen in the Emergency Department and that we ask that you be seen in follow up *Return to ER if you should have any new, worsening or concerning symptoms Prescriptions: No Action promethazine 25 MG tablet 25 mg PO Q6HP PRN (Reason: Nausea) Qty: 0 RF: 0 mesalamine 1.2 gram tablet,delayed release (DR/EC) 4 tab PO QAM RF: 0 alprazolam 1 mg tablet 2 mg PO BEDTIME RF: 0 isosorbide mononitrate 30 mg tablet extended release 24 hr 30 mg PO DAILY RF: 0 duloxetine 30 mg capsule,delayed release(DR/EC) 90 mg PO DAILY RF: 0 verapamil 180 mg tablet extended release 180 mg PO BEDTIME RF: 0 trazodone 150 mg tablet 150 - 400 mg PO BEDTIME PRN (Reason: Sleep) RF: 0 alprazolam 1 mg tablet 1 mg PO BID RF: 0 oxycodone-acetaminophen 10-325 mg tablet 1 tab PO DAILY PRN (Reason: Pain, Severe) RF: 0 nitroglycerin [Nitromist] 400 mcg/spray Aerosol,[place] 1 spray Translingual PRN PRN (Reason: Chest Pain) RF: 0 aripiprazole [Abilify] 15 mg Tablet 15 mg PO DAILY RF: 0 pantoprazole 40 mg Tablet,Delayed Release (Dr/Ec) 40 mg PO DAILY RF: 0 divalproex 250 mg Tablet Extended Release 24 Hr 250 mg PO BID RF: 0 metoprolol succinate [Toprol XL] 100 mg tablet extended release 24 hr 100 mg PO BID RF: 0 tizanidine 4 mg tablet 8 mg PO TID PRN (Reason: Muscle Spasm) RF: 0 prazosin 2 mg Capsule 4 mg PO BEDTIME RF: 0 milnacipran [Savella] 50 mg Tablet 100 mg PO QPM RF: 0 fluticasone 50 mcg/actuation spray,suspension 1 spray Intranasal QDAY RF: 0 pregabalin [Lyrica] 300 mg capsule 300 mg PO BID RF: 0 budesonide-formoterol [Symbicort] 160-4.5 mcg/actuation HFA aerosol inhaler 2 puff Inhalation BID RF: 0 vit C-vit S-yrlwyd-nqb-om-3 [Ocuvite] 213-40-4-150 ul-qspi-bg-mg Capsule 1 tab PO QDAY RF: 0 dicyclomine 20 mg tablet 20 mg PO BID PRN (Reason: Abdominal Pain) RF: 0 [id number]-[id number]-myw-af6-tgr-astx [Krill Oil ([place] 3 and 6)] 1,500-165-67.5 mg Capsule 1 cap PO DAILY RF: 0 potassium chloride 20 mEq tablet,ER particles/crystals 20 meq PO DAILY RF: 0 furosemide 20 mg tablet 40 mg PO DAILY RF: 0 Referrals: Stacy Collier MD [Primary Care Provider] -
[2018-12-03 08:25] VITALS: BP 143/81; PULSE 70; RESP 17; O2SAT 96
== END 2018-12-03 08:31 | disposition home or self-care (01) ==
PROVIDERS: Emergency Provider Emergency Medicine; PCP Family Medicine
DX: M79.7 Fibromyalgia (principal); Z91.19 Patient's noncompliance with other medical treatment and regimen
CPT/HCPCS: 96372; 99282; 99283; J1885

== ENCOUNTER 2018-12-27 04:47 | Emergency (ER) | payer OTHER, MEDICAID, SELFPAY ==
[2018-12-27 05:05] VITALS: BP 123/78; PULSE 72; RESP 14; TEMP 37.1; O2SAT 99; BMI 48.8
--- NOTE | 2018-12-27 05:12 | ED.GENADULT ---
HPI - General Adult General Chief complaint: Extremity Injury, Lower Stated complaint: pain all over, neuropathy, head ache, fibromyalgia Time Seen by Provider: 12/27/18 05:01 Source: patient Mode of arrival: ambulatory Limitations: no limitations History of Present Illness HPI narrative: 43-year-old male with history of migraines and fibromyalgia here for evaluation of left hip pain in a flare of his fibromyalgia. Since his last visit he has refilled his Lyrica and has been taking it. States he is just having a flare of his discomfort. He is requesting Toradol and Zofran. Has been taking his normal medications at home. Related Data Home Medications Medication Instructions Recorded Confirmed promethazine 25 mg PO Q6HP PRN #0 03/05/18 12/03/18 budesonide-formoterol [Symbicort] 2 puff INHALATION BID 03/23/18 12/03/18 fluticasone 1 spray INTRANASAL QDAY 03/23/18 12/03/18 metoprolol succinate [Toprol XL] 100 mg PO BID 03/23/18 12/03/18 milnacipran [Savella] 100 mg PO QPM 03/23/18 12/03/18 prazosin 4 mg PO BEDTIME 03/23/18 12/03/18 pregabalin [Lyrica] 300 mg PO BID 03/23/18 12/03/18 tizanidine 8 mg PO TID PRN 03/23/18 12/03/18 vit C-vit O-yibxmy-ddi-om-3 1 tab PO QDAY 03/23/18 12/03/18 [Ocuvite] dicyclomine 20 mg PO BID PRN 04/29/18 12/03/18 mesalamine 4 tab PO QAM 04/30/18 12/03/18 furosemide 40 mg PO DAILY 07/19/18 12/03/18 ddiac-[id number]-oft-iiz-ny9-bju-astx 1 cap PO DAILY 07/19/18 12/03/18 [Krill Oil ([place] 3 and 6)] potassium chloride 20 meq PO DAILY 07/19/18 12/03/18 alprazolam 2 mg PO BEDTIME 11/02/18 12/03/18 duloxetine 90 mg PO DAILY 11/02/18 12/03/18 isosorbide mononitrate 30 mg PO DAILY 11/02/18 12/03/18 trazodone 150 - 400 mg PO BEDTIME PRN 11/02/18 12/03/18 verapamil 180 mg PO BEDTIME 11/02/18 12/03/18 alprazolam 1 mg PO BID 11/03/18 12/03/18 aripiprazole [Abilify] 15 mg PO DAILY 11/24/18 12/03/18 divalproex 250 mg PO BID 11/24/18 12/03/18 nitroglycerin [Nitromist] 1 spray TRANSLINGUAL PRN PRN 11/24/18 12/03/18 oxycodone-acetaminophen 1 tab PO DAILY PRN 11/24/18 12/03/18 pantoprazole 40 mg PO DAILY 11/24/18 12/03/18 Allergies Allergy/AdvReac Type Severity Reaction Status Date / Time codeine [CODEINE] Allergy Severe ANAPHYLAXIS Verified 12/27/18 05:09 amitriptyline [AMITRIPTYLINE] Allergy Unknown DIZZINESS Verified 12/27/18 05:09 AND UNSTEADYINESS tramadol [From ULTRAM] Allergy Unknown Verified 12/27/18 05:09 bee venom protein (honey bee) Allergy Verified 12/27/18 05:09 squash Allergy Verified 12/27/18 05:09 lisinopril [LISINOPRIL] AdvReac Unknown Verified 12/27/18 05:09 NSAIDS (Non-Steroidal AdvReac Unknown Verified 12/27/18 05:09 Anti-Inflamma [NSAIDS (NON-STEROIDAL ANTI-INFLAMMA] telmisartan [From MICARDIS] AdvReac Unknown Verified 12/27/18 05:09 Review of Systems Constitutional Reports headache(s) ENT Ears, Nose, Mouth, and Throat: Denies vertigo, Denies dizziness and Reports headache(s) Cardiovascular Denies chest pain and Denies dyspnea Respiratory Denies dyspnea Gastrointestinal Gastrointestinal: Denies abdominal pain Musculoskeletal Reports arthralgias (Left hip) Integumentary/Breasts Denies rash Neurologic Denies vertigo, Denies dizziness and Reports headache(s) Hematologic/Lymphatic Comments: Not on anticoagulation PFSH Social History Smoking Status: Current some day smoker Exam Initial Vital Signs Initial Vital Signs: Vital Signs Temperature 98.7 F 12/27/18 05:05 Pulse Rate 72 12/27/18 05:05 Respiratory Rate 14 12/27/18 05:05 Blood Pressure 123/78 12/27/18 05:05 Pulse Oximetry 99 12/27/18 05:05 Const General: comfortable, well developed, well groomed and No acute distress Orientation: alert, awake and oriented x3 HENMT Head: normocephalic and atraumatic Face and sinus: face symmetric Resp Effort & Inspection: normal respiratory effort Auscultation: clear to auscultation bilaterally Cardio Rate: regular rate Rhythm: regular rhythm Skin Lesions: no lesions Rashes: no rashes Neuro General: alert, awake and oriented x3 Cognition: normal cognition Extrem Other: Tenderness palpation left hip Psych Appearance: grossly normal and well kempt Course Orders Ordered: Discontinued Medications Ketorolac Tromethamine (Toradol) 60 mg IM NOW ONE Stop: 12/27/18 05:10 Last Admin: 12/27/18 05:20 Dose: 60 mg Ondansetron HCl (Zofran Odt) 4 mg SL NOW ONE Stop: 12/27/18 05:10 Last Admin: 12/27/18 05:20 Dose: 4 mg Vital Signs - 8 hr 12/27/18 05:05 Temperature 98.7 F Pulse Rate 72 Respiratory Rate 14 Blood Pressure 123/78 Pulse Oximetry 99 Medical Decision Making [facility] Narrative Medical decision making narrative: Patient feels better after the Zofran and Toradol here in the emergency department. Will hold on further workup for now. Patient does have physical therapy later today. He has no restrictions on his activity. He is given return precautions. He expressed understanding and agreement plan. Discharge Plan Departure Patient Disposition: Home Clinical Impression: Fibromyalgia Instructions: Fibromyalgia (Alternative Therapy), Fibromyalgia Activity Restrictions/Additional Instructions: Continue all of her medication as directed. Contact your primary care doctor for follow-up. Continue with the physical therapy for your left hip. Return emergency department for any new or worsening symptoms Prescriptions: No Action promethazine 25 MG tablet 25 mg PO Q6HP PRN (Reason: Nausea) Qty: 0 RF: 0 mesalamine 1.2 gram tablet,delayed release (DR/EC) 4 tab PO QAM RF: 0 alprazolam 1 mg tablet 2 mg PO BEDTIME RF: 0 isosorbide mononitrate 30 mg tablet extended release 24 hr 30 mg PO DAILY RF: 0 duloxetine 30 mg capsule,delayed release(DR/EC) 90 mg PO DAILY RF: 0 verapamil 180 mg tablet extended release 180 mg PO BEDTIME RF: 0 trazodone 150 mg tablet 150 - 400 mg PO BEDTIME PRN (Reason: Sleep) RF: 0 alprazolam 1 mg tablet 1 mg PO BID RF: 0 oxycodone-acetaminophen 10-325 mg tablet 1 tab PO DAILY PRN (Reason: Pain, Severe) RF: 0 nitroglycerin [Nitromist] 400 mcg/spray Aerosol,[place] 1 spray Translingual PRN PRN (Reason: Chest Pain) RF: 0 aripiprazole [Abilify] 15 mg Tablet 15 mg PO DAILY RF: 0 pantoprazole 40 mg Tablet,Delayed Release (Dr/Ec) 40 mg PO DAILY RF: 0 divalproex 250 mg Tablet Extended Release 24 Hr 250 mg PO BID RF: 0 metoprolol succinate [Toprol XL] 100 mg tablet extended release 24 hr 100 mg PO BID RF: 0 tizanidine 4 mg tablet 8 mg PO TID PRN (Reason: Muscle Spasm) RF: 0 prazosin 2 mg Capsule 4 mg PO BEDTIME RF: 0 milnacipran [Savella] 50 mg Tablet 100 mg PO QPM RF: 0 fluticasone 50 mcg/actuation spray,suspension 1 spray Intranasal QDAY RF: 0 pregabalin [Lyrica] 300 mg capsule 300 mg PO BID RF: 0 budesonide-formoterol [Symbicort] 160-4.5 mcg/actuation HFA aerosol inhaler 2 puff Inhalation BID RF: 0 vit C-vit F-auaieh-byj-om-3 [Ocuvite] 536-11-0-150 fm-sfno-wr-mg Capsule 1 tab PO QDAY RF: 0 dicyclomine 20 mg tablet 20 mg PO BID PRN (Reason: Abdominal Pain) RF: 0 [id number]-ej8-zow-npz-hv4-zpp-astx [Krill Oil ([place] 3 and 6)] 1,500-165-67.5 mg Capsule 1 cap PO DAILY RF: 0 potassium chloride 20 mEq tablet,ER particles/crystals 20 meq PO DAILY RF: 0 furosemide 20 mg tablet 40 mg PO DAILY RF: 0 Referrals: Stacy Collier MD [Primary Care Provider] -
--- NOTE | 2018-12-27 05:14 | PC.NURSE ---
Pt states Not sure what made my hip hurt. Maybe I slipped and pulled something.
[2018-12-27] MEDS: ONDANSETRON 4 MG ODT SL (05:20)
[2018-12-27] MEDS: KETOROLAC 60 MG/2 ML VIAL IM (05:20)
[2018-12-27 06:23] VITALS: BP 131/89; PULSE 77; RESP 17; O2SAT 96
== END 2018-12-27 06:24 | disposition home or self-care (01) ==
PROVIDERS: Emergency Provider Emergency Medicine; PCP Family Medicine
DX: M79.7 Fibromyalgia (principal)
CPT/HCPCS: 96372; 99282; 99283; J1885

== ENCOUNTER 2018-12-30 09:07 | Emergency (ER) | payer OTHER, MEDICAID, SELFPAY ==
[2018-12-30 09:13] VITALS: BP 108/39; PULSE 72; RESP 20; TEMP 36.5; O2SAT 97; BMI 48.8
[2018-12-30 09:35] VITALS: BP 115/63; PULSE 68; RESP 18; O2SAT 99
--- NOTE | 2018-12-30 09:35 | PC.NURSE ---
pt states he took his flexeril and xanax prior to arrival.
--- NOTE | 2018-12-30 09:42 | ED.RECABL ---
HPI - Recheck/Abnormal Lab/Rx General Chief Complaint: Recheck/Abnormal Lab/Rx Stated Complaint: BODY PAIN Time Seen by Provider: 12/30/18 09:24 Source: patient and family Mode of arrival: ambulatory Limitations: no limitations History of Present Illness HPI narrative: 43-year-old male, former smoker with history of fibromyalgia presents with a family member and a chief complaint of generalized body ache consistent with prior episodes of fibromyalgia. He was recently here and had an injection of Toradol and felt tremendous improvement. He returns, stating that his medications are not helping him. He denies any chest pain or shortness of breath. He has no fever or shaking chills. He has no runny nose, sore throat or cough. He complains only of generalized and very nonspecific pain Initial visit (ago): hour(s) Symptoms since prior visit: no new symptoms Related Data Home Medications Medication Instructions Recorded Confirmed promethazine 25 mg PO Q6HP PRN #0 03/05/18 12/03/18 budesonide-formoterol [Symbicort] 2 puff INHALATION BID 03/23/18 12/03/18 fluticasone 1 spray INTRANASAL QDAY 03/23/18 12/03/18 metoprolol succinate [Toprol XL] 100 mg PO BID 03/23/18 12/03/18 milnacipran [Savella] 100 mg PO QPM 03/23/18 12/03/18 prazosin 4 mg PO BEDTIME 03/23/18 12/03/18 pregabalin [Lyrica] 300 mg PO BID 03/23/18 12/03/18 tizanidine 8 mg PO TID PRN 03/23/18 12/03/18 vit C-vit F-qbieto-dxt-om-3 1 tab PO QDAY 03/23/18 12/03/18 [Ocuvite] dicyclomine 20 mg PO BID PRN 04/29/18 12/03/18 mesalamine 4 tab PO QAM 04/30/18 12/03/18 furosemide 40 mg PO DAILY 07/19/18 12/03/18 ifmzs-gz2-zzo-csc-lh3-bfa-astx 1 cap PO DAILY 07/19/18 12/03/18 [Krill Oil ([place] 3 and 6)] potassium chloride 20 meq PO DAILY 07/19/18 12/03/18 alprazolam 2 mg PO BEDTIME 11/02/18 12/03/18 duloxetine 90 mg PO DAILY 11/02/18 12/03/18 isosorbide mononitrate 30 mg PO DAILY 11/02/18 12/03/18 trazodone 150 - 400 mg PO BEDTIME PRN 11/02/18 12/03/18 verapamil 180 mg PO BEDTIME 11/02/18 12/03/18 alprazolam 1 mg PO BID 11/03/18 12/03/18 aripiprazole [Abilify] 15 mg PO DAILY 11/24/18 12/03/18 divalproex 250 mg PO BID 11/24/18 12/03/18 nitroglycerin [Nitromist] 1 spray TRANSLINGUAL PRN PRN 11/24/18 12/03/18 oxycodone-acetaminophen 1 tab PO DAILY PRN 11/24/18 12/03/18 pantoprazole 40 mg PO DAILY 11/24/18 12/03/18 Previous Rx's Medication Instructions Recorded ketorolac 10 mg PO Q6H PRN #20 tab 12/30/18 Allergies Allergy/AdvReac Type Severity Reaction Status Date / Time codeine [CODEINE] Allergy Severe ANAPHYLAXIS Verified 12/30/18 09:13 amitriptyline [AMITRIPTYLINE] Allergy Unknown DIZZINESS Verified 12/30/18 09:13 AND UNSTEADYINESS tramadol [From ULTRAM] Allergy Unknown Verified 12/30/18 09:13 bee venom protein (honey bee) Allergy Verified 12/30/18 09:13 squash Allergy Verified 12/30/18 09:13 lisinopril [LISINOPRIL] AdvReac Unknown Verified 12/30/18 09:13 NSAIDS (Non-Steroidal AdvReac Unknown Verified 12/30/18 09:13 Anti-Inflamma [NSAIDS (NON-STEROIDAL ANTI-INFLAMMA] telmisartan [From MICARDIS] AdvReac Unknown Verified 12/30/18 09:13 Review of Systems Constitutional Denies chills, Denies fever(s), Denies lethargy and Denies weakness Eyes Denies change in vision, Denies eye discharge, Denies irritation and Denies loss of vision ENT Ears, Nose, Mouth, and Throat: Denies change in voice, Denies neck pain and Denies sore throat Cardiovascular Denies chest pain, Denies irregular heart rhythm, Denies lightheadedness, Denies palpitations, Denies dyspnea, Denies dyspnea on exertion and Denies orthopnea Respiratory Denies cough, Denies dyspnea, Denies dyspnea on exertion and Denies wheezing Gastrointestinal Gastrointestinal: Denies abdominal pain, Denies change in bowel habits, Denies diarrhea, Denies nausea and Denies vomiting Genitourinary Denies hematuria, Denies flank pain, Denies urinary incontinence and Denies urinary urgency Musculoskeletal Reports myalgias, Reports muscle cramps and Denies neck pain Integumentary/Breasts Denies pruritus, Denies erythema, Denies rash and Denies wounds Neurologic Denies confusion, Denies loss of vision and Denies weakness Psychiatric Denies anxiety, Denies confusion, Denies depression, Denies homicidal ideation and Denies suicidal ideation Endocrine Denies palpitations Hematologic/Lymphatic Denies easy bruising Allergic/Immunologic Denies wheezing [facility] Medical History Acute Crohn's disease (Chronic) Asthma (Chronic) Bulging disc (Chronic) CHF (congestive heart failure) (Chronic) Cataplexy (Chronic) Depression (Chronic) Diabetes (Chronic) Fibromyalgia (Chronic) GERD (gastroesophageal reflux disease) (Chronic) HTN (hypertension) (Chronic) Migraines (Chronic) Non-STEMI (non-ST elevated myocardial infarction) (Chronic) ROSLYN (obstructive sleep apnea) (Chronic) Osteoarthritis (Chronic) Surgical History Status post cardiac catheterization (Acute) Social History Smoking Status: Current some day smoker Social History Smoking Status: Current some day smoker Exam Narrative Exam Narrative: GENERAL: 43-year-old male, morbidly obese, resting comfortably and playing on his phone, in no obvious discomfort HEAD: Atraumatic. Normocephalic. No temporal or scalp tenderness. EYES: Pupils equal round and reactive. Extraocular motions intact. No scleral icterus. No injection or drainage. ENT: Nose without bleeding, purulent drainage or septal hematoma. Throat without erythema, tonsillar hypertrophy or exudate. Uvula midline. Airway patent. NECK: Trachea midline. No JVD or lymphadenopathy. Supple, nontender, no meningeal signs. CARDIOVASCULAR: Regular rate and rhythm without murmurs, gallops, or rubs. RESPIRATORY: Clear to auscultation. Breath sounds equal bilaterally. No wheezes, rales, or rhonchi. GASTROINTESTINAL: Abdomen soft, non-tender, nondistended. No hepato-splenomegaly, or palpable masses. No guarding. EXTREMITIES: No clubbing, cyanosis, or edema. No joint tenderness, effusion, or edema noted. BACK: Nontender without deformity or crepitance. No flank tenderness. NEURO: AOx3. SKIN: No rash or erythema. Initial Vital Signs Initial Vital Signs: Vital Signs Temperature 97.7 F 12/30/18 09:13 Pulse Rate 72 12/30/18 09:13 Respiratory Rate 20 12/30/18 09:13 Blood Pressure 108/39 L 12/30/18 09:13 Pulse Oximetry 97 12/30/18 09:13 Course Orders Ordered: Discontinued Medications Ketorolac Tromethamine (Toradol) 60 mg IM NOW ONE Stop: 12/30/18 09:31 Last Admin: 12/30/18 10:11 Dose: 60 mg Reevaluation(s) Reevaluation #1: patient has significant improvement with administration of Toradol Vital Signs - 8 hr 12/30/18 09:13 12/30/18 09:35 Temperature 97.7 F Pulse Rate 72 68 Respiratory Rate 20 18 Blood Pressure 108/39 L Blood Pressure [Left Arm] 115/63 Pulse Oximetry 97 99 Discharge Plan Departure Patient Disposition: Home Clinical Impression: Fibromyalgia Discharge Date/Time: 12/30/18 10:53 Interventions: ED Discharge Assessment Last Done: 12/30/18 11:11 Instructions: Fibromyalgia (Alternative Therapy) Activity Restrictions/Additional Instructions: *You have been diagnosed with [ acute on chronic fibromyalgia pain ] *What to do: *Take medications as directed *Follow up with your primary care provider in 2-3 days, call for an appointment. Let them know you were seen in the Emergency Department and that we ask that you be seen in follow up *Return to ER if you should have any new, worsening or concerning symptoms Prescriptions: New ketorolac 10 mg tablet 10 mg PO Q6H PRN (Reason: pain) Qty: 20 RF: 0 No Action promethazine 25 MG tablet 25 mg PO Q6HP PRN (Reason: Nausea) Qty: 0 RF: 0 mesalamine 1.2 gram tablet,delayed release (DR/EC) 4 tab PO QAM RF: 0 alprazolam 1 mg tablet 2 mg PO BEDTIME RF: 0 isosorbide mononitrate 30 mg tablet extended release 24 hr 30 mg PO DAILY RF: 0 duloxetine 30 mg capsule,delayed release(DR/EC) 90 mg PO DAILY RF: 0 verapamil 180 mg tablet extended release 180 mg PO BEDTIME RF: 0 trazodone 150 mg tablet 150 - 400 mg PO BEDTIME PRN (Reason: Sleep) RF: 0 alprazolam 1 mg tablet 1 mg PO BID RF: 0 oxycodone-acetaminophen 10-325 mg tablet 1 tab PO DAILY PRN (Reason: Pain, Severe) RF: 0 nitroglycerin [Nitromist] 400 mcg/spray Aerosol,[place] 1 spray Translingual PRN PRN (Reason: Chest Pain) RF: 0 aripiprazole [Abilify] 15 mg Tablet 15 mg PO DAILY RF: 0 pantoprazole 40 mg Tablet,Delayed Release (Dr/Ec) 40 mg PO DAILY RF: 0 divalproex 250 mg Tablet Extended Release 24 Hr 250 mg PO BID RF: 0 metoprolol succinate [Toprol XL] 100 mg tablet extended release 24 hr 100 mg PO BID RF: 0 tizanidine 4 mg tablet 8 mg PO TID PRN (Reason: Muscle Spasm) RF: 0 prazosin 2 mg Capsule 4 mg PO BEDTIME RF: 0 milnacipran [Savella] 50 mg Tablet 100 mg PO QPM RF: 0 fluticasone 50 mcg/actuation spray,suspension 1 spray Intranasal QDAY RF: 0 pregabalin [Lyrica] 300 mg capsule 300 mg PO BID RF: 0 budesonide-formoterol [Symbicort] 160-4.5 mcg/actuation HFA aerosol inhaler 2 puff Inhalation BID RF: 0 vit C-vit J-iwixrx-azy-om-3 [Ocuvite] 444-21-7-150 vj-xvkk-ac-mg Capsule 1 tab PO QDAY RF: 0 dicyclomine 20 mg tablet 20 mg PO BID PRN (Reason: Abdominal Pain) RF: 0 xduif-my0-tmo-mrz-sf4-jiq-astx [Krill Oil ([place] 3 and 6)] 1,500-165-67.5 mg Capsule 1 cap PO DAILY RF: 0 potassium chloride 20 mEq tablet,ER particles/crystals 20 meq PO DAILY RF: 0 furosemide 20 mg tablet 40 mg PO DAILY RF: 0 Referrals: Stacy Collier MD [Primary Care Provider] -
[2018-12-30] MEDS: KETOROLAC 60 MG/2 ML VIAL IM (10:11)
--- NOTE | 2018-12-30 20:32 | ED_ITS ---
HPI - Recheck/Abnormal Lab/Rx General Chief Complaint: Recheck/Abnormal Lab/Rx Stated Complaint: BODY PAIN Time Seen by Provider: 12/30/18 09:24 Source: patient and family Mode of arrival: ambulatory Limitations: no limitations History of Present Illness HPI narrative: 43-year-old male, former smoker with history of fibromyalgia presents with a family member and a chief complaint of generalized body ache consistent with prior episodes of fibromyalgia. He was recently here and had an injection of Toradol and felt tremendous improvement. He returns, stating that his medications are not helping him. He denies any chest pain or shortness of breath. He has no fever or shaking chills. He has no runny nose, sore throat or cough. He complains only of generalized and very nonspecific pain Initial visit (ago): hour(s) Symptoms since prior visit: no new symptoms Related Data Home Medications Medication Instructions Recorded Confirmed promethazine 25 mg PO Q6HP PRN #0 03/05/18 12/03/18 budesonide-formoterol [Symbicort] 2 puff INHALATION BID 03/23/18 12/03/18 fluticasone 1 spray INTRANASAL QDAY 03/23/18 12/03/18 metoprolol succinate [Toprol XL] 100 mg PO BID 03/23/18 12/03/18 milnacipran [Savella] 100 mg PO QPM 03/23/18 12/03/18 prazosin 4 mg PO BEDTIME 03/23/18 12/03/18 pregabalin [Lyrica] 300 mg PO BID 03/23/18 12/03/18 tizanidine 8 mg PO TID PRN 03/23/18 12/03/18 vit C-vit K-ulxqvo-klj-om-3 1 tab PO QDAY 03/23/18 12/03/18 [Ocuvite] dicyclomine 20 mg PO BID PRN 04/29/18 12/03/18 mesalamine 4 tab PO QAM 04/30/18 12/03/18 furosemide 40 mg PO DAILY 07/19/18 12/03/18 bolve-jq3-zno-bun-ib8-cjy-astx 1 cap PO DAILY 07/19/18 12/03/18 [Krill Oil ([place] 3 and 6)] potassium chloride 20 meq PO DAILY 07/19/18 12/03/18 alprazolam 2 mg PO BEDTIME 11/02/18 12/03/18 duloxetine 90 mg PO DAILY 11/02/18 12/03/18 isosorbide mononitrate 30 mg PO DAILY 11/02/18 12/03/18 trazodone 150 - 400 mg PO BEDTIME PRN 11/02/18 12/03/18 verapamil 180 mg PO BEDTIME 11/02/18 12/03/18 alprazolam 1 mg PO BID 11/03/18 12/03/18 aripiprazole [Abilify] 15 mg PO DAILY 11/24/18 12/03/18 divalproex 250 mg PO BID 11/24/18 12/03/18 nitroglycerin [Nitromist] 1 spray TRANSLINGUAL PRN PRN 11/24/18 12/03/18 oxycodone-acetaminophen 1 tab PO DAILY PRN 11/24/18 12/03/18 pantoprazole 40 mg PO DAILY 11/24/18 12/03/18 Previous Rx's Medication Instructions Recorded ketorolac 10 mg PO Q6H PRN #20 tab 12/30/18 Allergies Allergy/AdvReac Type Severity Reaction Status Date / Time codeine [CODEINE] Allergy Severe ANAPHYLAXIS Verified 12/30/18 09:13 amitriptyline [AMITRIPTYLINE] Allergy Unknown DIZZINESS Verified 12/30/18 09:13 AND UNSTEADYINESS tramadol [From ULTRAM] Allergy Unknown Verified 12/30/18 09:13 bee venom protein (honey bee) Allergy Verified 12/30/18 09:13 squash Allergy Verified 12/30/18 09:13 lisinopril [LISINOPRIL] AdvReac Unknown Verified 12/30/18 09:13 NSAIDS (Non-Steroidal AdvReac Unknown Verified 12/30/18 09:13 Anti-Inflamma [NSAIDS (NON-STEROIDAL ANTI-INFLAMMA] telmisartan [From MICARDIS] AdvReac Unknown Verified 12/30/18 09:13 Review of Systems Constitutional Denies chills, Denies fever(s), Denies lethargy and Denies weakness Eyes Denies change in vision, Denies eye discharge, Denies irritation and Denies loss of vision ENT Ears, Nose, Mouth, and Throat: Denies change in voice, Denies neck pain and Denies sore throat Cardiovascular Denies chest pain, Denies irregular heart rhythm, Denies lightheadedness, Denies palpitations, Denies dyspnea, Denies dyspnea on exertion and Denies orthopnea Respiratory Denies cough, Denies dyspnea, Denies dyspnea on exertion and Denies wheezing Gastrointestinal Gastrointestinal: Denies abdominal pain, Denies change in bowel habits, Denies diarrhea, Denies nausea and Denies vomiting Genitourinary Denies hematuria, Denies flank pain, Denies urinary incontinence and Denies urinary urgency Musculoskeletal Reports myalgias, Reports muscle cramps and Denies neck pain Integumentary/Breasts Denies pruritus, Denies erythema, Denies rash and Denies wounds Neurologic Denies confusion, Denies loss of vision and Denies weakness Psychiatric Denies anxiety, Denies confusion, Denies depression, Denies homicidal ideation and Denies suicidal ideation Endocrine Denies palpitations Hematologic/Lymphatic Denies easy bruising Allergic/Immunologic Denies wheezing [facility] Medical History Acute Crohn's disease (Chronic) Asthma (Chronic) Bulging disc (Chronic) CHF (congestive heart failure) (Chronic) Cataplexy (Chronic) Depression (Chronic) Diabetes (Chronic) Fibromyalgia (Chronic) GERD (gastroesophageal reflux disease) (Chronic) HTN (hypertension) (Chronic) Migraines (Chronic) Non-STEMI (non-ST elevated myocardial infarction) (Chronic) ROSLYN (obstructive sleep apnea) (Chronic) Osteoarthritis (Chronic) Surgical History Status post cardiac catheterization (Acute) Social History Smoking Status: Current some day smoker Social History Smoking Status: Current some day smoker Exam Narrative Exam Narrative: GENERAL: 43-year-old male, morbidly obese, resting comfortably and playing on his phone, in no obvious discomfort HEAD: Atraumatic. Normocephalic. No temporal or scalp tenderness. EYES: Pupils equal round and reactive. Extraocular motions intact. No scleral icterus. No injection or drainage. ENT: Nose without bleeding, purulent drainage or septal hematoma. Throat without erythema, tonsillar hypertrophy or exudate. Uvula midline. Airway patent. NECK: Trachea midline. No JVD or lymphadenopathy. Supple, nontender, no meningeal signs. CARDIOVASCULAR: Regular rate and rhythm without murmurs, gallops, or rubs. RESPIRATORY: Clear to auscultation. Breath sounds equal bilaterally. No wheezes, rales, or rhonchi. GASTROINTESTINAL: Abdomen soft, non-tender, nondistended. No hepato- splenomegaly, or palpable masses. No guarding. EXTREMITIES: No clubbing, cyanosis, or edema. No joint tenderness, effusion, or edema noted. BACK: Nontender without deformity or crepitance. No flank tenderness. NEURO: AOx3. SKIN: No rash or erythema. Initial Vital Signs Initial Vital Signs: Vital Signs Temperature 97.7 F 12/30/18 09:13 Pulse Rate 72 12/30/18 09:13 Respiratory Rate 20 12/30/18 09:13 Blood Pressure 108/39 L 12/30/18 09:13 Pulse Oximetry 97 12/30/18 09:13 Course Orders Ordered: Discontinued Medications Ketorolac Tromethamine (Toradol) 60 mg IM NOW ONE Stop: 12/30/18 09:31 Last Admin: 12/30/18 10:11 Dose: 60 mg Reevaluation(s) Reevaluation #1: patient has significant improvement with administration of Toradol Vital Signs - 8 hr 12/30/18 09:13 12/30/18 09:35 Temperature 97.7 F Pulse Rate 72 68 Respiratory Rate 20 18 Blood Pressure 108/39 L Blood Pressure [Left Arm] 115/63 Pulse Oximetry 97 99 Discharge Plan Departure Patient Disposition: Home Clinical Impression: Fibromyalgia Discharge Date/Time: 12/30/18 10:53 Interventions: ED Discharge Assessment Last Done: 12/30/18 11:11 Instructions: Fibromyalgia (Alternative Therapy) Activity Restrictions/Additional Instructions: *You have been diagnosed with [ acute on chronic fibromyalgia pain ] *What to do: *Take medications as directed *Follow up with your primary care provider in 2-3 days, call for an appointment. Let them know you were seen in the Emergency Department and that we ask that you be seen in follow up *Return to ER if you should have any new, worsening or concerning symptoms Prescriptions: New ketorolac 10 mg tablet 10 mg PO Q6H PRN (Reason: pain) Qty: 20 RF: 0 No Action promethazine 25 MG tablet 25 mg PO Q6HP PRN (Reason: Nausea) Qty: 0 RF: 0 mesalamine 1.2 gram tablet,delayed release (DR/EC) 4 tab PO QAM RF: 0 alprazolam 1 mg tablet 2 mg PO BEDTIME RF: 0 isosorbide mononitrate 30 mg tablet extended release 24 hr 30 mg PO DAILY RF: 0 duloxetine 30 mg capsule,delayed release(DR/EC) 90 mg PO DAILY RF: 0 verapamil 180 mg tablet extended release 180 mg PO BEDTIME RF: 0 trazodone 150 mg tablet 150 - 400 mg PO BEDTIME PRN (Reason: Sleep) RF: 0 alprazolam 1 mg tablet 1 mg PO BID RF: 0 oxycodone-acetaminophen 10-325 mg tablet 1 tab PO DAILY PRN (Reason: Pain, Severe) RF: 0 nitroglycerin [Nitromist] 400 mcg/spray Aerosol,[place] 1 spray Translingual PRN PRN (Reason: Chest Pain) RF: 0 aripiprazole [Abilify] 15 mg Tablet 15 mg PO DAILY RF: 0 pantoprazole 40 mg Tablet,Delayed Release (Dr/Ec) 40 mg PO DAILY RF: 0 divalproex 250 mg Tablet Extended Release 24 Hr 250 mg PO BID RF: 0 metoprolol succinate [Toprol XL] 100 mg tablet extended release 24 hr 100 mg PO BID RF: 0 tizanidine 4 mg tablet 8 mg PO TID PRN (Reason: Muscle Spasm) RF: 0 prazosin 2 mg Capsule 4 mg PO BEDTIME RF: 0 milnacipran [[place]ella] 50 mg Tablet 100 mg PO QPM RF: 0 fluticasone 50 mcg/actuation spray,suspension 1 spray Intranasal QDAY RF: 0 pregabalin [Lyrica] 300 mg capsule 300 mg PO BID RF: 0 budesonide-formoterol [Symbicort] 160-4.5 mcg/actuation HFA aerosol inhaler 2 puff Inhalation BID RF: 0 vit C-vit B-unmdbt-peu-om-3 [Ocuvite] 842-53-0-150 jj-wltc-aw-mg Capsule 1 tab PO QDAY RF: 0 dicyclomine 20 mg tablet 20 mg PO BID PRN (Reason: Abdominal Pain) RF: 0 [id number]-[id number]-awm-wmo-lo2-peu-astx [Krill Oil ([place] 3 and 6)] 1,500-165-67.5 mg C apsule 1 cap PO DAILY RF: 0 potassium chloride 20 mEq tablet,ER particles/crystals 20 meq PO DAILY RF: 0 furosemide 20 mg tablet 40 mg PO DAILY RF: 0 Referrals: Stacy Collier MD [Primary Care Provider] -
== END 2018-12-30 10:53 | disposition home or self-care (01) ==
PROVIDERS: Emergency Provider Emergency Medicine; PCP Family Medicine
DX: M79.7 Fibromyalgia (principal)
CPT/HCPCS: 96372; 99283; J1885

== ENCOUNTER 2019-01-01 09:48 | Emergency (ER) | payer OTHER, MEDICAID, SELFPAY ==
[2019-01-01 10:21] VITALS: BP 185/97; PULSE 66; RESP 14; TEMP 36.6; O2SAT 96
--- NOTE | 2019-01-01 11:21 | PC.NURSE ---
Patient called back to ED from waiting room phone asking about wait times. Stated All I'm really here for is a shot of Toradol and like five Vicodins. Explained to patient that we cannot give wait times, as patients are taken back based on acuity.
--- NOTE | 2019-01-01 11:38 | PC.NURSE ---
States has seen Dr horta and his dentist for same. Requests vicodin and a shot of toradol. Has toradol script filled and ready at pharmacy.
--- NOTE | 2019-01-01 11:42 | PC.NURSE ---
Use of call light. Was asking if all he was getting was toradol that he would go. Explained that I didnt know what else the provider would do but she may do a dental block. He said he would stay
--- NOTE | 2019-01-01 12:45 | ED.DENTAL ---
HPI - Dental/Oral <Emmanuelle Perkins, MS [employer] DEVELOPER-[employer] - Last Filed: 01/01/19 15:53> General Chief complaint: Dental/Oral Stated complaint: states toothache, painful rt side face x2days Time Seen by Provider: 01/01/19 12:26 Source: patient Mode of arrival: ambulatory Limitations: no limitations History of Present Illness HPI Narrative: the patient is a 43-year-old male former smoker with a history of fibromyalgia who presents with a chief complaint of dental pain. He states he started having pain on his right upper molar on Thursday. He states that he was evaluated by a dentist at that point in time, who do not see any signs of infection. The patient was also seen at this facility 2 days ago on 12/30 as well as on 12/27 for chronic pain related to fibromyalgia. Per nursing, the patient called in stating he needed handful of Vicodin. the patient was prescribed Toradol on 12/30, which he did not begin to take. He has not followed up with primary care provider. He denies any fevers, nausea vomiting or diarrhea. He denies any dental swelling or drainage. He denies any chest pain or shortness of breath. he does complain of nasal congestion x3 days. He has not taken anything for it. He is concerned he has a sinus infection. The patient states he was offered a primary care appointment at 3:00 a.m. this afternoon but declined as he did not want to wait that long. Related Data Home Medications Medication Instructions Recorded Confirmed promethazine 25 mg PO Q6HP PRN #0 03/05/18 12/03/18 budesonide-formoterol [Symbicort] 2 puff INHALATION BID 03/23/18 12/03/18 fluticasone 1 spray INTRANASAL QDAY 03/23/18 12/03/18 metoprolol succinate [Toprol XL] 100 mg PO BID 03/23/18 12/03/18 milnacipran [Savella] 100 mg PO QPM 03/23/18 12/03/18 prazosin 4 mg PO BEDTIME 03/23/18 12/03/18 pregabalin [Lyrica] 300 mg PO BID 03/23/18 12/03/18 tizanidine 8 mg PO TID PRN 03/23/18 12/03/18 vit C-vit G-xssooy-zwz-om-3 1 tab PO QDAY 03/23/18 12/03/18 [Ocuvite] dicyclomine 20 mg PO BID PRN 04/29/18 12/03/18 mesalamine 4 tab PO QAM 04/30/18 12/03/18 furosemide 40 mg PO DAILY 07/19/18 12/03/18 qqqyu-hm3-aaf-syv-en4-hyd-astx 1 cap PO DAILY 07/19/18 12/03/18 [Krill Oil ([place] 3 and 6)] potassium chloride 20 meq PO DAILY 07/19/18 12/03/18 alprazolam 2 mg PO BEDTIME 11/02/18 12/03/18 duloxetine 90 mg PO DAILY 11/02/18 12/03/18 isosorbide mononitrate 30 mg PO DAILY 11/02/18 12/03/18 trazodone 150 - 400 mg PO BEDTIME PRN 11/02/18 12/03/18 verapamil 180 mg PO BEDTIME 11/02/18 12/03/18 alprazolam 1 mg PO BID 11/03/18 12/03/18 aripiprazole [Abilify] 15 mg PO DAILY 11/24/18 12/03/18 divalproex 250 mg PO BID 11/24/18 12/03/18 nitroglycerin [Nitromist] 1 spray TRANSLINGUAL PRN PRN 11/24/18 12/03/18 oxycodone-acetaminophen 1 tab PO DAILY PRN 11/24/18 12/03/18 pantoprazole 40 mg PO DAILY 11/24/18 12/03/18 Previous Rx's Medication Instructions Recorded ketorolac 10 mg PO Q6H PRN #20 tab 12/30/18 Allergies Allergy/AdvReac Type Severity Reaction Status Date / Time codeine [CODEINE] Allergy Severe ANAPHYLAXIS Verified 01/01/19 10:26 amitriptyline [AMITRIPTYLINE] Allergy Unknown DIZZINESS Verified 01/01/19 10:26 AND UNSTEADYINESS tramadol [From ULTRAM] Allergy Unknown Verified 01/01/19 10:26 bee venom protein (honey bee) Allergy Verified 01/01/19 10:26 squash Allergy Verified 01/01/19 10:26 lisinopril [LISINOPRIL] AdvReac Unknown Verified 01/01/19 10:26 NSAIDS (Non-Steroidal AdvReac Unknown Verified 01/01/19 10:26 Anti-Inflamma [NSAIDS (NON-STEROIDAL ANTI-INFLAMMA] telmisartan [From MICARDIS] AdvReac Unknown Verified 01/01/19 10:26 Review of Systems <Emmanuelle Perkins [facility] - Last Filed: 01/01/19 15:53> Review of Systems GENERAL: Denies chills, fatigue, malaise, fever, sweats. HEENT: See HPI RESPIRATORY: Denies dyspnea, cough, wheezing, hemoptysis, sputum. CARDIOVASCULAR: Denies chest pain, palpitations, orthopnea, edema, GASTROINTESTINAL: Denies nausea, vomiting, abdominal pain, diarrhea, constipation, melena. : Denies dysuria, frequency, incontinence, hematuria, urinary retention. MUSCULOSKELETAL: denies weakness, joint pain, or bony pain SKIN: Denies rash, skin lesions, or other NEUROLOGIC: Denies weakness, headache, numbness, change in speech, confusion, seizures, incoordination. PSYCHIATRIC: No concerning psychosocial issues. 12 point review of systems is negative except for those stated above PFSH <Emmanuelle Perkins [facility] - Last Filed: 01/01/19 15:53> Social History Smoking Status: Current some day smoker Exam <Emmanuelle Perkins [facility] - Last Filed: 01/01/19 15:53> Narrative Exam Narrative: GENERAL: Obese gentleman lying on stretcher HEAD: Atraumatic. Normocephalic. No temporal or scalp tenderness. EYES: Pupils equal round and reactive. Extraocular motions intact. No scleral icterus. No injection or drainage. ENT: Nose without bleeding, purulent drainage or septal hematoma. Throat without erythema, tonsillar hypertrophy or exudate. Uvula midline. Airway patent. bilateral TMs pearly kay. First upper right molar missing. No erythema. No swelling. No drainage. No signs of dental infection observed. NECK: Trachea midline. No JVD or lymphadenopathy. Supple, nontender, no meningeal signs. CARDIOVASCULAR: Regular rate and rhythm RESPIRATORY: Clear to auscultation. Breath sounds equal bilaterally. No wheezes, rales, or rhonchi. No cough. No increased respiratory effort. EXTREMITIES: No clubbing, cyanosis, or edema. No joint tenderness, effusion, or edema noted. BACK: Nontender without deformity or crepitance. No flank tenderness. NEURO: AOx3. SKIN: No rash or erythema. Initial Vital Signs Initial Vital Signs: Vital Signs Temperature 97.9 F 01/01/19 10:21 Pulse Rate 66 01/01/19 10:21 Respiratory Rate 14 01/01/19 10:21 Blood Pressure 185/97 H 01/01/19 10:21 Pulse Oximetry 96 01/01/19 10:21 <Emmanuelle Mcmanus DO - Last Filed: 01/03/19 07:15> Initial Vital Signs Initial Vital Signs: Vital Signs Temperature 97.9 F 01/01/19 10:21 Pulse Rate 66 01/01/19 10:21 Respiratory Rate 14 01/01/19 10:21 Blood Pressure 185/97 H 01/01/19 10:21 Pulse Oximetry 96 01/01/19 10:21 Course <VINOD Sargent - Last Filed: 01/01/19 15:53> Orders Ordered: Discontinued Medications Ketorolac Tromethamine (Toradol) 60 mg IM NOW ONE Stop: 01/01/19 12:45 Last Admin: 01/01/19 13:07 Dose: 60 mg Vital Signs - 8 hr 01/01/19 10:21 01/01/19 12:47 01/01/19 13:33 Temperature 97.9 F Pulse Rate 66 70 68 Respiratory Rate 14 18 18 Blood Pressure 185/97 H Blood Pressure [Right Arm] 152/98 H 180/116 H Pulse Oximetry 96 99 98 <Emmanuelle Mcmanus DO - Last Filed: 01/03/19 07:15> Orders Ordered: Discontinued Medications Ketorolac Tromethamine (Toradol) 60 mg IM NOW ONE Stop: 01/01/19 12:45 Last Admin: 01/01/19 13:07 Dose: 60 mg Vital Signs - 8 hr 01/01/19 10:21 01/01/19 12:47 01/01/19 13:33 Temperature 97.9 F Pulse Rate 66 70 68 Respiratory Rate 14 18 18 Blood Pressure 185/97 H Blood Pressure [Right Arm] 152/98 H 180/116 H Pulse Oximetry 96 99 98 MDM - Dental/Oral <Emmanuelle Perkins, MS [employer] DEVELOPER-BC - Last Filed: 01/01/19 15:53> [facility] Narrative Medical decision making narrative: The patient is a 43-year-old male with history of fibromyalgia who presents with a chief complaint of dental pain versus sinus infection. Given that his congestion has been going on for 3 days, I do not believe he has a bacterial sinus infection at this time. I discussed at length continued use of Flonase, Neal med sinus rinse, etc to help control symptoms. He does not have any evidence of dental infection on exam, and was evaluated by dentist prior to his emergency department visit. I encourage the patient to take his Toradol as previously prescribed and use over the counter therapies for his pain at this point time. I encouraged him to follow up with his primary care provider, especially given the frequency of his emergency department visit. He also plans on following up with his dentist. He was hemodynamically stable and nontoxic-appearing in the emergency department. Patient no questions or concerns upon discharge. Discharge Plan Departure Patient Disposition: Home Clinical Impression: Toothache URI (upper respiratory infection) Qualifiers: URI type: unspecified viral URI Qualified Code(s): J06.9 - Acute upper respiratory infection, unspecified Discharge Date/Time: 01/01/19 13:46 Interventions: ED Discharge Assessment Last Done: 01/01/19 13:40 Instructions: DI for Viral Upper Respiratory Infection -- Adult, DI for Dental Pain Activity Restrictions/Additional Instructions: I do not see any evidence of bacterial infection today. I do not see any reason to give antibiotics. Please monitor for fever, worsening of pain. Please take the Toradol as we discussed. Please follow-up with primary care provider in her dentist. Please come back to emergency department for any acute concerns such as chest pain shortness of breath, etc. Prescriptions: No Action promethazine 25 MG tablet 25 mg PO Q6HP PRN (Reason: Nausea) Qty: 0 RF: 0 mesalamine 1.2 gram tablet,delayed release (DR/EC) 4 tab PO QAM RF: 0 alprazolam 1 mg tablet 2 mg PO BEDTIME RF: 0 isosorbide mononitrate 30 mg tablet extended release 24 hr 30 mg PO DAILY RF: 0 duloxetine 30 mg capsule,delayed release(DR/EC) 90 mg PO DAILY RF: 0 verapamil 180 mg tablet extended release 180 mg PO BEDTIME RF: 0 trazodone 150 mg tablet 150 - 400 mg PO BEDTIME PRN (Reason: Sleep) RF: 0 alprazolam 1 mg tablet 1 mg PO BID RF: 0 oxycodone-acetaminophen 10-325 mg tablet 1 tab PO DAILY PRN (Reason: Pain, Severe) RF: 0 nitroglycerin [Nitromist] 400 mcg/spray Aerosol,[place] 1 spray Translingual PRN PRN (Reason: Chest Pain) RF: 0 aripiprazole [Abilify] 15 mg Tablet 15 mg PO DAILY RF: 0 pantoprazole 40 mg Tablet,Delayed Release (Dr/Ec) 40 mg PO DAILY RF: 0 divalproex 250 mg Tablet Extended Release 24 Hr 250 mg PO BID RF: 0 ketorolac 10 mg tablet 10 mg PO Q6H PRN (Reason: pain) Qty: 20 RF: 0 metoprolol succinate [Toprol XL] 100 mg tablet extended release 24 hr 100 mg PO BID RF: 0 tizanidine 4 mg tablet 8 mg PO TID PRN (Reason: Muscle Spasm) RF: 0 prazosin 2 mg Capsule 4 mg PO BEDTIME RF: 0 milnacipran [Savella] 50 mg Tablet 100 mg PO QPM RF: 0 fluticasone 50 mcg/actuation spray,suspension 1 spray Intranasal QDAY RF: 0 pregabalin [Lyrica] 300 mg capsule 300 mg PO BID RF: 0 budesonide-formoterol [Symbicort] 160-4.5 mcg/actuation HFA aerosol inhaler 2 puff Inhalation BID RF: 0 vit C-vit W-xbnyun-iar-om-3 [Ocuvite] 200-12-2-150 bk-aqgo-xf-mg Capsule 1 tab PO QDAY RF: 0 dicyclomine 20 mg tablet 20 mg PO BID PRN (Reason: Abdominal Pain) RF: 0 yevvi-mk3-xhl-tfp-ij4-akt-astx [Krill Oil ([place] 3 and 6)] 1,500-165-67.5 mg Capsule 1 cap PO DAILY RF: 0 potassium chloride 20 mEq tablet,ER particles/crystals 20 meq PO DAILY RF: 0 furosemide 20 mg tablet 40 mg PO DAILY RF: 0 Referrals: Stacy Collier MD [Primary Care Provider] - <Emmanuelle Mcmanus DO - Last Filed: 01/03/19 07:15> Cosign ED Attending Cosignature Attestation: I was immediately available in the department for consultation. This documentation has been reviewed and I agree with assessment and plan. Supervised by Emmanuelle Mcmanus DO
[2019-01-01 12:47] VITALS: BP 152/98; PULSE 70; RESP 18; O2SAT 99
--- NOTE | 2019-01-01 12:53 | ED_ITS ---
HPI - Dental/Oral <Emmanuelle Perkins, C[employer] TENDER[employer] - Last Filed: 01/01/19 15:53> General Chief complaint: Dental/Oral Stated complaint: states toothache, painful rt side face x2days Time Seen by Provider: 01/01/19 12:26 Source: patient Mode of arrival: ambulatory Limitations: no limitations History of Present Illness HPI Narrative: the patient is a 43-year-old male former smoker with a history of fibromyalgia who presents with a chief complaint of dental pain. He states he started having pain on his right upper molar on Thursday. He states that he was evaluated by a dentist at that point in time, who do not see any signs of infection. The patient was also seen at this facility 2 days ago on 12/30 as well as on 12/27 for chronic pain related to fibromyalgia. Per nursing, the patient called in stating he needed handful of Vicodin. the patient was prescribed Toradol on 12/30, which he did not begin to take. He has not followed up with primary care provider. He denies any fevers, nausea vomiting or diarrhea. He denies any dental swelling or drainage. He denies any chest pain or shortness of breath. he does complain of nasal congestion x3 days. He has not taken anything for it. He is concerned he has a sinus infection. The patient states he was offered a primary care appointment at 3:00 a.m. this afternoon but declined as he did not want to wait that long. Related Data Home Medications Medication Instructions Recorded Confirmed promethazine 25 mg PO Q6HP PRN #0 03/05/18 12/03/18 budesonide-formoterol [Symbicort] 2 puff INHALATION BID 03/23/18 12/03/18 fluticasone 1 spray INTRANASAL QDAY 03/23/18 12/03/18 metoprolol succinate [Toprol XL] 100 mg PO BID 03/23/18 12/03/18 milnacipran [Savella] 100 mg PO QPM 03/23/18 12/03/18 prazosin 4 mg PO BEDTIME 03/23/18 12/03/18 pregabalin [Lyrica] 300 mg PO BID 03/23/18 12/03/18 tizanidine 8 mg PO TID PRN 03/23/18 12/03/18 vit C-vit Z-cjcohx-zjk-om-3 1 tab PO QDAY 03/23/18 12/03/18 [Ocuvite] dicyclomine 20 mg PO BID PRN 04/29/18 12/03/18 mesalamine 4 tab PO QAM 04/30/18 12/03/18 furosemide 40 mg PO DAILY 07/19/18 12/03/18 pstuu-zd4-bnt-ilt-ie8-xal-astx 1 cap PO DAILY 07/19/18 12/03/18 [Krill Oil ([place] 3 and 6)] potassium chloride 20 meq PO DAILY 07/19/18 12/03/18 alprazolam 2 mg PO BEDTIME 11/02/18 12/03/18 duloxetine 90 mg PO DAILY 11/02/18 12/03/18 isosorbide mononitrate 30 mg PO DAILY 11/02/18 12/03/18 trazodone 150 - 400 mg PO BEDTIME PRN 11/02/18 12/03/18 verapamil 180 mg PO BEDTIME 11/02/18 12/03/18 alprazolam 1 mg PO BID 11/03/18 12/03/18 aripiprazole [Abilify] 15 mg PO DAILY 11/24/18 12/03/18 divalproex 250 mg PO BID 11/24/18 12/03/18 nitroglycerin [Nitromist] 1 spray TRANSLINGUAL PRN PRN 11/24/18 12/03/18 oxycodone-acetaminophen 1 tab PO DAILY PRN 11/24/18 12/03/18 pantoprazole 40 mg PO DAILY 11/24/18 12/03/18 Previous Rx's Medication Instructions Recorded ketorolac 10 mg PO Q6H PRN #20 tab 12/30/18 Allergies Allergy/AdvReac Type Severity Reaction Status Date / Time codeine [CODEINE] Allergy Severe ANAPHYLAXIS Verified 01/01/19 10:26 amitriptyline [AMITRIPTYLINE] Allergy Unknown DIZZINESS Verified 01/01/19 10:26 AND UNSTEADYINESS tramadol [From ULTRAM] Allergy Unknown Verified 01/01/19 10:26 bee venom protein (honey bee) Allergy Verified 01/01/19 10:26 squash Allergy Verified 01/01/19 10:26 lisinopril [LISINOPRIL] AdvReac Unknown Verified 01/01/19 10:26 NSAIDS (Non-Steroidal AdvReac Unknown Verified 01/01/19 10:26 Anti-Inflamma [NSAIDS (NON-STEROIDAL ANTI-INFLAMMA] telmisartan [From MICARDIS] AdvReac Unknown Verified 01/01/19 10:26 Review of Systems <Emmanuelle Perkins [facility] - Last Filed: 01/01/19 15:53> Review of Systems GENERAL: Denies chills, fatigue, malaise, fever, sweats. HEENT: See HPI RESPIRATORY: Denies dyspnea, cough, wheezing, hemoptysis, sputum. CARDIOVASCULAR: Denies chest pain, palpitations, orthopnea, edema, GASTROINTESTINAL: Denies nausea, vomiting, abdominal pain, diarrhea, constipation, melena. : Denies dysuria, frequency, incontinence, hematuria, urinary retention. MUSCULOSKELETAL: denies weakness, joint pain, or bony pain SKIN: Denies rash, skin lesions, or other NEUROLOGIC: Denies weakness, headache, numbness, change in speech, confusion, seizures, incoordination. PSYCHIATRIC: No concerning psychosocial issues. 12 point review of systems is negative except for those stated above PFSH <Emmanuelle Perkins [facility] - Last Filed: 01/01/19 15:53> Social History Smoking Status: Current some day smoker Exam <Emmanuelle Perkins [facility] - Last Filed: 01/01/19 15:53> Narrative Exam Narrative: GENERAL: Obese gentleman lying on stretcher HEAD: Atraumatic. Normocephalic. No temporal or scalp tenderness. EYES: Pupils equal round and reactive. Extraocular motions intact. No scleral icterus. No injection or drainage. ENT: Nose without bleeding, purulent drainage or septal hematoma. Throat without erythema, tonsillar hypertrophy or exudate. Uvula midline. Airway patent. bilateral TMs pearly kay. First upper right molar missing. No erythema. No swelling. No drainage. No signs of dental infection observed. NECK: Trachea midline. No JVD or lymphadenopathy. Supple, nontender, no meningeal signs. CARDIOVASCULAR: Regular rate and rhythm RESPIRATORY: Clear to auscultation. Breath sounds equal bilaterally. No wheezes, rales, or rhonchi. No cough. No increased respiratory effort. EXTREMITIES: No clubbing, cyanosis, or edema. No joint tenderness, effusion, or edema noted. BACK: Nontender without deformity or crepitance. No flank tenderness. NEURO: AOx3. SKIN: No rash or erythema. Initial Vital Signs Initial Vital Signs: Vital Signs Temperature 97.9 F 01/01/19 10:21 Pulse Rate 66 01/01/19 10:21 Respiratory Rate 14 01/01/19 10:21 Blood Pressure 185/97 H 01/01/19 10:21 Pulse Oximetry 96 01/01/19 10:21 <Emmanuelle Mcmanus DO - Last Filed: 01/03/19 07:15> Initial Vital Signs Initial Vital Signs: Vital Signs Temperature 97.9 F 01/01/19 10:21 Pulse Rate 66 01/01/19 10:21 Respiratory Rate 14 01/01/19 10:21 Blood Pressure 185/97 H 01/01/19 10:21 Pulse Oximetry 96 01/01/19 10:21 Course <VINOD Sargent - Last Filed: 01/01/19 15:53> Orders Ordered: Discontinued Medications Ketorolac Tromethamine (Toradol) 60 mg IM NOW ONE Stop: 01/01/19 12:45 Last Admin: 01/01/19 13:07 Dose: 60 mg Vital Signs - 8 hr 01/01/19 10:21 01/01/19 12:47 01/01/19 13:33 Temperature 97.9 F Pulse Rate 66 70 68 Respiratory Rate 14 18 18 Blood Pressure 185/97 H Blood Pressure [Right Arm] 152/98 H 180/116 H Pulse Oximetry 96 99 98 <Emmanuelle Mcmanus DO - Last Filed: 01/03/19 07:15> Orders Ordered: Discontinued Medications Ketorolac Tromethamine (Toradol) 60 mg IM NOW ONE Stop: 01/01/19 12:45 Last Admin: 01/01/19 13:07 Dose: 60 mg Vital Signs - 8 hr 01/01/19 10:21 01/01/19 12:47 01/01/19 13:33 Temperature 97.9 F Pulse Rate 66 70 68 Respiratory Rate 14 18 18 Blood Pressure 185/97 H Blood Pressure [Right Arm] 152/98 H 180/116 H Pulse Oximetry 96 99 98 MDM - Dental/Oral <Emmanuelle Perkins, CARD TENDER-BC - Last Filed: 01/01/19 15:53> [facility] Narrative Medical decision making narrative: The patient is a 43-year-old male with history of fibromyalgia who presents with a chief complaint of dental pain versus sinus infection. Given that his congestion has been going on for 3 days, I do not believe he has a bacterial sinus infection at this time. I discussed at length continued use of Flonase, Neal med sinus rinse, etc to help control symptoms. He does not have any evidence of dental infection on exam, and was evaluated by dentist prior to his emergency department visit. I encourage the patient to take his Toradol as previously prescribed and use over the counter therapies for his pain at this point time. I encouraged him to follow up with his primary care provider, especially given the frequency of his emergency d epartment visit. He also plans on following up with his dentist. He was hemodynamically stable and nontoxic-appearing in the emergency department. Patient no questions or concerns upon discharge. Discharge Plan Departure Patient Disposition: Home Clinical Impression: Toothache URI (upper respiratory infection) Qualifiers: URI type: unspecified viral URI Qualified Code(s): J06.9 - Acute upper respiratory infection, unspecified Discharge Date/Time: 01/01/19 13:46 Interventions: ED Discharge Assessment Last Done: 01/01/19 13:40 Instructions: DI for Viral Upper Respiratory Infection -- Adult, DI for Dental Pain Activity Restrictions/Additional Instructions: I do not see any evidence of bacterial infection today. I do not see any reason to give antibiotics. Please monitor for fever, worsening of pain. Please take the Toradol as we discussed. Please follow-up with primary care provider in her dentist. Please come back to emergency department for any acute concerns such as chest pain shortness of breath, etc. Prescriptions: No Action promethazine 25 MG tablet 25 mg PO Q6HP PRN (Reason: Nausea) Qty: 0 RF: 0 mesalamine 1.2 gram tablet,delayed release (DR/EC) 4 tab PO QAM RF: 0 alprazolam 1 mg tablet 2 mg PO BEDTIME RF: 0 isosorbide mononitrate 30 mg tablet extended release 24 hr 30 mg PO DAILY RF: 0 duloxetine 30 mg capsule,delayed release(DR/EC) 90 mg PO DAILY RF: 0 verapamil 180 mg tablet extended release 180 mg PO BEDTIME RF: 0 trazodone 150 mg tablet 150 - 400 mg PO BEDTIME PRN (Reason: Sleep) RF: 0 alprazolam 1 mg tablet 1 mg PO BID RF: 0 oxycodone-acetaminophen 10-325 mg tablet 1 tab PO DAILY PRN (Reason: Pain, Severe) RF: 0 nitroglycerin [Nitromist] 400 mcg/spray Aerosol,[place] 1 spray Translingual PRN PRN (Reason: Chest Pain) RF: 0 aripiprazole [Abilify] 15 mg Tablet 15 mg PO DAILY RF: 0 pantoprazole 40 mg Tablet,Delayed Release (Dr/Ec) 40 mg PO DAILY RF: 0 divalproex 250 mg Tablet Extended Release 24 Hr 250 mg PO BID RF: 0 ketorolac 10 mg tablet 10 mg PO Q6H PRN (Reason: pain) Qty: 20 RF: 0 metoprolol succinate [Toprol XL] 100 mg tablet extended release 24 hr 100 mg PO BID RF: 0 tizanidine 4 mg tablet 8 mg PO TID PRN (Reason: Muscle Spasm) RF: 0 prazosin 2 mg Capsule 4 mg PO BEDTIME RF: 0 milnacipran [Savella] 50 mg Tablet 100 mg PO QPM RF: 0 fluticasone 50 mcg/actuation spray,suspension 1 spray Intranasal QDAY RF: 0 pregabalin [Lyrica] 300 mg capsule 300 mg PO BID RF: 0 budesonide-formoterol [Symbicort] 160-4.5 mcg/actuation HFA aerosol inhaler 2 puff Inhalation BID RF: 0 vit C-vit B-axmcht-wpt-om-3 [Ocuvite] 327-86-3-150 wp-rgjp-mh-mg Capsule 1 tab PO QDAY RF: 0 dicyclomine 20 mg tablet 20 mg PO BID PRN (Reason: Abdominal Pain) RF: 0 vlhnx-hc5-arh-yzh-lu2-erz-astx [Krill Oil ([place] 3 and 6)] 1,500-165-67.5 mg Capsule 1 cap PO DAILY RF: 0 potassium chloride 20 mEq tablet,ER particles/crystals 20 meq PO DAILY RF: 0 furosemide 20 mg tablet 40 mg PO DAILY RF: 0 Referrals: Stacy Collier MD [Primary Care Provider] - <Emmanuelle Mcmanus DO - Last Filed: 01/03/19 07:15> Cosign ED Attending Cosignature Attestation: I was immediately available in the department for consultation. This documentation has been reviewed and I agree with assessment and plan. Supervised by Emmanuelle Mcmanus DO
[2019-01-01] MEDS: KETOROLAC 60 MG/2 ML VIAL IM (13:07)
[2019-01-01 13:33] VITALS: BP 180/116; PULSE 68; RESP 18; O2SAT 98
== END 2019-01-01 13:46 | disposition home or self-care (01) ==
PROVIDERS: Emergency Provider Nurse Practitioner Family; PCP Family Medicine
DX: K08.89 Other specified disorders of teeth and supporting structures (principal); J06.9 Acute upper respiratory infection, unspecified
CPT/HCPCS: 96372; 99282; 99283; J1885

== ENCOUNTER 2019-01-08 07:07 | Emergency (ER) | payer OTHER, MEDICAID, SELFPAY ==
[2019-01-08] VITALS (7 sets, daily range): BP systolic 135–192; BP diastolic 70–115; PULSE 57–70; RESP 12–26; TEMP 36.6; O2SAT 94–100; BMI 50.3
--- NOTE | 2019-01-08 07:36 | DI.RAD.S_ITS ---
PROCEDURE: XR LUMBAR SPINE 2-3V INDICATIONS: fall down stairs TECHNIQUE: 3 views of the lumbar spine were acquired. COMPARISON: [facility], CT, CT ABDOMEN PELVIS W CON, 04/09/2018, 15:49. FINDINGS: Bones: 5 [id number]-[id number] vertebrae are present. There is normal bony alignment. Mild anterior wedging of the L1 and L2 vertebral bodies, likely physiologic, is stable in appearance compared prior CT scan of the abdomen and pelvis. Multilevel degenerative disc disease. No suspicious bony lesions. Soft tissues: Overlying bowel gas pattern is normal. No suspicious soft tissue calcifications. IMPRESSION: No fracture. No acute osseous lesion. If symptoms and/or clinical suspicion for pathology persists, evaluation with MRI may be helpful for further assessment. Dictated by: Leela Erazo MD, PhD on 01/08/2019 at 8:40 Approved by: Leela Erazo MD, PhD on 01/08/2019 at 8:42
--- NOTE | 2019-01-08 07:36 | DI.RAD.S_ITS ---
PROCEDURE: XR CHEST 1V INDICATIONS: chest pain TECHNIQUE: One view of the chest was acquired. COMPARISON: [facility], CR, XR CHEST 1V, 07/24/2018, 17:55. FINDINGS: Surgical changes and devices: panel monitor is stable. Lungs and pleura: Lungs are clear. No pleural effusions or pneumothorax. Mediastinum: Mediastinal contours appear normal. Heart size is normal. Bones and chest wall: No suspicious bony lesions. Overlying soft tissues appear unremarkable. IMPRESSION: No acute cardiopulmonary disease process. Dictated by: Leela Erazo MD, PhD on 01/08/2019 at 8:40 Approved by: Leela Erazo MD, PhD on 01/08/2019 at 8:40
[2019-01-08 07:53] LABS: Add Manual Diff / Slide Review NO; Basophils Absolute Auto 0 /uL (0-100); Basophils Percent Auto 0.9 % (0-2); Eosinophils Absolute Auto 0 /uL (0-450); Eosinophils Percent Auto 0.1 % (2-4); Hematocrit 44.2 % (41-53); Hemoglobin 14.6 g/dL (13.5-17.5); Lymphocytes Absolute Auto 1400 /uL (1100-4500); Lymphocytes Percent Auto 27.9 % (25-40); Mean Corpuscular Hemoglobin 28.9 PG (26-34); Mean Corpuscular Volume 87.5 fL (80-100); Monocytes Absolute Auto 400 /uL (0-900); Monocytes Percent Auto 7.7 % (3-14); Neutrophils Absolute Auto 3300 /uL (1500-7000); Neutrophils Percent Auto 63.4 % (50-75); Platelet Count 169 X10^3/uL (150-400); Red Blood Cell Count 5.05 X10^6/uL (4.5-5.9); Red Cell Distribution Width 15.1 % (11.6-14.8); White Blood Cell Count 5.2 X10^3/uL (4.5-11.0)
--- NOTE | 2019-01-08 08:00 | ED.CHESTPAIN ---
HPI - Chest Pain General Chief Complaint: Chest Pain Stated Complaint: FELL DOWN STAIRS/CHEST PAIN Time Seen by Provider: 01/08/19 07:16 Source: patient and old records reviewed Mode of arrival: ambulatory Limitations: no limitations History of Present Illness HPI narrative: Patient is a 43-year-old male with known cardiomyopathy, [place] and congestive heart failure who unfortunately fell down the stairs yesterday. He is complaining of back pain and leg pain with numbness and tingling down his leg. He does have cataplexy which he thinks is why he fell. He denies any dizziness or lightheadedness. He is having some numbness tingling down the posterior side of his leg. This morning he woke up with increased pain in his leg also noted some chest achiness. As he is not sure if it is his heart it is centrally located nonradiating denies any shortness of breath. He thinks it might be his anxiety. He recently had a cardiac catheterization at [facility] which he says was clean. Records are being requested. MD complaint: chest pain and other ( Back pain left leg pain) Related Data Home Medications Medication Instructions Recorded Confirmed promethazine 25 mg PO Q6HP PRN #0 03/05/18 12/03/18 budesonide-formoterol [Symbicort] 2 puff INHALATION BID 03/23/18 12/03/18 fluticasone 1 spray INTRANASAL QDAY 03/23/18 12/03/18 metoprolol succinate [Toprol XL] 100 mg PO BID 03/23/18 12/03/18 milnacipran [Savella] 100 mg PO QPM 03/23/18 12/03/18 prazosin 4 mg PO BEDTIME 03/23/18 12/03/18 pregabalin [Lyrica] 300 mg PO BID 03/23/18 12/03/18 tizanidine 8 mg PO TID PRN 03/23/18 12/03/18 vit C-vit T-[id number]-mlx-om-3 1 tab PO QDAY 03/23/18 12/03/18 [Ocuvite] dicyclomine 20 mg PO BID PRN 04/29/18 12/03/18 mesalamine 4 tab PO QAM 04/30/18 12/03/18 furosemide 40 mg PO DAILY 07/19/18 12/03/18 lrdun-[id number]-[id number]-riv-[id number]-lwe-astx 1 cap PO DAILY 07/19/18 12/03/18 [Krill Oil ([place] 3 and 6)] potassium chloride 20 meq PO DAILY 07/19/18 12/03/18 alprazolam 2 mg PO BEDTIME 11/02/18 12/03/18 duloxetine 90 mg PO DAILY 11/02/18 12/03/18 isosorbide mononitrate 30 mg PO DAILY 11/02/18 12/03/18 trazodone 150 - 400 mg PO BEDTIME PRN 11/02/18 12/03/18 verapamil 180 mg PO BEDTIME 11/02/18 12/03/18 alprazolam 1 mg PO BID 11/03/18 12/03/18 aripiprazole [Abilify] 15 mg PO DAILY 11/24/18 12/03/18 divalproex 250 mg PO BID 11/24/18 12/03/18 nitroglycerin [Nitromist] 1 spray TRANSLINGUAL PRN PRN 11/24/18 12/03/18 oxycodone-acetaminophen 1 tab PO DAILY PRN 11/24/18 12/03/18 pantoprazole 40 mg PO DAILY 11/24/18 12/03/18 Previous Rx's Medication Instructions Recorded ketorolac 10 mg PO Q6H PRN #20 tab 12/30/18 prednisone 40 mg PO DAILY #10 tab 01/08/19 Allergies Allergy/AdvReac Type Severity Reaction Status Date / Time codeine [CODEINE] Allergy Severe ANAPHYLAXIS Verified 01/08/19 07:25 amitriptyline [AMITRIPTYLINE] Allergy Unknown DIZZINESS Verified 01/08/19 07:25 AND UNSTEADYINESS tramadol [From ULTRAM] Allergy Unknown Verified 01/08/19 07:25 bee venom protein (honey bee) Allergy Verified 01/08/19 07:25 squash Allergy Verified 01/08/19 07:25 lisinopril [LISINOPRIL] AdvReac Unknown Verified 01/08/19 07:25 NSAIDS (Non-Steroidal AdvReac Unknown Verified 01/08/19 07:25 Anti-Inflamma [NSAIDS (NON-STEROIDAL ANTI-INFLAMMA] telmisartan [From MICARDIS] AdvReac Unknown Verified 01/08/19 07:25 Review of Systems Review of Systems ROS Unobtainable: All systems reviewed & are unremarkable except as noted in HPI and below Constitutional Denies chills, Denies fever(s), Denies lethargy and Denies weakness Eyes Denies change in vision, Denies eye discharge, Denies irritation and Denies loss of vision Cardiovascular Reports chest pain, Denies dyspnea and Denies dyspnea on exertion Respiratory Denies cough, Denies dyspnea, Denies dyspnea on exertion and Denies wheezing Gastrointestinal Gastrointestinal: Denies abdominal pain, Denies change in bowel habits, Denies diarrhea, Denies nausea and Denies vomiting Genitourinary Denies hematuria, Denies flank pain, Denies urinary incontinence and Denies urinary urgency Musculoskeletal Denies back pain, Denies muscle weakness, Denies numbness and Denies tingling Integumentary/Breasts Denies pruritus, Denies erythema, Denies rash and Denies wounds Neurologic Denies loss of vision, Denies numbness, Denies tingling and Denies weakness Allergic/Immunologic Denies wheezing PFSH Medical History Bipolar 1 disorder (Acute) Borderline personality disorder (Acute) Hypertrophic cardiomyopathy (Acute) Acute Crohn's disease (Chronic) Asthma (Chronic) Bulging disc (Chronic) CHF (congestive heart failure) (Chronic) Cataplexy (Chronic) Depression (Chronic) Diabetes (Chronic) Fibromyalgia (Chronic) GERD (gastroesophageal reflux disease) (Chronic) HTN (hypertension) (Chronic) Migraines (Chronic) Non-STEMI (non-ST elevated myocardial infarction) (Chronic) ROSLYN (obstructive sleep apnea) (Chronic) Osteoarthritis (Chronic) Surgical History Status post cardiac catheterization (Acute) Social History Smoking Status: Current some day smoker Social History Smoking Status: Current some day smoker Exam Initial Vital Signs Initial Vital Signs: Vital Signs Temperature 97.8 F 01/08/19 07:08 Pulse Rate 70 01/08/19 07:08 Respiratory Rate 16 01/08/19 07:08 Blood Pressure 192/91 H 01/08/19 07:08 Pulse Oximetry 95 01/08/19 07:08 GENERAL: overweight male no acute distress HEENT: Head atraumatic,EOMI, pupils reactive, CARDIOVASCULAR: Regular rate and rhythm without murmurs, rubs or gallops. RESPIRATORY: Breath sounds equal bilaterally, no wheezes rales or rhonchi. ABDOMEN: Soft, nontender. Normoactive bowel sounds all 4 quadrants. No guarding or rebound. BACK: Mild left lumbar tenderness slight midline tenderness no step-offs EXTREMITIES: Normal range of motion, no clubbing or edema. Neurovascularly intact NEUROLOGICAL: Alert and oriented x4.Normal gait and speech. Cranial nerves II through XII grossly intact. SKIN: Warm, dry, no laceration, no petechiae, no rashes or lesions. Course Orders Ordered: ED Orders 01/08/19 07:22 EKG-12 Lead Routine 01/08/19 07:35 EKG-12 Lead Routine 01/08/19 07:36 XR chest 1V Stat XR lumbar spine 2-3V Stat 01/08/19 07:40 B Type Natriuretic Peptide Stat Complete Blood Count AUTO DIFF Stat Comprehensive Metabolic Panel Stat Lipase Stat Troponin & CK Cardiac Panel Stat 01/08/19 09:45 Troponin I Stat Discontinued Medications Acetaminophen (Tylenol) 650 mg PO NOW ONE Stop: 01/08/19 08:52 Last Admin: 01/08/19 08:52 Dose: 650 mg Ketorolac Tromethamine (Toradol) 15 mg IV NOW ONE Stop: 01/08/19 07:37 Last Admin: 01/08/19 08:05 Dose: 15 mg Nitroglycerin (Nitrostat) 0.4 mg SL NOW ONE Stop: 01/08/19 08:39 Last Admin: 01/08/19 08:42 Dose: 0.4 mg Vital Signs - 8 hr 01/08/19 07:08 01/08/19 08:33 01/08/19 08:42 Temperature 97.8 F Pulse Rate 70 58 L 58 L Respiratory Rate 16 12 Blood Pressure 192/91 H 156/95 H Blood Pressure [Left Arm] 156/95 H Pulse Oximetry 95 94 01/08/19 08:55 01/08/19 09:35 01/08/19 10:16 Temperature Pulse Rate 62 61 59 L Respiratory Rate 14 26 H 14 Blood Pressure Blood Pressure [Left Arm] 135/72 144/115 H 138/70 Pulse Oximetry 98 100 100 01/08/19 10:56 Temperature Pulse Rate 57 L Respiratory Rate 14 Blood Pressure 157/108 H Blood Pressure [Left Arm] Pulse Oximetry 99 MDM - Chest Pain Medical Records Data Attestation: I reviewed the patient's medical records. Left catheterization report from [facility]: 1. Hemodynamics the left ventricular systolic pressure was estimated at 127 mm mercury and left ventricular end-diastolic pressure was estimated at 16 mg of mercury. There is no significant gradient during pullback. The aortic pressure is 133/83. 2 selective coronary angiography: A. Left main: The artery has no evidence of significant disease. It bifurcates into left anterior descending and left circumflex artery. B. Left anterior descending artery: There is no significant disease. The distal LAD appears to have mild diffuse disease but artery opened it nicely after nitroglycerin was given intracoronary. C left circumflex artery: The artery is nondominant and there is no evidence for significant disease. D. right coronary artery: Dominant. There is no significant disease. The PDA is free of disease as well Lab Data Attestation: I reviewed the patient's lab results. Result diagrams: 01/08/19 07:40 01/08/19 07:40 Lab Results 01/08/19 01/08/19 01/08/19 Range/Units 07:40 07:40 09:45 WBC 5.2 (4.5-11.0) X10^3/uL RBC 5.05 (4.5-5.9) X10^6/uL Hgb 14.6 (13.5-17.5) g/dL Hct 44.2 (41-53) % MCV 87.5 (80-100) fL MCH 28.9 (26-34) PG MCHC 33.0 (30-36) % RDW 15.1 H (11.6-14.8) % Plt Count 169 (150-400) X10^3/uL Neut % (Auto) 63.4 (50-75) % Lymph % (Auto) 27.9 (25-40) % Letcher % (Auto) 7.7 (3-14) % Eos % (Auto) 0.1 L (2-4) % Baso % (Auto) 0.9 (0-2) % Neut # (Auto) 3300 (2930-6494) /uL Lymph # (Auto) 1400 (6651-6835) /uL Letcher # (Auto) 400 (0-900) /uL Eos # (Auto) 0 (0-450) /uL Baso # (Auto) 0 (0-100) /uL Sodium 139 (137-145) mmol/L Potassium 4.2 (3.4-5.1) mmol/L Chloride 106 (98-107) mmol/L Carbon Dioxide 24 (22-32) mmol/L BUN 19 (9-20) mg/dL Creatinine 1.00 (0.66-1.25) mg/dL Estimated GFR > 60.0 (>60) mL/min BUN/Creatinine Ratio 19.0 (6-22) Glucose 94 (70-100) mg/dL Calcium 9.4 (8.4-10.2) mg/dL Total Bilirubin 0.6 (0.2-1.3) mg/dL AST 22 (17-59) IU/L ALT 34 (21-72) IU/L Alkaline Phosphatase 62 (38-126) U/L Total Creatine Kinase 63 (55-170) U/L CK-MB (CK-2) TNP CK-MB (CK-2) Rel Index TNP Troponin I < 0.012 < 0.012 (0.01-0.034) ng/mL B-Natriuretic Peptide < 100 (<100) Total Protein 7.3 (6.3-8.2) g/dL Albumin 4.3 (3.5-5.0) g/dL Globulin 3.0 (1.7-4.1) g/dL Albumin/Globulin Ratio 1.4 (1.0-2.8) Lipase 82 (23-300) U/L Imaging Data Chest x-ray: Radiologist's impression: PROCEDURE: XR CHEST 1V INDICATIONS: chest pain TECHNIQUE: One view of the chest was acquired. COMPARISON: [facility], , XR CHEST 1V, 07/24/2018, 17:55. FINDINGS: Surgical changes and devices: secured entrance monitor is stable. Lungs and pleura: Lungs are clear. No pleural effusions or pneumothorax. Mediastinum: Mediastinal contours appear normal. Heart size is normal. Bones and chest wall: No suspicious bony lesions. Overlying soft tissues appear unremarkable. IMPRESSION: No acute cardiopulmonary disease process. Dictated by: Leela Erazo MD, PhD on 01/08/2019 at 8:40 lumbar spine XR: Radiologist's impression: PROCEDURE: XR LUMBAR SPINE 2-3V INDICATIONS: fall down stairs TECHNIQUE: 3 views of the lumbar spine were acquired. COMPARISON: [facility], CT, CT ABDOMEN PELVIS W CON, 04/09/2018, 15:49. FINDINGS: Bones: 5 [id number]-owl-ynlittu vertebrae are present. There is normal bony alignment. Mild anterior wedging of the L1 and L2 vertebral bodies, likely physiologic, is stable in appearance compared prior CT scan of the abdomen and pelvis. Multilevel degenerative disc disease. No suspicious bony lesions. Soft tissues: Overlying bowel gas pattern is normal. No suspicious soft tissue calcifications. IMPRESSION: No fracture. No acute osseous lesion. If symptoms and/or clinical suspicion for pathology persists, evaluation with MRI may be helpful for further assessment. Dictated by: Leela Erazo MD, PhD on 01/08/2019 at 8:40 ECG Data Attestation: I personally reviewed and interpreted this ECG as follows: Prior ECG tracings: available for review Interpretation: EKG 1. abnormal EKG with ST elevation in lead 3 and AVF with significant T-wave inversions in the lateral leads and anterior leads. This remains unchanged from previous EKG EKG 2. sinus rhythm rate 62 MT interval 133 persistent changes remain stable MDM Narrative Medical decision making narrative: patient's chest discomfort is completely gone of his he is more here because of his slip and fall down the stairs and left leg and sciatic pain. His pain is a little bit better after Toradol. He has muscle relaxers and pain medication at home. His ED report states not to give him any narcotic medications he has a tendency of drug-seeking behavior, although I have not experience this during this visit. 2 troponins are negative. Discharge Plan Departure Patient Disposition: Home Clinical Impression: Atypical chest pain Acute back pain with sciatica Qualifiers: Laterality: left Qualified Code(s): M54.42 - Lumbago with sciatica, left side Discharge Date/Time: 01/08/19 10:45 Interventions: ED Discharge Assessment Last Done: 01/08/19 10:56 Instructions: DI for Atypical Chest Pain, DI for Back Pain With Sciatica Activity Restrictions/Additional Instructions: *You have been diagnosed with left sciatic pain and atypical chest *What to do: continue with physical therapy for your left hip. *Continue to take medications as directed May take her muscle relaxers and other medications as prescribed at home. *Follow up with your primary care provider in 2-3 days *Return to ER if you should have New changing or worsening chest pain, increased left leg weakness or any new, worsening or concerning symptoms Prescriptions: New prednisone 20 mg tablet 40 mg PO DAILY Qty: 10 RF: 0 No Action promethazine 25 MG tablet 25 mg PO Q6HP PRN (Reason: Nausea) Qty: 0 RF: 0 mesalamine 1.2 gram tablet,delayed release (DR/EC) 4 tab PO QAM RF: 0 alprazolam 1 mg tablet 2 mg PO BEDTIME RF: 0 isosorbide mononitrate 30 mg tablet extended release 24 hr 30 mg PO DAILY RF: 0 duloxetine 30 mg capsule,delayed release(DR/EC) 90 mg PO DAILY RF: 0 verapamil 180 mg tablet extended release 180 mg PO BEDTIME RF: 0 trazodone 150 mg tablet 150 - 400 mg PO BEDTIME PRN (Reason: Sleep) RF: 0 alprazolam 1 mg tablet 1 mg PO BID RF: 0 oxycodone-acetaminophen 10-325 mg tablet 1 tab PO DAILY PRN (Reason: Pain, Severe) RF: 0 nitroglycerin [Nitromist] 400 mcg/spray Aerosol,[place] 1 spray Translingual PRN PRN (Reason: Chest Pain) RF: 0 aripiprazole [Abilify] 15 mg Tablet 15 mg PO DAILY RF: 0 pantoprazole 40 mg Tablet,Delayed Release (Dr/Ec) 40 mg PO DAILY RF: 0 divalproex 250 mg Tablet Extended Release 24 Hr 250 mg PO BID RF: 0 ketorolac 10 mg tablet 10 mg PO Q6H PRN (Reason: pain) Qty: 20 RF: 0 metoprolol succinate [Toprol XL] 100 mg tablet extended release 24 hr 100 mg PO BID RF: 0 tizanidine 4 mg tablet 8 mg PO TID PRN (Reason: Muscle Spasm) RF: 0 prazosin 2 mg Capsule 4 mg PO BEDTIME RF: 0 milnacipran [Savella] 50 mg Tablet 100 mg PO QPM RF: 0 fluticasone 50 mcg/actuation spray,suspension 1 spray Intranasal QDAY RF: 0 pregabalin [Lyrica] 300 mg capsule 300 mg PO BID RF: 0 budesonide-formoterol [Symbicort] 160-4.5 mcg/actuation HFA aerosol inhaler 2 puff Inhalation BID RF: 0 vit C-vit R-yrntuw-rlo-om-3 [Ocuvite] 418-56-6-150 fh-aabo-vx-mg Capsule 1 tab PO QDAY RF: 0 dicyclomine 20 mg tablet 20 mg PO BID PRN (Reason: Abdominal Pain) RF: 0 pkhbs-ah1-kwg-dmv-oz6-yci-astx [Krill Oil ([place] 3 and 6)] 1,500-165-67.5 mg Capsule 1 cap PO DAILY RF: 0 potassium chloride 20 mEq tablet,ER particles/crystals 20 meq PO DAILY RF: 0 furosemide 20 mg tablet 40 mg PO DAILY RF: 0 Referrals: Stacy Collier MD [Primary Care Provider] - Stand Alone Forms: Work Release Note
[2019-01-08 08:02] LABS: Alanine Aminotransferase 34 IU/L (21-72); Albumin 4.3 g/dL (3.5-5.0); Albumin Globulin Ratio 1.4 (1.0-2.8); Alkaline Phosphatase 62 U/L (38-126); Aspartate Aminotransferase 22 IU/L (17-59); Bilirubin Total 0.6 mg/dL (0.2-1.3); Blood Urea Nitrogen 19 mg/dL (9-20); Calcium 9.4 mg/dL (8.4-10.2); Carbon Dioxide 24 mmol/L (22-32); Chloride 106 mmol/L (98-107); Creatine Kinase 63 U/L (55-170); Estimated Glomerular Filt Rate > 60.0 mL/min (>60); Glucose 94 mg/dL (70-100); HEMOLYSIS 40 (0-50); Lipase 82 U/L (23-300); Potassium 4.2 mmol/L (3.4-5.1); Sodium 139 mmol/L (137-145); Total Protein 7.3 g/dL (6.3-8.2)
--- NOTE | 2019-01-08 08:04 | ED_ITS ---
HPI - Chest Pain General Chief Complaint: Chest Pain Stated Complaint: FELL DOWN STAIRS/CHEST PAIN Time Seen by Provider: 01/08/19 07:16 Source: patient and old records reviewed Mode of arrival: ambulatory Limitations: no limitations History of Present Illness HPI narrative: Patient is a 43-year-old male with known cardiomyopathy, [place] and congestive heart failure who unfortunately fell down the stairs yesterday. He is complaining of back pain and leg pain with numbness and tingling down his leg. He does have cataplexy which he thinks is why he fell. He denies any dizziness or lightheadedness. He is having some numbness tingling down the posterior side of his leg. This morning he woke up with increased pain in his leg also noted some chest achiness. As he is not sure if it is his heart it is centrally located nonradiating denies any shortness of breath. He thinks it might be his anxiety. He recently had a cardiac catheterization at [facility] which he says was clean. Records are being requested. MD complaint: chest pain and other ( Back pain left leg pain) Related Data Home Medications Medication Instructions Recorded Confirmed promethazine 25 mg PO Q6HP PRN #0 03/05/18 12/03/18 budesonide-formoterol [Symbicort] 2 puff INHALATION BID 03/23/18 12/03/18 fluticasone 1 spray INTRANASAL QDAY 03/23/18 12/03/18 metoprolol succinate [Toprol XL] 100 mg PO BID 03/23/18 12/03/18 milnacipran [Savella] 100 mg PO QPM 03/23/18 12/03/18 prazosin 4 mg PO BEDTIME 03/23/18 12/03/18 pregabalin [Lyrica] 300 mg PO BID 03/23/18 12/03/18 tizanidine 8 mg PO TID PRN 03/23/18 12/03/18 vit C-vit I-[id number]-[id number]-3 1 tab PO QDAY 03/23/18 12/03/18 [Ocuvite] dicyclomine 20 mg PO BID PRN 04/29/18 12/03/18 mesalamine 4 tab PO QAM 04/30/18 12/03/18 furosemide 40 mg PO DAILY 07/19/18 12/03/18 [id number]-[id number] 1 cap PO DAILY 07/19/18 12/03/18 [Krill Oil ([place] 3 and 6)] potassium chloride 20 meq PO DAILY 07/19/18 12/03/18 alprazolam 2 mg PO BEDTIME 11/02/18 12/03/18 duloxetine 90 mg PO DAILY 11/02/18 12/03/18 isosorbide mononitrate 30 mg PO DAILY 11/02/18 12/03/18 trazodone 150 - 400 mg PO BEDTIME PRN 11/02/18 12/03/18 verapamil 180 mg PO BEDTIME 11/02/18 12/03/18 alprazolam 1 mg PO BID 11/03/18 12/03/18 aripiprazole [Abilify] 15 mg PO DAILY 11/24/18 12/03/18 divalproex 250 mg PO BID 11/24/18 12/03/18 nitroglycerin [Nitromist] 1 spray TRANSLINGUAL PRN PRN 11/24/18 12/03/18 oxycodone-acetaminophen 1 tab PO DAILY PRN 11/24/18 12/03/18 pantoprazole 40 mg PO DAILY 11/24/18 12/03/18 Previous Rx's Medication Instructions Recorded ketorolac 10 mg PO Q6H PRN #20 tab 12/30/18 prednisone 40 mg PO DAILY #10 tab 01/08/19 Allergies Allergy/AdvReac Type Severity Reaction Status Date / Time codeine [CODEINE] Allergy Severe ANAPHYLAXIS Verified 01/08/19 07:25 amitriptyline [AMITRIPTYLINE] Allergy Unknown DIZZINESS Verified 01/08/19 07:25 AND UNSTEADYINESS tramadol [From ULTRAM] Allergy Unknown Verified 01/08/19 07:25 bee venom protein (honey bee) Allergy Verified 01/08/19 07:25 squash Allergy Verified 01/08/19 07:25 lisinopril [LISINOPRIL] AdvReac Unknown Verified 01/08/19 07:25 NSAIDS (Non-Steroidal AdvReac Unknown Verified 01/08/19 07:25 Anti-Inflamma [NSAIDS (NON-STEROIDAL ANTI-INFLAMMA] telmisartan [From MICARDIS] AdvReac Unknown Verified 01/08/19 07:25 Review of Systems Review of Systems ROS Unobtainable: All systems reviewed & are unremarkable except as noted in HPI and below Constitutional Denies chills, Denies fever(s), Denies lethargy and Denies weakness Eyes Denies change in vision, Denies eye discharge, Denies irritation and Denies loss of vision Cardiovascular Reports chest pain, Denies dyspnea and Denies dyspnea on exertion Respiratory Denies cough, Denies dyspnea, Denies dyspnea on exertion and Denies wheezing Gastrointestinal Gastrointestinal: Denies abdominal pain, Denies change in bowel habits, Denies diarrhea, Denies nausea and Denies vomiting Genitourinary Denies hematuria, Denies flank pain, Denies urinary incontinence and Denies urinary urgency Musculoskeletal Denies back pain, Denies muscle weakness, Denies numbness and Denies tingling Integumentary/Breasts Denies pruritus, Denies erythema, Denies rash and Denies wounds Neurologic Denies loss of vision, Denies numbness, Denies tingling and Denies weakness Allergic/Immunologic Denies wheezing PFSH Medical History Bipolar 1 disorder (Acute) Borderline personality disorder (Acute) Hypertrophic cardiomyopathy (Acute) Acute Crohn's disease (Chronic) Asthma (Chronic) Bulging disc (Chronic) CHF (congestive heart failure) (Chronic) Cataplexy (Chronic) Depression (Chronic) Diabetes (Chronic) Fibromyalgia (Chronic) GERD (gastroesophageal reflux disease) (Chronic) HTN (hypertension) (Chronic) Migraines (Chronic) Non-STEMI (non-ST elevated myocardial infarction) (Chronic) ROSLYN (obstructive sleep apnea) (Chronic) Osteoarthritis (Chronic) Surgical History Status post cardiac catheterization (Acute) Social History Smoking Status: Current some day smoker Social History Smoking Status: Current some day smoker Exam Initial Vital Signs Initial Vital Signs: Vital Signs Temperature 97.8 F 01/08/19 07:08 Pulse Rate 70 01/08/19 07:08 Respiratory Rate 16 01/08/19 07:08 Blood Pressure 192/91 H 01/08/19 07:08 Pulse Oximetry 95 01/08/19 07:08 GENERAL: overweight male no acute distress HEENT: Head atraumatic,EOMI, pupils reactive, CARDIOVASCULAR: Regular rate and rhythm without murmurs, rubs or gallops. RESPIRATORY: Breath sounds equal bilaterally, no wheezes rales or rhonchi. ABDOMEN: Soft, nontender. Normoactive bowel sounds all 4 quadrants. No guarding or rebound. BACK: Mild left lumbar tenderness slight midline tenderness no step-offs EXTREMITIES: Normal range of motion, no clubbing or edema. Neurovascularly intact NEUROLOGICAL: Alert and oriented x4.Normal gait and speech. Cranial nerves II through XII grossly intact. SKIN: Warm, dry, no laceration, no petechiae, no rashes or lesions. Course Orders Ordered: ED Orders 01/08/19 07:22 EKG-12 Lead Routine 01/08/19 07:35 EKG-12 Lead Routine 01/08/19 07:36 XR chest 1V Stat XR lumbar spine 2-3V Stat 01/08/19 07:40 B Type Natriuretic Peptide Stat Complete Blood Count AUTO DIFF Stat Comprehensive Metabolic Panel Stat Lipase Stat Troponin & CK Cardiac Panel Stat 01/08/19 09:45 Troponin I Stat Discontinued Medications Acetaminophen (Tylenol) 650 mg PO NOW ONE Stop: 01/08/19 08:52 Last Admin: 01/08/19 08:52 Dose: 650 mg Ketorolac Tromethamine (Toradol) 15 mg IV NOW ONE Stop: 01/08/19 07:37 Last Admin: 01/08/19 08:05 Dose: 15 mg Nitroglycerin (Nitrostat) 0.4 mg SL NOW ONE Stop: 01/08/19 08:39 Last Admin: 01/08/19 08:42 Dose: 0.4 mg Vital Signs - 8 hr 01/08/19 07:08 01/08/19 08:33 01/08/19 08:42 Temperature 97.8 F Pulse Rate 70 58 L 58 L Respiratory Rate 16 12 Blood Pressure 192/91 H 156/95 H Blood Pressure [Left Arm] 156/95 H Pulse Oximetry 95 94 01/08/19 08:55 01/08/19 09:35 01/08/19 10:16 Temperature Pulse Rate 62 61 59 L Respiratory Rate 14 26 H 14 Blood Pressure Blood Pressure [Left Arm] 135/72 144/115 H 138/70 Pulse Oximetry 98 100 100 01/08/19 10:56 Temperature Pulse Rate 57 L Respiratory Rate 14 Blood Pressure 157/108 H Blood Pressure [Left Arm] Pulse Oximetry 99 MDM - Chest Pain Medical Records Data Attestation: I reviewed the patient's medical records. Left catheterization report from [facility]: 1. Hemodynamics the left ventricular systolic pressure was estimated at 127 mm mercury and left ventricular end-diastolic pressure was estimated at 16 mg of mercury. There is no significant gradient during pullback. The aortic pressure is 133/83. 2 selective coronary angiography: A. Left main: The artery has no evidence of significant disease. It bifurcates into left anterior descending and left circumflex artery. B. Left anterior descending artery: There is no significant disease. The distal LAD appears to have mild diffuse disease but artery opened it nicely after nitroglycerin was given intracoronary. C left circumflex artery: The artery is nondominant and there is no evidence for significant disease. D. right coronary artery: Dominant. There is no significant disease. The PDA is free of disease as well Lab Data Attestation: I reviewed the patient's lab results. Result diagrams: 01/08/19 07:40 01/08/19 07:40 Lab Results 01/08/19 01/08/19 01/08/19 Range/Units 07:40 07:40 09:45 WBC 5.2 (4.5-11.0) X10^3/uL RBC 5.05 (4.5-5.9) X10^6/uL Hgb 14.6 (13.5-17.5) g/dL Hct 44.2 (41-53) % MCV 87.5 (80-100) fL MCH 28.9 (26-34) PG MCHC 33.0 (30-36) % RDW 15.1 H (11.6-14.8) % Plt Count 169 (150-400) X10^3/uL Neut % (Auto) 63.4 (50-75) % Lymph % (Auto) 27.9 (25-40) % [place] % (Auto) 7.7 (3-14) % Eos % (Auto) 0.1 L (2-4) % Baso % (Auto) 0.9 (0-2) % Neut # (Auto) 3300 (8596-9167) /uL Lymph # (Auto) 1400 (5316-2283) /uL [place] # (Auto) 400 (0-900) /uL Eos # (Auto) 0 (0-450) /uL Baso # (Auto) 0 (0-100) /uL Sodium 139 (137-145) mmol/L Potassium 4.2 (3.4-5.1) mmol/L Chloride 106 (98-107) mmol/L Carbon Dioxide 24 (22-32) mmol/L BUN 19 (9-20) mg/dL Creatinine 1.00 (0.66-1.25) mg/dL Estimated GFR > 60.0 (>60) mL/min BUN/Creatinine Ratio 19.0 (6-22) Glucose 94 (70-100) mg/dL Calcium 9.4 (8.4-10.2) mg/dL Total Bilirubin 0.6 (0.2-1.3) mg/dL AST 22 (17-59) IU/L ALT 34 (21-72) IU/L Alkaline Phosphatase 62 (38-126) U/L Total Creatine Kinase 63 (55-170) U/L CK-MB (CK-2) TNP CK-MB (CK-2) Rel Index TNP Troponin I < 0.012 < 0.012 (0.01-0.034) ng/mL B-Natriuretic Peptide < 100 (<100) Total Protein 7.3 (6.3-8.2) g/dL Albumin 4.3 (3.5-5.0) g/dL Globulin 3.0 (1.7-4.1) g/dL Albumin/Globulin Ratio 1.4 (1.0-2.8) Lipase 82 (23-300) U/L Imaging Data Chest x-ray: Radiologist's impression: PROCEDURE: XR CHEST 1V INDICATIONS: chest pain TECHNIQUE: One view of the chest was acquired. COMPARISON: [facility], , XR CHEST 1V, 07/24/2018, 17:55. FINDINGS: Surgical changes and devices: cardiac monitor is stable. Lungs and pleura: Lungs are clear. No pleural effusions or pneumothorax. Mediastinum: Mediastinal contours appear normal. Heart size is normal. Bones and chest wall: No suspicious bony lesions. Overlying soft tissues appear unremarkable. IMPRESSION: No acute cardiopulmonary disease process. Dictated by: Leela Erazo MD, PhD on 01/08/2019 at 8:40 lumbar spine XR: Radiologist's impression: PROCEDURE: XR LUMBAR SPINE 2-3V INDICATIONS: fall down stairs TECHNIQUE: 3 views of the lumbar spine were acquired. COMPARISON: [facility], CT, CT ABDOMEN PELVIS W CON, 04/09/2018, 15:49. FINDINGS: Bones: 5 taq-rqs-tragzqh vertebrae are present. There is normal bony alignment. Mild anterior wedging of the L1 and L2 vertebral bodies, likely physiologic, is stable in appearance compared prior CT scan of the abdomen and pelvis. Multilevel degenerative disc disease. No suspicious bony lesions. Soft tissues: Overlying bowel gas pattern is normal. No suspicious soft tissue calcifications. IMPRESSION: No fracture. No acute osseous lesion. If symptoms and/or clinical suspicion for pathology persists, evaluation with MRI may be helpful for further assessment. Dictated by: Leela Erazo MD, PhD on 01/08/2019 at 8:40 ECG Data Attestation: I personally reviewed and interpreted this ECG as follows: Prior ECG tracings: available for review Interpretation: EKG 1. abnormal EKG with ST elevation in lead 3 and AVF with significant T-wave inversions in the lateral leads and anterior leads. This remains unchanged from previous EKG EKG 2. sinus rhythm rate 62 ID interval 133 persistent changes remain stable MDM Narrative Medical decision making narrative: patient's chest discomfort is completely gone of his he is more here because of his slip and fall down the stairs and left leg and sciatic pain. His pain is a little bit better after Toradol. He has muscle relaxers and pain medication at home. His ED report states not to give him any narcotic medications he has a tendency of drug-seeking behavior, although I have not experience this during this visit. 2 troponins are negative. Discharge Plan Departure Patient Disposition: Home Clinical Impression: Atypical chest pain Acute back pain with sciatica Qualifiers: Laterality: left Qualified Code(s): M54.42 - Lumbago with sciatica, left side Discharge Date/Time: 01/08/19 10:45 Interventions: ED Discharge Assessment Last Done: 01/08/19 10:56 Instructions: DI for Atypical Chest Pain, DI for Back Pain With Sciatica Activity Restrictions/Additional Instructions: *You have been diagnosed with left sciatic pain and atypical chest *What to do: continue with physical therapy for your left hip. *Continue to take medications as directed May take her muscle relaxers and other medications as prescribed at home. *Follow up with your primary care provider in 2-3 days *Return to ER if you should have New changing or worsening chest pain, increased left leg weakness or any new, worsening or concerning symptoms Prescriptions: New prednisone 20 mg tablet 40 mg PO DAILY Qty: 10 RF: 0 No Action promethazine 25 MG tablet 25 mg PO Q6HP PRN (Reason: Nausea) Qty: 0 RF: 0 mesalamine 1.2 gram tablet,delayed release (DR/EC) 4 tab PO QAM RF: 0 alprazolam 1 mg tablet 2 mg PO BEDTIME RF: 0 isosorbide mononitrate 30 mg tablet extended release 24 hr 30 mg PO DAILY RF: 0 duloxetine 30 mg capsule,delayed release(DR/EC) 90 mg PO DAILY RF: 0 verapamil 180 mg tablet extended release 180 mg PO BEDTIME RF: 0 trazodone 150 mg tablet 150 - 400 mg PO BEDTIME PRN (Reason: Sleep) RF: 0 alprazolam 1 mg tablet 1 mg PO BID RF: 0 oxycodone-acetaminophen 10-325 mg tablet 1 tab PO DAILY PRN (Reason: Pain, Severe) RF: 0 nitroglycerin [Nitromist] 400 mcg/spray Aerosol,[place] 1 spray Translingual PRN PRN (Reason: Chest Pain) RF: 0 aripiprazole [Abilify] 15 mg Tablet 15 mg PO DAILY RF: 0 pantoprazole 40 mg Tablet,Delayed Release (Dr/Ec) 40 mg PO DAILY RF: 0 divalproex 250 mg Tablet Extended Release 24 Hr 250 mg PO BID RF: 0 ketorolac 10 mg tablet 10 mg PO Q6H PRN (Reason: pain) Qty: 20 RF: 0 metoprolol succinate [Toprol XL] 100 mg tablet extended release 24 hr 100 mg PO BID RF: 0 tizanidine 4 mg tablet 8 mg PO TID PRN (Reason: Muscle Spasm) RF: 0 prazosin 2 mg Capsule 4 mg PO BEDTIME RF: 0 milnacipran [Savella] 50 mg Tablet 100 mg PO QPM RF: 0 fluticasone 50 mcg/actuation spray,suspension 1 spray Intranasal QDAY RF: 0 pregabalin [Lyrica] 300 mg capsule 300 mg PO BID RF: 0 budesonide-formoterol [Symbicort] 160-4.5 mcg/actuation HFA aerosol inhaler 2 puff Inhalation BID RF: 0 vit C-vit R-gdzxix-rng-om-3 [Ocuvite] 600-96-3-150 yn-opdj-zb-mg Capsule 1 tab PO QDAY RF: 0 dicyclomine 20 mg tablet 20 mg PO BID PRN (Reason: Abdominal Pain) RF: 0 qmxsp-if4-bmi-muv-zq4-nrn-astx [Krill Oil ([place] 3 and 6)] 1,500-165-67.5 mg Capsule 1 cap PO DAILY RF: 0 potassium chloride 20 mEq tablet,ER particles/crystals 20 meq PO DAILY RF: 0 furosemide 20 mg tablet 40 mg PO DAILY RF: 0 Referrals: Stacy Collier MD [Primary Care Provider] - Stand Alone Forms: Work Release Note
[2019-01-08] MEDS: KETOROLAC 60 MG/2 ML VIAL 15 MG IV (08:05)
[2019-01-08 08:13] LABS: Troponin I < 0.012 ng/mL (0.01-0.034)
[2019-01-08 08:17] LABS: B Type Natriuretic Peptide < 100 (<100)
[2019-01-08] MEDS: NITROGLYCERIN 0.4 MG SL TAB SL (08:42)
[2019-01-08] MEDS: ACETAMINOPHEN 325 MG TABLET 650 MG PO (08:52)
[2019-01-08 10:13] LABS: Troponin I < 0.012 ng/mL (0.01-0.034)
== END 2019-01-08 10:45 | disposition home or self-care (01) ==
PROVIDERS: Emergency Provider Emergency Medicine; PCP Family Medicine
DX: M54.42 Lumbago with sciatica, left side (principal); R07.89 Other chest pain; W10.8XXA Fall (on) (from) other stairs and steps, initial encounter
CPT/HCPCS: 36415; 36591; 71045; 72100; 80053; 82550; 83690; 83880; 84484; 85025; 93005; 93010; 96374; 99283; 99285; J1885

== ENCOUNTER 2019-01-11 09:49 | Emergency (ER) | payer OTHER, MEDICAID, SELFPAY ==
[2019-01-11 09:58] VITALS: BP 177/104; PULSE 66; RESP 20; TEMP 36.9; O2SAT 99
[2019-01-11 11:10] VITALS: BP 164/110; PULSE 62; RESP 22; O2SAT 97
--- NOTE | 2019-01-11 11:39 | PC.NURSE ---
Patient states he ran out of his Zofran. He has phenergen at home, but did not take it. He does get nauseous from time to time, but states this is much worse. Has not eaten in a day in a half and has headache and feels shaky. States his urine is dark.
[2019-01-11] MEDS: ONDANSETRON 4 MG ODT SL (11:52)
--- NOTE | 2019-01-11 12:07 | ED.NAVMDI ---
HPI - Nausea/Vomiting/Diarrhea <MALA Salinas - Last Filed: 01/11/19 21:41> General Chief complaint: Nausea/Vomiting/Diarrhea Stated complaint: SENT OVER BY DOCTOR Time Seen by Provider: 01/11/19 12:05 Source: patient Mode of arrival: ambulatory Limitations: no limitations History of Present Illness HPI Narrative: 43-year-old male with history of CHF and IBS that is a part-time smoker here for complaint of having nausea since yesterday. He states that he has a Phenergan at home that he uses today which helped his nausea however has nausea returned today he did not use as Phenergan today. He states that his urine has been concentrated so he thinks that he is dehydrated. He reports having generalized abdominal discomfort and bloating. He is unsure whether not the symptoms are consistent with his IBS. He denies any fevers. He denies any chest pain or shortness of breath at this timeframe. Last bowel movement was earlier this morning and was unremarkable. He denies any urinary symptoms. No flank pain. He does state that he has had chills. MD complaint: nausea Related Data Home Medications Medication Instructions Recorded Confirmed promethazine 25 mg PO Q6HP PRN #0 03/05/18 01/11/19 budesonide-formoterol [Symbicort] 2 puff INHALATION BID 03/23/18 01/11/19 fluticasone 1 spray INTRANASAL QDAY 03/23/18 01/11/19 metoprolol succinate [Toprol XL] 100 mg PO BID 03/23/18 01/11/19 milnacipran [Savella] 100 mg PO QPM 03/23/18 01/11/19 prazosin 4 mg PO BEDTIME 03/23/18 01/11/19 pregabalin [Lyrica] 300 mg PO BID 03/23/18 01/11/19 tizanidine 8 mg PO TID PRN 03/23/18 01/11/19 vit C-vit Z-[id number]-[id number]-3 1 tab PO QDAY 03/23/18 01/11/19 [Ocuvite] dicyclomine 20 mg PO BID PRN 04/29/18 01/11/19 mesalamine 4 tab PO QAM 04/30/18 01/11/19 furosemide 40 mg PO DAILY 07/19/18 01/11/19 [id number]-[id number]-[id number]-epu-[id number] 1 cap PO DAILY 07/19/18 01/11/19 [Krill Oil ([place] 3 and 6)] potassium chloride 20 meq PO DAILY 07/19/18 01/11/19 alprazolam 2 mg PO BEDTIME 11/02/18 01/11/19 duloxetine 90 mg PO DAILY 11/02/18 01/11/19 isosorbide mononitrate 30 mg PO DAILY 11/02/18 01/11/19 trazodone 150 - 400 mg PO BEDTIME PRN 11/02/18 01/11/19 verapamil 180 mg PO BEDTIME 11/02/18 01/11/19 alprazolam 1 mg PO BID 11/03/18 01/11/19 aripiprazole [Abilify] 15 mg PO DAILY 11/24/18 01/11/19 divalproex 250 mg PO BID 11/24/18 01/11/19 nitroglycerin [Nitromist] 1 spray TRANSLINGUAL PRN PRN 11/24/18 01/11/19 oxycodone-acetaminophen 1 tab PO DAILY PRN 11/24/18 01/11/19 pantoprazole 40 mg PO DAILY 11/24/18 01/11/19 erenumab-aooe [Aimovig 70 mg SUBCUT QMONTH 01/11/19 01/11/19 Autoinjector] Previous Rx's Medication Instructions Recorded ketorolac 10 mg PO Q6H PRN #20 tab 12/30/18 prednisone 40 mg PO DAILY #10 tab 01/08/19 Allergies Allergy/AdvReac Type Severity Reaction Status Date / Time codeine [CODEINE] Allergy Severe ANAPHYLAXIS Verified 01/08/19 07:25 amitriptyline [AMITRIPTYLINE] Allergy Unknown DIZZINESS Verified 01/08/19 07:25 AND UNSTEADYINESS tramadol [From ULTRAM] Allergy Unknown Verified 01/08/19 07:25 bee venom protein (honey bee) Allergy Verified 01/08/19 07:25 squash Allergy Verified 01/08/19 07:25 lisinopril [LISINOPRIL] AdvReac Unknown Verified 01/08/19 07:25 NSAIDS (Non-Steroidal AdvReac Unknown Verified 01/08/19 07:25 Anti-Inflamma [NSAIDS (NON-STEROIDAL ANTI-INFLAMMA] telmisartan [From MICARDIS] AdvReac Unknown Verified 01/08/19 07:25 Review of Systems <MALA Salinas - Last Filed: 01/11/19 21:41> Constitutional Denies chills, Denies fever(s), Denies lethargy and Denies weakness Eyes Denies change in vision, Denies eye discharge, Denies irritation and Denies loss of vision ENT Ears, Nose, Mouth, and Throat: Denies change in voice, Denies neck pain and Denies sore throat Cardiovascular Denies chest pain, Denies irregular heart rhythm, Denies lightheadedness, Denies palpitations, Denies dyspnea, Denies dyspnea on exertion and Denies orthopnea Respiratory Denies cough, Denies dyspnea, Denies dyspnea on exertion and Denies wheezing Gastrointestinal Gastrointestinal: Reports abdominal pain and Reports nausea Genitourinary Denies hematuria, Denies flank pain, Denies urinary incontinence and Denies urinary urgency Musculoskeletal Denies neck pain Integumentary/Breasts Denies pruritus, Denies erythema, Denies rash and Denies wounds Neurologic Denies loss of vision and Denies weakness Endocrine Denies palpitations Hematologic/Lymphatic Denies easy bruising Allergic/Immunologic Denies wheezing PFSH <MALA Salinas - Last Filed: 01/11/19 21:41> Medical History Bipolar 1 disorder (Acute) Borderline personality disorder (Acute) Hypertrophic cardiomyopathy (Acute) Acute Crohn's disease (Chronic) Asthma (Chronic) Bulging disc (Chronic) CHF (congestive heart failure) (Chronic) Cataplexy (Chronic) Depression (Chronic) Diabetes (Chronic) Fibromyalgia (Chronic) GERD (gastroesophageal reflux disease) (Chronic) HTN (hypertension) (Chronic) Migraines (Chronic) Non-STEMI (non-ST elevated myocardial infarction) (Chronic) ROSLYN (obstructive sleep apnea) (Chronic) Osteoarthritis (Chronic) Surgical History Status post cardiac catheterization (Acute) Social History Smoking Status: Current some day smoker Social History Smoking Status: Current some day smoker Exam <MALA Salinas - Last Filed: 01/11/19 21:41> Initial Vital Signs Initial Vital Signs: Vital Signs Temperature 98.4 F 01/11/19 09:58 Pulse Rate 66 01/11/19 09:58 Respiratory Rate 20 01/11/19 09:58 Blood Pressure 177/104 H 01/11/19 09:58 Pulse Oximetry 99 01/11/19 09:58 Const General: cooperative and well developed Nutritional Appearance: well nourished Orientation: alert, awake, oriented x3 and not confused HENKY Mouth: oral mucosae normal and moist mucous membranes Eyes Conjunctivae: conjunctivae normal Sclera: sclerae normal Pupils: PERRL EOM: EOM intact bilaterally Resp Effort & Inspection: normal respiratory effort, able to speak in complete sentences, no respiratory distress and no use of accessory muscles Auscultation: clear to auscultation bilaterally, no rales, no rhonchi and no wheezes Cardio Rate: regular rate Rhythm: regular rhythm Heart Sounds: no click, no gallops, no murmurs and no rubs Pulses: normal peripheral pulses GI Inspection: non-distended Palpation: soft, no hepatosplenomegaly, No guarding, No pulsatile mass and tender (Generalized discomfort.) Auscultation: normal bowel sounds General: No CVA tenderness Skin General: no rashes or lesions noted, No jaundice and No petechiae Neuro General: alert, oriented x3, gait normal and no focal motor deficits Speech: speech normal <Dominick Navarrete DO - Last Filed: 01/12/19 18:18> Initial Vital Signs Initial Vital Signs: Vital Signs Temperature 98.4 F 01/11/19 09:58 Pulse Rate 66 01/11/19 09:58 Respiratory Rate 20 01/11/19 09:58 Blood Pressure 177/104 H 01/11/19 09:58 Pulse Oximetry 99 01/11/19 09:58 Course <MALA Salinas - Last Filed: 01/11/19 21:41> Orders Ordered: Discontinued Medications Sodium Chloride (Normal Saline 0.9%) 1,000 mls @ 1,000 mls/hr IV BOLUS ONE Stop: 01/11/19 13:13 Last Infusion: 01/11/19 14:17 Dose: 0 mls/hr Admin: 01/11/19 12:46 Dose: 1,000 mls/hr Ketorolac Tromethamine (Toradol) 30 mg IV NOW ONE Stop: 01/11/19 12:15 Last Admin: 01/11/19 12:46 Dose: 30 mg Ondansetron HCl (Zofran Odt) 4 mg SL NOW ONE Stop: 01/11/19 11:49 Last Admin: 01/11/19 11:52 Dose: 4 mg Ondansetron HCl (Zofran) 4 mg IV NOW ONE Stop: 01/11/19 12:15 Last Admin: 01/11/19 12:46 Dose: 4 mg Vital Signs - 8 hr 01/11/19 14:00 01/11/19 14:17 Pulse Rate 63 66 Respiratory Rate 14 15 Blood Pressure 158/79 H Blood Pressure [Right Arm] 158/79 H Pulse Oximetry 99 98 <Dominick Navarrete DO - Last Filed: 01/12/19 18:18> Orders Ordered: Discontinued Medications Sodium Chloride (Normal Saline 0.9%) 1,000 mls @ 1,000 mls/hr IV BOLUS ONE Stop: 01/11/19 13:13 Last Infusion: 01/11/19 14:17 Dose: 0 mls/hr Admin: 01/11/19 12:46 Dose: 1,000 mls/hr Ketorolac Tromethamine (Toradol) 30 mg IV NOW ONE Stop: 01/11/19 12:15 Last Admin: 01/11/19 12:46 Dose: 30 mg Ondansetron HCl (Zofran Odt) 4 mg SL NOW ONE Stop: 01/11/19 11:49 Last Admin: 01/11/19 11:52 Dose: 4 mg Ondansetron HCl (Zofran) 4 mg IV NOW ONE Stop: 01/11/19 12:15 Last Admin: 01/11/19 12:46 Dose: 4 mg Vital Signs - 8 hr 01/11/19 14:00 01/11/19 14:17 Pulse Rate 63 66 Respiratory Rate 14 15 Blood Pressure 158/79 H Blood Pressure [Right Arm] 158/79 H Pulse Oximetry 99 98 MDM - Nausea/Vomiting/Diarrhea <MALA Salinas - Last Filed: 01/11/19 21:41> Lab Data Result diagrams: 01/11/19 12:30 01/11/19 12:30 Lab Results 01/11/19 01/11/19 01/11/19 Range/Units 12:30 12:30 13:13 WBC 9.3 (4.5-11.0) X10^3/uL RBC 5.58 (4.5-5.9) X10^6/uL Hgb 16.4 (13.5-17.5) g/dL Hct 46.6 (41-53) % MCV 83.7 D (80-100) fL MCH 29.4 (26-34) PG MCHC 35.2 (30-36) % RDW 15.0 H (11.6-14.8) % Plt Count 212 (150-400) X10^3/uL Neut % (Auto) 86.5 H (50-75) % Lymph % (Auto) 10.1 L (25-40) % [place] % (Auto) 2.3 L (3-14) % Eos % (Auto) 0.1 L (2-4) % Baso % (Auto) 1.0 (0-2) % Neut # (Auto) 8100 H (4957-1389) /uL Lymph # (Auto) 900 L (1858-7064) /uL [place] # (Auto) 200 (0-900) /uL Eos # (Auto) 0 (0-450) /uL Baso # (Auto) 100 (0-100) /uL Sodium 140 (137-145) mmol/L Potassium 4.1 (3.4-5.1) mmol/L Chloride 104 (98-107) mmol/L Carbon Dioxide 24 (22-32) mmol/L BUN 19 (9-20) mg/dL Creatinine 1.00 (0.66-1.25) mg/dL Estimated GFR > 60.0 (>60) mL/min BUN/Creatinine Ratio 19.0 (6-22) Glucose 124 H (70-100) mg/dL Calcium 10.1 (8.4-10.2) mg/dL Total Bilirubin 0.6 (0.2-1.3) mg/dL AST 21 (17-59) IU/L ALT 38 (21-72) IU/L Alkaline Phosphatase 72 (38-126) U/L Troponin I < 0.012 (0.01-0.034) ng/mL B-Natriuretic Peptide < 100 (<100) Total Protein 8.3 H (6.3-8.2) g/dL Albumin 4.9 (3.5-5.0) g/dL Globulin 3.4 (1.7-4.1) g/dL Albumin/Globulin Ratio 1.4 (1.0-2.8) Lipase 105 (23-300) U/L Urine RBC 1-5/hpf (0-5/HPF) Urine WBC 0-1/hpf (0-5/HPF) Ur Squamous Epith Cells 0-1 /hpf Amorphous Sediment 1+ Urine Bacteria None seen (None) Urine Mucus 1+ H (Negative) Ur Culture Indicated? Cult not indicated Influenza A & B (PCR) (Negative) 01/11/19 Range/Units 13:40 WBC (4.5-11.0) X10^3/uL RBC (4.5-5.9) X10^6/uL Hgb (13.5-17.5) g/dL Hct (41-53) % MCV (80-100) fL MCH (26-34) PG MCHC (30-36) % RDW (11.6-14.8) % Plt Count (150-400) X10^3/uL Neut % (Auto) (50-75) % Lymph % (Auto) (25-40) % [place] % (Auto) (3-14) % Eos % (Auto) (2-4) % Baso % (Auto) (0-2) % Neut # (Auto) (6860-0061) /uL Lymph # (Auto) (0752-9849) /uL [place] # (Auto) (0-900) /uL Eos # (Auto) (0-450) /uL Baso # (Auto) (0-100) /uL Sodium (137-145) mmol/L Potassium (3.4-5.1) mmol/L Chloride (98-107) mmol/L Carbon Dioxide (22-32) mmol/L BUN (9-20) mg/dL Creatinine (0.66-1.25) mg/dL Estimated GFR (>60) mL/min BUN/Creatinine Ratio (6-22) Glucose (70-100) mg/dL Calcium (8.4-10.2) mg/dL Total Bilirubin (0.2-1.3) mg/dL AST (17-59) IU/L ALT (21-72) IU/L Alkaline Phosphatase (38-126) U/L Troponin I (0.01-0.034) ng/mL B-Natriuretic Peptide (<100) Total Protein (6.3-8.2) g/dL Albumin (3.5-5.0) g/dL Globulin (1.7-4.1) g/dL Albumin/Globulin Ratio (1.0-2.8) Lipase (23-300) U/L Urine RBC (0-5/HPF) Urine WBC (0-5/HPF) Ur Squamous Epith Cells Amorphous Sediment Urine Bacteria (None) Urine Mucus (Negative) Ur Culture Indicated? Influenza A & B (PCR) Negative (Negative) Point of Care Testing Glucose POC 116 Urine Dip Bedside Urine Glucose Negative Bedside Urine Bilirubin - Negative Bedside Urine Ketone - Negative Urine Specific Galvin 1.010 Bedside Urine Occult Blood +/- Bedside Urine pH 7.0 Bedside Urine Protein + 30 Bedside Urine Urobilinogen +/- 1mg Bedside Urine Nitrite - Negative Bedside Urine Leukocytes - Negative Esterase Imaging Data Chest x-ray: Radiologist's impression: [address] [address] XRay Report Signed Patient: Edgar Leon [facility]#: [id number] : 1975Acct:[id number] Age/Sex: 43 / MDate of Service: 01/11/19 Loc: ED Accession Number: [id number] Procedure: XR chest 1V Ordering Provider: Salvador Piedra PROCEDURE: XR CHEST 1V INDICATIONS: Nausea vomiting abdominal pain history of CHF and cardiomyop TECHNIQUE: One view of the chest was acquired. COMPARISON: [facility], , XR CHEST 1V, 01/08/2019, 7:41. FINDINGS: Surgical changes and devices: Lead-less pacer. Lungs and pleura: Lungs are clear. No pleural effusions or pneumothorax. Mediastinum: Mediastinal contours appear normal. Heart size is normal. Bones and chest wall: No suspicious bony lesions. Overlying soft tissues appear unremarkable. IMPRESSION: No acute disease. CT scan - abdomen: Radiologist's impression: [address] [address] [address] Scan Report Signed Patient: Edgar Leon [facility]#: [id number] : 1975Acct:[id number] Age/Sex: 43 / MDate of Service: 01/11/19 Loc: ED Accession Number: [id number] Procedure: CT abdomen pelvis w con Ordering Provider: Salvador Piedra PROCEDURE: CT ABDOMEN PELVIS W CON INDICATIONS: Nausea vomiting generalized abdominal pain TECHNIQUE: After the administration of intravenous contrast, 5 mm thick sections acquired from the diaphragm to the symphysis. 5 mm coronal and sagittal reformats were acquired. For radiation dose reduction, the following was used: automated exposure control, adjustment of mA and/or kV according to patient size. COMPARISON: [facility], CT, CT ABDOMEN PELVIS W CON, 04/09/2018, 15:49. FINDINGS: Image quality: Excellent. ABDOMEN: Lung bases: Lung bases are clear. Heart size is normal. Solid organs: Mild diffuse hepatic fatty infiltration. Liver is normal in size and enhancement. Gallbladder is normal. Biliary system is non dilated. Pancreas enhances normally. Spleen is normal in size and enhancement. No adrenal nodules. Kidneys demonstrate normal size and enhancement, without hydronephrosis. There is a 1.5 cm low-density nodule in the right kidney. Peritoneum and bowel: Bowel loops demonstrate normal wall thickness and caliber. Appendix is not visualized. No free fluid or air. Nodes and vessels: No retroperitoneal or mesenteric adenopathy by size criteria. Aorta and inferior vena cava are normal in size. Miscellaneous: No ventral hernias. PELVIS: Genitourinary: Bladder wall thickness is normal. Miscellaneous: No inguinal hernias or adenopathy. Bones: No suspicious bony lesions. No vertebral body compression fractures. IMPRESSION: 1. No acute intra-abdominal/pelvic process identified. 2. Mild hepatic steatosis. 3. A 1.5 cm indeterminate low density nodule in the right kidney. Dictated by: Jdui Segundo M.D. on 01/11/2019 at 12:52 Approved by: Judi Segundo M.D. on 01/11/2019 at 12:59 ECG Data Interpretation: EKG shows sinus rhythm with occasional PVCs. No ST elevation or depression. T-waves are inverted at V4 V5 V6 and lead two and 1, ventricular rate of 61. Pr interval of 123. QRS duration of 82. QTC of 449. EKG is consistent with prior EKGs. [facility] Narrative Medical decision making narrative: Chest x-ray was obtained was negative for any acute findings. CT the abdomen was obtained was also negative. Chemistries and CBC were obtained were unremarkable. EKG was consistent with prior EKGs with no ST elevation or depression. Differential between his nausea between his IBS or a viral illness. He has Phenergan at home which she will use for his nausea. Plenty of fluids. Follow up with primary care provider. [id number] Tylenol as needed for any discomfort. For any worsening symptoms return to the emergency room. <Dominick Navarrete, DO - Last Filed: 01/12/19 18:18> Lab Data Lab Results 01/11/19 01/11/19 01/11/19 Range/Units 12:30 12:30 13:13 WBC 9.3 (4.5-11.0) X10^3/uL RBC 5.58 (4.5-5.9) X10^6/uL Hgb 16.4 (13.5-17.5) g/dL Hct 46.6 (41-53) % MCV 83.7 D (80-100) fL MCH 29.4 (26-34) PG MCHC 35.2 (30-36) % RDW 15.0 H (11.6-14.8) % Plt Count 212 (150-400) X10^3/uL Neut % (Auto) 86.5 H (50-75) % Lymph % (Auto) 10.1 L (25-40) % [place] % (Auto) 2.3 L (3-14) % Eos % (Auto) 0.1 L (2-4) % Baso % (Auto) 1.0 (0-2) % Neut # (Auto) 8100 H (6676-9162) /uL Lymph # (Auto) 900 L (3177-8999) /uL [place] # (Auto) 200 (0-900) /uL Eos # (Auto) 0 (0-450) /uL Baso # (Auto) 100 (0-100) /uL Sodium 140 (137-145) mmol/L Potassium 4.1 (3.4-5.1) mmol/L Chloride 104 (98-107) mmol/L Carbon Dioxide 24 (22-32) mmol/L BUN 19 (9-20) mg/dL Creatinine 1.00 (0.66-1.25) mg/dL Estimated GFR > 60.0 (>60) mL/min BUN/Creatinine Ratio 19.0 (6-22) Glucose 124 H (70-100) mg/dL Calcium 10.1 (8.4-10.2) mg/dL Total Bilirubin 0.6 (0.2-1.3) mg/dL AST 21 (17-59) IU/L ALT 38 (21-72) IU/L Alkaline Phosphatase 72 (38-126) U/L Troponin I < 0.012 (0.01-0.034) ng/mL B-Natriuretic Peptide < 100 (<100) Total Protein 8.3 H (6.3-8.2) g/dL Albumin 4.9 (3.5-5.0) g/dL Globulin 3.4 (1.7-4.1) g/dL Albumin/Globulin Ratio 1.4 (1.0-2.8) Lipase 105 (23-300) U/L Urine RBC 1-5/hpf (0-5/HPF) Urine WBC 0-1/hpf (0-5/HPF) Ur Squamous Epith Cells 0-1 /hpf Amorphous Sediment 1+ Urine Bacteria None seen (None) Urine Mucus 1+ H (Negative) Ur Culture Indicated? Cult not indicated Influenza A & B (PCR) (Negative) 01/11/19 Range/Units 13:40 WBC (4.5-11.0) X10^3/uL RBC (4.5-5.9) X10^6/uL Hgb (13.5-17.5) g/dL Hct (41-53) % MCV (80-100) fL MCH (26-34) PG MCHC (30-36) % RDW (11.6-14.8) % Plt Count (150-400) X10^3/uL Neut % (Auto) (50-75) % Lymph % (Auto) (25-40) % [place] % (Auto) (3-14) % Eos % (Auto) (2-4) % Baso % (Auto) (0-2) % Neut # (Auto) (8059-1762) /uL Lymph # (Auto) (7138-0556) /uL [place] # (Auto) (0-900) /uL Eos # (Auto) (0-450) /uL Baso # (Auto) (0-100) /uL Sodium (137-145) mmol/L Potassium (3.4-5.1) mmol/L Chloride (98-107) mmol/L Carbon Dioxide (22-32) mmol/L BUN (9-20) mg/dL Creatinine (0.66-1.25) mg/dL Estimated GFR (>60) mL/min BUN/Creatinine Ratio (6-22) Glucose (70-100) mg/dL Calcium (8.4-10.2) mg/dL Total Bilirubin (0.2-1.3) mg/dL AST (17-59) IU/L ALT (21-72) IU/L Alkaline Phosphatase (38-126) U/L Troponin I (0.01-0.034) ng/mL B-Natriuretic Peptide (<100) Total Protein (6.3-8.2) g/dL Albumin (3.5-5.0) g/dL Globulin (1.7-4.1) g/dL Albumin/Globulin Ratio (1.0-2.8) Lipase (23-300) U/L Urine RBC (0-5/HPF) Urine WBC (0-5/HPF) Ur Squamous Epith Cells Amorphous Sediment Urine Bacteria (None) Urine Mucus (Negative) Ur Culture Indicated? Influenza A & B (PCR) Negative (Negative) Point of Care Testing Glucose POC 116 Urine Dip Bedside Urine Glucose Negative Bedside Urine Bilirubin - Negative Bedside Urine Ketone - Negative Urine Specific Galvin 1.010 Bedside Urine Occult Blood +/- Bedside Urine pH 7.0 Bedside Urine Protein + 30 Bedside Urine Urobilinogen +/- 1mg Bedside Urine Nitrite - Negative Bedside Urine Leukocytes - Negative Esterase Discharge Plan Departure Patient Disposition: Home Clinical Impression: Nausea Discharge Date/Time: 01/11/19 14:18 Interventions: ED Discharge Assessment Last Done: 01/11/19 14:17 Instructions: DI for Nausea -- Adult Activity Restrictions/Additional Instructions: Imaging today was unremarkable. Laboratory results were unremarkable. Differential between causes a nausea between a history of IBS or viral illness. Use Phenergan that you have at home as prescribed for nausea. Plenty of fluids. Follow up with her primary care provider. Return emergency room for any worsening symptoms. Prescriptions: No Action promethazine 25 MG tablet 25 mg PO Q6HP PRN (Reason: Nausea) Qty: 0 RF: 0 mesalamine 1.2 gram tablet,delayed release (DR/EC) 4 tab PO QAM RF: 0 alprazolam 1 mg tablet 2 mg PO BEDTIME RF: 0 isosorbide mononitrate 30 mg tablet extended release 24 hr 30 mg PO DAILY RF: 0 duloxetine 30 mg capsule,delayed release(DR/EC) 90 mg PO DAILY RF: 0 verapamil 180 mg tablet extended release 180 mg PO BEDTIME RF: 0 trazodone 150 mg tablet 150 - 400 mg PO BEDTIME PRN (Reason: Sleep) RF: 0 alprazolam 1 mg tablet 1 mg PO BID RF: 0 oxycodone-acetaminophen 10-325 mg tablet 1 tab PO DAILY PRN (Reason: Pain, Severe) RF: 0 nitroglycerin [Nitromist] 400 mcg/spray Aerosol,[place] 1 spray Translingual PRN PRN (Reason: Chest Pain) RF: 0 aripiprazole [Abilify] 15 mg Tablet 15 mg PO DAILY RF: 0 pantoprazole 40 mg Tablet,Delayed Release (Dr/Ec) 40 mg PO DAILY RF: 0 divalproex 250 mg Tablet Extended Release 24 Hr 250 mg PO BID RF: 0 ketorolac 10 mg tablet 10 mg PO Q6H PRN (Reason: pain) Qty: 20 RF: 0 prednisone 20 mg tablet 40 mg PO DAILY Qty: 10 RF: 0 Aimovig Autoinjector 70 mg/mL auto-injector 70 mg subcut QMONTH RF: 0 metoprolol succinate [Toprol XL] 100 mg tablet extended release 24 hr 100 mg PO BID RF: 0 tizanidine 4 mg tablet 8 mg PO TID PRN (Reason: Muscle Spasm) RF: 0 prazosin 2 mg Capsule 4 mg PO BEDTIME RF: 0 Savella 50 mg Tablet 100 mg PO QPM RF: 0 fluticasone 50 mcg/actuation spray,suspension 1 spray Intranasal QDAY RF: 0 Lyrica 300 mg capsule 300 mg PO BID RF: 0 Symbicort 160-4.5 mcg/actuation HFA aerosol inhaler 2 puff Inhalation BID RF: 0 Ocuvite 269-36-4-150 go-ooyi-rm-mg Capsule 1 tab PO QDAY RF: 0 dicyclomine 20 mg tablet 20 mg PO BID PRN (Reason: Abdominal Pain) RF: 0 Krill Oil ([place] 3 and 6) 1,500-165-67.5 mg Capsule 1 cap PO DAILY RF: 0 potassium chloride 20 mEq tablet,ER particles/crystals 20 meq PO DAILY RF: 0 furosemide 20 mg tablet 40 mg PO DAILY RF: 0 Referrals: Stacy Collier MD [Primary Care Provider] - <Dominick Navarrete DO - Last Filed: 01/12/19 18:18> Cosign ED Attending Angusature Attestation: I was available for consultation during this patient's emergency department encounter
--- NOTE | 2019-01-11 12:14 | DI.RAD.S_ITS ---
PROCEDURE: XR CHEST 1V INDICATIONS: Nausea vomiting abdominal pain history of CHF and cardiomyop TECHNIQUE: One view of the chest was acquired. COMPARISON: [facility], CR, XR CHEST 1V, 01/08/2019, 7:41. FINDINGS: Surgical changes and devices: Lead-less pacer. Lungs and pleura: Lungs are clear. No pleural effusions or pneumothorax. Mediastinum: Mediastinal contours appear normal. Heart size is normal. Bones and chest wall: No suspicious bony lesions. Overlying soft tissues appear unremarkable. IMPRESSION: No acute disease. Dictated by: Jose Alvarado M.D. on 01/11/2019 at 13:06 Approved by: Jose Alvarado M.D. on 01/11/2019 at 13:09
--- NOTE | 2019-01-11 12:14 | DI.CT.S_ITS ---
PROCEDURE: CT ABDOMEN PELVIS W CON INDICATIONS: Nausea vomiting generalized abdominal pain TECHNIQUE: After the administration of intravenous contrast, 5 mm thick sections acquired from the diaphragm to the symphysis. 5 mm coronal and sagittal reformats were acquired. For radiation dose reduction, the following was used: automated exposure control, adjustment of mA and/or kV according to patient size. COMPARISON: Located [facility], CT, CT ABDOMEN PELVIS W CON, 04/09/2018, 15:49. FINDINGS: Image quality: Excellent. ABDOMEN: Lung bases: Lung bases are clear. Heart size is normal. Solid organs: Mild diffuse hepatic fatty infiltration. Liver is normal in size and enhancement. Gallbladder is normal. Biliary system is non dilated. Pancreas enhances normally. Spleen is normal in size and enhancement. No adrenal nodules. Kidneys demonstrate normal size and enhancement, without hydronephrosis. There is a 1.5 cm low-density nodule in the right kidney. Peritoneum and bowel: Bowel loops demonstrate normal wall thickness and caliber. Appendix is not visualized. No free fluid or air. Nodes and vessels: No retroperitoneal or mesenteric adenopathy by size criteria. Aorta and inferior vena cava are normal in size. Miscellaneous: No ventral hernias. PELVIS: Genitourinary: Bladder wall thickness is normal. Miscellaneous: No inguinal hernias or adenopathy. Bones: No suspicious bony lesions. No vertebral body compression fractures. IMPRESSION: 1. No acute intra-abdominal/pelvic process identified. 2. Mild hepatic steatosis. 3. A 1.5 cm indeterminate low density nodule in the right kidney. Dictated by: Judi Segundo M.D. on 01/11/2019 at 12:52 Approved by: Judi Segundo M.D. on 01/11/2019 at 12:59
[2019-01-11 12:19] VITALS: BP 153/84; PULSE 63; RESP 17; O2SAT 96
[2019-01-11 12:39] LABS: Add Manual Diff / Slide Review NO; Basophils Absolute Auto 100 /uL (0-100); Eosinophils Absolute Auto 0 /uL (0-450); Eosinophils Percent Auto 0.1 % (2-4); Hematocrit 46.6 % (41-53); Hemoglobin 16.4 g/dL (13.5-17.5); Lymphocytes Absolute Auto 900 /uL (1100-4500); Lymphocytes Percent Auto 10.1 % (25-40); Mean Corpuscular HGB Conc 35.2 % (30-36); Mean Corpuscular Hemoglobin 29.4 PG (26-34); Mean Corpuscular Volume 83.7 fL (80-100); Monocytes Absolute Auto 200 /uL (0-900); Monocytes Percent Auto 2.3 % (3-14); Neutrophils Absolute Auto 8100 /uL (1500-7000); Neutrophils Percent Auto 86.5 % (50-75); Platelet Count 212 X10^3/uL (150-400); Red Blood Cell Count 5.58 X10^6/uL (4.5-5.9); White Blood Cell Count 9.3 X10^3/uL (4.5-11.0)
[2019-01-11] MEDS: KETOROLAC 60 MG/2 ML VIAL 30 MG IV (12:46)
[2019-01-11] MEDS: SODIUM CHLORIDE 0.9% 1,000 ML 1000 ML IV (12:46)
[2019-01-11] MEDS: ONDANSETRON 4 MG/2 ML INJ IV (12:46)
[2019-01-11 12:50] LABS: Alanine Aminotransferase 38 IU/L (21-72); Albumin 4.9 g/dL (3.5-5.0); Albumin Globulin Ratio 1.4 (1.0-2.8); Alkaline Phosphatase 72 U/L (38-126); Aspartate Aminotransferase 21 IU/L (17-59); Bilirubin Total 0.6 mg/dL (0.2-1.3); Blood Urea Nitrogen 19 mg/dL (9-20); Calcium 10.1 mg/dL (8.4-10.2); Carbon Dioxide 24 mmol/L (22-32); Chloride 104 mmol/L (98-107); Estimated Glomerular Filt Rate > 60.0 mL/min (>60); Globulin 3.4 g/dL (1.7-4.1); Glucose 124 mg/dL (70-100); HEMOLYSIS < 15 (0-50); Lipase 105 U/L (23-300); Potassium 4.1 mmol/L (3.4-5.1); Sodium 140 mmol/L (137-145); Total Protein 8.3 g/dL (6.3-8.2)
[2019-01-11 13:00] VITALS: BP 144/86; PULSE 64; RESP 13; O2SAT 97
[2019-01-11 13:02] LABS: Troponin I < 0.012 ng/mL (0.01-0.034)
[2019-01-11 13:08] LABS: B Type Natriuretic Peptide < 100 (<100)
[2019-01-11 13:21] LABS: Bacteria Urine None Seen
[2019-01-11 13:32] LABS: RBC Urine 1-5/HPF (0-5/HPF); Squamous Epithelial Cell Urine 0-1 /HPF; WBC Urine 0-1/HPF (0-5/HPF)
[2019-01-11 13:33] LABS: Amorphous Sediment Urine 1+; Culture Indicated Urine Cult Not Indicated; Mucus Urine 1+ (Negative)
--- NOTE | 2019-01-11 13:58 | ED_ITS ---
HPI - Nausea/Vomiting/Diarrhea <MALA Salinas - Last Filed: 01/11/19 21:41> General Chief complaint: Nausea/Vomiting/Diarrhea Stated complaint: SENT OVER BY DOCTOR Time Seen by Provider: 01/11/19 12:05 Source: patient Mode of arrival: ambulatory Limitations: no limitations History of Present Illness HPI Narrative: 43-year-old male with history of CHF and IBS that is a part-time smoker here for complaint of having nausea since yesterday. He states that he has a Phenergan at home that he uses today which helped his nausea however has nausea returned today he did not use as Phenergan today. He states that his urine has been concentrated so he thinks that he is dehydrated. He reports having generalized abdominal discomfort and bloating. He is unsure whether not the symptoms are consistent with his IBS. He denies any fevers. He denies any chest pain or shortness of breath at this timeframe. Last bowel movement was earlier this morning and was unremarkable. He denies any urinary symptoms. No flank pain. He does state that he has had chills. MD complaint: nausea Related Data Home Medications Medication Instructions Recorded Confirmed promethazine 25 mg PO Q6HP PRN #0 03/05/18 01/11/19 budesonide-formoterol [Symbicort] 2 puff INHALATION BID 03/23/18 01/11/19 fluticasone 1 spray INTRANASAL QDAY 03/23/18 01/11/19 metoprolol succinate [Toprol XL] 100 mg PO BID 03/23/18 01/11/19 milnacipran [Savella] 100 mg PO QPM 03/23/18 01/11/19 prazosin 4 mg PO BEDTIME 03/23/18 01/11/19 pregabalin [Lyrica] 300 mg PO BID 03/23/18 01/11/19 tizanidine 8 mg PO TID PRN 03/23/18 01/11/19 vit C-vit [id number]-bjh-om-[id number] 1 tab PO QDAY 03/23/18 01/11/19 [Ocuvite] dicyclomine 20 mg PO BID PRN 04/29/18 01/11/19 mesalamine 4 tab PO QAM 04/30/18 01/11/19 furosemide 40 mg PO DAILY 07/19/18 01/11/19 [id number]-ool-[id number]-[id number] 1 cap PO DAILY 07/19/18 01/11/19 [Krill Oil ([place] 3 and 6)] potassium chloride 20 meq PO DAILY 07/19/18 01/11/19 alprazolam 2 mg PO BEDTIME 11/02/18 01/11/19 duloxetine 90 mg PO DAILY 11/02/18 01/11/19 isosorbide mononitrate 30 mg PO DAILY 11/02/18 01/11/19 trazodone 150 - 400 mg PO BEDTIME PRN 11/02/18 01/11/19 verapamil 180 mg PO BEDTIME 11/02/18 01/11/19 alprazolam 1 mg PO BID 11/03/18 01/11/19 aripiprazole [Abilify] 15 mg PO DAILY 11/24/18 01/11/19 divalproex 250 mg PO BID 11/24/18 01/11/19 nitroglycerin [Nitromist] 1 spray TRANSLINGUAL PRN PRN 11/24/18 01/11/19 oxycodone-acetaminophen 1 tab PO DAILY PRN 11/24/18 01/11/19 pantoprazole 40 mg PO DAILY 11/24/18 01/11/19 erenumab-aooe [Aimovig 70 mg SUBCUT QMONTH 01/11/19 01/11/19 Autoinjector] Previous Rx's Medication Instructions Recorded ketorolac 10 mg PO Q6H PRN #20 tab 12/30/18 prednisone 40 mg PO DAILY #10 tab 01/08/19 Allergies Allergy/AdvReac Type Severity Reaction Status Date / Time codeine [CODEINE] Allergy Severe ANAPHYLAXIS Verified 01/08/19 07:25 amitriptyline [AMITRIPTYLINE] Allergy Unknown DIZZINESS Verified 01/08/19 07:25 AND UNSTEADYINESS tramadol [From ULTRAM] Allergy Unknown Verified 01/08/19 07:25 bee venom protein (honey bee) Allergy Verified 01/08/19 07:25 squash Allergy Verified 01/08/19 07:25 lisinopril [LISINOPRIL] AdvReac Unknown Verified 01/08/19 07:25 NSAIDS (Non-Steroidal AdvReac Unknown Verified 01/08/19 07:25 Anti-Inflamma [NSAIDS (NON-STEROIDAL ANTI-INFLAMMA] telmisartan [From MICARDIS] AdvReac Unknown Verified 01/08/19 07:25 Review of Systems <MALA Salinas - Last Filed: 01/11/19 21:41> Constitutional Denies chills, Denies fever(s), Denies lethargy and Denies weakness Eyes Denies change in vision, Denies eye discharge, Denies irritation and Denies loss of vision ENT Ears, Nose, Mouth, and Throat: Denies change in voice, Denies neck pain and Denies sore throat Cardiovascular Denies chest pain, Denies irregular heart rhythm, Denies lightheadedness, Denies palpitations, Denies dyspnea, Denies dyspnea on exertion and Denies orthopnea Respiratory Denies cough, Denies dyspnea, Denies dyspnea on exertion and Denies wheezing Gastrointestinal Gastrointestinal: Reports abdominal pain and Reports nausea Genitourinary Denies hematuria, Denies flank pain, Denies urinary incontinence and Denies urinary urgency Musculoskeletal Denies neck pain Integumentary/Breasts Denies pruritus, Denies erythema, Denies rash and Denies wounds Neurologic Denies loss of vision and Denies weakness Endocrine Denies palpitations Hematologic/Lymphatic Denies easy bruising Allergic/Immunologic Denies wheezing PFSH <MALA Salinas - Last Filed: 01/11/19 21:41> Medical History Bipolar 1 disorder (Acute) Borderline personality disorder (Acute) Hypertrophic cardiomyopathy (Acute) Acute Crohn's disease (Chronic) Asthma (Chronic) Bulging disc (Chronic) CHF (congestive heart failure) (Chronic) Cataplexy (Chronic) Depression (Chronic) Diabetes (Chronic) Fibromyalgia (Chronic) GERD (gastroesophageal reflux disease) (Chronic) HTN (hypertension) (Chronic) Migraines (Chronic) Non-STEMI (non-ST elevated myocardial infarction) (Chronic) ROSLYN (obstructive sleep apnea) (Chronic) Osteoarthritis (Chronic) Surgical History Status post cardiac catheterization (Acute) Social History Smoking Status: Current some day smoker Social History Smoking Status: Current some day smoker Exam <MALA Salinas - Last Filed: 01/11/19 21:41> Initial Vital Signs Initial Vital Signs: Vital Signs Temperature 98.4 F 01/11/19 09:58 Pulse Rate 66 01/11/19 09:58 Respiratory Rate 20 01/11/19 09:58 Blood Pressure 177/104 H 01/11/19 09:58 Pulse Oximetry 99 01/11/19 09:58 Const General: cooperative and well developed Nutritional Appearance: well nourished Orientation: alert, awake, oriented x3 and not confused HENMO Mouth: oral mucosae normal and moist mucous membranes Eyes Conjunctivae: conjunctivae normal Sclera: sclerae normal Pupils: PERRL EOM: EOM intact bilaterally Resp Effort & Inspection: normal respiratory effort, able to speak in complete sentences, no respiratory distress and no use of accessory muscles Auscultation: clear to auscultation bilaterally, no rales, no rhonchi and no wheezes Cardio Rate: regular rate Rhythm: regular rhythm Heart Sounds: no click, no gallops, no murmurs and no rubs Pulses: normal peripheral pulses GI Inspection: non-distended Palpation: soft, no hepatosplenomegaly, No guarding, No pulsatile mass and tender (Generalized discomfort.) Auscultation: normal bowel sounds General: No CVA tenderness Skin General: no rashes or lesions noted, No jaundice and No petechiae Neuro General: alert, oriented x3, gait normal and no focal motor deficits Speech: speech normal <Dominick Navarrete DO - Last Filed: 01/12/19 18:18> Initial Vital Signs Initial Vital Signs: Vital Signs Temperature 98.4 F 01/11/19 09:58 Pulse Rate 66 01/11/19 09:58 Respiratory Rate 20 01/11/19 09:58 Blood Pressure 177/104 H 01/11/19 09:58 Pulse Oximetry 99 01/11/19 09:58 Course <MALA Salinas - Last Filed: 01/11/19 21:41> Orders Ordered: Discontinued Medications Sodium Chloride (Normal Saline 0.9%) 1,000 mls @ 1,000 mls/hr IV BOLUS ONE Stop: 01/11/19 13:13 Last Infusion: 01/11/19 14:17 Dose: 0 mls/hr Admin: 01/11/19 12:46 Dose: 1,000 mls/hr Ketorolac Tromethamine (Toradol) 30 mg IV NOW ONE Stop: 01/11/19 12:15 Last Admin: 01/11/19 12:46 Dose: 30 mg Ondansetron HCl (Zofran Odt) 4 mg SL NOW ONE Stop: 01/11/19 11:49 Last Admin: 01/11/19 11:52 Dose: 4 mg Ondansetron HCl (Zofran) 4 mg IV NOW ONE Stop: 01/11/19 12:15 Last Admin: 01/11/19 12:46 Dose: 4 mg Vital Signs - 8 hr 01/11/19 14:00 01/11/19 14:17 Pulse Rate 63 66 Respiratory Rate 14 15 Blood Pressure 158/79 H Blood Pressure [Right Arm] 158/79 H Pulse Oximetry 99 98 <Dominick Navarrete DO - Last Filed: 01/12/19 18:18> Orders Ordered: Discontinued Medications Sodium Chloride (Normal Saline 0.9%) 1,000 mls @ 1,000 mls/hr IV BOLUS ONE Stop: 01/11/19 13:13 Last Infusion: 01/11/19 14:17 Dose: 0 mls/hr Admin: 01/11/19 12:46 Dose: 1,000 mls/hr Ketorolac Tromethamine (Toradol) 30 mg IV NOW ONE Stop: 01/11/19 12:15 Last Admin: 01/11/19 12:46 Dose: 30 mg Ondansetron HCl (Zofran Odt) 4 mg SL NOW ONE Stop: 01/11/19 11:49 Last Admin: 01/11/19 11:52 Dose: 4 mg Ondansetron HCl (Zofran) 4 mg IV NOW ONE Stop: 01/11/19 12:15 Last Admin: 01/11/19 12:46 Dose: 4 mg Vital Signs - 8 hr 01/11/19 14:00 01/11/19 14:17 Pulse Rate 63 66 Respiratory Rate 14 15 Blood Pressure 158/79 H Blood Pressure [Right Arm] 158/79 H Pulse Oximetry 99 98 MDM - Nausea/Vomiting/Diarrhea <MALA Salinas - Last Filed: 01/11/19 21:41> Lab Data Result diagrams: 01/11/19 12:30 01/11/19 12:30 Lab Results 01/11/19 01/11/19 01/11/19 Range/Units 12:30 12:30 13:13 WBC 9.3 (4.5-11.0) X10^3/uL RBC 5.58 (4.5-5.9) X10^6/uL Hgb 16.4 (13.5-17.5) g/dL Hct 46.6 (41-53) % MCV 83.7 D (80-100) fL MCH 29.4 (26-34) PG MCHC 35.2 (30-36) % RDW 15.0 H (11.6-14.8) % Plt Count 212 (150-400) X10^3/uL Neut % (Auto) 86.5 H (50-75) % Lymph % (Auto) 10.1 L (25-40) % Grady % (Auto) 2.3 L (3-14) % Eos % (Auto) 0.1 L (2-4) % Baso % (Auto) 1.0 (0-2) % Neut # (Auto) 8100 H (8640-6721) /uL Lymph # (Auto) 900 L (3916-8956) /uL [place] # (Auto) 200 (0-900) /uL Eos # (Auto) 0 (0-450) /uL Baso # (Auto) 100 (0-100) /uL Sodium 140 (137-145) mmol/L Potassium 4.1 (3.4-5.1) mmol/L Chloride 104 (98-107) mmol/L Carbon Dioxide 24 (22-32) mmol/L BUN 19 (9-20) mg/dL Creatinine 1.00 (0.66-1.25) mg/dL Estimated GFR > 60.0 (>60) mL/min BUN/Creatinine Ratio 19.0 (6-22) Glucose 124 H (70-100) mg/dL Calcium 10.1 (8.4-10.2) mg/dL Total Bilirubin 0.6 (0.2-1.3) mg/dL AST 21 (17-59) IU/L ALT 38 (21-72) IU/L Alkaline Phosphatase 72 (38-126) U/L Troponin I < 0.012 (0.01-0.034) ng/mL B-Natriuretic Peptide < 100 (<100) Total Protein 8.3 H (6.3-8.2) g/dL Albumin 4.9 (3.5-5.0) g/dL Globulin 3.4 (1.7-4.1) g/dL Albumin/Globulin Ratio 1.4 (1.0-2.8) Lipase 105 (23-300) U/L Urine RBC 1-5/hpf (0-5/HPF) Urine WBC 0-1/hpf (0-5/HPF) Ur Squamous Epith Cells 0-1 /hpf Amorphous Sediment 1+ Urine Bacteria None seen (None) Urine Mucus 1+ H (Negative) Ur Culture Indicated? Cult not indicated Influenza A & B (PCR) (Negative) 01/11/19 Range/Units 13:40 WBC (4.5-11.0) X10^3/uL RBC (4.5-5.9) X10^6/uL Hgb (13.5-17.5) g/dL Hct (41-53) % MCV (80-100) fL MCH (26-34) PG MCHC (30-36) % RDW (11.6-14.8) % Plt Count (150-400) X10^3/uL Neut % (Auto) (50-75) % Lymph % (Auto) (25-40) % [place]ady % (Auto) (3-14) % Eos % (Auto) (2-4) % Baso % (Auto) (0-2) % Neut # (Auto) (9774-3274) /uL Lymph # (Auto) (7464-7435) /uL [place]ady # (Auto) (0-900) /uL Eos # (Auto) (0-450) /uL Baso # (Auto) (0-100) /uL Sodium (137-145) mmol/L Potassium (3.4-5.1) mmol/L Chloride (98-107) mmol/L Carbon Dioxide (22-32) mmol/L BUN (9-20) mg/dL Creatinine (0.66-1.25) mg/dL Estimated GFR (>60) mL/min BUN/Creatinine Ratio (6-22) Glucose (70-100) mg/dL Calcium (8.4-10.2) mg/dL Total Bilirubin (0.2-1.3) mg/dL AST (17-59) IU/L ALT (21-72) IU/L Alkaline Phosphatase (38-126) U/L Troponin I (0.01-0.034) ng/mL B-Natriuretic Peptide (<100) Total Protein (6.3-8.2) g/dL Albumin (3.5-5.0) g/dL Globulin (1.7-4.1) g/dL Albumin/Globulin Ratio (1.0-2.8) Lipase (23-300) U/L Urine RBC (0-5/HPF) Urine WBC (0-5/HPF) Ur Squamous Epith Cells Amorphous Sediment Urine Bacteria (None) Urine Mucus (Negative) Ur Culture Indicated? Influenza A & B (PCR) Negative (Negative) Point of Care Testing Glucose POC 116 Urine Dip Bedside Urine Glucose Negative Bedside Urine Bilirubin - Negative Bedside Urine Ketone - Negative Urine Specific [place] 1.010 Bedside Urine Occult Blood +/- Bedside Urine pH 7.0 Bedside Urine Protein + 30 Bedside Urine Urobilinogen +/- 1mg Bedside Urine Nitrite - Negative Bedside Urine Leukocytes - Negative Esterase Imaging Data Chest x-ray: Radiologist's impression: [address] [address] XRay Report Signed Patient: Edgar Leon [facility]#: [id number] : 1975Acct:[id number] Age/Sex: 43 / MDate of Service: 01/11/19 Loc: ED Accession Number: [id number] Procedure: XR chest 1V Ordering Provider: Salvador Piedra PROCEDURE: XR CHEST 1V INDICATIONS: Nausea vomiting abdominal pain history of CHF and cardiomyop TECHNIQUE: One view of the chest was acquired. COMPARISON: [facility], , XR CHEST 1V, 01/08/2019, 7:41. FINDINGS: Surgical changes and devices: Lead-less pacer. Lungs and pleura: Lungs are clear. No pleural effusions or pneumothorax. Mediastinum: Mediastinal contours appear normal. Heart size is normal. Bones and chest wall: No suspicious bony lesions. Overlying soft tissues appear unremarkable. IMPRESSION: No acute disease. CT scan - abdomen: Radiologist's impression: [address] [address] [address] Scan Report Signed Patient: Edgar Leon [facility]#: [id number] : 1975Acct:[id number] Age/Sex: 43 / MDate of Service: 01/11/19 Loc: ED Accession Number: [id number] Procedure: CT abdomen pelvis w con Ordering Provider: Salvador Piedra PROCEDURE: CT ABDOMEN PELVIS W CON INDICATIONS: Nausea vomiting generalized abdominal pain TECHNIQUE: After the administration of intravenous contrast, 5 mm thick sections acquired from the diaphragm to the symphysis. 5 mm coronal and sagittal reformats were acquired. For radiation dose reduction, the following was used: automated exposure control, adjustment of mA and/or kV according to patient size. COMPARISON: [facility], CT, CT ABDOMEN PELVIS W CON, 04/09/2018, 15:49. FINDINGS: Image quality: Excellent. ABDOMEN: Lung bases: Lung bases are clear. Heart size is normal. Solid organs: Mild diffuse hepatic fatty infiltration. Liver is normal in size and enhancement. Gallbladder is normal. Biliary system is non dilated. Pancreas enhances normally. Spleen is normal in size and enhancement. No adrenal nodules. Kidneys demonstrate normal size and enhancement, without hydronephrosis. There is a 1.5 cm low-density nodule in the right kidney. Peritoneum and bowel: Bowel loops demonstrate normal wall thickness and caliber. Appendix is not visualized. No free fluid or air. Nodes and vessels: No retroperitoneal or mesenteric adenopathy by size criteria. Aorta and inferior vena cava are normal in size. Miscellaneous: No ventral hernias. PELVIS: Genitourinary: Bladder wall thickness is normal. Miscellaneous: No inguinal hernias or adenopathy. Bones: No suspicious bony lesions. No vertebral body compression fractures. IMPRESSION: 1. No acute intra-abdominal/pelvic process identified. 2. Mild hepatic steatosis. 3. A 1.5 cm indeterminate low density nodule in the right kidney. Dictated by: Judi Segundo M.D. on 01/11/2019 at 12:52 Approved by: Judi Segundo M.D. on 01/11/2019 at 12:59 ECG Data Interpretation: EKG shows sinus rhythm with occasional PVCs. No ST elevation or depression. T-waves are inverted at V4 V5 V6 and lead two and 1, ventricular rate of 61. Pr interval of 123. QRS duration of 82. QTC of 449. EKG is consistent with prior EKGs. [facility] Narrative Medical decision making narrative: Chest x-ray was obtained was negative for any acute findings. CT the abdomen was obtained was also negative. Chemistries and CBC were obtained were unremarkable. EKG was consistent with prior EKGs with no ST elevation or depression. Differential between his nausea between his IBS or a viral illness. He has Phenergan at home which she will use for his nausea. Plenty of fluids. Follow up with primary care provider. [id number] Tylenol as needed for any discomfort. For any worsening symptoms return to the emergency room. <Dominick Navarrete, DO - Last Filed: 01/12/19 18:18> Lab Data Lab Results 01/11/19 01/11/19 01/11/19 Range/Units 12:30 12:30 13:13 WBC 9.3 (4.5-11.0) X10^3/uL RBC 5.58 (4.5-5.9) X10^6/uL Hgb 16.4 (13.5-17.5) g/dL Hct 46.6 (41-53) % MCV 83.7 D (80-100) fL MCH 29.4 (26-34) PG MCHC 35.2 (30-36) % RDW 15.0 H (11.6-14.8) % Plt Count 212 (150-400) X10^3/uL Neut % (Auto) 86.5 H (50-75) % Lymph % (Auto) 10.1 L (25-40) % [place] % (Auto) 2.3 L (3-14) % Eos % (Auto) 0.1 L (2-4) % Baso % (Auto) 1.0 (0-2) % Neut # (Auto) 8100 H (3775-8861) /uL Lymph # (Auto) 900 L (3043-4934) /uL [place] # (Auto) 200 (0-900) /uL Eos # (Auto) 0 (0-450) /uL Baso # (Auto) 100 (0-100) /uL Sodium 140 (137-145) mmol/L Potassium 4.1 (3.4-5.1) mmol/L Chloride 104 (98-107) mmol/L Carbon Dioxide 24 (22-32) mmol/L BUN 19 (9-20) mg/dL Creatinine 1.00 (0.66-1.25) mg/dL Estimated GFR > 60.0 (>60) mL/min BUN/Creatinine Ratio 19.0 (6-22) Glucose 124 H (70-100) mg/dL Calcium 10.1 (8.4-10.2) mg/dL Total Bilirubin 0.6 (0.2-1.3) mg/dL AST 21 (17-59) IU/L ALT 38 (21-72) IU/L Alkaline Phosphatase 72 (38-126) U/L Troponin I < 0.012 (0.01-0.034) ng/mL B-Natriuretic Peptide < 100 (<100) Total Protein 8.3 H (6.3-8.2) g/dL Albumin 4.9 (3.5-5.0) g/dL Globulin 3.4 (1.7-4.1) g/dL Albumin/Globulin Ratio 1.4 (1.0-2.8) Lipase 105 (23-300) U/L Urine RBC 1-5/hpf (0-5/HPF) Urine WBC 0-1/hpf (0-5/HPF) Ur Squamous Epith Cells 0-1 /hpf Amorphous Sediment 1+ Urine Bacteria None seen (None) Urine Mucus 1+ H (Negative) Ur Culture Indicated? Cult not indicated Influenza A & B (PCR) (Negative) 01/11/19 Range/Units 13:40 WBC (4.5-11.0) X10^3/uL RBC (4.5-5.9) X10^6/uL Hgb (13.5-17.5) g/dL Hct (41-53) % MCV (80-100) fL MCH (26-34) PG MCHC (30-36) % RDW (11.6-14.8) % Plt Count (150-400) X10^3/uL Neut % (Auto) (50-75) % Lymph % (Auto) (25-40) % [place] % (Auto) (3-14) % Eos % (Auto) (2-4) % Baso % (Auto) (0-2) % Neut # (Auto) (3993-0343) /uL Lymph # (Auto) (7442-3657) /uL [place] # (Auto) (0-900) /uL Eos # (Auto) (0-450) /uL Baso # (Auto) (0-100) /uL Sodium (137-145) mmol/L Potassium (3.4-5.1) mmol/L Chloride (98-107) mmol/L Carbon Dioxide (22-32) mmol/L BUN (9-20) mg/dL Creatinine (0.66-1.25) mg/dL Estimated GFR (>60) mL/min BUN/Creatinine Ratio (6-22) Glucose (70-100) mg/dL Calcium (8.4-10.2) mg/dL Total Bilirubin (0.2-1.3) mg/dL AST (17-59) IU/L ALT (21-72) IU/L Alkaline Phosphatase (38-126) U/L Troponin I (0.01-0.034) ng/mL B-Natriuretic Peptide (<100) Total Protein (6.3-8.2) g/dL Albumin (3.5-5.0) g/dL Globulin (1.7-4.1) g/dL Albumin/Globulin Ratio (1.0-2.8) Lipase (23-300) U/L Urine RBC (0-5/HPF) Urine WBC (0-5/HPF) Ur Squamous Epith Cells Amorphous Sediment Urine Bacteria (None) Urine Mucus (Negative) Ur Culture Indicated? Influenza A & B (PCR) Negative (Negative) Point of Care Testing Glucose POC 116 Urine Dip Bedside Urine Glucose Negative Bedside Urine Bilirubin - Negative Bedside Urine Ketone - Negative Urine Specific [place] 1.010 Bedside Urine Occult Blood +/- Bedside Urine pH 7.0 Bedside Urine Protein + 30 Bedside Urine Urobilinogen +/- 1mg Bedside Urine Nitrite - Negative Bedside Urine Leukocytes - Negative Esterase Discharge Plan Departure Patient Disposition: Home Clinical Impression: Nausea Discharge Date/Time: 01/11/19 14:18 Interventions: ED Discharge Assessment Last Done: 01/11/19 14:17 Instructions: DI for Nausea -- Adult Activity Restrictions/Additional Instructions: Imaging today was unremarkable. Laboratory results were unremarkable. Differential between causes a nausea between a history of IBS or viral illness. Use Phenergan that you have at home as prescribed for nausea. Plenty of fluids. Follow up with her primary care provider. Return emergency room for any worsening symptoms. Prescriptions: No Action promethazine 25 MG tablet 25 mg PO Q6HP PRN (Reason: Nausea) Qty: 0 RF: 0 mesalamine 1.2 gram tablet,delayed release (DR/EC) 4 tab PO QAM RF: 0 alprazolam 1 mg tablet 2 mg PO BEDTIME RF: 0 isosorbide mononitrate 30 mg tablet extended release 24 hr 30 mg PO DAILY RF: 0 duloxetine 30 mg capsule,delayed release(DR/EC) 90 mg PO DAILY RF: 0 verapamil 180 mg tablet extended release 180 mg PO BEDTIME RF: 0 trazodone 150 mg tablet 150 - 400 mg PO BEDTIME PRN (Reason: Sleep) RF: 0 alprazolam 1 mg tablet 1 mg PO BID RF: 0 oxycodone-acetaminophen 10-325 mg tablet 1 tab PO DAILY PRN (Reason: Pain, Severe) RF: 0 nitroglycerin [Nitromist] 400 mcg/spray Aerosol,[place] 1 spray Translingual PRN PRN (Reason: Chest Pain) RF: 0 aripiprazole [Abilify] 15 mg Tablet 15 mg PO DAILY RF: 0 pantoprazole 40 mg Tablet,Delayed Release (Dr/Ec) 40 mg PO DAILY RF: 0 divalproex 250 mg Tablet Extended Release 24 Hr 250 mg PO BID RF: 0 ketorolac 10 mg tablet 10 mg PO Q6H PRN (Reason: pain) Qty: 20 RF: 0 prednisone 20 mg tablet 40 mg PO DAILY Qty: 10 RF: 0 Aimovig Autoinjector 70 mg/mL auto-injector 70 mg subcut QMONTH RF: 0 metoprolol succinate [Toprol XL] 100 mg tablet extended release 24 hr 100 mg PO BID RF: 0 tizanidine 4 mg tablet 8 mg PO TID PRN (Reason: Muscle Spasm) RF: 0 prazosin 2 mg Capsule 4 mg PO BEDTIME RF: 0 Savella 50 mg Tablet 100 mg PO QPM RF: 0 fluticasone 50 mcg/actuation spray,suspension 1 spray Intranasal QDAY RF: 0 Lyrica 300 mg capsule 300 mg PO BID RF: 0 Symbicort 160-4.5 mcg/actuation HFA aerosol inhaler 2 puff Inhalation BID RF: 0 Ocuvite 335-21-5-150 qy-cxgv-fx-mg Capsule 1 tab PO QDAY RF: 0 dicyclomine 20 mg tablet 20 mg PO BID PRN (Reason: Abdominal Pain) RF: 0 Krill Oil ([place] 3 and 6) 1,500-165-67.5 mg Capsule 1 cap PO DAILY RF: 0 potassium chloride 20 mEq tablet,ER particles/crystals 20 meq PO DAILY RF: 0 furosemide 20 mg tablet 40 mg PO DAILY RF: 0 Referrals: Stacy Collier MD [Primary Care Provider] - <Dominick Navarrete DO - Last Filed: 01/12/19 18:18> Cosign ED Attending Angusature Attestation: I was available for consultation during this patient's emergency department encounter
[2019-01-11 14:00] VITALS: BP 158/79; PULSE 63; RESP 14; O2SAT 99
[2019-01-11 14:01] LABS: Influenza A and B by PCR Rapid Negative (Negative)
[2019-01-11 14:17] VITALS: BP 158/79; PULSE 66; RESP 15; O2SAT 98
== END 2019-01-11 14:18 | disposition home or self-care (01) ==
PROVIDERS: Emergency Provider Nurse Practitioner Family; PCP Family Medicine
DX: R11.0 Nausea (principal)
CPT/HCPCS: 71045; 74177; 80053; 81003; 81015; 82962; 83690; 83880; 84484; 85025; 87400; 93005; 93010; 96361; 96374; 96375; 99283; 99285; J1885; J2405

== ENCOUNTER 2019-01-31 09:33 | Emergency (ER) | payer OTHER, SELFPAY ==
[2019-01-31 09:36] VITALS: BP 144/87; PULSE 82; RESP 18; TEMP 38; O2SAT 98; BMI 47.5
--- NOTE | 2019-01-31 10:18 | ED.DENTAL ---
HPI - Dental/Oral General Chief complaint: Dental/Oral Stated complaint: Abcsessed tooth Time Seen by Provider: 01/31/19 09:35 Source: patient Mode of arrival: ambulatory Limitations: no limitations History of Present Illness HPI Narrative: 43-year-old male former smoker with extensive pain control difficulties presents to the emergency department today with a chief complaint of some pain and minor swelling anterior to the teeth in his lower jaw. He denies any drainage or foul taste. He does not have an extensive poor dental history, he states his dentist is not open today and plans to contact them tomorrow. He denies any runny nose, sore throat or cough. He denies chest pain or shortness of breath. She denies dysuria, frequency or urgency. MD Complaint: tooth pain 1. Onset (ago): day(s) Duration: constant Severity: mild Relieving factors: nothing Exacerbating factors: chewing Context: history of dental caries Treatment prior to arrival: none Related Data Home Medications Medication Instructions Recorded Confirmed promethazine 25 mg PO Q6HP PRN #0 03/05/18 01/11/19 budesonide-formoterol [Symbicort] 2 puff INHALATION BID 03/23/18 01/11/19 fluticasone 1 spray INTRANASAL QDAY 03/23/18 01/11/19 metoprolol succinate [Toprol XL] 100 mg PO BID 03/23/18 01/11/19 milnacipran [Savella] 100 mg PO QPM 03/23/18 01/11/19 prazosin 4 mg PO BEDTIME 03/23/18 01/11/19 pregabalin [Lyrica] 300 mg PO BID 03/23/18 01/11/19 tizanidine 8 mg PO TID PRN 03/23/18 01/11/19 vit C-vit [id number]-[id number]-om-3 1 tab PO QDAY 03/23/18 01/11/19 [Ocuvite] dicyclomine 20 mg PO BID PRN 04/29/18 01/11/19 mesalamine 4 tab PO QAM 04/30/18 01/11/19 furosemide 40 mg PO DAILY 07/19/18 01/11/19 qzwsj-[id number]-[id number]-dab-la6-vlm-[id number] 1 cap PO DAILY 07/19/18 01/11/19 [Krill Oil ([place] 3 and 6)] potassium chloride 20 meq PO DAILY 07/19/18 01/11/19 alprazolam 2 mg PO BEDTIME 11/02/18 01/11/19 duloxetine 90 mg PO DAILY 11/02/18 01/11/19 isosorbide mononitrate 30 mg PO DAILY 11/02/18 01/11/19 trazodone 150 - 400 mg PO BEDTIME PRN 11/02/18 01/11/19 verapamil 180 mg PO BEDTIME 11/02/18 01/11/19 alprazolam 1 mg PO BID 11/03/18 01/11/19 aripiprazole [Abilify] 15 mg PO DAILY 11/24/18 01/11/19 divalproex 250 mg PO BID 11/24/18 01/11/19 nitroglycerin [Nitromist] 1 spray TRANSLINGUAL PRN PRN 11/24/18 01/11/19 oxycodone-acetaminophen 1 tab PO DAILY PRN 11/24/18 01/11/19 pantoprazole 40 mg PO DAILY 11/24/18 01/11/19 erenumab-aooe [Aimovig 70 mg SUBCUT QMONTH 01/11/19 01/11/19 Autoinjector] Previous Rx's Medication Instructions Recorded ketorolac 10 mg PO Q6H PRN #20 tab 12/30/18 prednisone 40 mg PO DAILY #10 tab 01/08/19 amoxicillin-pot clavulanate 1 tab PO BID #20 tab 01/31/19 [Augmentin] Allergies Allergy/AdvReac Type Severity Reaction Status Date / Time codeine [CODEINE] Allergy Severe ANAPHYLAXIS Verified 01/31/19 09:36 amitriptyline [AMITRIPTYLINE] Allergy Unknown DIZZINESS Verified 01/31/19 09:36 AND UNSTEADYINESS tramadol [From ULTRAM] Allergy Unknown Verified 01/31/19 09:36 bee venom protein (honey bee) Allergy Verified 01/31/19 09:36 squash Allergy Verified 01/31/19 09:36 lisinopril [LISINOPRIL] AdvReac Unknown Verified 01/31/19 09:36 NSAIDS (Non-Steroidal AdvReac Unknown Verified 01/31/19 09:36 Anti-Inflamma [NSAIDS (NON-STEROIDAL ANTI-INFLAMMA] telmisartan [From MICARDIS] AdvReac Unknown Verified 01/31/19 09:36 Review of Systems Constitutional Denies chills, Denies fever(s), Denies lethargy and Denies weakness Eyes Denies change in vision, Denies eye discharge, Denies irritation and Denies loss of vision ENT Ears, Nose, Mouth, and Throat: Denies change in voice, Reports dental pain, Denies neck pain and Denies sore throat Cardiovascular Denies chest pain, Denies irregular heart rhythm, Denies lightheadedness, Denies palpitations, Denies dyspnea, Denies dyspnea on exertion and Denies orthopnea Respiratory Denies cough, Denies dyspnea, Denies dyspnea on exertion and Denies wheezing Gastrointestinal Gastrointestinal: Denies abdominal pain, Denies change in bowel habits, Denies diarrhea, Denies nausea and Denies vomiting Genitourinary Denies hematuria, Denies flank pain, Denies urinary incontinence and Denies urinary urgency Musculoskeletal Denies neck pain Integumentary/Breasts Denies pruritus, Denies erythema, Denies rash and Denies wounds Neurologic Denies confusion, Denies loss of vision and Denies weakness Psychiatric Denies anxiety, Denies confusion, Denies depression, Denies homicidal ideation and Denies suicidal ideation Endocrine Denies palpitations Hematologic/Lymphatic Denies easy bruising Allergic/Immunologic Denies wheezing FOR[facility]LY [facility], [facility] Medical History Bipolar 1 disorder (Acute) Borderline personality disorder (Acute) Hypertrophic cardiomyopathy (Acute) Acute Crohn's disease (Chronic) Asthma (Chronic) Bulging disc (Chronic) CHF (congestive heart failure) (Chronic) Cataplexy (Chronic) Depression (Chronic) Diabetes (Chronic) Fibromyalgia (Chronic) GERD (gastroesophageal reflux disease) (Chronic) HTN (hypertension) (Chronic) Migraines (Chronic) Non-STEMI (non-ST elevated myocardial infarction) (Chronic) ROSLYN (obstructive sleep apnea) (Chronic) Osteoarthritis (Chronic) Surgical History Status post cardiac catheterization (Acute) Social History Smoking Status: Current some day smoker Social History Smoking Status: Current some day smoker Exam Narrative Exam Narrative: GEN: AOx3 and in mild distress, in pain. Morbid obesity. ORAL: No facial swelling or redness. No obvious intraoral fluctuance consistent with abscess but there is some tenderness at the gum line inferior to tooth 25 EYES: Pupils are equal, round, and reactive to light and accommodation. Extraoccular muscles are intact bilaterally. There is no subconjunctival hemorrhage or exudate. CHEST: Lungs are clear to auscultation bilaterally and free of wheezes, rales, or rhonchi. Heart rate is regular rhythm, there are no murmurs, clicks, rubs, or gallops. There is no chest wall tenderness. ABD: Abdomen is soft and nontender. There is no guarding or rebound. Bowel sounds are normal in all 4 quadrants. There is no mass or organomegaly. EXT: Full painless ROM of all extremities with no loss of sensation or strength. SKIN: Warm, pink, and dry. No erythema or rash Initial Vital Signs Initial Vital Signs: Vital Signs Temperature 100.4 F H 01/31/19 09:36 Pulse Rate 82 01/31/19 09:36 Respiratory Rate 18 01/31/19 09:36 Blood Pressure 144/87 H 01/31/19 09:36 Pulse Oximetry 98 01/31/19 09:36 Course Orders Ordered: Discontinued Medications Ketorolac Tromethamine (Toradol) 60 mg IM NOW ONE Stop: 01/31/19 10:07 Vital Signs - 8 hr 01/31/19 09:36 Temperature 100.4 F H Pulse Rate 82 Respiratory Rate 18 Blood Pressure 144/87 H Pulse Oximetry 98 Discharge Plan Departure Patient Disposition: Home Clinical Impression: Pain, dental Instructions: DI for Dental Pain Activity Restrictions/Additional Instructions: *You have been diagnosed with [dental pain, possible early abscess ] *What to do: *Take medications as directed: prescription electronically transmitted to [facility] in [place] at your request *Follow up with your primary care provider in 2-3 days, call for an appointment. Let them know you were seen in the Emergency Department and that we ask that you be seen in follow up *Return to ER if you should have any new, worsening or concerning symptoms Prescriptions: New amoxicillin-pot clavulanate [Augmentin] 875-125 mg tablet 1 tab PO BID Qty: 20 RF: 0 No Action promethazine 25 MG tablet 25 mg PO Q6HP PRN (Reason: Nausea) Qty: 0 RF: 0 mesalamine 1.2 gram tablet,delayed release (DR/EC) 4 tab PO QAM RF: 0 alprazolam 1 mg tablet 2 mg PO BEDTIME RF: 0 isosorbide mononitrate 30 mg tablet extended release 24 hr 30 mg PO DAILY RF: 0 duloxetine 30 mg capsule,delayed release(DR/EC) 90 mg PO DAILY RF: 0 verapamil 180 mg tablet extended release 180 mg PO BEDTIME RF: 0 trazodone 150 mg tablet 150 - 400 mg PO BEDTIME PRN (Reason: Sleep) RF: 0 alprazolam 1 mg tablet 1 mg PO BID RF: 0 oxycodone-acetaminophen 10-325 mg tablet 1 tab PO DAILY PRN (Reason: Pain, Severe) RF: 0 nitroglycerin [Nitromist] 400 mcg/spray Aerosol,[place] 1 spray Translingual PRN PRN (Reason: Chest Pain) RF: 0 aripiprazole [Abilify] 15 mg Tablet 15 mg PO DAILY RF: 0 pantoprazole 40 mg Tablet,Delayed Release (Dr/Ec) 40 mg PO DAILY RF: 0 divalproex 250 mg Tablet Extended Release 24 Hr 250 mg PO BID RF: 0 ketorolac 10 mg tablet 10 mg PO Q6H PRN (Reason: pain) Qty: 20 RF: 0 prednisone 20 mg tablet 40 mg PO DAILY Qty: 10 RF: 0 Aimovig Autoinjector 70 mg/mL auto-injector 70 mg subcut QMONTH RF: 0 metoprolol succinate [Toprol XL] 100 mg tablet extended release 24 hr 100 mg PO BID RF: 0 tizanidine 4 mg tablet 8 mg PO TID PRN (Reason: Muscle Spasm) RF: 0 prazosin 2 mg Capsule 4 mg PO BEDTIME RF: 0 Savella 50 mg Tablet 100 mg PO QPM RF: 0 fluticasone 50 mcg/actuation spray,suspension 1 spray Intranasal QDAY RF: 0 Lyrica 300 mg capsule 300 mg PO BID RF: 0 Symbicort 160-4.5 mcg/actuation HFA aerosol inhaler 2 puff Inhalation BID RF: 0 Ocuvite 448-60-4-150 fm-kceg-mk-mg Capsule 1 tab PO QDAY RF: 0 dicyclomine 20 mg tablet 20 mg PO BID PRN (Reason: Abdominal Pain) RF: 0 Krill Oil ([place] 3 and 6) 1,500-165-67.5 mg Capsule 1 cap PO DAILY RF: 0 potassium chloride 20 mEq tablet,ER particles/crystals 20 meq PO DAILY RF: 0 furosemide 20 mg tablet 40 mg PO DAILY RF: 0 Referrals: Stacy Collier MD [Primary Care Provider] -
[2019-01-31] MEDS: KETOROLAC 60 MG/2 ML VIAL IM (10:22)
[2019-01-31 10:46] VITALS: BP 148/88; PULSE 88; RESP 18; O2SAT 96
== END 2019-01-31 10:48 | disposition home or self-care (01) ==
PROVIDERS: Emergency Provider Emergency Medicine; PCP Family Medicine
DX: K08.89 Other specified disorders of teeth and supporting structures (principal)
CPT/HCPCS: 96372; 99282; 99283; J1885

== ENCOUNTER 2019-02-19 03:46 | Emergency (ER) | payer OTHER, SELFPAY ==
[2019-02-19 03:48] VITALS: BP 112/50; PULSE 68; RESP 18; TEMP 36.4; O2SAT 97; BMI 49.6
--- NOTE | 2019-02-19 04:18 | ED.BACK ---
HPI - Back Pain/Injury General Chief Complaint: Back Pain/Injury Stated Complaint: BACK PAIN X1 DAY Time Seen by Provider: 02/19/19 04:01 Source: patient Mode of arrival: ambulatory Limitations: no limitations History of Present Illness HPI Narrative: The patient is a 43-year-old male who presents with thoracic and low back pain. He has chronic ongoing low back pain. He says tonight it is just out of control. He takes ketorolac at home he says it has not been helping. He has no fever is no numbness or tingling in his lower extremities. he denies any chest pain or shortness of breath. MD Complaint: back pain Related Data Home Medications Medication Instructions Recorded Confirmed promethazine 25 mg PO Q6HP PRN #0 03/05/18 01/11/19 budesonide-formoterol [Symbicort] 2 puff INHALATION BID 03/23/18 01/11/19 fluticasone propionate 1 spray INTRANASAL QDAY 03/23/18 01/11/19 metoprolol succinate [Toprol XL] 100 mg PO BID 03/23/18 01/11/19 milnacipran [Savella] 100 mg PO QPM 03/23/18 01/11/19 prazosin 4 mg PO BEDTIME 03/23/18 01/11/19 pregabalin [Lyrica] 300 mg PO BID 03/23/18 01/11/19 tizanidine 8 mg PO TID PRN 03/23/18 01/11/19 vit C-vit [id number]-htt-om-3 1 tab PO QDAY 03/23/18 01/11/19 [Ocuvite] dicyclomine 20 mg PO BID PRN 04/29/18 01/11/19 mesalamine 4 tab PO QAM 04/30/18 01/11/19 furosemide 40 mg PO DAILY 07/19/18 01/11/19 [id number]-zft-kbr-yb0-wyy-astx 1 cap PO DAILY 07/19/18 01/11/19 [Krill Oil ([place] 3 and 6)] potassium chloride 20 meq PO DAILY 07/19/18 01/11/19 alprazolam 2 mg PO BEDTIME 11/02/18 01/11/19 duloxetine 90 mg PO DAILY 11/02/18 01/11/19 isosorbide mononitrate 30 mg PO DAILY 11/02/18 01/11/19 trazodone 150 - 400 mg PO BEDTIME PRN 11/02/18 01/11/19 verapamil 180 mg PO BEDTIME 11/02/18 01/11/19 alprazolam 1 mg PO BID 11/03/18 01/11/19 aripiprazole [Abilify] 15 mg PO DAILY 11/24/18 01/11/19 divalproex 250 mg PO BID 11/24/18 01/11/19 nitroglycerin [Nitromist] 1 spray TRANSLINGUAL PRN PRN 11/24/18 01/11/19 oxycodone-acetaminophen 1 tab PO DAILY PRN 11/24/18 01/11/19 pantoprazole 40 mg PO DAILY 11/24/18 01/11/19 erenumab-aooe [Aimovig 70 mg SUBCUT QMONTH 01/11/19 01/11/19 Autoinjector] Previous Rx's Medication Instructions Recorded ketorolac 10 mg PO Q6H PRN #20 tab 12/30/18 prednisone 40 mg PO DAILY #10 tab 01/08/19 amoxicillin-pot clavulanate 1 tab PO BID #20 tab 01/31/19 [Augmentin] Allergies Allergy/AdvReac Type Severity Reaction Status Date / Time codeine [CODEINE] Allergy Severe ANAPHYLAXIS Verified 02/19/19 04:02 amitriptyline [AMITRIPTYLINE] Allergy Unknown DIZZINESS Verified 02/19/19 04:02 AND UNSTEADYINESS tramadol [From ULTRAM] Allergy Unknown Verified 02/19/19 04:02 bee venom protein (honey bee) Allergy Verified 02/19/19 04:02 squash Allergy Verified 02/19/19 04:02 lisinopril [LISINOPRIL] AdvReac Unknown Verified 02/19/19 04:02 NSAIDS (Non-Steroidal AdvReac Unknown Verified 02/19/19 04:02 Anti-Inflamma [NSAIDS (NON-STEROIDAL ANTI-INFLAMMA] telmisartan [From MICARDIS] AdvReac Unknown Verified 02/19/19 04:02 Review of Systems Review of Systems ROS Unobtainable: All systems reviewed & are unremarkable except as noted in HPI and below Constitutional Denies chills, Denies fever(s), Denies lethargy and Denies weakness ENT Ears, Nose, Mouth, and Throat: Denies vertigo and Denies dizziness Cardiovascular Denies dyspnea and Denies dyspnea on exertion Respiratory Denies cough, Denies dyspnea, Denies dyspnea on exertion and Denies wheezing Gastrointestinal Gastrointestinal: Denies abdominal pain, Denies change in bowel habits, Denies diarrhea, Denies nausea and Denies vomiting Musculoskeletal Reports as per HPI Neurologic Denies vertigo, Denies dizziness and Denies weakness Allergic/Immunologic Denies wheezing [facility] Medical History Bipolar 1 disorder (Acute) Borderline personality disorder (Acute) Hypertrophic cardiomyopathy (Acute) Acute Crohn's disease (Chronic) Asthma (Chronic) Bulging disc (Chronic) CHF (congestive heart failure) (Chronic) Cataplexy (Chronic) Depression (Chronic) Diabetes (Chronic) Fibromyalgia (Chronic) GERD (gastroesophageal reflux disease) (Chronic) HTN (hypertension) (Chronic) Migraines (Chronic) Non-STEMI (non-ST elevated myocardial infarction) (Chronic) ROSLYN (obstructive sleep apnea) (Chronic) Osteoarthritis (Chronic) Surgical History Status post cardiac catheterization (Acute) Social History Smoking Status: Current some day smoker Social History Smoking Status: Current some day smoker Exam Initial Vital Signs Initial Vital Signs: Vital Signs Temperature 97.6 F 02/19/19 03:48 Pulse Rate 68 02/19/19 03:48 Respiratory Rate 18 02/19/19 03:48 Blood Pressure 112/50 L 02/19/19 03:48 Pulse Oximetry 97 02/19/19 03:48 GENERAL: Overweight well-appearing and in no acute distress. HEENT: Head atraumatic,EOMI, pupils reactive CARDIOVASCULAR: Regular rate and rhythm without murmurs, rubs or gallops. RESPIRATORY: Breath sounds equal bilaterally, no wheezes rales or rhonchi. ABDOMEN: Soft, nontender. Normoactive bowel sounds all 4 quadrants. No guarding or rebound. BACK: No midline tenderness no step-off, some paraspinal muscle tenderness : No CVA tenderness EXTREMITIES: Normal range of motion, no clubbing or edema. Neurovascularly intact NEUROLOGICAL: Alert and oriented x4.Normal gait and speech. Cranial nerves II through XII grossly intact. SKIN: Warm, dry, no laceration, no petechiae, no rashes or lesions. Course Orders Ordered: Discontinued Medications Diazepam (Valium) 5 mg IM NOW ONE Stop: 02/19/19 04:24 Last Admin: 02/19/19 04:45 Dose: 5 mg Ketorolac Tromethamine (Toradol) 30 mg IM NOW ONE Stop: 02/19/19 04:24 Last Admin: 02/19/19 04:45 Dose: 30 mg Vital Signs - 8 hr 02/19/19 03:48 02/19/19 05:14 Temperature 97.6 F Pulse Rate 68 69 Respiratory Rate 18 21 Blood Pressure 112/50 L 115/56 L Pulse Oximetry 97 94 MDM - Back Pain/Injury MDM Narrative Medical decision making narrative: The patient is overall feeling better after Valium and Toradol he is actually found sleeping when I go to re-evaluate him. He is easily woken. Girlfriend is here and able to take him home. Discharge Plan Departure Patient Disposition: Home Clinical Impression: Acute exacerbation of chronic low back pain Discharge Date/Time: 02/19/19 05:15 Interventions: ED Discharge Assessment Last Done: 02/19/19 05:14 Instructions: DI for Low Back Pain Activity Restrictions/Additional Instructions: *You have been diagnosed with acute on chronic low back *What to do: Increase activity as tolerated, try some stretching exercises. May require physical therapy or even outpatient MRI if no improvement *Continue to take medications as directed *Follow up with your primary care provider in 2-3 days *Return to ER if you should have fever, leg weakness, increasing pain or any new, worsening or concerning symptoms Prescriptions: No Action promethazine 25 MG tablet 25 mg PO Q6HP PRN (Reason: Nausea) Qty: 0 RF: 0 mesalamine 1.2 gram tablet,delayed release (DR/EC) 4 tab PO QAM RF: 0 alprazolam 1 mg tablet 2 mg PO BEDTIME RF: 0 isosorbide mononitrate 30 mg tablet extended release 24 hr 30 mg PO DAILY RF: 0 duloxetine 30 mg capsule,delayed release(DR/EC) 90 mg PO DAILY RF: 0 verapamil 180 mg tablet extended release 180 mg PO BEDTIME RF: 0 trazodone 150 mg tablet 150 - 400 mg PO BEDTIME PRN (Reason: Sleep) RF: 0 alprazolam 1 mg tablet 1 mg PO BID RF: 0 oxycodone-acetaminophen 10-325 mg tablet 1 tab PO DAILY PRN (Reason: Pain, Severe) RF: 0 nitroglycerin [Nitromist] 400 mcg/spray Aerosol,[place] 1 spray Translingual PRN PRN (Reason: Chest Pain) RF: 0 aripiprazole [Abilify] 15 mg Tablet 15 mg PO DAILY RF: 0 pantoprazole 40 mg Tablet,Delayed Release (Dr/Ec) 40 mg PO DAILY RF: 0 divalproex 250 mg Tablet Extended Release 24 Hr 250 mg PO BID RF: 0 ketorolac 10 mg tablet 10 mg PO Q6H PRN (Reason: pain) Qty: 20 RF: 0 prednisone 20 mg tablet 40 mg PO DAILY Qty: 10 RF: 0 Aimovig Autoinjector 70 mg/mL auto-injector 70 mg subcut QMONTH RF: 0 amoxicillin-pot clavulanate [Augmentin] 875-125 mg tablet 1 tab PO BID Qty: 20 RF: 0 metoprolol succinate [Toprol XL] 100 mg tablet extended release 24 hr 100 mg PO BID RF: 0 tizanidine 4 mg tablet 8 mg PO TID PRN (Reason: Muscle Spasm) RF: 0 prazosin 2 mg Capsule 4 mg PO BEDTIME RF: 0 Savella 50 mg Tablet 100 mg PO QPM RF: 0 fluticasone propionate 50 mcg/actuation spray,suspension 1 spray Intranasal QDAY RF: 0 Lyrica 300 mg capsule 300 mg PO BID RF: 0 Symbicort 160-4.5 mcg/actuation HFA aerosol inhaler 2 puff Inhalation BID RF: 0 Ocuvite 649-81-8-150 zb-ntty-tk-mg Capsule 1 tab PO QDAY RF: 0 dicyclomine 20 mg tablet 20 mg PO BID PRN (Reason: Abdominal Pain) RF: 0 Krill Oil ([place] 3 and 6) 1,500-165-67.5 mg Capsule 1 cap PO DAILY RF: 0 potassium chloride 20 mEq tablet,ER particles/crystals 20 meq PO DAILY RF: 0 furosemide 20 mg tablet 40 mg PO DAILY RF: 0 Referrals: Stacy Collier MD [Primary Care Provider] -
[2019-02-19] MEDS: KETOROLAC 60 MG/2 ML VIAL 30 MG IM (04:45)
[2019-02-19] MEDS: diazePAM 10 MG/2 ML SYRINGE 5 MG IM (04:45)
[2019-02-19 05:14] VITALS: BP 115/56; PULSE 69; RESP 21; O2SAT 94
== END 2019-02-19 05:15 | disposition home or self-care (01) ==
PROVIDERS: Emergency Provider Emergency Medicine; PCP Family Medicine
DX: M54.5 Low back pain (principal)
CPT/HCPCS: 96372; 99282; 99283; J1885; J3360

== ENCOUNTER 2019-03-03 12:14 | Emergency (ER) | payer OTHER, SELFPAY ==
[2019-03-03 12:18] VITALS: BP 144/88; PULSE 82; RESP 14; TEMP 36.6; O2SAT 100
--- NOTE | 2019-03-03 12:23 | DI.RAD.S_ITS ---
PROCEDURE: XR CHEST 2V INDICATIONS: shortness of breath TECHNIQUE: 2 views of the chest were acquired. COMPARISON: [facility], CR, XR CHEST 1V, 01/11/2019, 12:36. [facility], CR, XR CHEST 2V, 11/15/2018, 10:35. FINDINGS: Surgical changes and devices: Lead-less cardiac pacer is stable. Lungs and pleura: Lungs are clear. No pleural effusions or pneumothorax. Mediastinum: Mediastinal contours are normal. Heart size is normal. Bones and chest wall: No suspicious bony abnormalities. Soft tissues appear unremarkable. IMPRESSION: No acute cardiopulmonary disease process. Dictated by: Leela Erazo MD, PhD on 03/03/2019 at 12:48 Approved by: Leela Erazo MD, PhD on 03/03/2019 at 12:50
[2019-03-03 12:49] LABS: Add Manual Diff / Slide Review NO; Basophils Absolute Auto 100 /uL (0-100); Basophils Percent Auto 1.5 % (0-2); Eosinophils Absolute Auto 100 /uL (0-450); Eosinophils Percent Auto 0.6 % (2-4); Hematocrit 42.8 % (41-53); Hemoglobin 14.1 g/dL (13.5-17.5); Lymphocytes Absolute Auto 1600 /uL (1100-4500); Lymphocytes Percent Auto 18.1 % (25-40); Mean Corpuscular Hemoglobin 28.9 PG (26-34); Mean Corpuscular Volume 87.5 fL (80-100); Monocytes Absolute Auto 500 /uL (0-900); Monocytes Percent Auto 5.2 % (3-14); Neutrophils Absolute Auto 6700 /uL (1500-7000); Neutrophils Percent Auto 74.6 % (50-75); Platelet Count 194 X10^3/uL (150-400); Red Blood Cell Count 4.89 X10^6/uL (4.5-5.9)
--- NOTE | 2019-03-03 12:52 | ED.SOB ---
HPI - SOB/Dyspnea <Emmanuelle AnglinSILVIA menonP-BC - Last Filed: 03/03/19 17:25> General Chief Complaint: Shortness of Breath/Dyspnea Stated Complaint: states ankle and legs swelling with SOB Time Seen by Provider: 03/03/19 12:41 Source: patient Mode of arrival: ambulatory Limitations: no limitations History of Present Illness Patient is a 43-year-old current some day smoker who presents with his girlfriend for chief complaint of shortness of breath since this morning. He also noticed slight swelling in his ankles this morning when putting on his socks. He has history of CHF, tobacco use, and chest pain. he states that he was in a hot tub yesterday and ate at [employer], ordering steak so he is concerned about fluid retention. He is taking 40 mg of Lasix daily. He denies any fevers nausea vomiting diarrhea or cough. He does state he had a few minutes of chest pain that was substernal this morning and nonradiating. He denies any palpitations. Related Data Home Medications Medication Instructions Recorded Confirmed promethazine 25 mg PO Q6HP PRN #0 03/05/18 01/11/19 budesonide-formoterol [Symbicort] 2 puff INHALATION BID 03/23/18 01/11/19 fluticasone propionate 1 spray INTRANASAL QDAY 03/23/18 01/11/19 metoprolol succinate [Toprol XL] 100 mg PO BID 03/23/18 01/11/19 milnacipran [Savella] 100 mg PO QPM 03/23/18 01/11/19 prazosin 4 mg PO BEDTIME 03/23/18 01/11/19 pregabalin [Lyrica] 300 mg PO BID 03/23/18 01/11/19 tizanidine 8 mg PO TID PRN 03/23/18 01/11/19 vit C-vit Z-[id number]-[id number]-[id number]-3 1 tab PO QDAY 03/23/18 01/11/19 [Ocuvite] dicyclomine 20 mg PO BID PRN 04/29/18 01/11/19 mesalamine 4 tab PO QAM 04/30/18 01/11/19 furosemide 40 mg PO DAILY 07/19/18 01/11/19 [id number]-[id number] 1 cap PO DAILY 07/19/18 01/11/19 [Krill Oil (Schwertner 3 and 6)] potassium chloride 20 meq PO DAILY 07/19/18 01/11/19 alprazolam 2 mg PO BEDTIME 11/02/18 01/11/19 duloxetine 90 mg PO DAILY 11/02/18 01/11/19 isosorbide mononitrate 30 mg PO DAILY 11/02/18 01/11/19 trazodone 150 - 400 mg PO BEDTIME PRN 11/02/18 01/11/19 verapamil 180 mg PO BEDTIME 11/02/18 01/11/19 alprazolam 1 mg PO BID 11/03/18 01/11/19 aripiprazole [Abilify] 15 mg PO DAILY 11/24/18 01/11/19 divalproex 250 mg PO BID 11/24/18 01/11/19 nitroglycerin [Nitromist] 1 spray TRANSLINGUAL PRN PRN 11/24/18 01/11/19 oxycodone-acetaminophen 1 tab PO DAILY PRN 11/24/18 01/11/19 pantoprazole 40 mg PO DAILY 11/24/18 01/11/19 erenumab-aooe [Aimovig 70 mg SUBCUT QMONTH 01/11/19 01/11/19 Autoinjector] Previous Rx's Medication Instructions Recorded ketorolac 10 mg PO Q6H PRN #20 tab 12/30/18 prednisone 40 mg PO DAILY #10 tab 01/08/19 amoxicillin-pot clavulanate 1 tab PO BID #20 tab 01/31/19 [Augmentin] Allergies Allergy/AdvReac Type Severity Reaction Status Date / Time codeine [CODEINE] Allergy Severe ANAPHYLAXIS Verified 03/03/19 12:21 amitriptyline [AMITRIPTYLINE] Allergy Unknown DIZZINESS Verified 03/03/19 12:21 AND UNSTEADYINESS tramadol [From ULTRAM] Allergy Unknown Verified 03/03/19 12:21 bee venom protein (honey bee) Allergy Verified 03/03/19 12:21 squash Allergy Verified 03/03/19 12:21 lisinopril [LISINOPRIL] AdvReac Unknown Verified 03/03/19 12:21 NSAIDS (Non-Steroidal AdvReac Unknown Verified 03/03/19 12:21 Anti-Inflamma [NSAIDS (NON-STEROIDAL ANTI-INFLAMMA] telmisartan [From MICARDIS] AdvReac Unknown Verified 03/03/19 12:21 Review of Systems <VINOD Sargent - Last Filed: 03/03/19 17:25> Review of Systems GENERAL: Denies chills, fatigue, malaise, fever, sweats. HEENT: Denies sinus pain, ear pain, sore throat, difficulty swallowing, dizziness. RESPIRATORY: See HPI CARDIOVASCULAR: See HPI GASTROINTESTINAL: Denies nausea, vomiting, abdominal pain, diarrhea, constipation, melena. : Denies dysuria, frequency, incontinence, hematuria, urinary retention. MUSCULOSKELETAL: denies weakness, joint pain, or bony pain SKIN: Denies rash, skin lesions, or other NEUROLOGIC: Denies weakness, headache, numbness, change in speech, confusion, seizures, incoordination. PSYCHIATRIC: No concerning psychosocial issues. 12 point review of systems is negative except for those stated above PFSH <VINOD Sargent - Last Filed: 03/03/19 17:25> Medical History Bipolar 1 disorder (Acute) Borderline personality disorder (Acute) Hypertrophic cardiomyopathy (Acute) Acute Crohn's disease (Chronic) Asthma (Chronic) Bulging disc (Chronic) CHF (congestive heart failure) (Chronic) Cataplexy (Chronic) Depression (Chronic) Diabetes (Chronic) Fibromyalgia (Chronic) GERD (gastroesophageal reflux disease) (Chronic) HTN (hypertension) (Chronic) Migraines (Chronic) Non-STEMI (non-ST elevated myocardial infarction) (Chronic) ROSLYN (obstructive sleep apnea) (Chronic) Osteoarthritis (Chronic) Surgical History Status post cardiac catheterization (Acute) Social History Smoking Status: Current some day smoker Social History Smoking Status: Current some day smoker Exam <VINOD Sargent - Last Filed: 03/03/19 17:25> Narrative Exam Narrative: GENERAL: Obese patient lying on stretcher HEAD: Atraumatic. Normocephalic. No temporal or scalp tenderness. EYES: Pupils equal round and reactive. Extraocular motions intact. No scleral icterus. No injection or drainage. ENT: Nose without bleeding, purulent drainage or septal hematoma. Throat without erythema, tonsillar hypertrophy or exudate. Uvula midline. Airway patent. NECK: Trachea midline. No JVD or lymphadenopathy. Supple, nontender, no meningeal signs. CARDIOVASCULAR: Regular rate and rhythm RESPIRATORY: Clear to auscultation. Breath sounds equal bilaterally. reduced breath sounds bilaterally. No wheezes, rales, or rhonchi. No cough. No increased respiratory effort. No accessory muscle use. GASTROINTESTINAL: Abdomen soft, non-tender, nondistended. No hepato-splenomegaly, or palpable masses. No guarding. active bowel sounds all 4 quadrants. EXTREMITIES: No clubbing, cyanosis, No joint tenderness, effusion noted. +1 edema bilateral lower extremities. positive pedal pulses noted. BACK: Nontender without deformity or crepitance. No flank tenderness. NEURO: AOx3. SKIN: No rash or erythema. Initial Vital Signs Initial Vital Signs: Vital Signs Temperature 97.9 F 03/03/19 12:18 Pulse Rate 82 03/03/19 12:18 Respiratory Rate 14 03/03/19 12:18 Blood Pressure 144/88 H 03/03/19 12:18 Pulse Oximetry 100 03/03/19 12:18 <Gini Gaines DO - Last Filed: 03/06/19 19:01> Initial Vital Signs Initial Vital Signs: Vital Signs Temperature 97.9 F 03/03/19 12:18 Pulse Rate 82 03/03/19 12:18 Respiratory Rate 14 03/03/19 12:18 Blood Pressure 144/88 H 03/03/19 12:18 Pulse Oximetry 100 03/03/19 12:18 Course <LATA Sargent-ANA - Last Filed: 03/03/19 17:25> Orders Ordered: Discontinued Medications Ketorolac Tromethamine (Toradol) 30 mg IV NOW ONE Stop: 03/03/19 12:51 Last Admin: 03/03/19 13:11 Dose: 30 mg Ondansetron HCl (Zofran) 4 mg IV NOW ONE Stop: 03/03/19 12:51 Last Admin: 03/03/19 13:12 Dose: 4 mg Vital Signs - 8 hr 03/03/19 12:18 03/03/19 13:00 03/03/19 14:30 Temperature 97.9 F Pulse Rate 82 79 72 Respiratory Rate 14 17 18 Blood Pressure 144/88 H Blood Pressure [Right Arm] 137/74 125/70 Pulse Oximetry 100 97 94 03/03/19 16:00 Temperature Pulse Rate 69 Respiratory Rate 15 Blood Pressure Blood Pressure [Right Arm] 124/90 Pulse Oximetry 96 <Gini Gaines DO - Last Filed: 03/06/19 19:01> Orders Ordered: Discontinued Medications Ketorolac Tromethamine (Toradol) 30 mg IV NOW ONE Stop: 03/03/19 12:51 Last Admin: 03/03/19 13:11 Dose: 30 mg Ondansetron HCl (Zofran) 4 mg IV NOW ONE Stop: 03/03/19 12:51 Last Admin: 03/03/19 13:12 Dose: 4 mg Vital Signs - 8 hr 03/03/19 12:18 03/03/19 13:00 03/03/19 14:30 Temperature 97.9 F Pulse Rate 82 79 72 Respiratory Rate 14 17 18 Blood Pressure 144/88 H Blood Pressure [Right Arm] 137/74 125/70 Pulse Oximetry 100 97 94 03/03/19 16:00 Temperature Pulse Rate 69 Respiratory Rate 15 Blood Pressure Blood Pressure [Right Arm] 124/90 Pulse Oximetry 96 MDM - SOB/Dyspnea <VINOD Sargent - Last Filed: 03/03/19 17:25> Lab Data Result diagrams: 03/03/19 12:35 03/03/19 12:35 Lab Results 03/03/19 03/03/19 03/03/19 Range/Units 12:35 12:35 12:35 WBC 9.0 (4.5-11.0) X10^3/uL RBC 4.89 (4.5-5.9) X10^6/uL Hgb 14.1 (13.5-17.5) g/dL Hct 42.8 (41-53) % MCV 87.5 (80-100) fL MCH 28.9 (26-34) PG MCHC 33.0 (30-36) % RDW 15.0 H (11.6-14.8) % Plt Count 194 (150-400) X10^3/uL Neut % (Auto) 74.6 (50-75) % Lymph % (Auto) 18.1 L (25-40) % Ferry % (Auto) 5.2 (3-14) % Eos % (Auto) 0.6 L (2-4) % Baso % (Auto) 1.5 (0-2) % Neut # (Auto) 6700 (9719-5410) /uL Lymph # (Auto) 1600 (2258-0548) /uL Ferry # (Auto) 500 (0-900) /uL Eos # (Auto) 100 (0-450) /uL Baso # (Auto) 100 (0-100) /uL Sodium 142 (137-145) mmol/L Potassium 4.1 (3.4-5.1) mmol/L Chloride 104 (98-107) mmol/L Carbon Dioxide 27 (22-32) mmol/L BUN 12 (9-20) mg/dL Creatinine 0.90 (0.66-1.25) mg/dL Estimated GFR > 60.0 (>60) mL/min BUN/Creatinine Ratio 13.3 (6-22) Glucose 111 H (70-100) mg/dL Lactate 1.4 (0.7-2.1) mmol/L Calcium 9.4 (8.4-10.2) mg/dL Total Bilirubin 0.4 (0.2-1.3) mg/dL AST 19 (17-59) IU/L ALT 32 (21-72) IU/L Alkaline Phosphatase 81 (38-126) U/L Total Creatine Kinase (55-170) U/L CK-MB (CK-2) CK-MB (CK-2) Rel Index Troponin I (0.01-0.034) ng/mL B-Natriuretic Peptide (<100) Total Protein 7.3 (6.3-8.2) g/dL Albumin 4.4 (3.5-5.0) g/dL Globulin 2.9 (1.7-4.1) g/dL Albumin/Globulin Ratio 1.5 (1.0-2.8) 03/03/19 03/03/19 03/03/19 Range/Units 12:35 12:35 15:35 WBC (4.5-11.0) X10^3/uL RBC (4.5-5.9) X10^6/uL Hgb (13.5-17.5) g/dL Hct (41-53) % MCV (80-100) fL MCH (26-34) PG MCHC (30-36) % RDW (11.6-14.8) % Plt Count (150-400) X10^3/uL Neut % (Auto) (50-75) % Lymph % (Auto) (25-40) % Ferry % (Auto) (3-14) % Eos % (Auto) (2-4) % Baso % (Auto) (0-2) % Neut # (Auto) (7919-4317) /uL Lymph # (Auto) (9305-1370) /uL Ferry # (Auto) (0-900) /uL Eos # (Auto) (0-450) /uL Baso # (Auto) (0-100) /uL Sodium (137-145) mmol/L Potassium (3.4-5.1) mmol/L Chloride (98-107) mmol/L Carbon Dioxide (22-32) mmol/L BUN (9-20) mg/dL Creatinine (0.66-1.25) mg/dL Estimated GFR (>60) mL/min BUN/Creatinine Ratio (6-22) Glucose (70-100) mg/dL Lactate (0.7-2.1) mmol/L Calcium (8.4-10.2) mg/dL Total Bilirubin (0.2-1.3) mg/dL AST (17-59) IU/L ALT (21-72) IU/L Alkaline Phosphatase (38-126) U/L Total Creatine Kinase 76 65 (55-170) U/L CK-MB (CK-2) TNP TNP CK-MB (CK-2) Rel Index TNP TNP Troponin I 0.017 0.017 (0.01-0.034) ng/mL B-Natriuretic Peptide < 100 (<100) Total Protein (6.3-8.2) g/dL Albumin (3.5-5.0) g/dL Globulin (1.7-4.1) g/dL Albumin/Globulin Ratio (1.0-2.8) Imaging Data Chest x-ray: Radiologist's impression: [address] [address] XRay Report Signed Patient: Edgar Leon [facility]#: [id number] : 1975Acct:[id number] Age/Sex: 43 / MDate of Service: 03/03/19 Loc: ED Accession Number: [id number] Procedure: XR chest 2V Ordering Provider: Gini Gaines D.O. PROCEDURE: XR CHEST 2V INDICATIONS: shortness of breath TECHNIQUE: 2 views of the chest were acquired. COMPARISON: [facility], CR, XR CHEST 1V, 01/11/2019, 12:36. [facility], CR, XR CHEST 2V, 11/15/2018, 10:35. FINDINGS: Surgical changes and devices: Lead-less cardiac pacer is stable. Lungs and pleura: Lungs are clear. No pleural effusions or pneumothorax. Mediastinum: Mediastinal contours are normal. Heart size is normal. Bones and chest wall: No suspicious bony abnormalities. Soft tissues appear unremarkable. IMPRESSION: No acute cardiopulmonary disease process. Dictated by: Leela Erazo MD, PhD on 03/03/2019 at 12:48 Approved by: Leela Erazo MD, PhD on 03/03/2019 at 12:50 ECG Data Attestation: I personally reviewed and interpreted this ECG as follows: Interpretation: Ventricular rate 83. No ectopy noted. sinus rhythm. QRS 77 ST depression noted in aVL and the 3 through V6. Consistent with prior EKG on 11/03/2018. [facility] Narrative Medical decision making narrative: The patient is a 43-year-old male who presents with a chief complaint of slight shortness of breath and lower extremity edema. he did have a short episode of chest pain prior, but did not take his nitroglycerin. he had a normal chest x-ray, 2 sets of negative troponin and normal BNP. He is hemodynamically stable and pain-free throughout his stay in the emergency department. He remained hemodynamically stable and nontoxic appearing. I discussed at length follow up with primary care provider for new or worsening symptoms. Encouraged him to follow up with his PCP in a few days. Discussed coming back to the emergency department for any acute concerns. Patient no questions or concerns upon discharge. <Gini Gaines DO - Last Filed: 03/06/19 19:01> Lab Data Lab Results 03/03/19 03/03/19 03/03/19 Range/Units 12:35 12:35 12:35 WBC 9.0 (4.5-11.0) X10^3/uL RBC 4.89 (4.5-5.9) X10^6/uL Hgb 14.1 (13.5-17.5) g/dL Hct 42.8 (41-53) % MCV 87.5 (80-100) fL MCH 28.9 (26-34) PG MCHC 33.0 (30-36) % RDW 15.0 H (11.6-14.8) % Plt Count 194 (150-400) X10^3/uL Neut % (Auto) 74.6 (50-75) % Lymph % (Auto) 18.1 L (25-40) % Ferry % (Auto) 5.2 (3-14) % Eos % (Auto) 0.6 L (2-4) % Baso % (Auto) 1.5 (0-2) % Neut # (Auto) 6700 (4930-9215) /uL Lymph # (Auto) 1600 (6030-1792) /uL Ferry # (Auto) 500 (0-900) /uL Eos # (Auto) 100 (0-450) /uL Baso # (Auto) 100 (0-100) /uL Sodium 142 (137-145) mmol/L Potassium 4.1 (3.4-5.1) mmol/L Chloride 104 (98-107) mmol/L Carbon Dioxide 27 (22-32) mmol/L BUN 12 (9-20) mg/dL Creatinine 0.90 (0.66-1.25) mg/dL Estimated GFR > 60.0 (>60) mL/min BUN/Creatinine Ratio 13.3 (6-22) Glucose 111 H (70-100) mg/dL Lactate 1.4 (0.7-2.1) mmol/L Calcium 9.4 (8.4-10.2) mg/dL Total Bilirubin 0.4 (0.2-1.3) mg/dL AST 19 (17-59) IU/L ALT 32 (21-72) IU/L Alkaline Phosphatase 81 (38-126) U/L Total Creatine Kinase (55-170) U/L CK-MB (CK-2) CK-MB (CK-2) Rel Index Troponin I (0.01-0.034) ng/mL B-Natriuretic Peptide (<100) Total Protein 7.3 (6.3-8.2) g/dL Albumin 4.4 (3.5-5.0) g/dL Globulin 2.9 (1.7-4.1) g/dL Albumin/Globulin Ratio 1.5 (1.0-2.8) 03/03/19 03/03/19 03/03/19 Range/Units 12:35 12:35 15:35 WBC (4.5-11.0) X10^3/uL RBC (4.5-5.9) X10^6/uL Hgb (13.5-17.5) g/dL Hct (41-53) % MCV (80-100) fL MCH (26-34) PG MCHC (30-36) % RDW (11.6-14.8) % Plt Count (150-400) X10^3/uL Neut % (Auto) (50-75) % Lymph % (Auto) (25-40) % Ferry % (Auto) (3-14) % Eos % (Auto) (2-4) % Baso % (Auto) (0-2) % Neut # (Auto) (4415-0596) /uL Lymph # (Auto) (9983-8095) /uL Ferry # (Auto) (0-900) /uL Eos # (Auto) (0-450) /uL Baso # (Auto) (0-100) /uL Sodium (137-145) mmol/L Potassium (3.4-5.1) mmol/L Chloride (98-107) mmol/L Carbon Dioxide (22-32) mmol/L BUN (9-20) mg/dL Creatinine (0.66-1.25) mg/dL Estimated GFR (>60) mL/min BUN/Creatinine Ratio (6-22) Glucose (70-100) mg/dL Lactate (0.7-2.1) mmol/L Calcium (8.4-10.2) mg/dL Total Bilirubin (0.2-1.3) mg/dL AST (17-59) IU/L ALT (21-72) IU/L Alkaline Phosphatase (38-126) U/L Total Creatine Kinase 76 65 (55-170) U/L CK-MB (CK-2) TNP TNP CK-MB (CK-2) Rel Index TNP TNP Troponin I 0.017 0.017 (0.01-0.034) ng/mL B-Natriuretic Peptide < 100 (<100) Total Protein (6.3-8.2) g/dL Albumin (3.5-5.0) g/dL Globulin (1.7-4.1) g/dL Albumin/Globulin Ratio (1.0-2.8) ECG Data Attestation: I personally reviewed and interpreted this ECG as follows: Prior ECG tracings: available for review Interpretation: Normal sinus rhythm rate 83 T-wave inversions noted in the 2 through V6 and lead 1 and aVL similar to previous EKG. LVH noted. IN interval 124 QTC 488 Discharge Plan Departure Patient Disposition: Home Clinical Impression: Chest pain with high risk for cardiac etiology, Breath shortness Discharge Date/Time: 03/03/19 16:25 Interventions: ED Discharge Assessment Last Done: 03/03/19 16:25 Activity Restrictions/Additional Instructions: Today we did lots of lab work, as well as a chest x-ray. This all came back normal. You have two negative troponins. Your heart failure lab was not elevated. You electrolytes were normal Please come back to the emergency department for any acute concerns. Please follow up with primary care provider as soon as possible. Prescriptions: No Action promethazine 25 MG tablet 25 mg PO Q6HP PRN (Reason: Nausea) Qty: 0 RF: 0 mesalamine 1.2 gram tablet,delayed release (DR/EC) 4 tab PO QAM RF: 0 alprazolam 1 mg tablet 2 mg PO BEDTIME RF: 0 isosorbide mononitrate 30 mg tablet extended release 24 hr 30 mg PO DAILY RF: 0 duloxetine 30 mg capsule,delayed release(DR/EC) 90 mg PO DAILY RF: 0 verapamil 180 mg tablet extended release 180 mg PO BEDTIME RF: 0 trazodone 150 mg tablet 150 - 400 mg PO BEDTIME PRN (Reason: Sleep) RF: 0 alprazolam 1 mg tablet 1 mg PO BID RF: 0 oxycodone-acetaminophen 10-325 mg tablet 1 tab PO DAILY PRN (Reason: Pain, Severe) RF: 0 nitroglycerin [Nitromist] 400 mcg/spray Aerosol,Pullman 1 spray Translingual PRN PRN (Reason: Chest Pain) RF: 0 aripiprazole [Abilify] 15 mg Tablet 15 mg PO DAILY RF: 0 pantoprazole 40 mg Tablet,Delayed Release (Dr/Ec) 40 mg PO DAILY RF: 0 divalproex 250 mg Tablet Extended Release 24 Hr 250 mg PO BID RF: 0 ketorolac 10 mg tablet 10 mg PO Q6H PRN (Reason: pain) Qty: 20 RF: 0 prednisone 20 mg tablet 40 mg PO DAILY Qty: 10 RF: 0 Aimovig Autoinjector 70 mg/mL auto-injector 70 mg subcut QMONTH RF: 0 amoxicillin-pot clavulanate [Augmentin] 875-125 mg tablet 1 tab PO BID Qty: 20 RF: 0 metoprolol succinate [Toprol XL] 100 mg tablet extended release 24 hr 100 mg PO BID RF: 0 tizanidine 4 mg tablet 8 mg PO TID PRN (Reason: Muscle Spasm) RF: 0 prazosin 2 mg Capsule 4 mg PO BEDTIME RF: 0 Savella 50 mg Tablet 100 mg PO QPM RF: 0 fluticasone propionate 50 mcg/actuation spray,suspension 1 spray Intranasal QDAY RF: 0 Lyrica 300 mg capsule 300 mg PO BID RF: 0 Symbicort 160-4.5 mcg/actuation HFA aerosol inhaler 2 puff Inhalation BID RF: 0 Ocuvite 215-68-2-150 ic-kryn-xw-mg Capsule 1 tab PO QDAY RF: 0 dicyclomine 20 mg tablet 20 mg PO BID PRN (Reason: Abdominal Pain) RF: 0 Krill Oil (Schwertner 3 and 6) 1,500-165-67.5 mg Capsule 1 cap PO DAILY RF: 0 potassium chloride 20 mEq tablet,ER particles/crystals 20 meq PO DAILY RF: 0 furosemide 20 mg tablet 40 mg PO DAILY RF: 0 Referrals: Stacy Collier MD [Primary Care Provider] - <Gini Gaines DO - Last Filed: 03/06/19 19:01> Cosign ED Attending Cosignature Attestation: I was immediately available in the department for consultation. Documentation has been reviewed. I agree with assessment and plan.
--- NOTE | 2019-03-03 12:55 | ED_ITS ---
HPI - SOB/Dyspnea <Emmanuelle AnglinSILVIA menonP-BC - Last Filed: 03/03/19 17:25> General Chief Complaint: Shortness of Breath/Dyspnea Stated Complaint: states ankle and legs swelling with SOB Time Seen by Provider: 03/03/19 12:41 Source: patient Mode of arrival: ambulatory Limitations: no limitations History of Present Illness Patient is a 43-year-old current some day smoker who presents with his girlfriend for chief complaint of shortness of breath since this morning. He also noticed slight swelling in his ankles this morning when putting on his socks. He has history of CHF, tobacco use, and chest pain. he states that he was in a hot tub yesterday and ate at [employer], ordering steak so he is concerned about fluid retention. He is taking 40 mg of Lasix daily. He denies any fevers nausea vomiting diarrhea or cough. He does state he had a few minutes of chest pain that was substernal this morning and nonradiating. He denies any palpitations. Related Data Home Medications Medication Instructions Recorded Confirmed promethazine 25 mg PO Q6HP PRN #0 03/05/18 01/11/19 budesonide-formoterol [Symbicort] 2 puff INHALATION BID 03/23/18 01/11/19 fluticasone propionate 1 spray INTRANASAL QDAY 03/23/18 01/11/19 metoprolol succinate [Toprol XL] 100 mg PO BID 03/23/18 01/11/19 milnacipran [Savella] 100 mg PO QPM 03/23/18 01/11/19 prazosin 4 mg PO BEDTIME 03/23/18 01/11/19 pregabalin [Lyrica] 300 mg PO BID 03/23/18 01/11/19 tizanidine 8 mg PO TID PRN 03/23/18 01/11/19 vit C-vit I-[id number]-[id number]-[id number]-3 1 tab PO QDAY 03/23/18 01/11/19 [Ocuvite] dicyclomine 20 mg PO BID PRN 04/29/18 01/11/19 mesalamine 4 tab PO QAM 04/30/18 01/11/19 furosemide 40 mg PO DAILY 07/19/18 01/11/19 tktow-[id number]-[id number]-pzu-[id number]-tfm-[id number] 1 cap PO DAILY 07/19/18 01/11/19 [Krill Oil ([place] 3 and 6)] potassium chloride 20 meq PO DAILY 07/19/18 01/11/19 alprazolam 2 mg PO BEDTIME 11/02/18 01/11/19 duloxetine 90 mg PO DAILY 11/02/18 01/11/19 isosorbide mononitrate 30 mg PO DAILY 11/02/18 01/11/19 trazodone 150 - 400 mg PO BEDTIME PRN 11/02/18 01/11/19 verapamil 180 mg PO BEDTIME 11/02/18 01/11/19 alprazolam 1 mg PO BID 11/03/18 01/11/19 aripiprazole [Abilify] 15 mg PO DAILY 11/24/18 01/11/19 divalproex 250 mg PO BID 11/24/18 01/11/19 nitroglycerin [Nitromist] 1 spray TRANSLINGUAL PRN PRN 11/24/18 01/11/19 oxycodone-acetaminophen 1 tab PO DAILY PRN 11/24/18 01/11/19 pantoprazole 40 mg PO DAILY 11/24/18 01/11/19 erenumab-aooe [Aimovig 70 mg SUBCUT QMONTH 01/11/19 01/11/19 Autoinjector] Previous Rx's Medication Instructions Recorded ketorolac 10 mg PO Q6H PRN #20 tab 12/30/18 prednisone 40 mg PO DAILY #10 tab 01/08/19 amoxicillin-pot clavulanate 1 tab PO BID #20 tab 01/31/19 [Augmentin] Allergies Allergy/AdvReac Type Severity Reaction Status Date / Time codeine [CODEINE] Allergy Severe ANAPHYLAXIS Verified 03/03/19 12:21 amitriptyline [AMITRIPTYLINE] Allergy Unknown DIZZINESS Verified 03/03/19 12:21 AND UNSTEADYINESS tramadol [From ULTRAM] Allergy Unknown Verified 03/03/19 12:21 bee venom protein (honey bee) Allergy Verified 03/03/19 12:21 squash Allergy Verified 03/03/19 12:21 lisinopril [LISINOPRIL] AdvReac Unknown Verified 03/03/19 12:21 NSAIDS (Non-Steroidal AdvReac Unknown Verified 03/03/19 12:21 Anti-Inflamma [NSAIDS (NON-STEROIDAL ANTI-INFLAMMA] telmisartan [From MICARDIS] AdvReac Unknown Verified 03/03/19 12:21 Review of Systems <VINOD Sargent - Last Filed: 03/03/19 17:25> Review of Systems GENERAL: Denies chills, fatigue, malaise, fever, sweats. HEENT: Denies sinus pain, ear pain, sore throat, difficulty swallowing, dizziness. RESPIRATORY: See HPI CARDIOVASCULAR: See HPI GASTROINTESTINAL: Denies nausea, vomiting, abdominal pain, diarrhea, co nstipation, melena. : Denies dysuria, frequency, incontinence, hematuria, urinary retention. MUSCULOSKELETAL: denies weakness, joint pain, or bony pain SKIN: Denies rash, skin lesions, or other NEUROLOGIC: Denies weakness, headache, numbness, change in speech, confusion, seizures, incoordination. PSYCHIATRIC: No concerning psychosocial issues. 12 point review of systems is negative except for those stated above PFSH <VINOD Sargent - Last Filed: 03/03/19 17:25> Medical History Bipolar 1 disorder (Acute) Borderline personality disorder (Acute) Hypertrophic cardiomyopathy (Acute) Acute Crohn's disease (Chronic) Asthma (Chronic) Bulging disc (Chronic) CHF (congestive heart failure) (Chronic) Cataplexy (Chronic) Depression (Chronic) Diabetes (Chronic) Fibromyalgia (Chronic) GERD (gastroesophageal reflux disease) (Chronic) HTN (hypertension) (Chronic) Migraines (Chronic) Non-STEMI (non-ST elevated myocardial infarction) (Chronic) ROSLYN (obstructive sleep apnea) (Chronic) Osteoarthritis (Chronic) Surgical History Status post cardiac catheterization (Acute) Social History Smoking Status: Current some day smoker Social History Smoking Status: Current some day smoker Exam <VINOD Sargent - Last Filed: 03/03/19 17:25> Narrative Exam Narrative: GENERAL: Obese patient lying on stretcher HEAD: Atraumatic. Normocephalic. No temporal or scalp tenderness. EYES: Pupils equal round and reactive. Extraocular motions intact. No scleral icterus. No injection or drainage. ENT: Nose without bleeding, purulent drainage or septal hematoma. Throat without erythema, tonsillar hypertrophy or exudate. Uvula midline. Airway patent. NECK: Trachea midline. No JVD or lymphadenopathy. Supple, nontender, no meningeal signs. CARDIOVASCULAR: Regular rate and rhythm RESPIRATORY: Clear to auscultation. Breath sounds equal bilaterally. reduced breath sounds bilaterally. No wheezes, rales, or rhonchi. No cough. No increased respiratory effort. No accessory muscle use. GASTROINTESTINAL: Abdomen soft, non-tender, nondistended. No hepato- splenomegaly, or palpable masses. No guarding. active bowel sounds all 4 quadrants. EXTREMITIES: No clubbing, cyanosis, No joint tenderness, effusion noted. +1 edema bilateral lower extremities. positive pedal pulses noted. BACK: Nontender without deformity or crepitance. No flank tenderness. NEURO: AOx3. SKIN: No rash or erythema. Initial Vital Signs Initial Vital Signs: Vital Signs Temperature 97.9 F 03/03/19 12:18 Pulse Rate 82 03/03/19 12:18 Respiratory Rate 14 03/03/19 12:18 Blood Pressure 144/88 H 03/03/19 12:18 Pulse Oximetry 100 03/03/19 12:18 <Gini Gaines DO - Last Filed: 03/06/19 19:01> Initial Vital Signs Initial Vital Signs: Vital Signs Temperature 97.9 F 03/03/19 12:18 Pulse Rate 82 03/03/19 12:18 Respiratory Rate 14 03/03/19 12:18 Blood Pressure 144/88 H 03/03/19 12:18 Pulse Oximetry 100 03/03/19 12:18 Course <VINOD Sargent - Last Filed: 03/03/19 17:25> Orders Ordered: Discontinued Medications Ketorolac Tromethamine (Toradol) 30 mg IV NOW ONE Stop: 03/03/19 12:51 Last Admin: 03/03/19 13:11 Dose: 30 mg Ondansetron HCl (Zofran) 4 mg IV NOW ONE Stop: 03/03/19 12:51 Last Admin: 03/03/19 13:12 Dose: 4 mg Vital Signs - 8 hr 03/03/19 12:18 03/03/19 13:00 03/03/19 14:30 Temperature 97.9 F Pulse Rate 82 79 72 Respiratory Rate 14 17 18 Blood Pressure 144/88 H Blood Pressure [Right Arm] 137/74 125/70 Pulse Oximetry 100 97 94 03/03/19 16:00 Temperature Pulse Rate 69 Respiratory Rate 15 Blood Pressure Blood Pressure [Right Arm] 124/90 Pulse Oximetry 96 <Gini Gaines DO - Last Filed: 03/06/19 19:01> Orders Ordered: Discontinued Medications Ketorolac Tromethamine (Toradol) 30 mg IV NOW ONE Stop: 03/03/19 12:51 Last Admin: 03/03/19 13:11 Dose: 30 mg Ondansetron HCl (Zofran) 4 mg IV NOW ONE Stop: 03/03/19 12:51 Last Admin: 03/03/19 13:12 Dose: 4 mg Vital Signs - 8 hr 03/03/19 12:18 03/03/19 13:00 03/03/19 14:30 Temperature 97.9 F Pulse Rate 82 79 72 Respiratory Rate 14 17 18 Blood Pressure 144/88 H Blood Pressure [Right Arm] 137/74 125/70 Pulse Oximetry 100 97 94 03/03/19 16:00 Temperature Pulse Rate 69 Respiratory Rate 15 Blood Pressure Blood Pressure [Right Arm] 124/90 Pulse Oximetry 96 MDM - SOB/Dyspnea <VINOD Sargent - Last Filed: 03/03/19 17:25> Lab Data Result diagrams: 03/03/19 12:35 03/03/19 12:35 Lab Results 03/03/19 03/03/19 03/03/19 Range/Units 12:35 12:35 12:35 WBC 9.0 (4.5-11.0) X10^3/uL RBC 4.89 (4.5-5.9) X10^6/uL Hgb 14.1 (13.5-17.5) g/dL Hct 42.8 (41-53) % MCV 87.5 (80-100) fL MCH 28.9 (26-34) PG MCHC 33.0 (30-36) % RDW 15.0 H (11.6-14.8) % Plt Count 194 (150-400) X10^3/uL Neut % (Auto) 74.6 (50-75) % Lymph % (Auto) 18.1 L (25-40) % [place] % (Auto) 5.2 (3-14) % Eos % (Auto) 0.6 L (2-4) % Baso % (Auto) 1.5 (0-2) % Neut # (Auto) 6700 (5490-6566) /uL Lymph # (Auto) 1600 (7253-4413) /uL [place] # (Auto) 500 (0-900) /uL Eos # (Auto) 100 (0-450) /uL Baso # (Auto) 100 (0-100) /uL Sodium 142 (137-145) mmol/L Potassium 4.1 (3.4-5.1) mmol/L Chloride 104 (98-107) mmol/L Carbon Dioxide 27 (22-32) mmol/L BUN 12 (9-20) mg/dL Creatinine 0.90 (0.66-1.25) mg/dL Estimated GFR > 60.0 (>60) mL/min BUN/Creatinine Ratio 13.3 (6-22) Glucose 111 H (70-100) mg/dL Lactate 1.4 (0.7-2.1) mmol/L Calcium 9.4 (8.4-10.2) mg/dL Total Bilirubin 0.4 (0.2-1.3) mg/dL AST 19 (17-59) IU/L ALT 32 (21-72) IU/L Alkaline Phosphatase 81 (38-126) U/L Total Creatine Kinase (55-170) U/L CK-MB (CK-2) CK-MB (CK-2) Rel Index Troponin I (0.01-0.034) ng/mL B-Natriuretic Peptide (<100) Total Protein 7.3 (6.3-8.2) g/dL Albumin 4.4 (3.5-5.0) g/dL Globulin 2.9 (1.7-4.1) g/dL Albumin/Globulin Ratio 1.5 (1.0-2.8) 03/03/19 03/03/19 03/03/19 Range/Units 12:35 12:35 15:35 WBC (4.5-11.0) X10^3/uL RBC (4.5-5.9) X10^6/uL Hgb (13.5-17.5) g/dL Hct (41-53) % MCV (80-100) fL MCH (26-34) PG MCHC (30-36) % RDW (11.6-14.8) % Plt Count (150-400) X10^3/uL Neut % (Auto) (50-75) % Lymph % (Auto) (25-40) % [place] % (Auto) (3-14) % Eos % (Auto) (2-4) % Baso % (Auto) (0-2) % Neut # (Auto) (0953-0010) /uL Lymph # (Auto) (3623-8946) /uL [place] # (Auto) (0-900) /uL Eos # (Auto) (0-450) /uL Baso # (Auto) (0-100) /uL Sodium (137-145) mmol/L Potassium (3.4-5.1) mmol/L Chloride (98-107) mmol/L Carbon Dioxide (22-32) mmol/L BUN (9-20) mg/dL Creatinine (0.66-1.25) mg/dL Estimated GFR (>60) mL/min BUN/Creatinine Ratio (6-22) Glucose (70-100) mg/dL Lactate (0.7-2.1) mmol/L Calcium (8.4-10.2) mg/dL Total Bilirubin (0.2-1.3) mg/dL AST (17-59) IU/L ALT (21-72) IU/L Alkaline Phosphatase (38-126) U/L Total Creatine Kinase 76 65 (55-170) U/L CK-MB (CK-2) TNP TNP CK-MB (CK-2) Rel Index TNP TNP Troponin I 0.017 0.017 (0.01-0.034) ng/mL B-Natriuretic Peptide < 100 (<100) Total Protein (6.3-8.2) g/dL Albumin (3.5-5.0) g/dL Globulin (1.7-4.1) g/dL Albumin/Globulin Ratio (1.0-2.8) Imaging Data Chest x-ray: Radiologist's impression: [place] [id number] [place] [id number] XRay Report Signed Patient: Edgar Leon [facility]#: [id number] : 1975Acct:[id number] Age/Sex: 43 / MDate of Service: 03/03/19 Loc: ED Accession Number: [id number] Procedure: XR chest 2V Ordering Provider: Gini Gaines D.O. PROCEDURE: XR CHEST 2V INDICATIONS: shortness of breath TECHNIQUE: 2 views of the chest were acquired. COMPARISON: [facility], CR, XR CHEST 1V, 01/11/2019, 12:36. [facility], CR, XR CHEST 2V, 11/15/2018, 10:35. FINDINGS: Surgical changes and devices: Lead-less cardiac pacer is stable. Lungs and pleura: Lungs are clear. No pleural effusions or pneumothorax. Mediastinum: Mediastinal contours are normal. Heart size is normal. Bones and chest wall: No suspicious bony abnormalities. Soft tissues appear unremarkable. IMPRESSION: No acute cardiopulmonary disease process. Dictated by: Leela Erazo MD, PhD on 03/03/2019 at 12:48 Approved by: Leela Erazo MD, PhD on 03/03/2019 at 12:50 ECG Data Attestation: I personally reviewed and interpreted this ECG as follows: Interpretation: Ventricular rate 83. No ectopy noted. sinus rhythm. QRS 77 ST depression noted in aVL and the 3 through V6. Consistent with prior EKG on 11/03/2018. [facility] Narrative Medical decision making narrative: The patient is a 43-year-old male who presents with a chief complaint of slight shortness of breath and lower extremity edema. he did have a short episode of chest pain prior, but did not take his nitroglycerin. he had a normal chest x-ray, 2 sets of negative troponin and normal BNP. He is hemodynamically stable and pain-free throughout his stay in the emergency department. He remained hemodynamically stable and nontoxic appearing. I discussed at length follow up with primary care provider for new or worsening symptoms. Encouraged him to follow up with his PCP in a few days. Discussed coming back to the emergency department for any acute concerns. Patient no questions or concerns upon discharge. <Gini Gaines DO - Last Filed: 03/06/19 19:01> Lab Data Lab Results 03/03/19 03/03/19 03/03/19 Range/Units 12:35 12:35 12:35 WBC 9.0 (4.5-11.0) X10^3/uL RBC 4.89 (4.5-5.9) X10^6/uL Hgb 14.1 (13.5-17.5) g/dL Hct 42.8 (41-53) % MCV 87.5 (80-100) fL MCH 28.9 (26-34) PG MCHC 33.0 (30-36) % RDW 15.0 H (11.6-14.8) % Plt Count 194 (150-400) X10^3/uL Neut % (Auto) 74.6 (50-75) % Lymph % (Auto) 18.1 L (25-40) % [place] % (Auto) 5.2 (3-14) % Eos % (Auto) 0.6 L (2-4) % Baso % (Auto) 1.5 (0-2) % Neut # (Auto) 6700 (5468-9121) /uL Lymph # (Auto) 1600 (9304-5975) /uL [place] # (Auto) 500 (0-900) /uL Eos # (Auto) 100 (0-450) /uL Baso # (Auto) 100 (0-100) /uL Sodium 142 (137-145) mmol/L Potassium 4.1 (3.4-5.1) mmol/L Chloride 104 (98-107) mmol/L Carbon Dioxide 27 (22-32) mmol/L BUN 12 (9-20) mg/dL Creatinine 0.90 (0.66-1.25) mg/dL Estimated GFR > 60.0 (>60) mL/min BUN/Creatinine Ratio 13.3 (6-22) Glucose 111 H (70-100) mg/dL Lactate 1.4 (0.7-2.1) mmol/L Calcium 9.4 (8.4-10.2) mg/dL Total Bilirubin 0.4 (0.2-1.3) mg/dL AST 19 (17-59) IU/L ALT 32 (21-72) IU/L Alkaline Phosphatase 81 (38-126) U/L Total Creatine Kinase (55-170) U/L CK-MB (CK-2) CK-MB (CK-2) Rel Index Troponin I (0.01-0.034) ng/mL B-Natriuretic Peptide (<100) Total Protein 7.3 (6.3-8.2) g/dL Albumin 4.4 (3.5-5.0) g/dL Globulin 2.9 (1.7-4.1) g/dL Albumin/Globulin Ratio 1.5 (1.0-2.8) 03/03/19 03/03/19 03/03/19 Range/Units 12:35 12:35 15:35 WBC (4.5-11.0) X10^3/uL RBC (4.5-5.9) X10^6/uL Hgb (13.5-17.5) g/dL Hct (41-53) % MCV (80-100) fL MCH (26-34) PG MCHC (30-36) % RDW (11.6-14.8) % Plt Count (150-400) X10^3/uL Neut % (Auto) (50-75) % Lymph % (Auto) (25-40) % [place] % (Auto) (3-14) % Eos % (Auto) (2-4) % Baso % (Auto) (0-2) % Neut # (Auto) (3619-0799) /uL Lymph # (Auto) (2265-9618) /uL [place] # (Auto) (0-900) /uL Eos # (Auto) (0-450) /uL Baso # (Auto) (0-100) /uL Sodium (137-145) mmol/L Potassium (3.4-5.1) mmol/L Chloride (98-107) mmol/L Carbon Dioxide (22-32) mmol/L BUN (9-20) mg/dL Creatinine (0.66-1.25) mg/dL Estimated GFR (>60) mL/min BUN/Creatinine Ratio (6-22) Glucose (70-100) mg/dL Lactate (0.7-2.1) mmol/L Calcium (8.4-10.2) mg/dL Total Bilirubin (0.2-1.3) mg/dL AST (17-59) IU/L ALT (21-72) IU/L Alkaline Phosphatase (38-126) U/L Total Creatine Kinase 76 65 (55-170) U/L CK-MB (CK-2) TNP TNP CK-MB (CK-2) Rel Index TNP TNP Troponin I 0.017 0.017 (0.01-0.034) ng/mL B-Natriuretic Peptide < 100 (<100) Total Protein (6.3-8.2) g/dL Albumin (3.5-5.0) g/dL Globulin (1.7-4.1) g/dL Albumin/Globulin Ratio (1.0-2.8) ECG Data Attestation: I personally reviewed and interpreted this ECG as follows: Prior ECG tracings: available for review Interpretation: Normal sinus rhythm rate 83 T-wave inversions noted in the 2 through V6 and lead 1 and aVL similar to previous EKG. LVH noted. OK interval 124 QTC 488 Discharge Plan Departure Patient Disposition: Home Clinical Impression: Chest pain with high risk for cardiac etiology, Breath shortness Discharge Date/Time: 03/03/19 16:25 Interventions: ED Discharge Assessment Last Done: 03/03/19 16:25 Activity Restrictions/Additional Instructions: Today we did lots of lab work, as well as a chest x-ray. This all came back no rmal. You have two negative troponins. Your heart failure lab was not elevated. You electrolytes were normal Please come back to the emergency department for any acute concerns. Please follow up with primary care provider as soon as possible. Prescriptions: No Action promethazine 25 MG tablet 25 mg PO Q6HP PRN (Reason: Nausea) Qty: 0 RF: 0 mesalamine 1.2 gram tablet,delayed release (DR/EC) 4 tab PO QAM RF: 0 alprazolam 1 mg tablet 2 mg PO BEDTIME RF: 0 isosorbide mononitrate 30 mg tablet extended release 24 hr 30 mg PO DAILY RF: 0 duloxetine 30 mg capsule,delayed release(DR/EC) 90 mg PO DAILY RF: 0 verapamil 180 mg tablet extended release 180 mg PO BEDTIME RF: 0 trazodone 150 mg tablet 150 - 400 mg PO BEDTIME PRN (Reason: Sleep) RF: 0 alprazolam 1 mg tablet 1 mg PO BID RF: 0 oxycodone-acetaminophen 10-325 mg tablet 1 tab PO DAILY PRN (Reason: Pain, Severe) RF: 0 nitroglycerin [Nitromist] 400 mcg/spray Aerosol,[place] 1 spray Translingual PRN PRN (Reason: Chest Pain) RF: 0 aripiprazole [Abilify] 15 mg Tablet 15 mg PO DAILY RF: 0 pantoprazole 40 mg Tablet,Delayed Release (Dr/Ec) 40 mg PO DAILY RF: 0 divalproex 250 mg Tablet Extended Release 24 Hr 250 mg PO BID RF: 0 ketorolac 10 mg tablet 10 mg PO Q6H PRN (Reason: pain) Qty: 20 RF: 0 prednisone 20 mg tablet 40 mg PO DAILY Qty: 10 RF: 0 Aimovig Autoinjector 70 mg/mL auto-injector 70 mg subcut QMONTH RF: 0 amoxicillin-pot clavulanate [Augmentin] 875-125 mg tablet 1 tab PO BID Qty: 20 RF: 0 metoprolol succinate [Toprol XL] 100 mg tablet extended release 24 hr 100 mg PO BID RF: 0 tizanidine 4 mg tablet 8 mg PO TID PRN (Reason: Muscle Spasm) RF: 0 prazosin 2 mg Capsule 4 mg PO BEDTIME RF: 0 Savella 50 mg Tablet 100 mg PO QPM RF: 0 fluticasone propionate 50 mcg/actuation spray,suspension 1 spray Intranasal QDAY RF: 0 Lyrica 300 mg capsule 300 mg PO BID RF: 0 Symbicort 160-4.5 mcg/actuation HFA aerosol inhaler 2 puff Inhalation BID RF: 0 Ocuvite [id number] uy-mwww-mw-mg Capsule 1 tab PO QDAY RF: 0 dicyclomine 20 mg tablet 20 mg PO BID PRN (Reason: Abdominal Pain) RF: 0 Krill Oil ([place] 3 and 6) 1,500-165-67.5 mg Capsule 1 cap PO DAILY RF: 0 potassium chloride 20 mEq tablet,ER particles/crystals 20 meq PO DAILY RF: 0 furosemide 20 mg tablet 40 mg PO DAILY RF: 0 Referrals: Stacy Collier MD [Primary Care Provider] - <Gini Gaines DO - Last Filed: 03/06/19 19:01> Cosign ED Attending Cosignature Attestation: I was immediately available in the department for consultation. Documentation has been reviewed. I agree with assessment and plan.
[2019-03-03 13:00] VITALS: BP 137/74; PULSE 79; RESP 17; O2SAT 97
[2019-03-03 13:00] LABS: Creatine Kinase 76 U/L (55-170)
[2019-03-03 13:02] LABS: Alanine Aminotransferase 32 IU/L (21-72); Albumin 4.4 g/dL (3.5-5.0); Albumin Globulin Ratio 1.5 (1.0-2.8); Alkaline Phosphatase 81 U/L (38-126); Aspartate Aminotransferase 19 IU/L (17-59); BUN Creatinine Ratio 13.3 (6-22); Bilirubin Total 0.4 mg/dL (0.2-1.3); Blood Urea Nitrogen 12 mg/dL (9-20); Calcium 9.4 mg/dL (8.4-10.2); Carbon Dioxide 27 mmol/L (22-32); Chloride 104 mmol/L (98-107); Estimated Glomerular Filt Rate > 60.0 mL/min (>60); Globulin 2.9 g/dL (1.7-4.1); Glucose 111 mg/dL (70-100); HEMOLYSIS < 15 (0-50); Lactate (Lactic Acid) 1.4 mmol/L (0.7-2.1); Potassium 4.1 mmol/L (3.4-5.1); Sodium 142 mmol/L (137-145); Total Protein 7.3 g/dL (6.3-8.2)
[2019-03-03] MEDS: KETOROLAC 60 MG/2 ML VIAL 30 MG IV (13:11)
[2019-03-03] MEDS: ONDANSETRON 4 MG/2 ML INJ IV (13:12)
[2019-03-03 13:13] LABS: Troponin I 0.017 ng/mL (0.01-0.034)
[2019-03-03 13:21] LABS: B Type Natriuretic Peptide < 100 (<100)
[2019-03-03 14:30] VITALS: BP 125/70; PULSE 72; RESP 18; O2SAT 94
[2019-03-03 15:53] LABS: Creatine Kinase 65 U/L (55-170)
[2019-03-03 16:00] VITALS: BP 124/90; PULSE 69; RESP 15; O2SAT 96
[2019-03-03 16:06] LABS: Troponin I 0.017 ng/mL (0.01-0.034)
== END 2019-03-03 16:25 | disposition home or self-care (01) ==
PROVIDERS: Emergency Medicine; Emergency Provider Nurse Practitioner Family; PCP Family Medicine
DX: R06.02 Shortness of breath (principal); R07.9 Chest pain, unspecified; M25.473 Effusion, unspecified ankle; I50.9 Heart failure, unspecified; Z79.899 Other long term (current) drug therapy
CPT/HCPCS: 36415; 36591; 71046; 80053; 82550; 83605; 83880; 84484; 85025; 93005; 93010; 96374; 96375; 99283; 99285; J1885; J2405

== ENCOUNTER 2019-03-10 11:44 | Emergency (ER) | payer OTHER, SELFPAY ==
[2019-03-10 11:50] VITALS: BP 148/82; PULSE 83; RESP 17; TEMP 36.6; O2SAT 100
--- NOTE | 2019-03-10 12:27 | DI.RAD.S_ITS ---
PROCEDURE: XR ANKLE LT MIN 3V INDICATIONS: ankle pain s/p fall TECHNIQUE: 3 views of the ankle were acquired. COMPARISON: None. FINDINGS: Bones: Small ossific/calcific densities are identified along the lateral border of the talus. Ankle mortise is well-maintained. No large displaced fractures or dislocations are evident. There is a prominent plantar calcaneal spur. Mild degenerative changes involving the talonavicular joint are present. Soft tissues: No tibiotalar joint effusion. The overlying soft tissues are within normal limits. IMPRESSION: Tiny lateral talar avulsion fracture may be chronic. Clinical correlation is recommended. Dictated by: Mahad Ibarra M.D. on 03/10/2019 at 11:50 Approved by: Mahad Ibarra M.D. on 03/10/2019 at 11:53
--- NOTE | 2019-03-10 12:31 | ED_ITS ---
HPI - Eye Problem <Emmanuelle Perkins, ACADEMIC COUNSELOR-BC - Last Filed: 03/10/19 13:56> General Chief complaint: Eye Problems Stated complaint: left eye hurts Time Seen by Provider: 03/10/19 12:17 Source: patient Mode of arrival: ambulatory Limitations: no limitations History of Present Illness HPI Narrative: The patient is a 43-year-old male current smoker who is well known to this department with a history of cataplexy and chronic pain syndrome as well as CHF who presents with a chief complaint of falls on Thursday and Thursday. He states he injured his left ankle in the second fall, but is not sure which way the ankle turned. He also believes that he strained his trapezius muscles send outs the fall. He denies hitting his head neck pain or back pain. He states the falls are normal for him given his cataplexy. He is also concerned that he has a corneal abrasion on his left eye. He complains of drainage and pain. He states the drainage is matting in his eyelashes. He denies any blurry vision or double vision. He states it feels similar to his previous corneal abrasions. He has been able to ambulate since the falls, but states he is doing so with difficulty. He has wrapped his left ankle with some 1 in [place] as he did not have an William bandage. Related Data Home Medications Medication Instructions Recorded Confirmed promethazine 25 mg PO Q6HP PRN #0 03/05/18 01/11/19 budesonide-formoterol [Symbicort] 2 puff INHALATION BID 03/23/18 01/11/19 fluticasone propionate 1 spray INTRANASAL QDAY 03/23/18 01/11/19 metoprolol succinate [Toprol XL] 100 mg PO BID 03/23/18 01/11/19 milnacipran [Savella] 100 mg PO QPM 03/23/18 01/11/19 prazosin 4 mg PO BEDTIME 03/23/18 01/11/19 pregabalin [Lyrica] 300 mg PO BID 03/23/18 01/11/19 tizanidine 8 mg PO TID PRN 03/23/18 01/11/19 vit C-vit [id number] 1 tab PO QDAY 03/23/18 01/11/19 [Ocuvite] dicyclomine 20 mg PO BID PRN 04/29/18 01/11/19 mesalamine 4 tab PO QAM 04/30/18 01/11/19 furosemide 40 mg PO DAILY 07/19/18 01/11/19 [id number] 1 cap PO DAILY 07/19/18 01/11/19 [Krill Oil ([place] 3 and 6)] potassium chloride 20 meq PO DAILY 07/19/18 01/11/19 alprazolam 2 mg PO BEDTIME 11/02/18 01/11/19 duloxetine 90 mg PO DAILY 11/02/18 01/11/19 isosorbide mononitrate 30 mg PO DAILY 11/02/18 01/11/19 trazodone 150 - 400 mg PO BEDTIME PRN 11/02/18 01/11/19 verapamil 180 mg PO BEDTIME 11/02/18 01/11/19 alprazolam 1 mg PO BID 11/03/18 01/11/19 aripiprazole [Abilify] 15 mg PO DAILY 11/24/18 01/11/19 divalproex 250 mg PO BID 11/24/18 01/11/19 nitroglycerin [Nitromist] 1 spray TRANSLINGUAL PRN PRN 11/24/18 01/11/19 oxycodone-acetaminophen 1 tab PO DAILY PRN 11/24/18 01/11/19 pantoprazole 40 mg PO DAILY 11/24/18 01/11/19 erenumab-aooe [Aimovig 70 mg SUBCUT QMONTH 01/11/19 01/11/19 Autoinjector] Previous Rx's Medication Instructions Recorded ketorolac 10 mg PO Q6H PRN #20 tab 12/30/18 prednisone 40 mg PO DAILY #10 tab 01/08/19 amoxicillin-pot clavulanate 1 tab PO BID #20 tab 01/31/19 [Augmentin] erythromycin 1 applictn EYE-LEFT Q4H 14 Days 03/10/19 #3.5 gram Allergies Allergy/AdvReac Type Severity Reaction Status Date / Time codeine [CODEINE] Allergy Severe ANAPHYLAXIS Verified 03/03/19 12:21 amitriptyline [AMITRIPTYLINE] Allergy Unknown DIZZINESS Verified 03/03/19 12:21 AND UNSTEADYINESS tramadol [From ULTRAM] Allergy Unknown Verified 03/03/19 12:21 bee venom protein (honey bee) Allergy Verified 03/03/19 12:21 squash Allergy Verified 03/03/19 12:21 lisinopril [LISINOPRIL] AdvReac Unknown Verified 03/03/19 12:21 NSAIDS (Non-Steroidal AdvReac Unknown Verified 03/03/19 12:21 Anti-Inflamma [NSAIDS (NON-STEROIDAL ANTI-INFLAMMA] telmisartan [From MICARDIS] AdvReac Unknown Verified 03/03/19 12:21 Review of Systems <VINOD Sargent - Last Filed: 03/10/19 13:56> Review of Systems GENERAL: Denies chills, fatigue, malaise, fever, sweats. HEENT: See HPI RESPIRATORY: Denies dyspnea, cough, wheezing, hemoptysis, sputum. CARDIOVASCULAR: Denies chest pain, palpitations, orthopnea, edema, GASTROINTESTINAL: Denies nausea, vomiting, abdominal pain, diarrhea, constipation, melena. : Denies dysuria, frequency, incontinence, hematuria, urinary retention. MUSCULOSKELETAL: See HPI SKIN: See HPI NEUROLOGIC: Denies weakness, headache, numbness, change in speech, confusion, seizures, incoordination. PSYCHIATRIC: No concerning psychosocial issues. 12 point review of systems is negative except for those stated above PFSH <VINOD Sargent - Last Filed: 03/10/19 13:56> Medical History Bipolar 1 disorder (Acute) Borderline personality disorder (Acute) Hypertrophic cardiomyopathy (Acute) Acute Crohn's disease (Chronic) Asthma (Chronic) Bulging disc (Chronic) CHF (congestive heart failure) (Chronic) Cataplexy (Chronic) Depression (Chronic) Diabetes (Chronic) Fibromyalgia (Chronic) GERD (gastroesophageal reflux disease) (Chronic) HTN (hypertension) (Chronic) Migraines (Chronic) Non-STEMI (non-ST elevated myocardial infarction) (Chronic) ROSLYN (obstructive sleep apnea) (Chronic) Osteoarthritis (Chronic) Surgical History Status post cardiac catheterization (Acute) Social History Smoking Status: Current some day smoker Social History Smoking Status: Current some day smoker Exam <VINOD Sargent - Last Filed: 03/10/19 13:56> Narrative Exam Narrative: GENERAL: Morbidly obese gentleman lying on stretcher HEAD: Atraumatic. Normocephalic. No temporal or scalp tenderness. EYES: Pupils equal round and reactive. Extraocular motions intact. slight scleral injection on the left. No nystagmus. Fluorescein exam of left eye illustrate corneal abrasion lateral aspect of cornea, approximately 3 mm wide. Slight chemosis noted. ENT: Nose without bleeding, purulent drainage or septal hematoma. Throat without erythema, tonsillar hypertrophy or exudate. Uvula midline. Airway patent. NECK: Trachea midline. No JVD or lymphadenopathy. Supple, nontender, no meningeal signs. CARDIOVASCULAR: Regular rate and rhythm GASTROINTESTINAL: Abdomen soft, non-tender, nondistended EXTREMITIES: Pain to palpation left ankle. Pain with extension and flexion of left ankle. Positive pedal pulses left foot. BACK: Nontender without deformity or crepitance. No flank tenderness. NEURO: AOx3. SKIN: No rash or erythema. Initial Vital Signs Initial Vital Signs: Vital Signs Temperature 97.9 F 03/10/19 11:50 Pulse Rate 83 03/10/19 11:50 Respiratory Rate 17 03/10/19 11:50 Blood Pressure 148/82 H 03/10/19 11:50 Pulse Oximetry 100 03/10/19 11:50 <Amee Foreman MD - Last Filed: 03/15/19 14:03> Initial Vital Signs Initial Vital Signs: Vital Signs Temperature 97.9 F 03/10/19 11:50 Pulse Rate 83 03/10/19 11:50 Respiratory Rate 17 03/10/19 11:50 Blood Pressure 148/82 H 03/10/19 11:50 Pulse Oximetry 100 03/10/19 11:50 Procedures <VINOD Sargent - Last Filed: 03/10/19 13:56> Orthopedic Splinting/Casting Injury #1: Side: left Lower Extremity Injury Location: ankle Lower Extremity Immobilizer: boot orthosis (walking boot ) and Jeter dressing Post splinting neuro exam: intact Post splinting vascular exam: intact Placed by: Nursing Course <VINOD Sargent - Last Filed: 03/10/19 13:56> Orders Ordered: Discontinued Medications Hydromorphone HCl (Dilaudid) 0.5 mg IM NOW ONE Stop: 03/10/19 13:25 Last Admin: 03/10/19 13:30 Dose: 0.5 mg Vital Signs - 8 hr 03/10/19 11:50 03/10/19 13:05 03/10/19 13:51 Temperature 97.9 F Pulse Rate 83 88 88 Respiratory Rate 17 16 16 Blood Pressure 148/82 H 130/62 Blood Pressure [Left Arm] 129/58 L Pulse Oximetry 100 97 99 <Amee Foreman MD - Last Filed: 03/15/19 14:03> Orders Ordered: Discontinued Medications Hydromorphone HCl (Dilaudid) 0.5 mg IM NOW ONE Stop: 03/10/19 13:25 Last Admin: 03/10/19 13:30 Dose: 0.5 mg Vital Signs - 8 hr 03/10/19 11:50 03/10/19 13:05 03/10/19 13:51 Temperature 97.9 F Pulse Rate 83 88 88 Respiratory Rate 17 16 16 Blood Pressure 148/82 H 130/62 Blood Pressure [Left Arm] 129/58 L Pulse Oximetry 100 97 99 MDM - Eye Problem <VINOD Sargent - Last Filed: 03/10/19 13:56> Imaging Data ankle xray : Radiologist's impression: [address] [address] XRay Report Signed Patient: Edgar Leon [facility]#: [id number] : 1975Acct:[id number] Age/Sex: 43 / MDate of Service: 03/10/19 Loc: ED Accession Number: [id number] Procedure: XR ankle LT min 3V Ordering Provider: Emmanuelle Perkins PROCEDURE: XR ANKLE LT MIN 3V INDICATIONS: ankle pain s/p fall TECHNIQUE: 3 views of the ankle were acquired. COMPARISON: None. FINDINGS: Bones: Small ossific/calcific densities are identified along the lateral border of the talus. Ankle mortise is well-maintained. No large displaced fractures or dislocations are evident. There is a prominent plantar calcaneal spur. Mild degenerative changes involving the talonavicular joint are present. Soft tissues: No tibiotalar joint effusion. The overlying soft tissues are wi thin normal limits. IMPRESSION: Tiny lateral talar avulsion fracture may be chronic. Clinical correlation is recommended. Dictated by: Mahad Ibarra M.D. on 03/10/2019 at 11:50 Approved by: Mahad Ibarra M.D. on 03/10/2019 at 11:53 [facility] Narrative Medical decision making narrative: The patient is a 43-year-old male who presents several days after ground level fall. He complains of ankle pain was found to have a lateral talus avulsion fracture. For this he was given IM Dilaudid and placed in a walking boot. The patient declined any pain medication prescriptions. I discussed crutches, and encouraged partial weight-bearing or nonweightbearing but the patient declined crutches at this point. He states he will increase his risk of fall, and I do not want to do that. He is placed on erythromycin for his corneal abrasion. I discussed at length following up with primary care provider as scheduled for early next month, which she already has arranged. I discussed rest ice compression elevation as well as his home Toradol for pain. I discussed return precautions and re-evaluation indications including visual deficit worsening or no improvement. The patient declined contact information for orthopedics at this point time and states he would rather follow up with primary care provider first. Discharge Plan Departure Patient Disposition: Home Clinical Impression: Avulsion fracture of talus Qualifiers: Encounter type: initial encounter Fracture type: closed Fracture alignment: nondisplaced Laterality: left Qualified Code(s): S92.155A - Nondisplaced avulsion fracture (chip fracture) of left talus, initial encounter for closed fracture Abrasion, corneal Qualifiers: Encounter type: initial encounter Laterality: left Qualified Code(s): S05.02XA - Injury of conjunctiva and corneal abrasion without foreign body, left eye, initial encounter Discharge Date/Time: 03/10/19 13:52 Interventions: ED Discharge Assessment Last Done: 03/10/19 13:51 Instructions: DI for Corneal Abrasion, How To Perform RICE (Rest, Ice, Compress, Elevate), How to Use a Walking Boot, DI for Talus Fracture Activity Restrictions/Additional Instructions: Given corneal abrasion. Please use the erythromycin ointment I gave you a prescription for. He also have a chip fracture of your ankle. Please use rest ice compression elevation as well as [id number] pain medications as needed and able. Please apply ice. Please follow up with primary care provider as we discussed. Please monitor your foot for circulation in the walking boot. Pl ease go home and rest. Come back to the emergency department for any acute concerns. Prescriptions: New erythromycin 5 mg/gram (0.5 %) ointment 1 applictn EYE-LEFT Q4H 14 Days Qty: 3.5 RF: 0 No Action promethazine 25 MG tablet 25 mg PO Q6HP PRN (Reason: Nausea) Qty: 0 RF: 0 mesalamine 1.2 gram tablet,delayed release (DR/EC) 4 tab PO QAM RF: 0 alprazolam 1 mg tablet 2 mg PO BEDTIME RF: 0 isosorbide mononitrate 30 mg tablet extended release 24 hr 30 mg PO DAILY RF: 0 duloxetine 30 mg capsule,delayed release(DR/EC) 90 mg PO DAILY RF: 0 verapamil 180 mg tablet extended release 180 mg PO BEDTIME RF: 0 trazodone 150 mg tablet 150 - 400 mg PO BEDTIME PRN (Reason: Sleep) RF: 0 alprazolam 1 mg tablet 1 mg PO BID RF: 0 oxycodone-acetaminophen 10-325 mg tablet 1 tab PO DAILY PRN (Reason: Pain, Severe) RF: 0 nitroglycerin [Nitromist] 400 mcg/spray Aerosol,[place] 1 spray Translingual PRN PRN (Reason: Chest Pain) RF: 0 aripiprazole [Abilify] 15 mg Tablet 15 mg PO DAILY RF: 0 pantoprazole 40 mg Tablet,Delayed Release (Dr/Ec) 40 mg PO DAILY RF: 0 divalproex 250 mg Tablet Extended Release 24 Hr 250 mg PO BID RF: 0 ketorolac 10 mg tablet 10 mg PO Q6H PRN (Reason: pain) Qty: 20 RF: 0 prednisone 20 mg tablet 40 mg PO DAILY Qty: 10 RF: 0 Aimovig Autoinjector 70 mg/mL auto-injector 70 mg subcut QMONTH RF: 0 amoxicillin-pot clavulanate [Augmentin] 875-125 mg tablet 1 tab PO BID Qty: 20 RF: 0 metoprolol succinate [Toprol XL] 100 mg tablet extended release 24 hr 100 mg PO BID RF: 0 tizanidine 4 mg tablet 8 mg PO TID PRN (Reason: Muscle Spasm) RF: 0 prazosin 2 mg Capsule 4 mg PO BEDTIME RF: 0 Savella 50 mg Tablet 100 mg PO QPM RF: 0 fluticasone propionate 50 mcg/actuation spray,suspension 1 spray Intranasal QDAY RF: 0 Lyrica 300 mg capsule 300 mg PO BID RF: 0 Symbicort 160-4.5 mcg/actuation HFA aerosol inhaler 2 puff Inhalation BID RF: 0 Ocuvite 235-05-6-150 fd-vbml-hu-mg Capsule 1 tab PO QDAY RF: 0 dicyclomine 20 mg tablet 20 mg PO BID PRN (Reason: Abdominal Pain) RF: 0 Krill Oil ([place] 3 and 6) 1,500-165-67.5 mg Capsule 1 cap PO DAILY RF: 0 potassium chloride 20 mEq tablet,ER particles/crystals 20 meq PO DAILY RF: 0 furosemide 20 mg tablet 40 mg PO DAILY RF: 0 Referrals: Stacy Collier MD [Primary Care Provider] -
--- NOTE | 2019-03-10 12:54 | PC.NURSE ---
PA at bedside assessing eye using slit lamp/fluoresciene and propairacaine drops.
[2019-03-10 13:05] VITALS: BP 129/58; PULSE 88; RESP 16; O2SAT 97
[2019-03-10] MEDS: HYDROMORPHONE 1 MG INJ 0.5 MG IM (13:30)
[2019-03-10 13:51] VITALS: BP 130/62; PULSE 88; RESP 16; O2SAT 99
== END 2019-03-10 13:52 | disposition home or self-care (01) ==
PROVIDERS: Emergency Provider Nurse Practitioner Family; PCP Family Medicine
DX: S92.155A Nondisplaced avulsion fracture (chip fracture) of left talus, initial encounter for closed fracture (principal); S05.02XA Injury of conjunctiva and corneal abrasion without foreign body, left eye, initial encounter; W19.XXXA Unspecified fall, initial encounter
CPT/HCPCS: 29580; 73610; 96372; 99283; J1170